=== PATIENT | male | born 1940 | race Caucasian/White ===

== ENCOUNTER 2018-08-28 14:06 | Emergency (ER) | payer MEDICARE ==
[2018-08-28 14:23] VITALS: TEMP 98.9
--- NOTE | 2018-08-28 14:55 | ED ---
General Adult HPI - General Chief complaint: Fall Stated complaint: Hip Pain-Fall Time Seen by Provider: 08/28/18 14:11 Source: patient, family, RN notes reviewed, old records reviewed Mode of arrival: wheelchair Limitations: no limitations - History of Present Illness Initial comments: 77-year-old male presents for evaluation of right hip pain and neck pain. Patient fell on Sunday which was 4 days prior to arrival. He did have some right hip pain at that time however he has been ambulatory. Pain worsened over the past 24 hours. He did not fall second time. Complaining of some low back pain, right hip pain and neck pain. There was no head injury. No loss of consciousness. Denies chest pain or abdominal pain. States he tripped over his feet. There is no preceding symptoms prior to the fall. - Related Data Home Medications Medication Instructions Recorded Confirmed Aspirin EC [Ecotrin Low Dose] 81 mg PO HS 08/28/18 08/28/18 Atenolol 100 mg PO HS 08/28/18 08/28/18 Enalapril [Vasotec] 5 mg PO DAILY 08/28/18 08/28/18 Omeprazole 20 mg PO DAILY 08/28/18 08/28/18 Silodosin [Rapaflo] 8 mg PO DAILY 08/28/18 08/28/18 Simvastatin [Zocor] 10 mg PO HS 08/28/18 08/28/18 Tamsulosin HCl [Flomax] 0.4 mg PO DAILY 08/28/18 08/28/18 Ubidecarenone [Co Q-10] 100 mg PO DAILY 08/28/18 08/28/18 Vit C/E/Zn/Coppr/Lutein/Zeaxan 1 cap PO BID 08/28/18 08/28/18 [Preservision Areds 2 Softgel] Previous Rx's Medication Instructions Recorded methylPREDNISolone Dose Pack 4 mg PO DIRECTED #21 package 08/28/18 [Medrol Dose Pack] Allergies Allergy/AdvReac Type Severity Reaction Status Date / Time No Known Allergies Allergy Verified 08/28/18 14:41 Review of Systems ROS Statement: Those systems with pertinent positive or pertinent negative responses have been documented in the HPI. ROS Other: All systems not noted in ROS Statement are negative. Past Medical History Past Medical History: Chest Pain / Angina, GERD/Reflux, Hyperlipidemia, Hypertension History of Any Multi-Drug Resistant Organisms: None Reported Past Surgical History: Coronary Bypass/CABG, Tonsillectomy Past Psychological History: No Psychological Hx Reported Smoking Status: Current every day smoker Past Alcohol Use History: Daily, Heavy Past Drug Use History: None Reported General Exam Limitations: no limitations General appearance: alert, in no apparent distress Head exam: Present: atraumatic, normocephalic Eye exam: Present: normal appearance, PERRL ENT exam: Present: normal exam Neck exam: Present: normal inspection. Absent: tenderness, meningismus Respiratory exam: Present: normal lung sounds bilaterally. Absent: respiratory distress, wheezes Cardiovascular Exam: Present: regular rate, normal rhythm GI/Abdominal exam: Present: soft. Absent: distended, tenderness Extremities exam: Present: normal inspection, full ROM (Total range of motion of both hips and both knees. Distal pulses intact), normal capillary refill. Absent: tenderness, pedal edema, joint swelling Back exam: Present: full ROM, tenderness (Tenderness over the right lumbar paraspinal muscles. No midline tenderness.) Neurological exam: Present: alert, oriented X3, CN II-XII intact. Absent: motor sensory deficit Psychiatric exam: Present: normal affect, normal mood Skin exam: Present: warm, dry, intact. Absent: cyanosis, diaphoretic Course Vital Signs 08/28/18 14:17 Temperature 98.9 F Pulse Rate 77 Respiratory 18 Rate Blood Pressure 121/64 O2 Sat by Pulse 99 Oximetry Medical Decision Making - Medical Decision Making 77-year-old male with right hip pain status post fall 4 days prior. Patient did also complain of some low back pain and neck pain. CT obtained in the emergency department of the pelvis is significant for osteoarthritis, no acute fracture dislocation. Lumbar CT shows severe degenerative changes and disc disease with stenosis. CT cervical spine stable from previous, no fracture or subluxation, there is degenerative changes. Patient is reevaluated, he is ambulatory, he will stay with his daughter for the next several days and will follow-up with primary care for reevaluation. He will receive a Medrol Dosepak and will take Tylenol at home for pain. Disposition Clinical Impression: Fall, Osteoarthritis, Degenerative disc disease Disposition: HOME SELF-CARE Condition: Good Instructions: Fall Prevention for Older Adults (ED), Osteoarthritis (ED), Degenerative Disc Disease (ED) Prescriptions: methylPREDNISolone Dose Pack [Medrol Dose Pack] 4 mg PO DIRECTED #21 package Is patient prescribed a controlled substance at d/c from ED?: No Referrals: Hossein Langston MD [Primary Care Provider] - 1-2 days Time of Disposition: 16:16
--- NOTE | 2018-08-28 15:31 | CT ---
EXAMINATION TYPE: CT cervical spine wo con DATE OF EXAM: 08/28/2018 COMPARISON: Prior CT cervical spine 04/29/2010 HISTORY: Neck pain CT DLP: 331.5 mGycm Automated exposure control for dose reduction was used. TECHNIQUE: CT scan of the cervical spine is obtained without contrast, axial images are obtained, sagittal and c oronal reformatted images are also reviewed. FINDINGS: Lung apices are unremarkable. Carotid calcifications present at the carotid bifurcations. Cervical spine is visualized in its entirety from C1 through upper thoracic levels, demonstrates sati sfactory alignment without evidence of acute fracture or dislocation. Prevertebral soft tissue appea rs within normal limits. The C1-C2 articulation is within normal limits on the coronal images. Cervi shae vertebral bodies show preserved height and alignment. There is multilevel spondylosis is noted on prior exam, loss of disc height at the intervertebral levels compatible with disc desiccation and de generative disc disease there is multilevel facet arthropathy. Uncovertebral joint hypertrophy and fa cet arthropathy contribute to cause multilevel foraminal encroachment. No significant spinal stenosis evident. Lipoma noted incidentally within the paraspinal musculature on the left shows a similar lawanda earance. IMPRESSION: There is no acute fracture or dislocation evident in the cervical spine. Degenerative disc disease, f oraminal encroachment, findings are similar to prior exam. MRI would be of increased sensitivity.
--- NOTE | 2018-08-28 15:33 | CT ---
EXAMINATION TYPE: CT pelvis wo con DATE OF EXAM: 08/28/2018 COMPARISON: None HISTORY: Low back and right hip pain CT DLP: 1653.0 mGycm Automated exposure control for dose reduction was used. Helical acquisition through the pelvis FINDINGS: Degenerative disc changes are noted the lower lumbar spine. Hypertrophic change is present at the sac roiliac joints with ankylosis present. There is a spinal curvature present. The prostate is enlarged and shows associated calcification. Arthropathy noted in the bilateral hips, there is subchondral geode formation, sclerosis, near complete loss of joint space in the right hip with hypertrophic change. Arthropathy somewhat more mild on the left subchondral cyst formation, mild marginal spurring. Probable Hutch diverticulum present on the left at the posterior aspect of the urinary bladder. Exten sive diverticular change present within the visualized sigmoid colon. No evident pelvic adenopathy. IMPRESSION: SUSPECT UNDERLYING OSTEOARTHRITIS. DEGENERATIVE DISC DISEASE AND SPINAL CURVATURE. PROSTATE IS ENLARG ED.
--- NOTE | 2018-08-28 15:46 | CT ---
EXAMINATION TYPE: CT lumbar spine wo con DATE OF EXAM: 08/28/2018 COMPARISON: None, correlation CT abdomen pelvis same date HISTORY: Low back and right hip pain CT DLP: 1128 mGycm Automated exposure control for dose reduction was used. An unenhanced CT of the lumbar spine was performed. Bone and soft tissue window settings are submitt ed as well as coronal and sagittal reconstructions. FINDINGS: Lumbar vertebral bodies show preserved height and alignment, bone mineralization. There is multilevel spondylosis. Spinal curvature is noted. There is loss of disc height at the intervertebral levels, v acuum phenomenon present at L3-4, L2-3. Hypertrophic anterior flowing osteophytes of the lower thorac ic spine could be indicative of underlying diffuse idiopathic skeletal hyperostosis. Ankylosis of the sacroiliac joints again noted. There is a hiatal hernia with fixed intrathoracic stomach. Lung bases show interstitial lung disease. Possible coronary artery calcifications noted. L1-L2: Normal disc space height. No disc herniation protrusion or central stenosis. No facet joint arthropathy. No evidence for foraminal encroachment. L2-L3: Posterior extension endplate disc complex results in mild anterior mass effect on the thecal s ac. Circumferential extension of endplate disc complex encroaches on the neural foramina. L3-L4: Posterior extension endplate disc complex results in moderate central canal stenosis. There is facet arthropathy. Circumferential extension of endplate disc complex results in bilateral foraminal encroachment. L4-L5: Posterior extension endplate disc complex causes anterior mass effect on the thecal sac, there is facet arthropathy with hypertrophy ligamentum flavum resulting in moderate central canal stenosis . Circumferential extension endplate disc complex causes bilateral foraminal encroachment. L5-S1: Small posterior disc bulge, posterior extension endplate disc complex causes minimal anterior mass effect on the thecal sac. No significant central stenosis. Lateral extension of endplate disc co mplex results in foraminal encroachment bilaterally. Facet arthropathy changes present. IMPRESSION: Degenerative disc disease, facet arthropathy, spinal stenosis as described. Scoliosis. Additional findings above.
[2018-08-28 16:20] VITALS: BP 106/53; PULSE 78; RESP 16
== END 2018-08-28 16:20 | disposition home or self-care (01) ==
LOC: EC 14:06
DX: M51.36 Other intervertebral disc degeneration, lumbar region (principal); M16.11 Unilateral primary osteoarthritis, right hip; M48.061 Spinal stenosis, lumbar region without neurogenic claudication; M47.816 Spondylosis without myelopathy or radiculopathy, lumbar region; M47.812 Spondylosis without myelopathy or radiculopathy, cervical region; E78.5 Hyperlipidemia, unspecified; I10 Essential (primary) hypertension; K21.9 Gastro-esophageal reflux disease without esophagitis; F17.200 Nicotine dependence, unspecified, uncomplicated; Z79.82 Long term (current) use of aspirin; Z79.899 Other long term (current) drug therapy; Z86.79 Personal history of other diseases of the circulatory system; W01.0XXA Fall on same level from slipping, tripping and stumbling without subsequent striking against object, initial encounter; Y92.009 Unspecified place in unspecified non-institutional (private) residence as the place of occurrence of the external cause
CPT/HCPCS: 72125; 72131; 72192; 99284

== ENCOUNTER 2019-08-28 19:23 | Inpatient (IN) | payer MEDICARE ==
[2019-08-28 19:58] LABS: Basophils % (A) 0 %; Eosinophils % (A) 0 %; HCT 37.2 % (39.0-53.0); HGB 12.4 gm/dL (13.0-17.5); Lymphocytes # (A) 0.4 k/uL (1.0-4.8); Lymphocytes % (A) 3 %; MCH 34.6 pg (25.0-35.0); MCHC 33.3 g/dL (31.0-37.0); MCV 103.8 fL (80.0-100.0); Macrocytosis Slight; Mean Platelet Volume 7.3; Monocytes # (A) 0.7 k/uL (0-1.0); Monocytes % (A) 6 %; Neutrophils # (A) 11.4 k/uL (1.3-7.7); Neutrophils % (A) 91 %; Platelet Count 212 k/uL (150-450); RBC 3.58 m/uL (4.30-5.90); RDW 12.1 % (11.5-15.5); WBC 12.6 k/uL (3.8-10.6)
[2019-08-28 20:01] LABS: Glucose,Whole Blood 143 mg/dL (75-99)
[2019-08-28 20:05] LABS: INR 0.9 (<1.2); Partial Thromboplastin Time 28.6 sec (22.0-30.0); Prothrombin Time 9.8 sec (9.0-12.0)
[2019-08-28 20:09] LABS: ALT 19 U/L (21-72); AST 76 U/L (17-59); Acetaminophen <10.0 ug/mL; African American GFR (CKD) 56 (>60 ml/min/1.73 sqM); Albumin 3.7 g/dL (3.5-5.0); Alcohol <10 mg/dL; Alkaline Phosphatase 67 U/L (38-126); Anion Gap 16 mmol/L; Blood Urea Nitrogen 32 mg/dL (9-20); Calcium 9.8 mg/dL (8.4-10.2); Carbon Dioxide 17 mmol/L (22-30); Chloride 98 mmol/L (98-107); Glucose 147 mg/dL (74-99); Potassium 4.5 mmol/L (3.5-5.1); Salicylate <1.0 mg/dL; Sodium 131 mmol/L (137-145); Total Bilirubin 0.7 mg/dL (0.2-1.3); Total Protein 6.8 g/dL (6.3-8.2)
[2019-08-28 20:20] LABS: Creatine Kinase 1339 U/L (55-170)
--- NOTE | 2019-08-28 20:22 | CT ---
EXAMINATION TYPE: CT facial bones wo con DATE OF EXAM: 08/28/2019 COMPARISON: 04/29/2010 HISTORY: PT found face down after unwitnessed fall. LT eye swollen CT DLP: 1250.2 mGycm Automated exposure control for dose reduction was used. TECHNIQUE: CT scan of the sinuses is performed without contrast, axial images are obtained, coronal r eformatted images are also reviewed. FINDINGS: The mandibular ring is intact. Temporomandibular joints appear normal. Zygomatic arches lawanda ear intact. Nasal bone appears intact. The maxilla is intact. There is fairly normal aeration of the paranasal sinuses. The orbital margins are intact. There is no evidence of blowout fracture. There is no evidence of orbital mass. Temporal bones appear intact. IMPRESSION: Negative CT scan of the facial bones. No fracture.
--- NOTE | 2019-08-28 20:26 | CT ---
EXAMINATION TYPE: CT brain cspine wo con DATE OF EXAM: 08/28/2019 COMPARISON: 08/28/[address] scan[address] 05/26/2010 CT scan of the brain. HISTORY: PT found face down after unwitnessed fall. LT eye swollen CT DLP: 1250.2 mGycm Automated exposure control for dose reduction was used. TECHNIQUE: CT scan of the head and cervical spine are performed without contrast. FINDINGS: There is cerebral cortical atrophy. There is no mass effect nor midline shift. There is n o sign of intracranial hemorrhage. The calvarium is intact. Cervical vertebra have normal alignment. There is degenerative disc space narrowing at C5-6 C6-7 and C7-T1. Posterior elements are intact. The skull base is intact. There is no evidence of a fracture. IMPRESSION: Cerebral atrophy. No acute intracranial abnormality. Mild spondylotic changes in the cervical spine. No fracture. No significant change compared to old exams.
[2019-08-28] MEDS ORDERED: SODIUM CHLORIDE 0.9% 500 ML 500 ML IV STA (20:40)
[2019-08-28] MEDS ORDERED: SODIUM CHLORIDE 0.9% 1,000 ML IV STA (20:40)
[2019-08-28 21:03] LABS: Appearance,Urine Turbid (Clear); Bacteria,Urine Rare /hpf; Bilirubin,Urine Negative (Negative); Blood,Urine Negative (Negative); Calcium Oxalate Crystals,Urine Occasional /hpf; Color,Urine Yellow; Glucose,Urine (UA) Negative (Negative); Hyaline Casts,Urine 14 /lpf (0-2); Ketones,Urine 1+ (Negative); Leukocyte Esterase,Urine Small (Negative); Mucus,Urine Rare /hpf; Nitrite,Urine Negative (Negative); PH, Urine 5.5 (5.0-8.0); Protein,Urine Trace (Negative); RBC,Urine 2 /hpf (0-5); Specific Gravity,Urine 1.018 (1.001-1.035); Squamous Epithelial Cell,Urine <1 /hpf (0-4); WBC,Urine 9 /hpf (0-5)
[2019-08-28 21:09] LABS: Amphetamine Screen,Urine Not Detected (NotDetected); Benzodiazepines Screen,Urine Detected (NotDetected); Cocaine Screen,Urine Not Detected (NotDetected); Methadone Screen, Urine Not Detected (NotDetected); Opiate Screen,Urine Not Detected (NotDetected); Phencyclidine Screen,Urine Not Detected (NotDetected); Tricyclic Antidepressant,Urine Not Detected (NotDetected); Urn Cannabinoid Scrn Not Detected (NotDetected)
[2019-08-28 21:10] LABS: Barbiturate Screen,Urine Not Detected (NotDetected); Oxycodone Screen, Urine Not Detected (NotDetected)
--- NOTE | 2019-08-28 21:10 | XR ---
EXAMINATION TYPE: XR chest 2V DATE OF EXAM: 08/28/2019 COMPARISON: 04/29/2010 HISTORY: Fall. Altered mental status. TECHNIQUE: Frontal and lateral views of the chest are obtained. FINDINGS: There is no heart failure nor confluent pneumonic infiltrate. Costophrenic angles are elaine r. There are sternal wires. There is no sign of a pneumothorax. Trachea is midline. Bony thorax appears intact. There is probably large hiatal hernia. IMPRESSION: No active cardiopulmonary disease. No change.
--- NOTE | 2019-08-28 21:14 | XR ---
EXAMINATION TYPE: XR elbow complete bilateral DATE OF EXAM: 08/28/2019 COMPARISON: NONE HISTORY: Pain TECHNIQUE: 3 views each elbow FINDINGS: I see no fracture nor dislocation. Joint spaces are fairly normal. There are no erosions. T here is no sign of elbow joint effusion. IMPRESSION: No acute bony abnormality of the left and right elbow.
--- NOTE | 2019-08-28 21:15 | XR ---
EXAMINATION TYPE: XR forearm bilateral DATE OF EXAM: 08/28/2019 COMPARISON: NONE HISTORY: Pain after falling TECHNIQUE: 2 views each forearm FINDINGS: I see no fracture nor dislocation. Radius and ulna appear intact. Wrist joint and elbow sunil nt appear intact. IMPRESSION: Negative bilateral forearm exam. No fracture seen.
--- NOTE | 2019-08-28 21:16 | XR ---
EXAMINATION TYPE: XR pelvis AP view DATE OF EXAM: 08/28/2019 COMPARISON: NONE HISTORY: Pain TECHNIQUE: Single view FINDINGS: The pelvic ring appears intact. Left hip joint and proximal femur appear intact. There is severe narrowing of right hip joint space with sclerosis and cystic changes on both sides of the hip joint. Sacroiliac joints are intact. IMPRESSION: Advanced osteoarthritis in the right hip joint. No fracture seen.
--- NOTE | 2019-08-28 21:25 | XR ---
EXAMINATION TYPE: XR knee complete bilateral DATE OF EXAM: 08/28/2019 COMPARISON: NONE HISTORY: Bilateral knee pain TECHNIQUE: 3 views each knee FINDINGS: There is no evidence of fracture nor dislocation. Joint spaces are fairly normal. There is no sign of knee joint effusion. There is atherosclerotic vascular calcification. IMPRESSION: No acute abnormality of the left and right knee.
--- NOTE | 2019-08-28 21:43 | ED ---
Fall HPI - General Chief Complaint: Fall Stated Complaint: Fall Altered Mental Status Time Seen by Provider: 08/28/19 19:30 Source: patient, EMS Mode of arrival: EMS - History of Present Illness Initial Comments: The patient is an 78-year-old male who presents to the emergency room after he was found down outside by a neighbor. He was found face down in a patch of dirt. It is unknown how long the patient had been there. Neighbor was unable to provide much history. His daughters to present to bedside. They state that they last talked to him 24 hours prior. He does have a history of significant alcohol abuse and some component of dementia. They state that episodes like this have happened previously in the past and they have concern that the patient can no longer live alone. It is unknown if the patient fell or had a syncopal episode. He does have skin tears to his bilateral upper extremities and lividity noted to his bilateral knees consistent with a prolonged downtime. The patient is denying any pain. He was placed in a c-collar by EMS. Denies any headaches or visual changes. No neck pain or stiffness. The patient does have very confused speech and is tremulous. Daughters state that he has gone through DTs before in the past required hospitalization. The patient denies any nausea or vomiting. No abdominal pain. He is currently on Bactrim for urinary tract infection. The remainder of the HPI is limited because the patient's current condition - Related Data Home Medications Medication Instructions Recorded Confirmed Aspirin EC [Ecotrin Low Dose] 81 mg PO HS 08/28/18 08/28/19 Atenolol 100 mg PO HS 08/28/18 08/28/19 Omeprazole 20 mg PO DAILY 08/28/18 08/28/19 Simvastatin [Zocor] 10 mg PO HS 08/28/18 08/28/19 Tamsulosin HCl [Flomax] 0.4 mg PO DAILY 08/28/18 08/28/19 Ubidecarenone [Co Q-10] 100 mg PO DAILY 08/28/18 08/28/19 Vit C/E/Zn/Coppr/Lutein/Zeaxan 1 cap PO BID 08/28/18 08/28/19 [Preservision Areds 2 Softgel] Enalapril [Vasotec] 5 mg PO DAILY 08/28/19 08/28/19 Ibuprofen/Diphenhydramine HCl 1 cap PO HS 08/28/19 08/28/19 [Advil Pm Liqui-Gels] Sulfamethox-Tmp 800-160Mg [Bactrim 1 tab PO BID 08/28/19 08/28/19 DS 800-160 mg] Thiamine HCl [Vitamin B-1] 100 mg PO DAILY 08/28/19 08/28/19 Allergies Allergy/AdvReac Type Severity Reaction Status Date / Time No Known Allergies Allergy Verified 08/28/19 20:23 Review of Systems ROS Statement: Those systems with pertinent positive or pertinent negative responses have been documented in the HPI. ROS Other: All systems not noted in ROS Statement are negative. Past Medical History Past Medical History: Chest Pain / Angina, GERD/Reflux, Hyperlipidemia, Hypertension History of Any Multi-Drug Resistant Organisms: None Reported Past Surgical History: Coronary Bypass/CABG, Tonsillectomy Past Psychological History: No Psychological Hx Reported Smoking Status: Current every day smoker Past Alcohol Use History: Daily, Heavy Past Drug Use History: None Reported - Past Family History Father Additional Family Medical History / Comment(s): ETOH; gastric cancer General Exam Limitations: altered mental status General appearance: alert, other (disheveled, face is covered in dirt. Patient is a+o x 1. tremulous) Head exam: Present: normocephalic, other (mild swelling, right side of face) Eye exam: Present: normal appearance, PERRL, EOMI ENT exam: Present: normal exam, mucous membranes dry Neck exam: Present: normal inspection. Absent: tenderness, meningismus Respiratory exam: Present: rales (at the bases) Cardiovascular Exam: Present: regular rate, normal rhythm GI/Abdominal exam: Present: soft. Absent: distended, tenderness Extremities exam: Present: full ROM, other (anterior b/l knee eccchymosis and swelling). Absent: tenderness Back exam: Present: normal inspection Neurological exam: Present: alert, altered Psychiatric exam: Present: agitated, anxious Skin exam: Present: pallor, other (cold. lividity bilateral knees. b/l forearm and elbow skin tears) Course Vital Signs 08/28/19 08/28/19 08/28/19 19:27 19:30 20:00 Temperature 97.4 F L Pulse Rate 87 Respiratory 18 Rate Blood Pressure 116/91 116/91 116/91 O2 Sat by Pulse 95 96 Oximetry 08/28/19 08/28/19 08/28/19 20:30 21:00 21:30 Temperature Pulse Rate 84 84 Respiratory 16 18 Rate Blood Pressure 107/68 90/72 90/72 O2 Sat by Pulse 98 Oximetry 08/28/19 08/28/19 08/28/19 22:00 22:30 23:00 Temperature Pulse Rate 84 86 86 Respiratory 16 21 20 Rate Blood Pressure 94/55 102/89 81/55 O2 Sat by Pulse 99 93 L Oximetry 08/28/19 08/29/19 08/29/19 23:30 00:00 00:30 Temperature Pulse Rate 90 87 89 Respiratory 26 H 20 14 Rate Blood Pressure 80/64 88/46 89/55 O2 Sat by Pulse 80 L Oximetry 08/29/19 08/29/19 08/29/19 01:00 01:30 01:36 Temperature Pulse Rate 87 87 Respiratory 23 20 Rate Blood Pressure 88/47 71/60 104/88 O2 Sat by Pulse 86 L 97 Oximetry 08/29/19 08/29/19 08/29/19 01:45 02:00 02:15 Temperature Pulse Rate 89 89 86 Respiratory 22 18 21 Rate Blood Pressure 104/88 90/66 89/51 O2 Sat by Pulse 87 L 100 97 Oximetry 08/29/19 08/29/19 08/29/19 02:30 02:45 03:00 Temperature Pulse Rate 86 86 85 Respiratory 22 19 22 Rate Blood Pressure 80/51 85/55 83/57 O2 Sat by Pulse 99 99 99 Oximetry 08/29/19 08/29/19 08/29/19 03:15 03:21 03:30 Temperature Pulse Rate 84 85 82 Respiratory 20 18 12 Rate Blood Pressure 92/59 104/64 88/70 O2 Sat by Pulse 98 100 99 Oximetry 08/29/19 08/29/19 08/29/19 03:45 03:52 04:00 Temperature Pulse Rate 85 86 84 Respiratory 22 18 22 Rate Blood Pressure 97/44 102/70 108/54 O2 Sat by Pulse 98 81 L Oximetry 08/29/19 08/29/19 04:15 04:30 Temperature Pulse Rate 84 86 Respiratory 22 20 Rate Blood Pressure 98/69 96/80 O2 Sat by Pulse 76 L Oximetry Medical Decision Making - Medical Decision Making Upon arrival the patient was placed into room 1. A thorough history and physical exam was performed. 2 peripheral IVs had been established. Laboratory studies were conducted. The patient was immediately sent over for CT of his brain and cervical spine. Lab studies demonstrate a white blood cell count of 12.6. Hemoglobin is 12.4. Sodium 131. Creatinine 1.3. Glucose is 147. AST 76, ALT 19. CK 1339. Troponin 0.57. Urinalysis shows 1+ ketones, small leukocyte esterase, 9 red blood cells, occasional calcium oxalate crystals, rare bacteria, 14 having casts. Salicylates, acetaminophen and alcohol is negative. I did provide the patient with a gram of Rocephin because of these UA findings. CT of the face demonstrates no acute fractures CT of the head and cervical spine demonstrates cerebral atrophy, no acute intracranial abnormality. Mild spondylitic changes of cervical spine. No fracture. No significant change. Chest x-ray demonstrates no active cardiopulmonary disease elbow x-ray demonstrates no acute bony abnormality of the left and right elbows. Forearm x- ray demonstrates no acute fractures. 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 Bilateral knee x-ray demonstrates no acute abnormalities. CT of the patient's abdomen and pelvis demonstrates some infiltrate and atelectasis at the posterior lung base. Large hiatal hernia. The patient does demonstrate signs of active DVTs. Because this is placed on CIWA protocol. Urinalysis shows benzodiazepines because of this. Patient does have labile blood pressures while within the emergency room. He was given initially 2-500 mL fluid boluses. He was then started on a 100 cc per hour. T he blood pressure cuff was moved to the leg. We did monitor his blood pressure closely and was stable. I did recommend ICU admission because of the labile blood pressures for which Dr. Alvarez did agree. I called and discuss case with Dr. Menjivar. He has recommend a second fluid bolus which was provided to the patient. I did order peripheral levo which may be given through a peripheral IV if needed a later time as I am the patient will become fluid overloaded. The patient remained in critically stable condition and was awaiting a bed in the ICU - Lab Data Result diagrams: 08/31/19 08:28 08/31/19 04:36 Lab Results 08/28/19 08/28/19 08/28/19 Range/Units 19:40 19:40 19:40 WBC 12.6 H (3.8-10.6) k/uL RBC 3.58 L (4.30-5.90) m/uL Hgb 12.4 L (13.0-17.5) gm/dL Hct 37.2 L (39.0-53.0) % MCV 103.8 H (80.0-100.0) fL MCH 34.6 (25.0-35.0) pg MCHC 33.3 (31.0-37.0) g/dL RDW 12.1 (11.5-15.5) % Plt Count 212 (150-450) k/uL Neutrophils % 91 % Lymphocytes % 3 % Monocytes % 6 % Eosinophils % 0 % Basophils % 0 % Neutrophils # 11.4 H (1.3-7.7) k/uL Lymphocytes # 0.4 L (1.0-4.8) k/uL Monocytes # 0.7 (0-1.0) k/uL Eosinophils # 0.0 (0-0.7) k/uL Basophils # 0.0 (0-0.2) k/uL Macrocytosis Slight PT 9.8 (9.0-12.0) sec INR 0.9 (<1.2) APTT 28.6 (22.0-30.0) sec Sodium 131 L (137-145) mmol/L Potassium 4.5 (3.5-5.1) mmol/L Chloride 98 (98-107) mmol/L Carbon Dioxide 17 L (22-30) mmol/L Anion Gap 16 mmol/L BUN 32 H (9-20) mg/dL Creatinine 1.36 H (0.66-1.25) mg/dL Est GFR (CKD-EPI)AfAm 56 (>60 ml/min/1.73 sqM) Est GFR (CKD-EPI)NonAf 49 (>60 ml/min/1.73 sqM) Glucose 147 H (74-99) mg/dL POC Glucose (mg/dL) (75-99) mg/dL POC Glu [employer] ID Calcium 9.8 (8.4-10.2) mg/dL Total Bilirubin 0.7 (0.2-1.3) mg/dL AST 76 H (17-59) U/L ALT 19 L (21-72) U/L Alkaline Phosphatase 67 (38-126) U/L Ammonia (<30) umol/L Creatine Kinase 1339 H* (55-170) U/L Troponin I (0.000-0.034) ng/mL Total Protein 6.8 (6.3-8.2) g/dL Albumin 3.7 (3.5-5.0) g/dL Urine Color Urine Appearance (Clear) Urine pH (5.0-8.0) Ur Specific [place] (1.001-1.035) Urine Protein (Negative) Urine Glucose (UA) (Negative) Urine Ketones (Negative) Urine Blood (Negative) Urine Nitrite (Negative) Urine Bilirubin (Negative) Urine Urobilinogen (<2.0) mg/dL Ur Leukocyte Esterase (Negative) Urine RBC (0-5) /hpf Urine WBC (0-5) /hpf Ur Squamous Epith Cells (0-4) /hpf Calcium Oxalate Crystal (None) /hpf Urine Bacteria (None) /hpf Hyaline Casts (0-2) /lpf Urine Mucus (None) /hpf Salicylates <1.0 mg/dL Urine Opiates Screen (NotDetected) Ur Oxycodone Screen (NotDetected) Urine Methadone Screen (NotDetected) Ur Propoxyphene Screen (NotDetected) Acetaminophen <10.0 ug/mL Ur Barbiturates Screen (NotDetected) U Tricyclic Antidepress (NotDetected) Ur Phencyclidine Scrn (NotDetected) Ur Amphetamines Screen (NotDetected) U Methamphetamines Scrn (NotDetected) U Benzodiazepines Scrn (NotDetected) Urine Cocaine Screen (NotDetected) U Marijuana (THC) Screen (NotDetected) Serum Alcohol <10 mg/dL 08/28/19 08/28/19 08/28/19 Range/Units 19:40 19:40 19:59 WBC (3.8-10.6) k/uL RBC (4.30-5.90) m/uL Hgb (13.0-17.5) gm/dL Hct (39.0-53.0) % MCV (80.0-100.0) fL MCH (25.0-35.0) pg MCHC (31.0-37.0) g/dL RDW (11.5-15.5) % Plt Count (150-450) k/uL Neutrophils % % Lymphocytes % % Monocytes % % Eosinophils % % Basophils % % Neutrophils # (1.3-7.7) k/uL Lymphocytes # (1.0-4.8) k/uL Monocytes # (0-1.0) k/uL Eosinophils # (0-0.7) k/uL Basophils # (0-0.2) k/uL Macrocytosis PT (9.0-12.0) sec INR (<1.2) APTT (22.0-30.0) sec Sodium (137-145) mmol/L Potassium (3.5-5.1) mmol/L Chloride (98-107) mmol/L Carbon Dioxide (22-30) mmol/L Anion Gap mmol/L BUN (9-20) mg/dL Creatinine (0.66-1.25) mg/dL Est GFR (CKD-EPI)AfAm (>60 ml/min/1.73 sqM) Est GFR (CKD-EPI)NonAf (>60 ml/min/1.73 sqM) Glucose (74-99) mg/dL POC Glucose (mg/dL) 143 H (75-99) mg/dL POC Glu [employer] Officer ID Woo, Marlyn Calcium (8.4-10.2) mg/dL Total Bilirubin (0.2-1.3) mg/dL AST (17-59) U/L ALT (21-72) U/L Alkaline Phosphatase (38-126) U/L Ammonia <9 (<30) umol/L Creatine Kinase (55-170) U/L Troponin I 0.570 H* (0.000-0.034) ng/mL Total Protein (6.3-8.2) g/dL Albumin (3.5-5.0) g/dL Urine Color Urine Appearance (Clear) Urine pH (5.0-8.0) Ur Specific [place] (1.001-1.035) Urine Protein (Negative) Urine Glucose (UA) (Negative) Urine Ketones (Negative) Urine Blood (Negative) Urine Nitrite (Negative) Urine Bilirubin (Negative) Urine Urobilinogen (<2.0) mg/dL Ur Leukocyte Esterase (Negative) Urine RBC (0-5) /hpf Urine WBC (0-5) /hpf Ur Squamous Epith Cells (0-4) /hpf Calcium Oxalate Crystal (None) /hpf Urine Bacteria (None) /hpf Hyaline Casts (0-2) /lpf Urine Mucus (None) /hpf Salicylates mg/dL Urine Opiates Screen (NotDetected) Ur Oxycodone Screen (NotDetected) Urine Methadone Screen (NotDetected) Ur Propoxyphene Screen (NotDetected) Acetaminophen ug/mL Ur Barbiturates Screen (NotDetected) U Tricyclic Antidepress (NotDetected) Ur Phencyclidine Scrn (NotDetected) Ur Amphetamines Screen (NotDetected) U Methamphetamines Scrn (NotDetected) U Benzodiazepines Scrn (NotDetected) Urine Cocaine Screen (NotDetected) U Marijuana (THC) Screen (NotDetected) Serum Alcohol mg/dL 08/28/19 Range/Units 20:39 WBC (3.8-10.6) k/uL RBC (4.30-5.90) m/uL Hgb (13.0-17.5) gm/dL Hct (39.0-53.0) % MCV (80.0-100.0) fL MCH (25.0-35.0) pg MCHC (31.0-37.0) g/dL RDW (11.5-15.5) % Plt Count (150-450) k/uL Neutrophils % % Lymphocytes % % Monocytes % % Eosinophils % % Basophils % % Neutrophils # (1.3-7.7) k/uL Lymphocytes # (1.0-4.8) k/uL Monocytes # (0-1.0) k/uL Eosinophils # (0-0.7) k/uL Basophils # (0-0.2) k/uL Macrocytosis PT (9.0-12.0) sec INR (<1.2) APTT (22.0-30.0) sec Sodium (137-145) mmol/L Potassium (3.5-5.1) mmol/L Chloride (98-107) mmol/L Carbon Dioxide (22-30) mmol/L Anion Gap mmol/L BUN (9-20) mg/dL Creatinine (0.66-1.25) mg/dL Est GFR (CKD-EPI)AfAm (>60 ml/min/1.73 sqM) Est GFR (CKD-EPI)NonAf (>60 ml/min/1.73 sqM) Glucose (74-99) mg/dL POC Glucose (mg/dL) (75-99) mg/dL POC Glu [employer] ID Calcium (8.4-10.2) mg/dL Total Bilirubin (0.2-1.3) mg/dL AST (17-59) U/L ALT (21-72) U/L Alkaline Phosphatase (38-126) U/L Ammonia (<30) umol/L Creatine Kinase (55-170) U/L Troponin I (0.000-0.034) ng/mL Total Protein (6.3-8.2) g/dL Albumin (3.5-5.0) g/dL Urine Color Yellow Urine Appearance Turbid (Clear) Urine pH 5.5 (5.0-8.0) Ur Specific [place] 1.018 (1.001-1.035) Urine Protein Trace H (Negative) Urine Glucose (UA) Negative (Negative) Urine Ketones 1+ H (Negative) Urine Blood Negative (Negative) Urine Nitrite Negative (Negative) Urine Bilirubin Negative (Negative) Urine Urobilinogen 4.0 (<2.0) mg/dL Ur Leukocyte Esterase Small H (Negative) Urine RBC 2 (0-5) /hpf Urine WBC 9 H (0-5) /hpf Ur Squamous Epith Cells <1 (0-4) /hpf Calcium Oxalate Crystal Occasional H (None) /hpf Urine Bacteria Rare H (None) /hpf Hyaline Casts 14 H (0-2) /lpf Urine Mucus Rare H (None) /hpf Salicylates mg/dL Urine Opiates Screen Not Detected (NotDetected) Ur Oxycodone Screen Not Detected (NotDetected) Urine Methadone Screen Not Detected (NotDetected) Ur Propoxyphene Screen Not Detected (NotDetected) Acetaminophen ug/mL Ur Barbiturates Screen Not Detected (NotDetected) U Tricyclic Antidepress Not Detected (NotDetected) Ur Phencyclidine Scrn Not Detected (NotDetected) Ur Amphetamines Screen Not Detected (NotDetected) U Methamphetamines Scrn Not Detected (NotDetected) U Benzodiazepines Scrn Detected H (NotDetected) Urine Cocaine Screen Not Detected (NotDetected) U Marijuana (THC) Screen Not Detected (NotDetected) Serum Alcohol mg/dL - EKG Data EKG Comments: EKG demonstrates a sinus rhythm with a first-degree AV block. Rate of 88. ID interval 262. QRS 82. QTC 479. There are no acute ST segment elevations or depressions concerning for ischemic changes Second EKG performed at 00:46 demonstrates a sinus rhythm with a ventricular rate of 88. ID interval 260. QRS 90. QTC 479. No acute ST segment elevations. There is some lateral depressions in V4 through V6. Disposition Clinical Impression: Fall, Blunt head trauma, Alcohol withdrawal, Delirium tremens, Acute encep halopathy Disposition: ADMITTED IP TO THIS HOSP Condition: Serious Is patient prescribed a controlled substance at d/c from ED?: No Decision to Admit Reason: Admit from EC Decision Date: 08/29/19 Decision Time: 02:07
[2019-08-28] MEDS: LORazepam 2 MG/ML INJ IV PRN (21:53)
[2019-08-29] MEDS ORDERED: SODIUM CHLORIDE 0.9% 1,000 ML IV STA (00:38)
[2019-08-29] MEDS ORDERED: SODIUM CHLORIDE 0.9% 500 ML 500 ML IV STA (00:38)
[2019-08-29] MEDS ORDERED: NOREPINEPHRINE 4 MG in SODIUM CHLORIDE 0.9% 250 ML IV ONE (01:27)
--- NOTE | 2019-08-29 02:31 | CT ---
EXAMINATION TYPE: CT abdomen pelvis wo con DATE OF EXAM: 08/29/2019 COMPARISON: None HISTORY: hypotension CT DLP: 934.6 mGycm Automated exposure control for dose reduction was used. TECHNIQUE: Helical acquisition of images was performed from the lung bases through the pelvis. FINDINGS: There is some atelectasis at the lung bases. There is no pleural effusion. Heart is enlarged. There i s large hiatal hernia. Liver shows no focal defect. There are multiple small gallstones. Spleen is intact. There is no evide nce of pancreatic mass. There is no adrenal mass. Kidneys show normal size and contour. There is no hydronephrosis. Ureters a re not dilated. There is no retroperitoneal adenopathy. Appendix appears normal. Bladder distends smo othly. There is prostatic calcification. There is no inguinal hernia. There is no free fluid in the p david. There are sigmoid diverticula without evidence of diverticulitis. There is no mesenteric edema. There is no ascites or free air. There is no sign of a bowel obstructio n. There is spondylotic changes throughout the lumbar spine. There is no compression fracture.. IMPRESSION: THERE IS SOME INFILTRATE AND ATELECTASIS AT THE POSTERIOR LUNG BASES. LARGE HIATAL HERNIA. NO ACUTE A BNORMALITY WITHIN THE ABDOMEN PELVIS.
[2019-08-29] MEDS ORDERED: NALOXONE 0.4 MG/ML 1 ML VIAL IV PRN ×2 (02:54→03:01)
[2019-08-29] MEDS ORDERED: SODIUM CHLORIDE 0.9% 1,000 ML IV ONE (03:02)
[2019-08-29 04:31] LABS: Glucose,Whole Blood 95 mg/dL (75-99)
[2019-08-29 05:02] LABS: Glucose,Whole Blood 93 mg/dL (75-99)
[2019-08-29] MEDS: LORazepam 2 MG/ML INJ IV PRN ×3 (05:50→18:59)
[2019-08-29] MEDS: SODIUM CHLORIDE 0.9% 1,000 ML IV SCH ×2 (07:19→08:07)
--- NOTE | 2019-08-29 08:20 | XR ---
EXAMINATION TYPE: XR chest 1V portable DATE OF EXAM: 08/29/2019 COMPARISON: 08/28/2019 HISTORY: Shortness of breath TECHNIQUE: Single frontal view of the chest is obtained. FINDINGS: Post CABG changes are seen. Cardiomediastinal silhouette is enlarged. Interstitial promine nce is chronic throughout. No focal consolidation. Very minimal left basilar atelectasis. Diffuse oss eous demineralization. IMPRESSION: Minimal left basilar atelectasis, otherwise no acute process. Stable cardiomegaly.
[2019-08-29 08:33] LABS: HCT 30.2 % (39.0-53.0); HGB 10.2 gm/dL (13.0-17.5); MCH 35.7 pg (25.0-35.0); MCHC 33.7 g/dL (31.0-37.0); MCV 106.1 fL (80.0-100.0); Macrocytosis Slight; Mean Platelet Volume 7.2; Platelet Count 202 k/uL (150-450); RBC 2.85 m/uL (4.30-5.90); RDW 12.2 % (11.5-15.5); WBC 10.6 k/uL (3.8-10.6)
[2019-08-29 08:46] LABS: Calcium 8.8 mg/dL (8.4-10.2); Potassium 4.7 mmol/L (3.5-5.1)
--- NOTE | 2019-08-29 09:53 | CONS ---
CONSULTATION PULMONARY/CRITICAL CARE CONSULTATION: DATE OF CONSULTATION: August 29, 2019 This is an 78-year-old male who presented to the emergency department via EMS on August 29. He apparently was found down at home by a neighbor. He was face down in a patch of dirt. It is not clear to how long he was down. It may have been up to 24 hours. Anyway, the patient was seen and has a history of alcohol abuse and some component of dementia. He was thought to be going through active delirium tremens when he was being evaluated in the emergency room. The patient did have some skin tears and some bruises to his extremities, suggesting that he may have fallen. The patient was placed on a C-collar by EMS. He apparently denied any headache or visual changes in the emergency department. There was no neck stiffness. He apparently did have very confusing speech and he was tremulous and was thought to be having delirium tremens. There were no other complaints including any abdominal complaints, chest pain or difficulty breathing. The patient was brought into the ICU because of potential for delirium tremens and there may have been a component of rhabdomyolysis and mental status changes. He apparently has a history of CAD, bypass grafting, hypertension, diverticular disease, and significant tobacco and alcohol abuse. Currently, he is on O2 at 2 L by nasal cannula, a saline IV at 100 mL an hour and norepinephrine at 2.5 mcg/minute. I did tell the nurse to give the patient a couple liters of fluid to see if we could not wean off the norepinephrine. HOME MEDICATIONS: His home medications apparently include low-dose aspirin, atenolol, omeprazole, Zocor, Flomax, coenzyme Q, eye vitamins, Vasotec, Advil PM, Bactrim, and thiamine. ALLERGIES: Allergies are denied. MEDICAL HISTORY: Medical history as mentioned include angina, GERD, hyperlipidemia, hypertension, CAD, bypass grafting, and diverticular disease. SURGICAL HISTORY: Previous surgical history includes bypass grafting and tonsillectomy. SOCIAL HISTORY: Social history is positive for daily alcohol and tobacco abuse. No illicit drug use. FAMILY HISTORY: Family history was apparently unremarkable according to family members at the bedside. REVIEW OF SYSTEMS: Review of systems could not be accurately obtained. The patient's mental status precluded that. PHYSICAL EXAMINATION: VITAL SIGNS: Current vital signs are reviewed. Temperature is 98.9, heart rate 78, respiratory rate 16, blood pressure 93/58, mean 69, saturations on 2 L are 98%. GENERAL: Appears in no acute distress. HEENT: Examination is grossly unremarkable. Nasal O2 noted. NECK: Supple. No neck vein distention. No adenopathy or thyromegaly. CARDIOVASCULAR: Examination reveals regular rhythm and rate. Heart rate in mid 70s. S1, S2 normal. LUNGS: Reveal a few scattered rhonchi. No wheezes or crackles. ABDOMEN: Soft. EXTREMITIES: Are intact. No cyanosis, clubbing, or edema. SKIN: Without rash. NEUROLOGIC: Examination is difficult to assess given his mental status. LAB DATA: Lab data is reviewed. White count 12.6, hemoglobin 12.4, hematocrit 37.2, platelet count 212,000. PT, INR and PTT all normal. Sodium 131, potassium 4.5, chloride 98, CO2 is 17. Anion gap is 16. BUN and creatinine were 32 and 1.36. CK was 1339. Repeat is pending. Troponin was 0.570 and 0.939. Urine had trace protein, 1+ ketones, small leukocyte esterase, 9 WBCs and rare bacteria. Drug screen was positive for benzodiazepines. Alcohol was less than 10. Tylenol less than 10 and salicylate less than 1. He had a chest x-ray which showed no active disease. I believe the rest of his x-rays including face CT, head CT, C-spine CT, elbow x-ray, forearm x-ray, pelvic x-ray and knee x-ray were all negative. Apparently his abdominal pelvic CT was also negative according to the ER physician. MEDICATIONS: Medications are reviewed. He is currently on Ativan per CIWA protocol, Narcan, saline IV and norepinephrine. ASSESSMENT: 1. History of chronic alcohol abuse, rule out alcoholic delirium tremens and alcohol withdrawal syndrome. 2. Rule out rhabdomyolysis. 3. Mental status changes, likely from history of alcohol abuse and underlying dementia. 4. Hypotension, may relate to dehydration and/or sepsis. 5. Coronary artery disease, status post bypass grafting. 6. History of hypertension. 7. Diverticular disease. 8. History of chronic alcohol and tobacco abuse. 9. Angina pectoris. 10.Gastroesophageal reflux disease. 11.History of hyperlipidemia. PLAN: The patient is relatively stable. We are going to give the patient some additional fluids to see if we cannot wean off the norepinephrine. His respiratory status seems stable. Chest x-ray was normal. We will continue to watch him closely for evidence of alcohol withdrawal syndrome and also rhabdomyolysis. Repeat CK today. Troponins were noted. Additional recommendations and suggestions from the family are forthcoming. Prognosis is guarded. MMODL / IJN: [id number] /
--- NOTE | 2019-08-29 13:44 | P.HPIM ---
History of Present Illness This is a pleasant 80 years old male with past medical history of alcohol abuse, smoking cigarettes, hyperlipidemia, hypertension, esophageal stricture, GERD. Patient cannot provide information so it was taken from the medical records and staff He was found face down in a patch of dirt. It is unknown how long the patient had been there. His daughters talked to him 24 hours prior. He does have a history of significant alcohol abuse and some component of dementia. They state that episodes like this have happened previously in the past due to concern that the patient can no longer live alone. Daughters state that he has gone through DTs before in the past required hospitalization. Blood pressure was down when he came to the emergency room and it went As low as 80/56, patient was started on levopohed, however it was stopped was taken to the ICU. His breathing at 16. He is afebrile and blood pressure currently is 8 4/64. CBC and serum electrolytes were unremarkable except for mild hyponatremia at 133 and elevated BUN at 29, creatine kinase elevated at 1009 and troponin is elevated at 0.9. Urinalysis is not suspicious of infection. Chest x-ray showed no acute process. EKG showed normal sinus rhythm at [address] of the abdomen and pelvis: No acute abnormality. Several x-ray of the knee, pelvis, bilateral forearms were negative for any fracture. CT of the head no acute events negative exam In the emergency room patient was given 1 L of normal saline was started on 75 L/h, Ativan as needed and started on ceftriaxone and the benefits. The fit was stopped, as well as the fluids. Review of Systems not applicable Past Medical History Past Medical History: Chest Pain / Angina, GERD/Reflux, Hyperlipidemia, Hypertension, Myocardial Infarction ([place]), Prostate Disorder Additional Past Medical History / Comment(s): Esophageal strictures, macular degeneration, UTI (08/19/19 Last Myocardial Infarction Date:: 1992 History of Any Multi-Drug Resistant Organisms: None Reported Past Surgical History: Coronary Bypass/CABG, Tonsillectomy Past Psychological History: Depression Smoking Status: Current every day smoker Past Alcohol Use History: Daily, Heavy Additional Past Alcohol Use History / Comment(s): 12 ounces/day Past Drug Use History: None Reported - Past Family History Father Additional Family Medical History / Comment(s): ETOH; gastric cancer Medications and Allergies Home Medications Medication Instructions Recorded Confirmed Type Aspirin EC [Ecotrin Low Dose] 81 mg PO HS 08/28/18 08/28/19 History Atenolol 100 mg PO HS 08/28/18 08/28/19 History Omeprazole 20 mg PO DAILY 08/28/18 08/28/19 History Simvastatin [Zocor] 10 mg PO HS 08/28/18 08/28/19 History Tamsulosin HCl [Flomax] 0.4 mg PO DAILY 08/28/18 08/28/19 History Ubidecarenone [Co Q-10] 100 mg PO DAILY 08/28/18 08/28/19 History Vit C/E/Zn/Coppr/Lutein/Zeaxan 1 cap PO BID 08/28/18 08/28/19 History [Preservision Areds 2 Softgel] Enalapril [Vasotec] 5 mg PO DAILY 08/28/19 08/28/19 History Ibuprofen/Diphenhydramine HCl 1 cap PO HS 08/28/19 08/28/19 History [Advil Pm Liqui-Gels] Sulfamethox-Tmp 800-160Mg [Bactrim 1 tab PO BID 08/28/19 08/28/19 History DS 800-160 mg] Thiamine HCl [Vitamin B-1] 100 mg PO DAILY 08/28/19 08/28/19 History Allergies Allergy/AdvReac Type Severity Reaction Status Date / Time No Known Allergies Allergy Verified 08/28/19 20:23 Physical Exam Vitals: Vital Signs Temp Pulse Pulse Resp BP Pulse Ox 08/29/19 09:00 82 15 91/55 95 08/29/19 08:45 77 16 94/56 95 08/29/19 08:30 80 23 102/71 94 L 08/29/19 08:15 84 19 101/72 95 08/29/19 08:04 97 08/29/19 08:00 96.7 F L 79 18 91/59 94 L 08/29/19 07:45 81 21 80/56 98 08/29/19 07:30 78 16 93/58 98 08/29/19 07:15 81 21 93/51 97 08/29/19 07:00 80 17 92/49 97 08/29/19 06:45 83 17 89/51 96 08/29/19 06:30 83 17 108/69 94 L 08/29/19 06:15 84 22 97/63 93 L 08/29/19 06:00 88 85 10 L 104/93 93 L 08/29/19 05:45 86 20 108/67 93 L 08/29/19 05:30 90 23 119/73 95 08/29/19 05:15 98.9 F 87 18 110/67 93 L 08/29/19 04:46 98.9 F 08/29/19 04:30 86 20 96/80 08/29/19 04:15 84 22 98/69 76 L 08/29/19 04:00 84 22 108/54 81 L 08/29/19 03:52 86 18 102/70 98 08/29/19 03:45 85 22 97/44 08/29/19 03:30 82 12 88/70 99 08/29/19 03:21 85 18 104/64 100 08/29/19 03:15 84 20 92/59 98 08/29/19 03:00 85 22 83/57 99 08/29/19 02:45 86 19 85/55 99 08/29/19 02:30 86 22 80/51 99 08/29/19 02:15 86 21 89/51 97 08/29/19 02:00 89 18 90/66 100 08/29/19 01:45 89 22 104/88 87 L 08/29/19 01:36 104/88 08/29/19 01:30 87 20 71/60 97 08/29/19 01:00 87 23 88/47 86 L 08/29/19 00:30 89 14 89/55 80 L 08/29/19 00:00 87 20 88/46 08/28/19 23:30 90 26 H 80/64 08/28/19 23:00 86 20 81/55 93 L 08/28/19 22:30 86 21 102/89 08/28/19 22:00 84 16 94/55 99 08/28/19 21:30 84 18 90/72 98 08/28/19 21:00 90/72 08/28/19 20:30 84 16 107/68 08/28/19 20:00 116/91 08/28/19 19:30 116/91 96 08/28/19 19:27 97.4 F L 87 18 116/91 95 Intake and Output 08/28/19 08/29/19 08/29/19 22:59 06:59 14:59 Intake Total 3257.536 2101.175 Output Total 155 135 Balance 3102.536 1966.175 Intake: IV 200 2100 Sodium Chloride 0.9% 1, 200 1100 000 ml @ 100 mls/hr IV . Q10H STA Rx#:[id number] Sodium Chloride 0.9% 1, 1000 000 ml @ 999 mls/hr IV . Q1H1M MILI Rx#:[id number] Amount of Fluid Infused ( 3000 ml) Intake, IV Titration 57.536 1.175 Amount Norepinephrine 4 mg In 57.536 1.175 Sodium Chloride 0.9% 250 ml @ 0.05 MCG/KG/MIN 14. 69 mls/hr IV .[id number] ONE Rx#:[id number] Output: Urine 155 135 Other: Voiding Method Indwelling Catheter Weight 77.111 kg 88.2 kg -GENERAL: The patient is confused and obtunded HEENT: Pupils are round and equally reacting to light. EOMI. No scleral icterus. No conjunctival pallor. Normocephalic, atraumatic. No pharyngeal erythema. No thyromegaly. CARDIOVASCULAR: S1 and S2 present. No murmurs, rubs, or gallops. PULMONARY: Chest is clear to auscultation, no wheezing or crackles. ABDOMEN: Soft, nontender, nondistended, normoactive bowel sounds. No palpable o rganomegaly. MUSCULOSKELETAL: No joint swelling or deformity. EXTREMITIES: No cyanosis, clubbing, or pedal edema. NEUROLOGICAL: Gross neurological examination did not reveal any focal deficits. SKIN: No rashes. no petechiae. Results CBC & Chem 7: 08/29/19 07:59 08/29/19 07:59 Labs: Abnormal Lab Results - Last 24 Hours (Table) 08/28/19 08/28/19 08/28/19 Range/Units 19:40 19:40 19:40 WBC 12.6 H (3.8-10.6) k/uL RBC 3.58 L (4.30-5.90) m/uL Hgb 12.4 L (13.0-17.5) gm/dL Hct 37.2 L (39.0-53.0) % MCV 103.8 H (80.0-100.0) fL MCH (25.0-35.0) pg Neutrophils # 11.4 H (1.3-7.7) k/uL Lymphocytes # 0.4 L (1.0-4.8) k/uL Sodium 131 L (137-145) mmol/L Carbon Dioxide 17 L (22-30) mmol/L BUN 32 H (9-20) mg/dL Creatinine 1.36 H (0.66-1.25) mg/dL Glucose 147 H (74-99) mg/dL POC Glucose (mg/dL) (75-99) mg/dL AST 76 H (17-59) U/L ALT 19 L (21-72) U/L Creatine Kinase 1339 H* (55-170) U/L Troponin I 0.570 H* (0.000-0.034) ng/mL Urine Protein (Negative) Urine Ketones (Negative) Ur Leukocyte Esterase (Negative) Urine WBC (0-5) /hpf Calcium Oxalate Crystal (None) /hpf Urine Bacteria (None) /hpf Hyaline Casts (0-2) /lpf Urine Mucus (None) /hpf U Benzodiazepines Scrn (NotDetected) 08/28/19 08/28/19 08/29/19 Range/Units 19:59 20:39 04:25 WBC (3.8-10.6) k/uL RBC (4.30-5.90) m/uL Hgb (13.0-17.5) gm/dL Hct (39.0-53.0) % MCV (80.0-100.0) fL MCH (25.0-35.0) pg Neutrophils # (1.3-7.7) k/uL Lymphocytes # (1.0-4.8) k/uL Sodium (137-145) mmol/L Carbon Dioxide (22-30) mmol/L BUN (9-20) mg/dL Creatinine (0.66-1.25) mg/dL Glucose (74-99) mg/dL POC Glucose (mg/dL) 143 H (75-99) mg/dL AST (17-59) U/L ALT (21-72) U/L Creatine Kinase (55-170) U/L Troponin I 0.939 H* (0.000-0.034) ng/mL Urine Protein Trace H (Negative) Urine Ketones 1+ H (Negative) Ur Leukocyte Esterase Small H (Negative) Urine WBC 9 H (0-5) /hpf Calcium Oxalate Crystal Occasional H (None) /hpf Urine Bacteria Rare H (None) /hpf Hyaline Casts 14 H (0-2) /lpf Urine Mucus Rare H (None) /hpf U Benzodiazepines Scrn Detected H (NotDetected) 08/29/19 08/29/19 08/29/19 Range/Units 07:59 07:59 07:59 WBC (3.8-10.6) k/uL RBC 2.85 L (4.30-5.90) m/uL Hgb 10.2 L (13.0-17.5) gm/dL Hct 30.2 L (39.0-53.0) % MCV 106.1 H (80.0-100.0) fL MCH 35.7 H (25.0-35.0) pg Neutrophils # (1.3-7.7) k/uL Lymphocytes # (1.0-4.8) k/uL Sodium 133 L (137-145) mmol/L Carbon Dioxide 18 L (22-30) mmol/L BUN 29 H (9-20) mg/dL Creatinine (0.66-1.25) mg/dL Glucose (74-99) mg/dL POC Glucose (mg/dL) (75-99) mg/dL AST (17-59) U/L ALT (21-72) U/L Creatine Kinase 1009 H* (55-170) U/L Troponin I 0.932 H* (0.000-0.034) ng/mL Urine Protein (Negative) Urine Ketones (Negative) Ur Leukocyte Esterase (Negative) Urine WBC (0-5) /hpf Calcium Oxalate Crystal (None) /hpf Urine Bacteria (None) /hpf Hyaline Casts (0-2) /lpf Urine Mucus (None) /hpf U Benzodiazepines Scrn (NotDetected) Thrombosis Risk Factor Assmnt - Choose All That Apply Any of the Below Risk Factors Present?: No Other Risk Factors: Yes Each Risk Factor Represents 3 Points: Age 75 years or older Other congenital or acquired thrombophilia - If yes, enter type in comment: No Thrombosis Risk Factor Assessment Total Risk Factor Score: 3 Thrombosis Risk Factor Assessment Level: Moderate Risk Assessment and Plan Assessment: Metabolic versus toxic encephalopathy. Mostly from alcohol abuse plus dementia Alcohol abuse and intoxication Elevated troponin Elevated CPK concerning for her, lysis Hypertension needed short-term levophed Nicotine dependence Hyperlipidemia Hypertension Dementia History of esophageal stricture Plan: This is a pleasant 78 years old male who presents with altered mental status and hypotension. Patient remains in the ICU with critical care team are following the case closely. Patient was on IV fluids for possible rhabdomyolysis, check And follow-up the level. Consult cardiology for elevated troponin Labs and medication were reviewed.. Continue same treatment. Continue with symptomatic treatment. Resume home medication. Monitor lytes and vitals. DVT and GI prophylaxis. Further recommendations of the clinical course of the patient DVT prophylaxis: Subcutaneous heparin GI Prophylaxis: Pepcid Prognosis is guarded
[2019-08-29] MEDS ORDERED: THIAMINE 100 MG in SODIUM CHLORIDE 0.9% 50 ML IVPB SCH (13:45)
[2019-08-29] MEDS: THIAMINE 100 MG/ML 2 ML VIAL IVP SCH (15:36)
[2019-08-29] MEDS: FAMOTIDINE 20 MG/2 ML VIAL IV SCH (21:45)
[2019-08-29] MEDS: HEPARIN SODIUM,PORCINE 5,000 UNIT/ML 1 ML VIAL SQ SCH (21:45)
[2019-08-30 05:06] LABS: Basophils # (A) 0.1 k/uL (0-0.2); Basophils % (A) 1 %; Eosinophils # (A) 0.3 k/uL (0-0.7); Eosinophils % (A) 3 %; HCT 31.7 % (39.0-53.0); HGB 10.4 gm/dL (13.0-17.5); Lymphocytes # (A) 0.7 k/uL (1.0-4.8); Lymphocytes % (A) 10 %; MCH 34.9 pg (25.0-35.0); MCHC 32.9 g/dL (31.0-37.0); MCV 106.2 fL (80.0-100.0); Macrocytosis Slight; Mean Platelet Volume 6.8; Monocytes # (A) 0.6 k/uL (0-1.0); Monocytes % (A) 8 %; Neutrophils # (A) 5.9 k/uL (1.3-7.7); Neutrophils % (A) 77 %; Platelet Count 217 k/uL (150-450); RBC 2.98 m/uL (4.30-5.90); RDW 12.1 % (11.5-15.5); WBC 7.6 k/uL (3.8-10.6)
[2019-08-30 05:13] LABS: African American GFR (CKD) >90 (>60 ml/min/1.73 sqM); Anion Gap 8 mmol/L; Blood Urea Nitrogen 19 mg/dL (9-20); Calcium 9.4 mg/dL (8.4-10.2); Carbon Dioxide 16 mmol/L (22-30); Chloride 111 mmol/L (98-107); Creatine Kinase 319 U/L (55-170); Glucose 78 mg/dL (74-99); Potassium 4.4 mmol/L (3.5-5.1); Sodium 135 mmol/L (137-145)
--- NOTE | 2019-08-30 08:00 | P.CRDCN ---
History of Present Illness Consult date: 08/30/19 Chief complaint: Change in mental status History of present illness: This is an 78-year-old gentleman who I requested to see for further cardiac evaluation of abnormal cardiac enzymes. The patient does have a past medical history significant for coronary artery disease and prior CABG, the details on that are unavailable at this point, as well as hypertension, and dyslipidemia. The patient also does have a history of alcohol abuse as well. The patient was brought to the hospital by ambulance after he was found to be on the ground around his house unresponsive. He was found to be facing down. Ambulance brought the patient to the hospital. The duration of the down time still unavailable at this point. Apparently alcohol level was found to be elevated. The patient was admitted to the intensive care unit for possible alcohol withd silva symptoms. We involved in the care of the patient because of abnormal cardiac enzymes. The troponin is a slightly elevated. The EKG showed sinus rhythm with sinus tachycardia. No indication of chest pain or chest discomfort. Beside that the CK came in to be severely elevated and the patient was diagnosed with possible rhabdomyolysis. Currently he is on IV fluid. He is not in any acute renal failure. Overall the patient is a poor historian. At this point I would consider a conservative medical approach. I'm going to add aspirin to the current medical regimen. Also I would restart the patient on a small dose of beta armando with atenolol. We will obtain an echocardiogram with Doppler. We'll continue following up with him. Past Medical History Past Medical History: Chest Pain / Angina, GERD/Reflux, Hyperlipidemia, Hypertension, Myocardial Infarction ([place]), Prostate Disorder Additional Past Medical History / Comment(s): Esophageal strictures, macular degeneration, UTI (08/19/19 Last Myocardial Infarction Date:: 1992 History of Any Multi-Drug Resistant Organisms: None Reported Past Surgical History: Coronary Bypass/CABG, Tonsillectomy Past Psychological History: Depression Smoking Status: Current every day smoker Past Alcohol Use History: Daily, Heavy Additional Past Alcohol Use History / Comment(s): 12 ounces/day Past Drug Use History: None Reported - Past Family History Father Additional Family Medical History / Comment(s): ETOH; gastric cancer Medications and Allergies Home Medications Medication Instructions Recorded Confirmed Type Aspirin EC [Ecotrin Low Dose] 81 mg PO HS 08/28/18 08/28/19 History Atenolol 100 mg PO HS 08/28/18 08/28/19 History Omeprazole 20 mg PO DAILY 08/28/18 08/28/19 History Simvastatin [Zocor] 10 mg PO HS 08/28/18 08/28/19 History Tamsulosin HCl [Flomax] 0.4 mg PO DAILY 08/28/18 08/28/19 History Ubidecarenone [Co Q-10] 100 mg PO DAILY 08/28/18 08/28/19 History Vit C/E/Zn/Coppr/Lutein/Zeaxan 1 cap PO BID 08/28/18 08/28/19 History [Preservision Areds 2 Softgel] Enalapril [Vasotec] 5 mg PO DAILY 08/28/19 08/28/19 History Ibuprofen/Diphenhydramine HCl 1 cap PO HS 08/28/19 08/28/19 History [Advil Pm Liqui-Gels] Sulfamethox-Tmp 800-160Mg [Bactrim 1 tab PO BID 08/28/19 08/28/19 History DS 800-160 mg] Thiamine HCl [Vitamin B-1] 100 mg PO DAILY 08/28/19 08/28/19 History Allergies Allergy/AdvReac Type Severity Reaction Status Date / Time No Known Allergies Allergy Verified 08/28/19 20:23 Physical Exam Vitals: Vital Signs Temp Pulse Resp BP Pulse Ox 08/30/19 07:00 75 17 126/70 94 L 08/30/19 06:00 84 15 116/64 92 L 08/30/19 05:00 80 19 127/73 71 L 08/30/19 04:00 98.2 F 85 22 112/62 92 L 08/30/19 03:01 74 17 104/65 95 08/30/19 02:00 75 15 95/58 96 08/30/19 01:00 78 9 L 116/56 92 L 08/30/19 00:00 98.1 F 85 24 107/75 92 L 08/29/19 23:00 79 19 92/49 96 08/29/19 22:00 90 28 H 105/66 91 L 08/29/19 21:00 75 16 103/58 99 08/29/19 20:00 98.1 F 78 17 90/61 95 08/29/19 19:10 93 L 08/29/19 19:00 87 17 107/77 92 L 08/29/19 18:00 78 14 108/66 98 08/29/19 17:00 76 13 103/57 98 08/29/19 16:00 98.4 F 78 18 107/88 96 08/29/19 15:00 78 14 107/70 93 L 08/29/19 14:00 79 16 109/63 92 L 08/29/19 13:00 76 16 84/64 97 08/29/19 12:30 81 11 L 110/60 95 08/29/19 12:00 98.4 F 75 15 100/64 97 08/29/19 11:30 74 15 101/62 94 L 08/29/19 11:00 81 20 91/56 95 08/29/19 10:30 74 16 92/53 94 L 08/29/19 10:00 83 16 91/55 95 08/29/19 09:45 76 16 92/52 96 08/29/19 09:30 74 15 94/52 95 08/29/19 09:15 75 16 100/66 95 08/29/19 09:00 82 15 91/55 95 08/29/19 08:45 77 16 94/56 95 08/29/19 08:30 80 23 102/71 94 L 08/29/19 08:15 84 19 101/72 95 08/29/19 08:04 97 08/29/19 08:00 96.7 F L 79 18 91/59 94 L Intake and Output 08/29/19 08/30/19 08/30/19 22:59 06:59 14:59 Intake Total 800 800 100 Output Total 650 575 50 Balance 150 225 50 Intake: IV 800 800 100 Sodium Chloride 0.9% 1, 800 800 100 000 ml @ 100 mls/hr IV . Q10H STA Rx#:[id number] Output: Urine 650 575 50 Other: Voiding Method Indwelling Catheter Indwelling Catheter Weight 89.3 kg - Constitutional General appearance: no acute distress - Respiratory Respiratory: bilateral: CTA, diminished - Cardiovascular Rhythm: regular Heart sounds: normal: S1, S2 Results 08/30/19 04:46 08/30/19 04:46 Cardiac Enzymes 08/29/19 Range/Units 07:59 Troponin I 0.932 H* (0.000-0.034) ng/mL CBC 10/11/19 10/12/19 Range/Units 07:59 04:46 WBC 10.6 7.6 (3.8-10.6) k/uL RBC 2.85 L 2.98 L (4.30-5.90) m/uL Hgb 10.2 L 10.4 L (13.0-17.5) gm/dL Hct 30.2 L 31.7 L (39.0-53.0) % Plt Count 202 217 (150-450) k/uL Comprehensive Metabolic Panel 08/29/19 08/30/19 Range/Units 07:59 04:46 Sodium 133 L 135 L (137-145) mmol/L Potassium 4.7 4.4 (3.5-5.1) mmol/L Chloride 106 111 H (98-107) mmol/L Carbon Dioxide 18 L 16 L (22-30) mmol/L BUN 29 H 19 (9-20) mg/dL Creatinine 1.25 0.87 (0.66-1.25) mg/dL Glucose 85 78 (74-99) mg/dL Calcium 8.8 9.4 (8.4-10.2) mg/dL Current Medications Generic Name Dose Route Start Last Admin Trade Name Freq PRN Reason Stop Dose Admin Aspirin 81 mg 08/30/19 09:00 Aspirin PO DAILY MILI Famotidine 20 mg 08/29/19 21:00 08/29/19 21:45 Pepcid IV 20 mg Q12HR MILI Administration Heparin Sodium (Porcine) 5,000 unit 08/29/19 21:00 08/29/19 21:45 Heparin SQ 5,000 unit Q12HR MILI Administration Lorazepam 1 mg 08/28/19 20:58 Ativan IV Q2HR PRN CIWA 8 or 9 Lorazepam 2 mg 08/28/19 21:01 08/29/19 18:59 Ativan IV 2 mg Q2HR PRN Administration CIWA 10 to 15 Naloxone HCl 0.2 mg 08/29/19 02:54 Narcan IV Q2M PRN Opioid Reversal Naloxone HCl 0.2 mg 08/29/19 03:01 Narcan IV Q2M PRN Opioid Reversal Thiamine HCl 100 mg 08/29/19 14:00 08/29/19 15:36 Vitamin B-1 IVP 100 mg Q24H MILI Administration Intake and Output 08/29/19 08/30/19 08/30/19 22:59 06:59 14:59 Intake Total 800 800 100 Output Total 650 575 50 Balance 150 225 50 Intake: IV 800 800 100 Sodium Chloride 0.9% 1, 800 800 100 000 ml @ 100 mls/hr IV . Q10H STA Rx#:[id number] Output: Urine 650 575 50 Other: Voiding Method Indwelling Catheter Indwelling Catheter Weight 89.3 kg 08/30/19 04:46 08/30/19 04:46 Assessment and Plan Assessment: Assessment #1 change in mental status #2 alcohol intoxication #3 rhabdomyolysis #4 mildly abnormal chip on the #5 multiple comorbid conditions Plan #1 the patient is on IV fluid #2 monitor the kidney function and electrolytes #3 add aspirin to the current medical regimen #4 add small dose of metoprolol #5 obtain an echocardiogram was Doppler #6 follow-up with the patient Thank you for allowing us participate in his care
[2019-08-30] MEDS: FAMOTIDINE 20 MG/2 ML VIAL IV SCH (08:58)
[2019-08-30] MEDS: HEPARIN SODIUM,PORCINE 5,000 UNIT/ML 1 ML VIAL SQ SCH ×2 (08:58→20:36)
[2019-08-30] MEDS: ATENOLOL 12.5 MG TAB PO SCH (08:58)
[2019-08-30] MEDS: ASPIRIN 81 MG PO SCH (08:58)
--- NOTE | 2019-08-30 09:51 | P.PN ---
Subjective Progress Note Date: 08/30/19 Principal diagnosis: Altered mental status secondary to alcohol abuse and underlying dementia. The patient is seen today 08/30/2019 in follow-up in the intensive care unit. He was admitted after being found down on the ground by a neighbor. Face down in a patch of dirt. Unclear as to how long he was down. Suspect approximately 18 hours per family members. He does have a history of significant alcohol abuse along with dementia. He is seen today in follow-up in the intensive care unit. He is more awake and alert. Answering questions appropriately. He is unclear as to how he was found outside. His CK levels have improved from 1339 down to 319 this morning. Troponin 0.57, 0.93, 0.57. White count 7.6. Hemoglobin 10.4. Sodium 135. Creatinine 0.87. He is currently on the CIWA protocol. He last received Ativan at 7 PM last night. Blood and urine cultures reveal no growth thus far. Objective - Vital Signs Vital signs: Vital Signs Temp 97.5 F L 08/30/19 08:00 Pulse 80 08/30/19 09:00 Resp 20 08/30/19 09:00 BP 131/91 08/30/19 09:00 Pulse Ox 93 L 08/30/19 09:00 Intake & Output 08/29/19 08/30/19 08/30/19 18:59 06:59 18:59 Intake Total 3001.175 1200 300 Output Total 785 900 175 Balance 2216.175 300 125 Weight 89.3 kg Intake: IV 3000 1200 300 Sodium Chloride 0.9% 1, 2000 1200 300 000 ml @ 100 mls/hr IV . Q10H STA Rx#:[id number] Sodium Chloride 0.9% 1, 1000 000 ml @ 999 mls/hr IV . Q1H1M MILI Rx#:[id number] Intake, IV Titration 1.175 Amount Norepinephrine 4 mg In 1.175 Sodium Chloride 0.9% 250 ml @ 0.05 MCG/KG/MIN 14. 69 mls/hr IV .[id number] ONE Rx#:[id number] Output: Urine 785 900 175 Other: Voiding Method Indwelling Catheter Indwelling Catheter Indwelling Catheter - Exam GENERAL EXAM: Alert, pleasant 78-year-old gentleman, comfortable in no apparent distress. On 2 L/m per nasal cannula HEAD: Normocephalic. EYES: Normal reaction of pupils, equal size. NOSE: Clear with pink turbinates. THROAT: No erythema or exudates. NECK: No masses, no JVD. CHEST: No chest wall deformity. LUNGS: Equal air entry with crackles in left posterior base. CVS: S1 and S2 normal with no audible murmur, regular rhythm. ABDOMEN: No hepatosplenomegaly, normal bowel sounds, no guarding or rigidity. SPINE: No scoliosis or deformity SKIN: No rashes CENTRAL NERVOUS SYSTEM: No focal deficits, tone is normal in all 4 extremities. EXTREMITIES: There is no peripheral edema. No clubbing, no cyanosis. Periph eral pulses are intact. - Labs CBC & Chem 7: 08/30/19 04:46 08/30/19 04:46 Labs: Abnormal Lab Results - Last 24 Hours (Table) 08/30/19 08/30/19 08/30/19 Range/Units 04:46 04:46 07:55 RBC 2.98 L (4.30-5.90) m/uL Hgb 10.4 L (13.0-17.5) gm/dL Hct 31.7 L (39.0-53.0) % MCV 106.2 H (80.0-100.0) fL Lymphocytes # 0.7 L (1.0-4.8) k/uL Sodium 135 L (137-145) mmol/L Chloride 111 H (98-107) mmol/L Carbon Dioxide 16 L (22-30) mmol/L Creatine Kinase 319 H (55-170) U/L Troponin I 0.576 H* (0.000-0.034) ng/mL Microbiology - Last 24 Hours (Table) 08/28/19 23:10 Blood Culture - Preliminary Blood No Growth after 24 hours 08/29/19 05:30 Urine Culture - Preliminary Urine,Catheterized Assessment and Plan Assessment: Impression: #1 History of chronic alcohol abuse, suspect alcoholic delirium and alcohol withdrawal syndrome. #2 Rhabdomyolysis secondary to being on the ground or several hours. #3 Altered mental status secondary to above. #4 Hypotension secondary to dehydration and possible sepsis. #5 Coronary artery disease, status post bypass grafting. #6 History of hypertension. #7 diverticular disease. #8 History of previous tobacco dependence. #9 Gastroesophageal reflux disease. #10 Hyperlipidemia. #11 Troponin leak. Plan: The patient was seen and evaluated by Dr. Menjivar. Chest x-ray and labs reviewed. He'll continue in the CIWA protocol. Echocardiogram and cardiology consult pending. Cultures pending. He is on heparin for DVT prophylaxis. Pepcid for GI prophylaxis. He could be transferred out of the intensive care unit today. We'll continue to follow and make further recommendations based on his clinical status. I, the cosigning physician, performed a history & physical examination of the patient. Lungs sounds with crackles in the left base. Maintaining good O2 saturations in the 90s on 2 L/m per nasal cannula. I discussed the assessment and plan of care with my nurse practitioner, Mary Lemos. I attest to the above note as dictated by her.
[2019-08-30] MEDS: LORazepam 2 MG/ML INJ IV PRN ×5 (10:01→21:51)
[2019-08-30] MEDS ORDERED: DILTIAZEM DRIP BOLUS FROM BAG 1 MG SOLN IV ONE (10:05)
[2019-08-30] MEDS: DILTIAZEM 125 MG in SODIUM CHLORIDE 0.9% 100 ML IV SCH (10:38)
--- NOTE | 2019-08-30 14:00 | ECHOF ---
Referral Reason:elevated trop MEASUREMENTS -------- HEIGHT: 185.4 cm WEIGHT: 88.9 kg BP: 126/70 RVIDd: 3.9 cm (< 3.3) IVSd: 1.2 cm (0.6 - 1.1) LVIDd: 3.9 cm (3.9 - 5.3) LVPWd: 1.3 cm (0.6 - 1.1) IVSs: 1.6 cm LVIDs: 2.9 cm LVPWs: 1.7 cm LAESV Index (A-L): 36.47 ml/m Ao Diam: 3.2 cm (2.0 - 3.7) AV Cusp: 1.9 cm (1.5 - 2.6) MV EXCURSION: 18.742 mm (> 18.000) MV EF SLOPE: 99 mm/s (70 - 150) EPSS: 0.3 cm MV E Filiberto: 1.07 m/s MV DecT: 121 ms MV A Filiberto: 0.58 m/s MV E/A Ratio: 1.85 RAP: 5.00 mmHg RVSP: 47.47 mmHg FINDINGS -------- Sinus rhythm. This was a technically difficult study with suboptimal apical views. The left ventricular size is normal. There is mild concentric left ventricular hypertrophy. Overa ll left ventricular systolic function is low-normal with, an EF between 50 - 55 %. The diastolic fi lling pattern is normal for the age of the patient 17.53. The right ventricle is moderately enlarged. LA is moderately dilated 34-39 ml/m2 RA appears enlarged. 5.0mg of Lumason was utilized for enhancement of images Interatrial and interventricular septum intact. The aortic valve is trileaflet and appears structurally normal. There is no evidence of aortic regu rgitation. There is no evidence of aortic stenosis. Mcko-ez-azljfaod mitral regurgitation is present. Urct-xs-eaukbjwg tricuspid regurgitation present. There is mild to moderate pulmonary hypertension. The right ventricular systolic pressure, as measured by Doppler, is 47.47mmHg. Trace/mild (physiologic) pulmonic regurgitation. The aortic root size is normal. IVC Not well visulized. There is no pericardial effusion. CONCLUSIONS -------- 1. Sinus rhythm. 2. This was a technically difficult study with suboptimal apical views. 3. The left ventricular size is normal. 4. There is mild concentric left ventricular hypertrophy. 5. Overall left ventricular systolic function is low-normal with, an EF between 50 - 55 %. 6. The diastolic filling pattern is normal for the age of the patient 17.53 7. The right ventricle is moderately enlarged. 8. LA is moderately dilated 34-39 ml/m2 9. RA appears enlarged. 10. 5.0mg of Lumason was utilized for enhancement of images 11. Interatrial and interventricular septum intact. 12. The aortic valve is trileaflet and appears structurally normal. 13. There is no evidence of aortic regurgitation. 14. There is no evidence of aortic stenosis. 15. Mxur-er-ptyfkhlr mitral regurgitation is present. 16. Ktrs-pi-jptiznfs tricuspid regurgitation present. 17. There is mild to moderate pulmonary hypertension. 18. The right ventricular systolic pressure, as measured by Doppler, is 47.47mmHg. 19. Trace/mild (physiologic) pulmonic regurgitation. 20. The aortic root size is normal. 21. IVC Not well visulized. 22. There is no pericardial effusion. BAG MACHINE TENDER: Analisa Kyle RDCS
[2019-08-30] MEDS: THIAMINE 100 MG/ML 2 ML VIAL IVP SCH (14:33)
--- NOTE | 2019-08-30 14:55 | P.PN ---
Subjective This is a pleasant 80 years old male with past medical history of alcohol abuse, smoking cigarettes, hyperlipidemia, hypertension, esophageal stricture, GERD. Patient cannot provide information so it was taken from the medical records and staff He was found face down in a patch of dirt. It is unknown how long the patient had been there. His daughters talked to him 24 hours prior. He does have a history of significant alcohol abuse and some component of dementia. They state that episodes like this have happened previously in the past due to concern that the patient can no longer live alone. Daughters state that he has gone through DTs before in the past required hospitalization. Blood pressure was down when he came to the emergency room and it went As low as 80/56, patient was started on levopohed, however it was stopped was taken to the ICU. His breathing at 16. He is afebrile and blood pressure currently is 84/64. CBC and serum electrolytes were unremarkable except for mild hyponatremia at 133 and elevated BUN at 29, creatine kinase elevated at 1009 and troponin is elevated at 0.9. Urinalysis is not suspicious of infection. Chest x-ray showed no acute process. EKG showed normal sinus rhythm at [address] of the abdomen and pelvis: No acute abnormality. Several x-ray of the knee, pelvis, bilateral forearms were negative for any fracture. CT of the head no acute events negative exam In the emergency room patient was given 1 L of normal saline was started on 75 L/h, Ativan as needed and started on ceftriaxone and the benefits. The fit was stopped, as well as the fluids. 08/30/2019 patient is more awake and alert today, he denies chest pain or dyspnea or coughing. No abdominal pain or vomiting. However he has visual hallucinations as he is pointing to people nobody else sees. Also his heart rate was tachycardic today and in A. fib, patient has no history of atrial fibrillation andcurrently his heart rate went up to 1.126, group sales coordinator so the patient and start him on Cardizem dripat 5 mg per hour, he got 10 mg of Cardizem bolus .his troponins are trending down, his CPKs also trending down to 319.sodium is 135.WBC is 7.6K and hemoglobin stable at 10.4.echocardiogram showing ejection f raction was 50-55% and he has mild to moderate mitral and tricuspid regurgitation with mild to moderate pulmonaryl hypertension. Patient remains on CIWA protocol, vitamins therapy Review of systems CONSTITUTIONAL: No fever, no malaise, no fatigue. HEENT: No recent visual problems or hearing problems. Denied any sore throat. CARDIOVASCULAR: No orthopnea, PND, no palpitations, no syncope. PULMONARY: No shortness of breath, no cough, no hemoptysis. GASTROINTESTINAL: No diarrhea, no nausea, no vomiting, no abdominal pain. Normoactive bowel sounds. NEUROLOGICAL: No headaches, no weakness, no numbness. HEMATOLOGICAL: Denies any bleeding or petechiae. GENITOURINARY: Denies any burning micturition, frequency, or urgency. MUSCULOSKELETAL/RHEUMATOLOGICAL: Denies any joint pain, swelling, or any muscle pain. ENDOCRINE: Denies any polyuria or polydipsia. Active Medications Generic Name Dose Route Start Last Admin Trade Name Freq PRN Reason Stop Dose Admin Aspirin 81 mg 08/30/19 09:00 08/30/19 08:58 Aspirin PO 81 mg DAILY MILI Administration Atenolol 12.5 mg 08/30/19 09:00 08/30/19 08:58 Tenormin PO 12.5 mg DAILY MILI Administration Famotidine 20 mg 08/30/19 21:00 Pepcid PO Q12HR MILI Heparin Sodium (Porcine) 5,000 unit 08/29/19 21:00 08/30/19 08:58 Heparin SQ 5,000 unit Q12HR MILI Administration Diltiazem HCl 125 mg/ Sodium 125 mls @ 0 mls/hr 08/30/19 10:15 08/30/19 10:38 Chloride IV 5 ml/hr .Q0M MILI 5 mls/hr Administration Protocol Per Protocol Lorazepam 1 mg 08/28/19 20:58 08/30/19 10:01 Ativan IV 1 mg Q2HR PRN Administration CI 8 or 9 Lorazepam 2 mg 08/28/19 21:01 08/30/19 11:19 Ativan IV 2 mg Q2HR PRN Administration CI 10 to 15 Naloxone HCl 0.2 mg 08/29/19 03:01 Narcan IV Q2M PRN Opioid Reversal Thiamine HCl 100 mg 08/29/19 14:00 08/30/19 14:33 Vitamin B-1 IVP Not Given Q24H [facility] Objective - Vital Signs Vital signs: Vital Signs Temp 97.7 F 08/30/19 12:00 Pulse 126 H 08/30/19 14:00 Resp 12 08/30/19 14:00 BP 108/90 08/30/19 14:00 Pulse Ox 96 08/30/19 14:00 Intake & Output 08/29/19 08/30/19 08/30/19 18:59 06:59 18:59 Intake Total 3001.175 1200 700 Output Total 785 900 675 Balance 2216.175 300 25 Weight 89.3 kg Intake: IV 3000 1200 700 Sodium Chloride 0.9% 1, 2000 1200 700 000 ml @ 100 mls/hr IV . Q10H STA Rx#:[id number] Sodium Chloride 0.9% 1, 1000 000 ml @ 999 mls/hr IV . Q1H1M MILI Rx#:[id number] Intake, IV Titration 1.175 Amount Norepinephrine 4 mg In 1.175 Sodium Chloride 0.9% 250 ml @ 0.05 MCG/KG/MIN 14. 69 mls/hr IV .[id number] Rx#:[id number] Output: Urine 785 900 675 Other: Voiding Method Indwelling Catheter Indwelling Catheter Indwelling Catheter - Exam GENERAL: The patient is alert and oriented x3, not in any acute distress. Well developed, well nourished. HEENT: Pupils are round and equally reacting to light. EOMI. No scleral icterus. No conjunctival pallor. Normocephalic, atraumatic. No pharyngeal erythema. No thyromegaly. CARDIOVASCULAR: S1 and S2 present. No murmurs, rubs, or gallops. PULMONARY: Chest is clear to auscultation, no wheezing or crackles. ABDOMEN: Soft, nontender, nondistended, normoactive bowel sounds. No palpable organomegaly. MUSCULOSKELETAL: No joint swelling or deformity. EXTREMITIES: No cyanosis, clubbing, or pedal edema. NEUROLOGICAL: Gross neurological examination did not reveal any focal deficits. SKIN: No rashes. no petechiae. - Labs CBC & Chem 7: 08/30/19 04:46 08/30/19 04:46 Labs: Abnormal Lab Results - Last 24 Hours (Table) 08/30/19 08/30/19 08/30/19 Range/Units 04:46 04:46 07:55 RBC 2.98 L (4.30-5.90) m/uL Hgb 10.4 L (13.0-17.5) gm/dL Hct 31.7 L (39.0-53.0) % MCV 106.2 H (80.0-100.0) fL Lymphocytes # 0.7 L (1.0-4.8) k/uL Sodium 135 L (137-145) mmol/L Chloride 111 H (98-107) mmol/L Carbon Dioxide 16 L (22-30) mmol/L Creatine Kinase 319 H (55-170) U/L Troponin I 0.576 H* (0.000-0.034) ng/mL 08/30/19 Range/Units 13:21 RBC (4.30-5.90) m/uL Hgb (13.0-17.5) gm/dL Hct (39.0-53.0) % MCV (80.0-100.0) fL Lymphocytes # (1.0-4.8) k/uL Sodium (137-145) mmol/L Chloride (98-107) mmol/L Carbon Dioxide (22-30) mmol/L Creatine Kinase (55-170) U/L Troponin I 0.472 H* (0.000-0.034) ng/mL Microbiology - Last 24 Hours (Table) 08/29/19 05:30 Urine Culture - Final Urine,Catheterized 08/28/19 23:10 Blood Culture - Preliminary Blood No Growth after 24 hours Assessment and Plan Assessment: Metabolic versus toxic encephalopathy. Mostly from alcohol abuse plus dementia. Improvement Alcohol abuse and intoxication, with delirium tremens Elevated troponin, mostly secondary to new onset atrial fibrillation Elevated CPK concerning for rhabdomyolysis, improving Nicotine dependence Hyperlipidemia Hypertension Dementia History of esophageal stricture Plan: This is a pleasant 78 years old male who presents with altered mental status and hypotension. Patient remains in the ICU with critical care team are following the case closely. Patient was on IV fluids for possible rhabdomyolysis, . Consult cardiology for elevated troponin. Continue with Cardizem drip and switched to oral medication and heart rate is more controlled.continue with CIWA protocol and thiamine Labs and medication were reviewed.. Continue same treatment. Continue with symptomatic treatment. Resume home medication. Monitor lytes and vitals. DVT and GI prophylaxis. Further recommendations of the clinical course of the patient DVT prophylaxis: Subcutaneous heparin GI Prophylaxis: Pepcid Prognosis is guarded
[2019-08-30] MEDS: FAMOTIDINE 20 MG TAB PO SCH (20:33)
--- NOTE | 2019-08-30 21:52 | XR ---
EXAMINATION TYPE: XR chest 1V portable DATE OF EXAM: 08/30/2019 COMPARISON: Chest radiograph 08/29/2019 HISTORY: Difficulty in breathing TECHNIQUE: Single frontal view of the chest is obtained. FINDINGS: Cardiac silhouette is mildly enlarged. CABG changes are present. Mild pulmonary vascular c ongestion. No focal airspace consolidation. Questionable left pleural effusion (small). No pneumothor ax. IMPRESSION: Pulmonary vascular congestion with questionable small left pleural effusion, correlate f or clinical symptoms of fluid overload.
[2019-08-30] MEDS ORDERED: FUROSEMIDE 10 MG/ML 4 ML VIAL IV STA (23:13)
[2019-08-31] MEDS: LORazepam 2 MG/ML INJ IV PRN ×5 (01:25→16:34)
[2019-08-31 05:04] LABS: Basophils # (A) 0.1 k/uL (0-0.2); Basophils % (A) 1 %; Eosinophils # (A) 0.4 k/uL (0-0.7); Eosinophils % (A) 6 %; HGB 11.4 gm/dL (13.0-17.5); Lymphocytes # (A) 0.9 k/uL (1.0-4.8); Lymphocytes % (A) 12 %; MCH 35.5 pg (25.0-35.0); MCHC 33.6 g/dL (31.0-37.0); MCV 105.7 fL (80.0-100.0); Macrocytosis Slight; Mean Platelet Volume 7.5; Monocytes # (A) 0.4 k/uL (0-1.0); Monocytes % (A) 5 %; Neutrophils # (A) 5.7 k/uL (1.3-7.7); Neutrophils % (A) 75 %; Platelet Count 248 k/uL (150-450); RBC 3.21 m/uL (4.30-5.90); RDW 12.3 % (11.5-15.5); WBC 7.6 k/uL (3.8-10.6)
[2019-08-31 05:10] LABS: African American GFR (CKD) >90 (>60 ml/min/1.73 sqM); Anion Gap 14 mmol/L; Blood Urea Nitrogen 13 mg/dL (9-20); Calcium 9.9 mg/dL (8.4-10.2); Carbon Dioxide 17 mmol/L (22-30); Chloride 107 mmol/L (98-107); Glucose 97 mg/dL (74-99); Magnesium 1.5 mg/dL (1.6-2.3); Potassium 3.9 mmol/L (3.5-5.1); Sodium 138 mmol/L (137-145)
[2019-08-31] MEDS ORDERED: Potassium Replacement Protocol 1 EACH MISC MISCELLANE PRN (05:28)
[2019-08-31] MEDS ORDERED: Magnesium Replacement Protocol 1 EACH MISC MISCELLANE PRN (05:28)
[2019-08-31] MEDS: MAGNESIUM SULFATE-D5W PMX 1 GM in DEXTROSE/WATER 1 100ML.BAG IVPB SCH ×2 (05:36→06:35)
--- NOTE | 2019-08-31 06:04 | XR ---
EXAMINATION TYPE: XR chest 1V portable DATE OF EXAM: 08/31/2019 HISTORY: SOB. REFERENCE: Previous study dated 08/30/2019. FINDINGS: There has been a midline sternotomy. The heart is enlarged. There is continuing left basilar airspace disease. There is vascular congestio n and pulmonary edema. This may have worsened slightly. I suspect small, bilateral effusions. IMPRESSION: WORSENING CHANGES OF PULMONARY EDEMA.
[2019-08-31] MEDS: DILTIAZEM 125 MG in SODIUM CHLORIDE 0.9% 100 ML IV SCH (06:30)
[2019-08-31] MEDS ORDERED: HEPARIN SODIUM,PORCINE 5,000 UNIT/ML 1 ML VIAL IV ONE (08:10)
[2019-08-31] MEDS ORDERED: HEPARIN SODIUM,PORCINE 5,000 UNIT/ML 1 ML VIAL IV PRN (08:10)
--- NOTE | 2019-08-31 08:28 | P.PN ---
Subjective Progress Note Date: 08/31/19 Principal diagnosis: Abnormal cardiac enzymes/paroxysmal atrial fibrillation This is an 78-year-old gentleman who I requested to see for further cardiac evaluation of abnormal cardiac enzymes. The patient does have a past medical history significant for coronary artery disease and prior CABG, the details on that are unavailable at this point, as well as hypertension, and dyslipidemia. The patient also does have a history of alcohol abuse as well. The patient was brought to the hospital by ambulance after he was found to be on the ground around his house unresponsive. He was found to be facing down. Ambulance brought the patient to the hospital. The duration of the down time still unavailable at this point. Apparently alcohol level was found to be elevated. The patient was admitted to the intensive care unit for possible alcohol withdrawal symptoms. We involved in the care of the patient because of abnormal cardiac enzymes. The troponin is a slightly elevated. The EKG showed sinus rhythm with sinus tachycardia. No indication of chest pain or chest discomfort. Beside that the CK came in to be severely elevated and the patient was diagnosed with possible rhabdomyolysis. Currently he is on IV fluid. He is not in any acute renal failure. Overall the patient is a poor historian. On follow-up with the patient today, 08/31/2019, the patient is very lethargic and he has some difficulty swallowing. Last night, he went into A. fib with RVR and subsequently he was started on Cardizem drip and converted to normal sinus mechanism. I am going to keep him on Cardizem drip at this point since he cannot take any medication because of difficulty swallowing and change in mental status. Beside that I am going to DC heparin subcu and start the patient on heparin IV. The echocardiogram revealed normal LV function with mild MR and mild TR. We'll consider conservative medical approach regarding the mildly abnormal cardiac enzymes. Objective - Vital Signs Vital signs: Vital Signs Temp 98.3 F 08/31/19 04:00 Pulse 73 08/31/19 07:00 Resp 19 08/31/19 07:00 BP 110/78 08/31/19 07:00 Pulse Ox 97 08/31/19 07:00 Intake & Output 08/30/19 08/31/19 08/31/19 18:59 06:59 18:59 Intake Total 1008.583 482.417 Output Total 1135 2225 Balance -126.417 -1742.583 Weight 85.5 kg Intake: IV 960 400 KVO 60 200 Magnesium Sulfate-D5w Pmx 200 1 gm In Dextrose/Water 1 100ml.bag @ 100 mls/hr IVPB Q1H MILI Rx#: [id number] Sodium Chloride 0.9% 1, 900 000 ml @ 100 mls/hr IV . Q10H STA Rx#:[id number] Intake, IV Titration 48.583 82.417 Amount Diltiazem 125 mg In 48.583 82.417 Sodium Chloride 0.9% 100 ml @ Per Protocol IV .Q0M MILI Rx#:[id number] Output: Urine 1135 2225 Other: Voiding Method Indwelling Catheter Indwelling Catheter - Constitutional General appearance: Present: no acute distress - Respiratory Respiratory: bilateral: CTA - Cardiovascular Rhythm: regular Heart sounds: normal: S1, S2 - Labs CBC & Chem 7: 08/31/19 04:36 08/31/19 04:36 Labs: Abnormal Lab Results - Last 24 Hours (Table) 08/30/19 08/30/19 08/31/19 Range/Units 07:55 13:21 04:36 RBC 3.21 L (4.30-5.90) m/uL Hgb 11.4 L (13.0-17.5) gm/dL Hct 34.0 L (39.0-53.0) % MCV 105.7 H (80.0-100.0) fL MCH 35.5 H (25.0-35.0) pg Lymphocytes # 0.9 L (1.0-4.8) k/uL Carbon Dioxide (22-30) mmol/L Magnesium (1.6-2.3) mg/dL Troponin I 0.576 H* 0.472 H* (0.000-0.034) ng/mL 08/31/19 Range/Units 04:36 RBC (4.30-5.90) m/uL Hgb (13.0-17.5) gm/dL Hct (39.0-53.0) % MCV (80.0-100.0) fL MCH (25.0-35.0) pg Lymphocytes # (1.0-4.8) k/uL Carbon Dioxide 17 L (22-30) mmol/L Magnesium 1.5 L (1.6-2.3) mg/dL Troponin I (0.000-0.034) ng/mL Microbiology - Last 24 Hours (Table) 08/28/19 23:10 Blood Culture - Preliminary Blood No Growth after 48 hours 08/29/19 05:30 Urine Culture - Final Urine,Catheterized Assessment and Plan Assessment: Assessment #1 change in mental status #2 alcohol intoxication #3 rhabdomyolysis #4 mildly abnormal cardiac enzymes #5 paroxysmal atrial fibrillation Plan #1 continue monitor the kidney function and electrolytes #2 DC heparin subcu on start the patient on heparin IV #3 continue Cardizem IV #4 the patient is in process of having swallowing evaluation #5 the echo revealed normal LV function was mild to moderate MR and TR We'll continue following up with the patient
[2019-08-31 08:42] LABS: Basophils # (A) 0.1 k/uL (0-0.2); Basophils % (A) 1 %; Eosinophils # (A) 0.3 k/uL (0-0.7); Eosinophils % (A) 5 %; HGB 10.2 gm/dL (13.0-17.5); Lymphocytes # (A) 0.9 k/uL (1.0-4.8); Lymphocytes % (A) 13 %; MCH 33.1 pg (25.0-35.0); MCHC 30.9 g/dL (31.0-37.0); Macrocytosis Moderate; Mean Platelet Volume 6.6; Monocytes # (A) 0.6 k/uL (0-1.0); Monocytes % (A) 9 %; Neutrophils # (A) 4.9 k/uL (1.3-7.7); Neutrophils % (A) 70 %; Platelet Count 253 k/uL (150-450); RBC 3.08 m/uL (4.30-5.90); RDW 12.3 % (11.5-15.5)
[2019-08-31 08:50] LABS: INR 0.9 (<1.2); Prothrombin Time 9.9 sec (9.0-12.0)
[2019-08-31] MEDS: POTASSIUM CHLORIDE 10 MEQ in WATER FOR INJECTION 1 100ML.BAG IVPB SCH ×2 (08:55→11:40)
[2019-08-31] MEDS: HEPARIN SOD,PORK IN 0.45% NACL 25,000 UNIT in 0.45% NACL 1 250ML.BAG IV SCH (08:57)
--- NOTE | 2019-08-31 09:23 | PN ---
PROGRESS NOTE DATE OF SERVICE: August 31, 2019. This is an 78-year-old male who was admitted on the for chronic alcohol abuse and altered mental status with underlying dementia. The patient was found face-down in the dirt initially. He was brought into the emergency room for mental status changes, chronic alcohol abuse and possible delirium tremens and underlying dementia. Here in the ICU, he has been doing reasonably well. Last night, he did develop some atrial fibrillation and was placed on Cardizem drip at 10 mg an hour. In addition, chest x- ray reveals some fluid overload. Yesterday, I gave him Lasix 40 mg IV push x1 and he diuresed 2 L. His chest x-ray when done last night was consistent with fluid overload. The patient is very confused. He does have chronic dementia. Yesterday, I remembered him because he used to be a member of [employer] club. Initially, I did not. He did have some mild rhabdomyolysis that never really got severe. He is currently on Ativan for the CIWA protocol. Currently, he is resting comfortably. PHYSICAL EXAMINATION: VITAL SIGNS: Current vital signs show temperature 98.3. Heart rate 73, respiratory rate 19, blood pressure 110/78, mean 88 saturations on 2 L 97%. His respiratory status has improved according to the nurse after the Lasix I gave him last night. HEENT examination is grossly unremarkable. Nasal O2 noted. NECK: Supple. Full range of motion. No adenopathy, thyromegaly or neck vein distention. CARDIOVASCULAR examination reveals a regular rhythm rate. Heart rate about 85 beats per minute. S1, S2 normal. Heart sounds are distant. No clear-cut murmur. LUNGS: Reveals some bibasilar crackles. A few scattered rhonchi noted. Breath sounds equal. No wheezes. ABDOMEN: Soft. Bowel sounds are heard. EXTREMITIES are intact. No cyanosis, clubbing, or edema. SKIN: Without rash. NEUROLOGIC: Examination is brief but relatively nonfocal. The patient is not a particularly good historian. He speaks softly. He has a hard time communicating because of his dementia. LABS: Reviewed. White count 7.6, hemoglobin 11.4, hematocrit 34, platelet count 348,000. Sodium, potassium, chloride normal. CO2 17. Anion gap 14. BUN and creatinine were 13 and 0.76. His last 2 troponins were 0.576 and 0.472. His initial troponin was 0.932. Chest x-ray shows pulmonary edema. Microbiology including urine and blood sampling is negative. MEDICATIONS: Reviewed. In addition to the Lasix that I gave him last night and his Cardizem drip at 10 mg an hour, he is on aspirin, Tenormin, famotidine, subcu heparin, Ativan, magnesium replacement, Narcan, potassium replacement, and thiamine. ASSESSMENT: 1. History of chronic alcohol abuse, with alcoholic liver disease, alcoholic delirium, and alcoholic withdrawal syndrome. 2. New onset atrial fibrillation with RVR, controlled on Cardizem. 3. Rhabdomyolysis, secondary to 18 hours on the ground. 4. Mental status changes, in part related to his underlying dementia. 5. Hypotension, resolved, likely related to dehydration. 6. Coronary artery disease, status post bypass grafting. 7. Mildly elevated troponins, rule out myocardial ischemia versus supply demand mismatch. 8. History of hypertension. 9. Diverticular disease. 10.History of previous tobacco dependence. 11.Gastroesophageal reflux disease. 12.Hyperlipidemia. PLAN: Currently, the patient's respiratory status is significantly improved. He was clearly in fluid overload. Lasix 40 IV push was very beneficial. He produced 2 L of urine. Currently he is on Cardizem at 10 mg an hour for his atrial fibrillation. His current heart rate is about 90 beats per minute. He is much better controlled. Appears to be relatively comfortable. We will continue to follow. He is receiving GI/DVT prophylaxis. Prognosis is guarded. MMODL / IJN: [id number] /
[2019-08-31] MEDS: FAMOTIDINE 20 MG TAB PO SCH ×3 (11:39→20:11)
[2019-08-31] MEDS: ATENOLOL 12.5 MG TAB PO SCH (11:40)
[2019-08-31] MEDS: ASPIRIN 81 MG PO SCH (11:40)
[2019-08-31] MEDS: THIAMINE 100 MG/ML 2 ML VIAL IVP SCH (13:39)
--- NOTE | 2019-08-31 13:49 | P.PN ---
Subjective This is a pleasant 80 years old male with past medical history of alcohol abuse, smoking cigarettes, hyperlipidemia, hypertension, esophageal stricture, GERD. Patient cannot provide information so it was taken from the medical records and staff He was found face down in a patch of dirt. It is unknown how long the patient had been there. His daughters talked to him 24 hours prior. He does have a history of significant alcohol abuse and some component of dementia. They state that episodes like this have happened previously in the past due to concern that the patient can no longer live alone. Daughters state that he has gone through DTs before in the past required hospitalization. Blood pressure was down when he came to the emergency room and it went As low as 80/56, patient was started on levopohed, however it was stopped was taken to the ICU. His breathing at 16. He is afebrile and blood pressure currently is 84/64. CBC and serum electrolytes were unremarkable except for mild hyponatremia at 133 and elevated BUN at 29, creatine kinase elevated at 1009 and troponin is elevated at 0.9. Urinalysis is not suspicious of infection. Chest x-ray showed no acute process. EKG showed normal sinus rhythm at [address] of the abdomen and pelvis: No acute abnormality. Several x-ray of the knee, pelvis, bilateral forearms were negative for any fracture. CT of the head no acute events negative exam In the emergency room patient was given 1 L of normal saline was started on 75 L/h, Ativan as needed and started on ceftriaxone and the benefits. The fit was stopped, as well as the fluids. 08/30/2019 patient is more awake and alert today, he denies chest pain or dyspnea or coughing. No abdominal pain or vomiting. However he has visual hallucinations as he is pointing to people nobody else sees. Also his heart rate was tachycardic today and in A. 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 Patient remains on CIWA protocol, vitamins therapy 08/31/2019 Patient remains in the ICU for close monitoring and therapy. He is currently on heparin drip and Cardizem drip for atrial fibrillation and we went up in his Cardizem drip from 5 to 10 mg per hour. Patient today is still confused probably from his delirium tremens however he opens eyes spontaneously and follow commands. Patient is coughing on eating suspicious for aspiration so we placed the patient nothing by mouth and ask for swelling evaluation for tomorrow. Patient is tachypneic at 23-26 Rest of Vitas looks stable. Labs are stable. Chest x-ray showed worsening changes of pulmonary edema. [facility]/critical care team are following the patient closely monitored ICU and Lasix 40 mg IV recommended by them. Review of systems CONSTITUTIONAL: No fever, no malaise, no fatigue. HEENT: No recent visual problems or hearing problems. Denied any sore throat. CARDIOVASCULAR: No orthopnea, PND, no palpitations, no syncope. PULMONARY: No shortness of breath, no cough, no hemoptysis. GASTROINTESTINAL: No diarrhea, no nausea, no vomiting, no abdominal pain. Normoactive bowel sounds. NEUROLOGICAL: No headaches, no weakness, no numbness. HEMATOLOGICAL: Denies any bleeding or petechiae. GENITOURINARY: Denies any burning micturition, frequency, or urgency. MUSCULOSKELETAL/RHEUMATOLOGICAL: Denies any joint pain, swelling, or any muscle pain. ENDOCRINE: Denies any polyuria or polydipsia. Active Medications Generic Name Dose Route Start Last Admin Trade Name Denzelq PRN Reason Stop Dose Admin Aspirin 81 mg 08/30/19 09:00 08/31/19 11:40 Aspirin PO 81 mg DAILY [facility] Administration Atenolol 12.5 mg 08/30/19 09:00 08/31/19 11:40 Tenormin PO 12.5 mg DAILY [facility] Administration Famotidine 20 mg 08/30/19 21:00 08/31/19 11:49 Pepcid PO Not Given Q12HR [facility] Heparin Sodium (Porcine) 0 unit 08/31/19 08:10 Heparin IV PER PROTOCOL PRN Low PTT Protocol Diltiazem HCl 125 mg/ Sodium 125 mls @ 0 mls/hr 08/30/19 10:15 08/31/19 06:54 Chloride IV 10 ml/hr .Q0M [facility] 10 mls/hr Titration Protocol Per Protocol Heparin Sodium/Sodium Chloride 250 mls @ 10 mls/hr 08/31/19 08:15 08/31/19 08:57 25,000 unit/ Sodium Chloride IV 11.696 units/kg/hr .Q24H [facility] 10 mls/hr Administration Protocol 11.696 UNITS/KG/HR Lorazepam 1 mg 08/28/19 20:58 08/31/19 13:39 Ativan IV 1 mg Q2HR PRN Administration CIWA 8 or 9 Lorazepam 2 mg 08/28/19 21:01 08/31/19 11:40 Ativan IV 2 mg Q2HR PRN Administration CIWA 10 to 15 Miscellaneous Information 1 each 08/31/19 05:28 Magnesium Per Protocol MISCELLANE DAILY PRN Per Protocol Protocol Miscellaneous Information 1 each 08/31/19 05:28 Potassium Per Protocol MISCELLANE DAILY PRN Per Protocol Protocol Naloxone HCl 0.2 mg 08/29/19 03:01 Narcan IV Q2M PRN Opioid Reversal Thiamine HCl 100 mg 08/29/19 14:00 08/31/19 13:39 Vitamin B-1 IVP 100 mg Q24H [facility] Administration Objective - Vital Signs Vital signs: Vital Signs Temp 97.9 F 08/31/19 12:00 Pulse 70 08/31/19 13:00 Resp 18 08/31/19 13:00 BP 133/73 08/31/19 13:00 Pulse Ox 96 08/31/19 13:00 Intake & Output 08/30/19 08/31/19 08/31/19 18:59 06:59 18:59 Intake Total 1008.583 482.417 225 Output Total 1135 2225 590 Balance -126.417 -1742.583 -365 Weight 85.5 kg Intake: IV 960 400 225 KVO 60 200 25 Magnesium Sulfate-D5w Pmx 200 1 gm In Dextrose/Water 1 100ml.bag @ 100 mls/hr IVPB Q1H [facility] Rx#: [id number] Potassium Chloride 10 meq 200 In Water For Injection 1 100ml.bag @ 100 mls/hr IVPB Q1H [facility] Rx#: [id number] Sodium Chloride 0.9% 1, 900 000 ml @ 100 mls/hr IV . Q10H [facility] Rx#:[id number] Intake, IV Titration 48.583 82.417 Amount Diltiazem 125 mg In 48.583 82.417 Sodium Chloride 0.9% 100 ml @ Per Protocol IV .Q0M [facility] Rx#:[id number] Output: Urine 1135 2225 590 Other: Voiding Method Indwelling Catheter Indwelling Catheter Indwelling Catheter - Exam GENERAL: The patient is alert and oriented x3, not in any acute distress. Well developed, well nourished. HEENT: Pupils are round and equally reacting to light. EOMI. No scleral icterus. No conjunctival pallor. Normocephalic, atraumatic. No pharyngeal erythema. No thyromegaly. CARDIOVASCULAR: S1 and S2 present. No murmurs, rubs, or gallops. PULMONARY: Chest is clear to auscultation, no wheezing or crackles. ABDOMEN: Soft, nontender, nondistended, normoactive bowel sounds. No palpable organomegaly. MUSCULOSKELETAL: No joint swelling or deformity. EXTREMITIES: No cyanosis, clubbing, or pedal edema. NEUROLOGICAL: Gross neurological examination did not reveal any focal deficits. SKIN: No rashes. no petechiae. - Labs CBC & Chem 7: 08/31/19 08:28 08/31/19 04:36 Labs: Abnormal Lab Results - Last 24 Hours (Table) 08/30/19 08/31/19 08/31/19 Range/Units 13:21 04:36 04:36 RBC 3.21 L (4.30-5.90) m/uL Hgb 11.4 L (13.0-17.5) gm/dL Hct 34.0 L (39.0-53.0) % MCV 105.7 H (80.0-100.0) fL MCH 35.5 H (25.0-35.0) pg MCHC (31.0-37.0) g/dL Lymphocytes # 0.9 L (1.0-4.8) k/uL Carbon Dioxide 17 L (22-30) mmol/L Magnesium 1.5 L (1.6-2.3) mg/dL Troponin I 0.472 H* (0.000-0.034) ng/mL 08/31/19 Range/Units 08:28 RBC 3.08 L (4.30-5.90) m/uL Hgb 10.2 L (13.0-17.5) gm/dL Hct 33.0 L (39.0-53.0) % MCV 107.0 H (80.0-100.0) fL MCH (25.0-35.0) pg MCHC 30.9 L (31.0-37.0) g/dL Lymphocytes # 0.9 L (1.0-4.8) k/uL Carbon Dioxide (22-30) mmol/L Magnesium (1.6-2.3) mg/dL Troponin I (0.000-0.034) ng/mL Microbiology - Last 24 Hours (Table) 08/28/19 23:10 Blood Culture - Preliminary Blood No Growth after 48 hours 08/29/19 05:30 Urine Culture - Final Urine,Catheterized Assessment and Plan Assessment: Metabolic versus toxic encephalopathy. Mostly from alcohol abuse plus dementia. Alcohol abuse and intoxication, with delirium tremens Elevated troponin, mostly secondary to new onset atrial fibrillation Elevated CPK concerning for rhabdomyolysis, improving Nicotine dependence Hyperlipidemia Hypertension Dementia History of esophageal stricture Plan: This is a pleasant 78 years old male who presents with altered mental status and hypotension. Patient remains in the ICU with critical care team are following the case closely. Patient was on IV fluids for possible rhabdomyolysis, . Consult cardiology for elevated troponin. Continue with Cardizem drip and switched to oral medication and heart rate is more controlled.continue with CIWA protocol and thiamine Labs and medication were reviewed.. Continue same treatment. Continue with symptomatic treatment. Resume home medication. Monitor lytes and vitals. DVT and GI prophylaxis. Further recommendations of the clinical course of the patient DVT prophylaxis: Subcutaneous heparin GI Prophylaxis: Pepcid Prognosis is guarded
[2019-09-01] MEDS: LORazepam 2 MG/ML INJ IV PRN ×2 (02:05→05:54)
[2019-09-01 05:06] LABS: Basophils # (A) 0.1 k/uL (0-0.2); Basophils % (A) 1 %; Eosinophils # (A) 0.5 k/uL (0-0.7); Eosinophils % (A) 7 %; HCT 34.5 % (39.0-53.0); HGB 11.7 gm/dL (13.0-17.5); Lymphocytes # (A) 0.9 k/uL (1.0-4.8); Lymphocytes % (A) 13 %; MCH 35.1 pg (25.0-35.0); MCHC 33.9 g/dL (31.0-37.0); MCV 103.5 fL (80.0-100.0); Macrocytosis Slight; Mean Platelet Volume 6.6; Monocytes # (A) 0.5 k/uL (0-1.0); Monocytes % (A) 7 %; Neutrophils # (A) 5.1 k/uL (1.3-7.7); Neutrophils % (A) 71 %; Platelet Count 287 k/uL (150-450); RBC 3.33 m/uL (4.30-5.90); WBC 7.2 k/uL (3.8-10.6)
[2019-09-01 05:20] LABS: African American GFR (CKD) >90 (>60 ml/min/1.73 sqM); Anion Gap 11 mmol/L; Blood Urea Nitrogen 9 mg/dL (9-20); Calcium 9.5 mg/dL (8.4-10.2); Carbon Dioxide 19 mmol/L (22-30); Chloride 105 mmol/L (98-107); Glucose 96 mg/dL (74-99); Magnesium 1.6 mg/dL (1.6-2.3); Potassium 3.7 mmol/L (3.5-5.1); Sodium 135 mmol/L (137-145)
[2019-09-01] MEDS ORDERED: Magnesium Replacement Protocol 1 EACH MISC MISCELLANE PRN (05:29)
[2019-09-01] MEDS ORDERED: Potassium Replacement Protocol 1 EACH MISC MISCELLANE PRN (05:29)
[2019-09-01] MEDS: MAGNESIUM SULFATE-D5W PMX 1 GM in DEXTROSE/WATER 1 100ML.BAG IVPB SCH ×2 (05:54→08:17)
[2019-09-01] MEDS: DILTIAZEM 125 MG in SODIUM CHLORIDE 0.9% 100 ML IV SCH (06:04)
[2019-09-01] MEDS: HEPARIN SOD,PORK IN 0.45% NACL 25,000 UNIT in 0.45% NACL 1 250ML.BAG IV SCH (06:04)
[2019-09-01] MEDS: POTASSIUM CHLORIDE 10 MEQ in WATER FOR INJECTION 1 100ML.BAG IVPB SCH ×2 (07:01→08:17)
--- NOTE | 2019-09-01 08:26 | CT ---
EXAMINATION TYPE: CT brain wo con DATE OF EXAM: 09/01/2019 COMPARISON: 09/07/2019 INDICATION: continued confusion post fall DLP: 1119.4 mGycm, Automated exposure control for dose reduction was used. CONTRAST: None CT of the brain is performed utilizing 3 mm thick sections through the posterior fossa and 3 mm thick sections through the remaining calvarium. Study is performed within 24 hours of arrival to the hosp [facility]. No abnormal hyperdensity is present to suggest an acute intracranial hemorrhage. No mass lesion is evident. No acute infarcts are evident. Some periventricular white matter hypodensity is present, likely on th e basis of chronic white matter ischemic changes. Ventricles and sulci are prominent for the patient age. Paranasal sinuses and mastoid air cells within the [id number] are clear. IMPRESSIONS: 1. Age-related atrophy with mild periventricular white matter ischemic changes.
--- NOTE | 2019-09-01 09:37 | P.PN ---
Subjective This is a pleasant 80 years old male with past medical history of alcohol abuse, smoking cigarettes, hyperlipidemia, hypertension, esophageal stricture, GERD. Patient cannot provide information so it was taken from the medical records and staff He was found face down in a patch of dirt. It is unknown how long the patient had been there. His daughters talked to him 24 hours prior. He does have a history of significant alcohol abuse and some component of dementia. They state that episodes like this have happened previously in the past due to concern that the patient can no longer live alone. Daughters state that he has gone through DTs before in the past required hospitalization. Blood pressure was down when he came to the emergency room and it went As low as 80/56, patient was started on levopohed, however it was stopped was taken to the ICU. His breathing at 16. He is afebrile and blood pressure currently is 84/64. CBC and serum electrolytes were unremarkable except for mild hyponatremia at 133 and elevated BUN at 29, creatine kinase elevated at 1009 and troponin is elevated at 0.9. Urinalysis is not suspicious of infection. Chest x-ray showed no acute process. EKG showed normal sinus rhythm at [address] of the abdomen and pelvis: No acute abnormality. Several x-ray of the knee, pelvis, bilateral forearms were negative for any fracture. CT of the head no acute events negative exam In the emergency room patient was given 1 L of normal saline was started on 75 L/h, Ativan as needed and started on ceftriaxone and the benefits. The fit was stopped, as well as the fluids. 08/30/2019 patient is more awake and alert today, he denies chest pain or dyspnea or coughing. No abdominal pain or vomiting. However he has visual hallucinations as he is pointing to people nobody else sees. Also his heart rate was tachycardic today and in A. 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 Patient remains on CIWA protocol, vitamins therapy 08/31/2019 Patient remains in the ICU for close monitoring and therapy. He is currently on heparin drip and Cardizem drip for atrial fibrillation and we went up in his Cardizem drip from 5 to 10 mg per hour. Patient today is still confused probably from his delirium tremens however he opens eyes spontaneously and follow commands. Patient is coughing on eating suspicious for aspiration so we placed the patient nothing by mouth and ask for swelling evaluation for tomorrow. Patient is tachypneic at 23-26 Rest of Vitas looks stable. Labs are stable. Chest x-ray showed worsening changes of pulmonary edema. [facility]/critical care team are following the patient closely monitored ICU and Lasix 40 mg IV recommended by them. 09/01/2019 Patient remains in the ICU in critical condition, his confused and combative at time, he received 2 mg of Ativan as part of his CIWA protocol and he became more confused and lethargic. He is also on heparin drip, repeat CAT scan of the head showed no hemorrhage in view of his anticoagulant therapy and recent history of trauma. However his CIWA score is improving as it was 10 this morning compared to 17 yesterday morning. He is on thiamine. However patient or there was concern regarding his swallowing and he is made nothing by mouth pending swallowing evaluation. Because he cannot swallow medication he kept on Cardizem drip and heparin drip for his new onset A. fib. No family at bedside this morning, however yesterday I discussed the case with the daughter at bedside and all her questions were answered to her satisfaction. Review of systems n/a today because of his confusion Active Medications Generic Name Dose Route Start Last Admin Trade Name Denzelq PRN Reason Stop Dose Admin Aspirin 81 mg 08/30/19 09:00 08/31/19 11:40 Aspirin PO 81 mg DAILY [facility]I Administration Atenolol 12.5 mg 08/30/19 09:00 08/31/19 11:40 Tenormin PO 12.5 mg DAILY [facility] Administration Famotidine 20 mg 08/30/19 21:00 08/31/19 20:11 Pepcid PO Not Given Q12HR [facility] Heparin Sodium (Porcine) 0 unit 08/31/19 08:10 08/31/19 16:46 Heparin IV 4,000 unit PER PROTOCOL PRN Administration Low PTT Protocol Diltiazem HCl 125 mg/ Sodium 125 mls @ 0 mls/hr 08/30/19 10:15 09/01/19 06:04 Chloride IV 10 ml/hr .Q0M [facility] 10 mls/hr Administration Protocol Per Protocol Heparin Sodium/Sodium Chloride 250 mls @ 10 mls/hr 08/31/19 08:15 09/01/19 06:04 25,000 unit/ Sodium Chloride IV 14.6 units/kg/hr .Q24H [facility] 12.483 mls/hr Administration Protocol 11.696 UNITS/KG/HR Lorazepam 1 mg 08/28/19 20:58 08/31/19 13:39 Ativan IV 1 mg Q2HR PRN Administration CIWA 8 or 9 Lorazepam 2 mg 08/28/19 21:01 09/01/19 05:54 Ativan IV 2 mg Q2HR PRN Administration CIWA 10 to 15 Miscellaneous Information 1 each 08/31/19 05:28 Magnesium Per Protocol MISCELLANE DAILY PRN Per Protocol Protocol Miscellaneous Information 1 each 08/31/19 05:28 Potassium Per Protocol MISCELLANE DAILY PRN Per Protocol Protocol Miscellaneous Information 1 each 09/01/19 05:29 Potassium Per Protocol MISCELLANE DAILY PRN Per Protocol Protocol Miscellaneous Information 1 each 09/01/19 05:29 Magnesium Per Protocol MISCELLANE DAILY PRN Per Protocol Protocol Naloxone HCl 0.2 mg 08/29/19 03:01 Narcan IV Q2M PRN Opioid Reversal Thiamine HCl 100 mg 08/29/19 14:00 08/31/19 13:39 Vitamin B-1 IVP 100 mg Q24H [facility] Administration Objective - Vital Signs Vital signs: Vital Signs Temp 96.7 F L 09/01/19 08:00 Pulse 86 09/01/19 08:00 Resp 16 09/01/19 08:00 BP 150/86 09/01/19 08:00 Pulse Ox 97 09/01/19 08:00 Intake & Output 08/31/19 09/01/19 09/01/19 18:59 06:59 18:59 Intake Total 447.167 276.024 305 Output Total 975 1210 350 Balance -527.833 -933.976 -45 Weight 85 kg Intake: IV 250 110 105 KVO 50 10 5 Magnesium Sulfate-D5w Pmx 100 1 gm In Dextrose/Water 1 100ml.bag @ 100 mls/hr IVPB Q1H [facility] Rx#: [id number] Potassium Chloride 10 meq 200 100 In Water For Injection 1 100ml.bag @ 100 mls/hr IVPB Q1H [facility] Rx#: [id number] Intake, IV Titration 197.167 166.024 200 Amount Diltiazem 125 mg In 119 Sodium Chloride 0.9% 100 ml @ Per Protocol IV .Q0M [facility] Rx#:[id number] Heparin Sod,Pork in 0.45% 78.167 166.024 NaCl 25,000 unit In 0.45 % NaCl 1 250ml.bag @ 11. 696 UNITS/KG/HR 10 mls/hr IV .Q24H [facility] Rx#: [id number] Magnesium Sulfate-D5w Pmx 100 1 gm In Dextrose/Water 1 100ml.bag @ 100 mls/hr IVPB Q1H [facility] Rx#: [id number] Potassium Chloride 10 meq 100 In Water For Injection 1 100ml.bag @ 100 mls/hr IVPB Q1H [facility] Rx#: [id number] Output: Urine 975 1210 350 Other: Voiding Method Indwelling Catheter Indwelling Catheter Indwelling Catheter - Exam GENERAL: The patient is alert and more confused today HEENT: Pupils are round and equally reacting to light. EOMI. No scleral icterus. No conjunctival pallor. Normocephalic, atraumatic. No pharyngeal erythema. No thyromegaly. CARDIOVASCULAR: S1 and S2 present. No murmurs, rubs, or gallops. PULMONARY: Chest is clear to auscultation, no wheezing or crackles. ABDOMEN: Soft, nontender, nondistended, normoactive bowel sounds. No palpable organomegaly. MUSCULOSKELETAL: No joint swelling or deformity. EXTREMITIES: No cyanosis, clubbing, or pedal edema. NEUROLOGICAL: Gross neurological examination did not reveal any focal deficits. SKIN: No rashes. no petechiae. - Labs CBC & Chem 7: 09/01/19 04:42 09/01/19 04:42 Labs: Abnormal Lab Results - Last 24 Hours (Table) 08/31/19 08/31/19 09/01/19 Range/Units 14:52 23:33 04:42 RBC 3.33 L (4.30-5.90) m/uL Hgb 11.7 L (13.0-17.5) gm/dL Hct 34.5 L (39.0-53.0) % MCV 103.5 H (80.0-100.0) fL MCH 35.1 H (25.0-35.0) pg Lymphocytes # 0.9 L (1.0-4.8) k/uL APTT 35.2 H 62.5 H (22.0-30.0) sec Sodium (137-145) mmol/L Carbon Dioxide (22-30) mmol/L Creatinine (0.66-1.25) mg/dL 09/01/19 09/01/19 Range/Units 04:42 04:42 RBC (4.30-5.90) m/uL Hgb (13.0-17.5) gm/dL Hct (39.0-53.0) % MCV (80.0-100.0) fL MCH (25.0-35.0) pg Lymphocytes # (1.0-4.8) k/uL APTT 67.3 H (22.0-30.0) sec Sodium 135 L (137-145) mmol/L Carbon Dioxide 19 L (22-30) mmol/L Creatinine 0.61 L (0.66-1.25) mg/dL Microbiology - Last 24 Hours (Table) 08/28/19 23:10 Blood Culture - Preliminary Blood No Growth after 72 hours Assessment and Plan Assessment: Metabolic versus toxic encephalopathy. Mostly from alcohol abuse plus dementia. Alcohol abuse and intoxication, with delirium tremens Elevated troponin, mostly secondary to new onset atrial fibrillation Elevated CPK concerning for rhabdomyolysis, improving Nicotine dependence Hyperlipidemia Hypertension Dementia History of esophageal stricture Plan: This is a pleasant 78 years old male who presents with altered mental status and hypotension. Patient remains in the ICU with critical care team are following t he case closely. Patient was on IV fluids for possible rhabdomyolysis, . Consult cardiology for elevated troponin. Continue with Cardizem drip and switched to oral medication and heart rate is more controlled.continue with CIWA protocol and thiamine Labs and medication were reviewed.. Continue same treatment. Continue with symptomatic treatment. Resume home medication. Monitor lytes and vitals. DVT and GI prophylaxis. Further recommendations of the clinical course of the patient DVT prophylaxis: Subcutaneous heparin GI Prophylaxis: Pepcid Prognosis is guarded
[2019-09-01] MEDS: FAMOTIDINE 20 MG TAB PO SCH ×2 (12:16→23:49)
[2019-09-01] MEDS: ASPIRIN 81 MG PO SCH (12:21)
[2019-09-01] MEDS: ATENOLOL 12.5 MG TAB PO SCH (12:21)
[2019-09-01] MEDS: HEPARIN SODIUM,PORCINE 5,000 UNIT/ML 1 ML VIAL SQ SCH ×3 (12:21→23:49)
--- NOTE | 2019-09-01 13:42 | P.PN ---
Subjective Patient was resting comfortably in bed. He is a very poor historian He is back to sinus rhythm Blood pressure 132/76. His mercury pulse rate in the 70s respirations 16 Breath sounds are reduced bilaterally no rhonchi no crackles Heart sounds are regular Abdomen soft Extremity is warm Impression Atrial fibrillation with RVR, paroxysmal back in sinus rhythm Patient is unable to swallow IV Cardizem to continue for blood pressure management History of alcohol abuse CV prior CABG Suggest Currently he is on IV heparin but long-term anticoagulation would be risky in this gentleman on account of fall risk I will leave that decision to the medical team If he is able to swallow than his oral medication should be begun The options other than IV Cardizem could include transdermal clonidine patch for blood pressure control as well as he is unable to swallow Check TSH Objective - Vital Signs Vital signs: Vital Signs Temp 96.7 F L 09/01/19 08:00 Pulse 77 09/01/19 12:00 Resp 16 09/01/19 12:00 BP 132/76 09/01/19 12:00 Pulse Ox 98 09/01/19 12:00 Intake & Output 08/31/19 09/01/19 09/01/19 18:59 06:59 18:59 Intake Total 447.167 276.024 305 Output Total 975 1210 750 Balance -527.833 -933.976 -445 Weight 85 kg Intake: IV 250 110 105 KVO 50 10 5 Magnesium Sulfate-D5w Pmx 100 1 gm In Dextrose/Water 1 100ml.bag @ 100 mls/hr IVPB Q1H [facility] Rx#: [id number] Potassium Chloride 10 meq 200 100 In Water For Injection 1 100ml.bag @ 100 mls/hr IVPB Q1H [facility] Rx#: [id number] Intake, IV Titration 197.167 166.024 200 Amount Diltiazem 125 mg In 119 Sodium Chloride 0.9% 100 ml @ Per Protocol IV .Q0M [facility] Rx#:[id number] Heparin Sod,Pork in 0.45% 78.167 166.024 NaCl 25,000 unit In 0.45 % NaCl 1 250ml.bag @ 11. 696 UNITS/KG/HR 10 mls/hr IV .Q24H [facility] Rx#: [id number] Magnesium Sulfate-D5w Pmx 100 1 gm In Dextrose/Water 1 100ml.bag @ 100 mls/hr IVPB Q1H [facility] Rx#: [id number] Potassium Chloride 10 meq 100 In Water For Injection 1 100ml.bag @ 100 mls/hr IVPB Q1H [facility] Rx#: [id number] Output: Urine 975 1210 750 Other: Voiding Method Indwelling Catheter Indwelling Catheter Indwelling Catheter - Labs CBC & Chem 7: 09/01/19 04:42 09/01/19 04:42 Labs: Abnormal Lab Results - Last 24 Hours (Table) 08/31/19 08/31/19 09/01/19 Range/Units 14:52 23:33 04:42 RBC 3.33 L (4.30-5.90) m/uL Hgb 11.7 L (13.0-17.5) gm/dL Hct 34.5 L (39.0-53.0) % MCV 103.5 H (80.0-100.0) fL MCH 35.1 H (25.0-35.0) pg Lymphocytes # 0.9 L (1.0-4.8) k/uL APTT 35.2 H 62.5 H (22.0-30.0) sec Sodium (137-145) mmol/L Carbon Dioxide (22-30) mmol/L Creatinine (0.66-1.25) mg/dL 09/01/19 09/01/19 Range/Units 04:42 04:42 RBC (4.30-5.90) m/uL Hgb (13.0-17.5) gm/dL Hct (39.0-53.0) % MCV (80.0-100.0) fL MCH (25.0-35.0) pg Lymphocytes # (1.0-4.8) k/uL APTT 67.3 H (22.0-30.0) sec Sodium 135 L (137-145) mmol/L Carbon Dioxide 19 L (22-30) mmol/L Creatinine 0.61 L (0.66-1.25) mg/dL Microbiology - Last 24 Hours (Table) 08/28/19 23:10 Blood Culture - Preliminary Blood No Growth after 72 hours
--- NOTE | 2019-09-01 16:10 | P.PN ---
Subjective Progress Note Date: 09/01/19 On today's evaluation of 09/01/2019, I'm seeing this patient in the follow-up in the intensive care unit. He is not agitated. However he is still confused. He cannot hold a full conversation. He can state few words. His neurologic exam remains nonfocal. Is moving all 4 extremities without any limitation. I think he is able also to swallow. No fever. No chills. Repeat CAT scan of the brain was done today that showed cerebral atrophy. No other acute abnormalities noted. The patient is currently in normal sinus rhythm. He is on a Cardizem drip at 5 mg an hour. He was seen by cardiology and he was labeled not to be a good candidate for anticoagulation for that reason I discontinued IV heparin and switch the patient to subcu heparin for DVT prophylaxis. The patient was also taken Ativan per protocol for delirium tremens prophylaxis. I discontinued this as I felt of the medication was causing some increased sedation replace it with Haldol. The patient is hemodynamically stable. The patient is receiving IV fluids. The patient has a white count of 7.2. Hemoglobin is 11.7. Electrodes are all within normal limits. Renal function is also stable. No fever. No chills. No other significant events over the past 24 hours. Objective - Vital Signs Vital signs: Vital Signs Temp 96.7 F L 09/01/19 08:00 Pulse 77 09/01/19 12:00 Resp 16 09/01/19 12:00 BP 132/76 09/01/19 12:00 Pulse Ox 98 09/01/19 12:00 Intake & Output 08/31/19 09/01/19 09/01/19 18:59 06:59 18:59 Intake Total 447.167 276.024 505 Output Total 975 1210 925 Balance -527.833 -933.976 -420 Weight 85 kg Intake: IV 250 110 105 KVO 50 10 5 Magnesium Sulfate-D5w Pmx 100 1 gm In Dextrose/Water 1 100ml.bag @ 100 mls/hr IVPB Q1H [facility] Rx#: [id number] Potassium Chloride 10 meq 200 100 In Water For Injection 1 100ml.bag @ 100 mls/hr IVPB Q1H [facility] Rx#: [id number] Intake, IV Titration 197.167 166.024 200 Amount Diltiazem 125 mg In 119 Sodium Chloride 0.9% 100 ml @ Per Protocol IV .Q0M [facility] Rx#:[id number] Heparin Sod,Pork in 0.45% 78.167 166.024 NaCl 25,000 unit In 0.45 % NaCl 1 250ml.bag @ 11. 696 UNITS/KG/HR 10 mls/hr IV .Q24H [facility] Rx#: [id number] Magnesium Sulfate-D5w Pmx 100 1 gm In Dextrose/Water 1 100ml.bag @ 100 mls/hr IVPB Q1H [facility] Rx#: [id number] Potassium Chloride 10 meq 100 In Water For Injection 1 100ml.bag @ 100 mls/hr IVPB Q1H [facility] Rx#: [id number] Oral 200 Output: Urine 975 1210 925 Other: Voiding Method Indwelling Catheter Indwelling Catheter Indwelling Catheter - Exam GENERAL EXAM: Alert, pleasant 78-year-old gentleman, comfortable in no apparent distress. On 2 L/m per nasal cannula HEAD: Normocephalic. EYES: Normal reaction of pupils, equal size. NOSE: Clear with pink turbinates. THROAT: No erythema or exudates. NECK: No masses, no JVD. CHEST: No chest wall deformity. LUNGS: Equal air entry with crackles in left posterior base. CVS: S1 and S2 normal with no audible murmur, regular rhythm. ABDOMEN: No hepatosplenomegaly, normal bowel sounds, no guarding or rigidity. SPINE: No scoliosis or deformity SKIN: No rashes CENTRAL NERVOUS SYSTEM: No focal deficits, tone is normal in all 4 extremities. The patient is following occasionally some simple questions. Nevertheless, he cannot hold a conversation yet. He smiles. He is moving all 4 extremities. He is profoundly weak. Other the effect of sedative medications such as Ativan, the patient sleeps. Upon arousal, he becomes restless. Not agitated. EXTREMITIES: There is no peripheral edema. No clubbing, no cyanosis. Peripheral pulses are intact. - Labs CBC & Chem 7: 09/01/19 04:42 09/01/19 04:42 Labs: Abnormal Lab Results - Last 24 Hours (Table) 08/31/19 08/31/19 09/01/19 Range/Units 14:52 23:33 04:42 RBC 3.33 L (4.30-5.90) m/uL Hgb 11.7 L (13.0-17.5) gm/dL Hct 34.5 L (39.0-53.0) % MCV 103.5 H (80.0-100.0) fL MCH 35.1 H (25.0-35.0) pg Lymphocytes # 0.9 L (1.0-4.8) k/uL APTT 35.2 H 62.5 H (22.0-30.0) sec Sodium (137-145) mmol/L Carbon Dioxide (22-30) mmol/L Creatinine (0.66-1.25) mg/dL 09/01/19 09/01/19 Range/Units 04:42 04:42 RBC (4.30-5.90) m/uL Hgb (13.0-17.5) gm/dL Hct (39.0-53.0) % MCV (80.0-100.0) fL MCH (25.0-35.0) pg Lymphocytes # (1.0-4.8) k/uL APTT 67.3 H (22.0-30.0) sec Sodium 135 L (137-145) mmol/L Carbon Dioxide 19 L (22-30) mmol/L Creatinine 0.61 L (0.66-1.25) mg/dL Microbiology - Last 24 Hours (Table) 08/28/19 23:10 Blood Culture - Preliminary Blood No Growth after 72 hours Assessment and Plan Plan: #1 altered mental status, improving slowly. Rule out metabolic causes for the patient's mental status change. A repeat CAT scan of the brain was done and showed diffuse atrophy without any acute abnormalities. Neurologic exam is nonfocal. There has been some progress in terms of the patient's neurologic function is over the past 24-48 hours. #2 Rhabdomyolysis secondary to being on the ground or several hours. #3 alcoholism #4 Hypotension secondary to dehydration and possible sepsis, recovered #5 Coronary artery disease, status post bypass grafting. #6 History of hypertension. #7 diverticular disease. #8 History of previous tobacco dependence. #9 Gastroesophageal reflux disease. #10 Hyperlipidemia. #11 Troponin leak. #12 atrial fibrillation current rhythm is back to sinus and the patient was receiving a combination of Cardizem drip and IV heparin. Plan Discontinue the IV heparin as the patient is not a good candidate for long-term and to coagulation. Put the patient on subcu heparin for DVT prophylaxis. Cut down the Cardizem to 5 mg an hour. Start the patient on atenolol 12.5 mg by mouth daily. We will monitor the mental status. CAT scan of the brain that was done today was noted. We will to monitor his mentation and proceed accordingly. Stop the IV Ativan. Replace with Haldol 0.5 mg every 3-4 hours on a when necessary basis should there be any significant agitation or delirium. Continue thiamine. Continue po Pepcid. We'll continue to follow.
[2019-09-01] MEDS: THIAMINE 100 MG/ML 2 ML VIAL IVP SCH (17:17)
[2019-09-02 04:51] LABS: Basophils # (A) 0.1 k/uL (0-0.2); Basophils % (A) 1 %; Eosinophils # (A) 0.4 k/uL (0-0.7); Eosinophils % (A) 6 %; HCT 36.4 % (39.0-53.0); HGB 12.1 gm/dL (13.0-17.5); Lymphocytes # (A) 1.1 k/uL (1.0-4.8); Lymphocytes % (A) 16 %; MCHC 33.2 g/dL (31.0-37.0); MCV 102.5 fL (80.0-100.0); Mean Platelet Volume 6.8; Monocytes # (A) 0.6 k/uL (0-1.0); Monocytes % (A) 9 %; Neutrophils # (A) 4.8 k/uL (1.3-7.7); Neutrophils % (A) 67 %; Platelet Count 398 k/uL (150-450); RBC 3.55 m/uL (4.30-5.90); RDW 11.8 % (11.5-15.5); WBC 7.1 k/uL (3.8-10.6)
[2019-09-02 05:02] LABS: African American GFR (CKD) >90 (>60 ml/min/1.73 sqM); Anion Gap 10 mmol/L; Blood Urea Nitrogen 11 mg/dL (9-20); Calcium 9.8 mg/dL (8.4-10.2); Carbon Dioxide 20 mmol/L (22-30); Chloride 102 mmol/L (98-107); Glucose 98 mg/dL (74-99); Magnesium 1.7 mg/dL (1.6-2.3); Sodium 132 mmol/L (137-145)
[2019-09-02] MEDS: MAGNESIUM SULFATE-D5W PMX 1 GM in DEXTROSE/WATER 1 100ML.BAG IVPB SCH ×2 (05:23→07:03)
--- NOTE | 2019-09-02 07:24 | P.PN ---
Subjective Progress Note Date: 09/02/19 On 09/02/2019, the patient is sitting up on a chair. More alert and responsive compared to yesterday. Nevertheless he remains confused. He remains weak. He is or alert and oriented 1. He is able to speak in longer sentences. He was able to swallow under close supervision. No fever. No chills. No aspiration. No signs of any respiratory distress. No focal neurological deficits. Note that the CAT scan of the brain was repeated yesterday and there was no acute abnormalities and showed cerebral atrophy. The patient is off the Cardizem drip his cardiac rhythm is sinus. He was taken off the IV heparin is on subcutaneous heparin for now. He did not receive Ativan over the past 24 hours. He did not receive Haldol. No agitation. He remains hemodynamically stable. A similar was at 12.1. Rest of the electrodes are all within normal limits. Thyroid function tests are also within normal limits. Objective - Vital Signs Vital signs: Vital Signs Temp 97.6 F 09/02/19 04:00 Pulse 79 09/02/19 07:00 Resp 15 09/02/19 07:00 BP 127/82 09/02/19 07:00 Pulse Ox 96 09/02/19 07:00 Intake & Output 09/01/19 09/02/19 09/02/19 18:59 06:59 18:59 Intake Total 505 Output Total 1285 515 20 Balance -780 -515 -20 Weight 84.4 kg Intake: IV 105 KVO 5 Potassium Chloride 10 meq 100 In Water For Injection 1 100ml.bag @ 100 mls/hr IVPB Q1H [facility] Rx#: [id number] Intake, IV Titration 200 Amount Magnesium Sulfate-D5w Pmx 100 1 gm In Dextrose/Water 1 100ml.bag @ 100 mls/hr IVPB Q1H [facility] Rx#: [id number] Potassium Chloride 10 meq 100 In Water For Injection 1 100ml.bag @ 100 mls/hr IVPB Q1H [facility] Rx#: [id number] Oral 200 Output: Urine 1285 515 20 Other: Voiding Method Indwelling Catheter Indwelling Catheter - Exam GENERAL EXAM: Alert, pleasant 78-year-old gentleman, comfortable in no apparent distress. On 2 L/m per nasal cannula HEAD: Normocephalic. EYES: Normal reaction of pupils, equal size. NOSE: Clear with pink turbinates. THROAT: No erythema or exudates. NECK: No masses, no JVD. CHEST: No chest wall deformity. LUNGS: Equal air entry with crackles in left posterior base. CVS: S1 and S2 normal with no audible murmur, regular rhythm. ABDOMEN: No hepatosplenomegaly, normal bowel sounds, no guarding or rigidity. SPINE: No scoliosis or deformity SKIN: No rashes CENTRAL NERVOUS SYSTEM: No focal deficits, tone is normal in all 4 extremities. The patient is following occasionally some simple questions. Nevertheless, he cannot hold a conversation yet. He smiles. He is moving all 4 extremities. He has motor weakness in all 4 extremities. Is able to say few sentences. He r emains confused and he is alert and oriented 1. I think however since yesterday the patient is much more awake and alert. He is following simple commands such as grabbing and reaching and squeezing with his hands, etc. Neurologic exam is nonfocal. EXTREMITIES: There is no peripheral edema. No clubbing, no cyanosis. Peripheral pulses are intact. - Labs CBC & Chem 7: 09/02/19 04:17 09/02/19 04:17 Labs: Abnormal Lab Results - Last 24 Hours (Table) 09/02/19 09/02/19 Range/Units 04:17 04:17 RBC 3.55 L (4.30-5.90) m/uL Hgb 12.1 L (13.0-17.5) gm/dL Hct 36.4 L (39.0-53.0) % MCV 102.5 H (80.0-100.0) fL Sodium 132 L (137-145) mmol/L Carbon Dioxide 20 L (22-30) mmol/L Creatinine 0.60 L (0.66-1.25) mg/dL Microbiology - Last 24 Hours (Table) 08/28/19 23:10 Blood Culture - Preliminary Blood No Growth after 96 hours Assessment and Plan Plan: #1 altered mental status, improving slowly. Rule out metabolic causes for the patient's mental status change. A repeat CAT scan of the brain was done and showed diffuse atrophy without any acute abnormalities. Neurologic exam is nonfocal. There has been some progress in terms of the patient's neurologic function is over the past 24-48 hours. The patient is gradually improving. Despite the fact that he is still confused and alert and oriented 1, we feel that the patient is much more alert compared to yesterday. His speech is improved. Is able to speak up longer sentences. Overall neurologic exam remains nonfocal. #2 Rhabdomyolysis secondary to being on the ground or several hours, recovered #3 alcoholism, chronic #4 Hypotension secondary to dehydration and possible sepsis, recovered #5 Coronary artery disease, status post bypass grafting. #6 History of hypertension. #7 diverticular disease. #8 History of previous tobacco dependence. #9 Gastroesophageal reflux disease. #10 Hyperlipidemia. #11 Troponin leak. #12 atrial fibrillation current rhythm is back to sinus and the patient was receiving a combination of Cardizem drip and IV heparin. Plan Monitor mental status. Replace magnesium. Replace electrolytes. Advance diet as tolerated and he has to be under close supervision while eating. No signs of any delirium tremens. I took the patient of the IV heparin. The patient off the Cardizem drip. His taken oral atenolol. Cardiac rhythm is sinus. We'll continue to follow.
[2019-09-02] MEDS: HEPARIN SODIUM,PORCINE 5,000 UNIT/ML 1 ML VIAL SQ SCH ×2 (08:15→17:14)
[2019-09-02] MEDS: ATENOLOL 12.5 MG TAB PO SCH (08:15)
[2019-09-02] MEDS: FAMOTIDINE 20 MG TAB PO SCH ×2 (08:15→20:01)
[2019-09-02] MEDS: ASPIRIN 81 MG PO SCH (08:15)
--- NOTE | 2019-09-02 10:11 | P.PN ---
Subjective This is Carline Forbes PA-C dictating a progress note on this patient The patient was interviewed and examined by me as well as by Dr. Harris Case discussed with Dr. Harris and he agrees with the plan of care IMPRESSION / ASSESSMENT: Rhabdomyolysis secondary to prolonged time on the ground, resolved Paroxysmal atrial fibrillation, currently in sinus rhythm CAD status post CABG Hypertension Dyslipidemia Alcohol abuse PLAN: Increase atenolol to 25 mg daily His CHADSVASC score would at least be 4 given his age, CAD, and HTN but due to his history of ETOH abuse and falls, he would also be a high bleeding risk, will make a final decision regarding anticoagulation as the patients mental status improves check a CMP and consider starting low dose pravastatin given his history of CAD HPI/interval history Patient is a 78-year-old male with a past medical history significant for CAD status post CABG, hypertension, dyslipidemia, and alcohol abuse who was found unresponsive on the ground at his house. He was admitted to the ICU for treatment of possible alcohol withdrawal as well as rhabdomyolysis. While in the ICU he went into atrial fibrillation. He was started on IV Cardizem and converted to sinus rhythm. Patient has been in sinus rhythm since. He has been off the IV Cardizem. Patient seen and examined sitting up in his chair. Bedside telemetry reveals sinus rhythm in the 90s to 100s. He gives short responses to questions and remains confused. Does follow directions. Denies any complaints of chest pain palpitations or shortness of breath. EXAMINATION Temperature 98.2F, pulse 94, respirations 11, blood pressure 133/101, oxygen saturation 99% on room air Patient seen and examined sitting up in his chair, in no acute distress Lungs clear to auscultation bilaterally Heart is tachycardic but regular, no murmurs noted No elevated JVD or lower extremity edema Abdomen soft REVIEW OF LABS, ECG WBC 7.1, hemoglobin 12.1, platelets 398, potassium 4.0, BUN 11, creatinine 0.6, magnesium 1.7 TSH within normal limits at 2.82 Echocardiogram showed EF 50-55%, mild to moderate MR, [id number] TR Objective - Vital Signs Vital signs: Vital Signs Temp 98.2 F 09/02/19 08:01 Pulse 94 09/02/19 08:01 Resp 11 L 09/02/19 08:01 BP 133/101 09/02/19 08:01 Pulse Ox 99 09/02/19 08:01 Intake & Output 09/01/19 09/02/19 09/02/19 18:59 06:59 18:59 Intake Total 505 100 Output Total 1285 515 36 Balance -780 -515 64 Weight 84.4 kg Intake: IV 105 100 KVO 5 Magnesium Sulfate-D5w Pmx 100 1 gm In Dextrose/Water 1 100ml.bag @ 100 mls/hr IVPB Q1H [facility] Rx#: [id number] Potassium Chloride 10 meq 100 In Water For Injection 1 100ml.bag @ 100 mls/hr IVPB Q1H [facility] Rx#: [id number] Intake, IV Titration 200 Amount Magnesium Sulfate-D5w Pmx 100 1 gm In Dextrose/Water 1 100ml.bag @ 100 mls/hr IVPB Q1H [facility] Rx#: [id number] Potassium Chloride 10 meq 100 In Water For Injection 1 100ml.bag @ 100 mls/hr IVPB Q1H [facility] Rx#: [id number] Oral 200 Output: Urine 1285 515 36 Other: Voiding Method Indwelling Catheter Indwelling Catheter Indwelling Catheter - Labs CBC & Chem 7: 09/02/19 04:17 09/02/19 04:17 Labs: Abnormal Lab Results - Last 24 Hours (Table) 09/02/19 09/02/19 Range/Units 04:17 04:17 RBC 3.55 L (4.30-5.90) m/uL Hgb 12.1 L (13.0-17.5) gm/dL Hct 36.4 L (39.0-53.0) % MCV 102.5 H (80.0-100.0) fL Sodium 132 L (137-145) mmol/L Carbon Dioxide 20 L (22-30) mmol/L Creatinine 0.60 L (0.66-1.25) mg/dL Microbiology - Last 24 Hours (Table) 08/28/19 23:10 Blood Culture - Preliminary Blood No Growth after 96 hours
[2019-09-02] MEDS ORDERED: SODIUM CHLORIDE 0.9% 500 ML 500 ML IV ONE (10:26)
[2019-09-02 10:47] LABS: ALT 26 U/L (21-72); AST 26 U/L (17-59); Albumin 3.1 g/dL (3.5-5.0); Alkaline Phosphatase 58 U/L (38-126); Total Bilirubin 0.7 mg/dL (0.2-1.3); Total Protein 6.3 g/dL (6.3-8.2)
[2019-09-02] MEDS: THIAMINE 100 MG/ML 2 ML VIAL IVP SCH (16:13)
--- NOTE | 2019-09-02 17:03 | P.PN ---
Subjective 80 years old male with past medical history of alcohol abuse, smoking cigarettes, hyperlipidemia, hypertension, esophageal stricture, GERD. Patient cannot provide information so it was taken from the medical records and staff He was found face down in a patch of dirt. It is unknown how long the patient had been there. His daughters talked to him 24 hours prior. He does have a history of significant alcohol abuse and some component of dementia. They state that episodes like this have happened previously in the past due to concern that the patient can no longer live alone. Daughters state that he has gone through DTs before in the past required hospitalization. Blood pressure was down when he came to the emergency room and it went As low as 80/56, patient was started on levopohed, however it was stopped was taken to the ICU. His breathing at 16. He is afebrile and blood pressure currently is 84/64. CBC and serum electrolytes were unremarkable except for mild hyponatremia at 133 and elevated BUN at 29, creatine kinase elevated at 1009 and troponin is elevated at 0.9. Urinalysis is not suspicious of infection. Chest x-ray showed no acute process. EKG showed normal sinus rhythm at [address] of the abdomen and pelvis: No acute abnormality. Several x-ray of the knee, pelvis, bilateral forearms were negative for any fracture. CT of the head no acute events negative exam In the emergency room patient was given 1 L of normal saline was started on 75 L/h, Ativan as needed and started on ceftriaxone and the benefits. The fit was stopped, as well as the fluids. 08/30/2019 patient is more awake and alert today, he denies chest pain or dyspnea or coughing. No abdominal pain or vomiting. However he has visual hallucinations as he is pointing to people nobody else sees. Also his heart rate was tachycard ic today and in A. 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 Patient remains on CIWA protocol, vitamins therapy 08/31/2019 Patient remains in the ICU for close monitoring and therapy. He is currently on heparin drip and Cardizem drip for atrial fibrillation and we went up in his Cardizem drip from 5 to 10 mg per hour. Patient today is still confused probably from his delirium tremens however he opens eyes spontaneously and follow commands. Patient is coughing on eating suspicious for aspiration so we placed the patient nothing by mouth and ask for swelling evaluation for tomorrow. Patient is tachypneic at 23-26 Rest of Vitas looks stable. Labs are stable. Chest x-ray showed worsening changes of pulmonary edema. Pulmonary/critical care team are following the patient closely monitored ICU and Lasix 40 mg IV recommended by them. 09/01/2019 Patient remains in the ICU in critical condition, his confused and combative at time, he received 2 mg of Ativan as part of his CIWA protocol and he became more confused and lethargic. He is also on heparin drip, repeat CAT scan of the head showed no hemorrhage in view of his anticoagulant therapy and recent history of trauma. However his CIWA score is improving as it was 10 this morn ing compared to 17 yesterday morning. He is on thiamine. However patient or there was concern regarding his swallowing and he is made nothing by mouth pending swallowing evaluation. Because he cannot swallow medication he kept on Cardizem drip and heparin drip for his new onset A. fib. No family at bedside this morning, however yesterday I discussed the case with the daughter at bedside and all her questions were answered to her satisfaction. 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 Patient apparently had A. fib with but only on atenolol at this time not on any anticoagulation. Will be discharged to subacute rehabilitation whenever he is ready to be discharged. Constitutional: Denied any fatigue denied any fever. Cardio vascular: denied any chest pain, palpitations Gastrointestinal denied any nausea vomiting Pulmonary: Denied any shortness of breath cough Neurologic denied any new focal deficits All inpatient medications were reviewed and appropriate changes in these medications as dictated in the interval history and assessment and plan. Objective - Vital Signs Vital signs: Vital Signs Temp 98.1 F 09/02/19 16:00 Pulse 87 09/02/19 16:00 Resp 11 L 09/02/19 16:00 BP 135/90 09/02/19 16:00 Pulse Ox 98 09/02/19 16:00 Intake & Output 09/01/19 09/02/19 09/02/19 18:59 06:59 18:59 Intake Total 505 840 Output Total 1285 515 366 Balance -780 -515 474 Weight 84.4 kg Intake: IV 105 840 KVO 5 10 Magnesium Sulfate-D5w Pmx 200 1 gm In Dextrose/Water 1 100ml.bag @ 100 mls/hr IVPB Q1H [facility] Rx#: [id number] Potassium Chloride 10 meq 100 In Water For Injection 1 100ml.bag @ 100 mls/hr IVPB Q1H [facility] Rx#: [id number] Sodium Chloride 0.9% 1, 130 000 ml @ 100 mls/hr IV . Q10H [facility] Rx#:[id number] Sodium Chloride 0.9% 500 500 ml 500 ml @ 999 mls/hr IV .Q31M [facility] Rx#:[id number] Intake, IV Titration 200 Amount Magnesium Sulfate-D5w Pmx 100 1 gm In Dextrose/Water 1 100ml.bag @ 100 mls/hr IVPB Q1H [facility] Rx#: [id number] Potassium Chloride 10 meq 100 In Water For Injection 1 100ml.bag @ 100 mls/hr IVPB Q1H [facility] Rx#: [id number] Oral 200 Output: Urine 1285 515 366 Other: Voiding Method Indwelling Catheter Indwelling Catheter Indwelling Catheter - Exam GENERAL: He is alert oriented times close to 3 HEENT: Pupils are round and equally reacting to light. EOMI. No scleral icterus. No conjunctival pallor. Normocephalic, atraumatic. No pharyngeal erythema. No thyromegaly. CARDIOVASCULAR: S1 and S2 present. No murmurs, rubs, or gallops. PULMONARY: Chest is clear to auscultation, no wheezing or crackles. ABDOMEN: Soft, nontender, nondistended, normoactive bowel sounds. No palpable organomegaly. MUSCULOSKELETAL: No joint swelling or deformity. EXTREMITIES: No cyanosis, clubbing, or pedal edema. NEUROLOGICAL: Gross neurological examination did not reveal any focal deficits. SKIN: No rashes. no petechiae. - Labs CBC & Chem 7: 09/02/19 04:17 09/02/19 04:17 Labs: Abnormal Lab Results - Last 24 Hours (Table) 09/02/19 09/02/19 Range/Units 04:17 04:17 RBC 3.55 L (4.30-5.90) m/uL Hgb 12.1 L (13.0-17.5) gm/dL Hct 36.4 L (39.0-53.0) % MCV 102.5 H (80.0-100.0) fL Sodium 132 L (137-145) mmol/L Carbon Dioxide 20 L (22-30) mmol/L Creatinine 0.60 L (0.66-1.25) mg/dL Albumin 3.1 L (3.5-5.0) g/dL Microbiology - Last 24 Hours (Table) 08/28/19 23:10 Blood Culture - Preliminary Blood No Growth after 96 hours Assessment and Plan Plan: -Hallucinations: Secondary to alcohol related psychosis and possible Wernicke's encephalopathy. Patient was diagnosed with Wernicke's in the past which are does didn't appear to have him improved with high-dose time in the past. Patient may have age related dementia as well -Alcohol abuse and intoxication with delirium tremens was treated with Ativan on as-needed basis Rhabdomyolysis: Improved now with IV fluids -Hypotension secondary to dehydration which improved next and have an coronary artery disease -Hypertension -Nicotine dependence -Gastroesophageal reflux disease -Elevated troponin without any chest pain noncardiac elevation -Atrial fibrillation proximal patient is not an anticoagulation and is on atenolol at this time which will be continued
[2019-09-02] MEDS: SODIUM CHLORIDE 0.9% 1,000 ML IV SCH (17:11)
[2019-09-03 07:48] LABS: Basophils # (A) 0.1 k/uL (0-0.2); Basophils % (A) 2 %; Eosinophils # (A) 0.3 k/uL (0-0.7); Eosinophils % (A) 4 %; HCT 36.8 % (39.0-53.0); HGB 11.9 gm/dL (13.0-17.5); Lymphocytes # (A) 1.2 k/uL (1.0-4.8); Lymphocytes % (A) 19 %; MCH 32.9 pg (25.0-35.0); MCHC 32.3 g/dL (31.0-37.0); MCV 101.9 fL (80.0-100.0); Mean Platelet Volume 8.2; Monocytes # (A) 0.6 k/uL (0-1.0); Monocytes % (A) 9 %; Neutrophils # (A) 4.3 k/uL (1.3-7.7); Neutrophils % (A) 65 %; Platelet Count 375 k/uL (150-450); RBC 3.61 m/uL (4.30-5.90); RDW 12.2 % (11.5-15.5); WBC 6.5 k/uL (3.8-10.6)
[2019-09-03 08:04] LABS: African American GFR (CKD) >90 (>60 ml/min/1.73 sqM); Anion Gap 9 mmol/L; Blood Urea Nitrogen 9 mg/dL (9-20); Calcium 9.5 mg/dL (8.4-10.2); Carbon Dioxide 22 mmol/L (22-30); Chloride 101 mmol/L (98-107); Glucose 91 mg/dL (74-99); Magnesium 1.6 mg/dL (1.6-2.3); Potassium 3.7 mmol/L (3.5-5.1); Sodium 132 mmol/L (137-145)
--- NOTE | 2019-09-03 08:08 | XR ---
EXAMINATION TYPE: XR chest 1V portable DATE OF EXAM: 09/03/2019 COMPARISON: 08/31/2019 INDICATION: ICU management TECHNIQUE: Single frontal view of the chest is obtained. FINDINGS: The heart size is normal. The pulmonary vasculature is normal. There is a left lower lobe infiltrate. This is more focal than comparison. Pulmonary vascular and dif fuse increased lung markings are improving from comparison Sternotomy wires prior surgical clips are evident within the chest. IMPRESSION: 1. Left lower lobe infiltrate. Correlate for atelectasis or pneumonia. 2. Previous findings suggestive for pulmonary edema are resolving.
--- NOTE | 2019-09-03 08:44 | P.PN ---
Subjective Progress Note Date: 09/03/19 On 09/03/2019 the patient is still somewhat confused. He is not aware of the place. He is able to speak and follow commands. His swallowing his medications fine and there is no aspiration. His swallowing his food without any major difficulties. No fever. No chills. Chest x-ray showing improvement in the previously described pulmonary edema with some ongoing left lower lobe pulmonary infiltration. Nevertheless, the patient is on room air oxygen and his pulse ox is around 92%. His cardiac rhythm is still sinus. He was on atenolol at home and the dose will be started at 100 mg by mouth daily. He is also on Vasotec at home and this will be restarted. Meanwhile, he is off the IV heparin. No further cardiac arrhythmias have been noted. His echocardiogram is within normal limits with some mild to moderate degree of pulmonary hypertension. The patient has history of alcoholism. He also had depression following the loss of his spouse. He is weak mainly in his lower extremities. He still has a Perez catheter in place. He is hemodynamically stable. Thyroid function tests are within normal limits. Objective - Vital Signs Vital signs: Vital Signs Temp 98 F 09/02/19 20:00 Pulse 85 09/02/19 22:00 Resp 18 09/02/19 22:00 BP 138/75 09/02/19 22:00 Pulse Ox 95 09/02/19 22:00 Intake & Output 09/02/19 09/03/19 09/03/19 18:59 06:59 18:59 Intake Total 1240 600 Output Total 441 925 Balance 799 -325 Weight 82.1 kg Intake: IV 1040 500 KVO 10 Magnesium Sulfate-D5w Pmx 200 1 gm In Dextrose/Water 1 100ml.bag @ 100 mls/hr IVPB Q1H [facility] Rx#: [id number] Sodium Chloride 0.9% 1, 330 500 000 ml @ 100 mls/hr IV . Q10H [facility] Rx#:[id number] Sodium Chloride 0.9% 500 500 ml 500 ml @ 999 mls/hr IV .Q31M [facility] Rx#:[id number] Oral 200 100 Output: Urine 441 925 Other: Voiding Method Indwelling Catheter Indwelling Catheter - Exam GENERAL EXAM: Alert, pleasant 78-year-old gentleman, comfortable in no apparent distress. Currently on room air oxygen HEAD: Normocephalic. EYES: Normal reaction of pupils, equal size. NOSE: Clear with pink turbinates. THROAT: No erythema or exudates. NECK: No masses, no JVD. CHEST: No chest wall deformity. LUNGS: Equal air entry with crackles in left posterior base. CVS: S1 and S2 normal with no audible murmur, regular rhythm. ABDOMEN: No hepatosplenomegaly, normal bowel sounds, no guarding or rigidity. SPINE: No scoliosis or deformity SKIN: No rashes CENTRAL NERVOUS SYSTEM: No focal deficits, tone is normal in all 4 extremities. The patient is following and assess questions is confused and he is alert and oriented 1. He is moving all 4 extremities. He has motor weakness in all 4 ex tremities. Is able to say few sentences. He remains confused and he is alert and oriented 1. I think however since yesterday the patient is much more awake and alert. He is following simple commands such as grabbing and reaching and squeezing with his hands, etc. Neurologic exam is nonfocal. EXTREMITIES: There is no peripheral edema. No clubbing, no cyanosis. Peripheral pulses are intact. - Labs CBC & Chem 7: 09/02/19 04:17 09/02/19 04:17 Labs: Abnormal Lab Results - Last 24 Hours (Table) 09/02/19 Range/Units 04:17 Sodium 132 L (137-145) mmol/L Carbon Dioxide 20 L (22-30) mmol/L Creatinine 0.60 L (0.66-1.25) mg/dL Albumin 3.1 L (3.5-5.0) g/dL Microbiology - Last 24 Hours (Table) 08/28/19 23:10 Blood Culture - Preliminary Blood No Growth after 120 hours Assessment and Plan Plan: #1 altered mental status, improving slowly. Rule out metabolic causes for the patient's mental status change. A repeat CAT scan of the brain was done and showed diffuse atrophy without any acute abnormalities. Neurologic exam is nonfocal. Patient remains confused. He is alert and oriented 1. No focal neurological deficits. CAT scan showing diffuse atrophy. We'll consult neurology. 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 #2 Rhabdomyolysis secondary to being on the ground or several hours, recovered #3 alcoholism, chronic #4 Hypotension secondary to dehydration and possible sepsis, recovered #5 Coronary artery disease, status post bypass grafting. #6 History of hypertension. #7 diverticular disease. #8 History of previous tobacco dependence. #9 Gastroesophageal reflux disease. #10 Hyperlipidemia. #11 Troponin leak. #12 atrial fibrillation current rhythm is back to sinus n. Plan Monitor mental status. Has diet. Diflucan KVO. Physical Therapy Consultation. Neurology Consultation. Restart Atenolol 100 Mg by Mouth Daily. Restart Vasotec 10 Mg by Mouth Daily. Restart Flomax and aspirin. He can be transferred to a medical floor. They DNR/DNI CODE STATUS.
[2019-09-03] MEDS: TAMSULOSIN 0.4 MG CAP.ER.24H PO SCH (08:54)
[2019-09-03] MEDS: LISINOPRIL 10 MG TAB PO SCH (08:54)
[2019-09-03] MEDS: THIAMINE 100 MG TAB PO SCH (08:54)
[2019-09-03] MEDS: HEPARIN SODIUM,PORCINE 5,000 UNIT/ML 1 ML VIAL SQ SCH ×4 (08:54→23:50)
[2019-09-03] MEDS: FAMOTIDINE 20 MG TAB PO SCH ×2 (08:54→20:45)
[2019-09-03] MEDS: PANTOPRAZOLE 40 MG TABLET PO SCH (08:57)
[2019-09-03] MEDS ORDERED: ATENOLOL 25 MG TAB PO SCH (09:00)
[2019-09-03] MEDS: HALOPERIDOL LACTATE 5 MG/ML 1 ML VIAL IVP PRN ×2 (10:48→13:59)
--- NOTE | 2019-09-03 12:14 | P.PN ---
Subjective This is Carline Forbes PA-C dictating a progress note on this patient The patient was interviewed and examined by me as well as by Dr. Harris Case discussed with Dr. Harris and he agrees with the plan of care IMPRESSION / ASSESSMENT: Rhabdomyolysis due to prolonged time on the ground, resolved paroxysmal atrial fibrillation rhythm, maintaining sinus rhythm CAD status post CABG Hypertension, blood pressure is been elevated in the 150s systolic over 90s diastolic Dyslipidemia Alcohol abuse altered mental status, possibly secondary to Wernicke's encephalopathy versus dementia PLAN: his atenolol has been increased to his home dose of 100 mg daily and his home lisinopril has been restarted. He home dose of atorvastatin 10 mg has been restarted treatment of paroxysmal atrial fibrillation with rate control, hold off on anticoagulation for now since patient is a high risk of bleeding and falls secondary to his EtOH abuse and mental status final decision regarding anticoagulation prior to discharge HPI/interval history patient is an 78-year-old male past medical history for CAD status post CABG, hypertension, dyslipidemia and alcohol abuse on who is brought in for evaluation after being found on the ground unresponsive. He was treated in t for rhabdomyolysis and alcohol withdrawal. He also developed atrial fibrillation while in the ICU. Has been in sinus rhythm. yesterday I increased his atenolol and bedside telemetry reveals sinus rhythm and his rates are still in the 90s. he should seen and examined sitting up in his chair. he has a patient sitter at the bedside. He was able to walk a little bit with therapy. He remains confused and oriented only to himself. Believes it's 1994. Believes his grandmother is here. Denies any complaints of chest pain, palpitations, dizziness lightheadedness or shortness of breath. EXAMINATION temperature 97.9F, pulse 86, respirations 14, blood pressure 148/98 , oxygen sat 99% patient seen and examined resting in his chair, in no acute distress Lungs are mildly diminished but clear to auscultation bilaterally Heart is regular, normal S1-S2, no murmurs noted no elevated JVD or lower extremity edema REVIEW OF LABS, ECG WBC 6.5, hemoglobin 11.9, platelets 375, potassium 3.7,BUN 9, creatinine 0.61, LFTs within normal limits Objective - Vital Signs Vital signs: Vital Signs Temp 97.9 F 09/03/19 08:00 Pulse 86 09/03/19 10:00 Resp 9 L 09/03/19 10:00 BP 148/98 09/03/19 10:00 Pulse Ox 99 09/03/19 09:00 Intake & Output 09/02/19 09/03/19 09/03/19 18:59 06:59 18:59 Intake Total 1240 600 130 Output Total 441 925 Balance 799 -325 130 Weight 82.1 kg Intake: IV 1040 500 130 KVO 10 Magnesium Sulfate-D5w Pmx 200 1 gm In Dextrose/Water 1 100ml.bag @ 100 mls/hr IVPB Q1H [facility] Rx#: [id number] Sodium Chloride 0.9% 1, 330 500 130 000 ml @ 10 mls/hr IV . Q24H [facility] Rx#:[id number] Sodium Chloride 0.9% 500 500 ml 500 ml @ 999 mls/hr IV .Q31M [facility] Rx#:[id number] Oral 200 100 Output: Urine 441 925 Other: Voiding Method Indwelling Catheter Indwelling Catheter Indwelling Catheter - Labs CBC & Chem 7: 09/03/19 04:20 09/03/19 04:20 Labs: Abnormal Lab Results - Last 24 Hours (Table) 09/03/19 09/03/19 Range/Units 04:20 04:20 RBC 3.61 L (4.30-5.90) m/uL Hgb 11.9 L (13.0-17.5) gm/dL Hct 36.8 L (39.0-53.0) % MCV 101.9 H (80.0-100.0) fL Sodium 132 L (137-145) mmol/L Creatinine 0.61 L (0.66-1.25) mg/dL Microbiology - Last 24 Hours (Table) 08/28/19 23:10 Blood Culture - Preliminary Blood No Growth after 120 hours
--- NOTE | 2019-09-03 14:40 | P.PN ---
Subjective 80 years old male with past medical history of alcohol abuse, smoking cigarettes, hyperlipidemia, hypertension, esophageal stricture, GERD. Patient cannot provide information so it was taken from the medical records and staff He was found face down in a patch of dirt. It is unknown how long the patient had been there. His daughters talked to him 24 hours prior. He does have a history of significant alcohol abuse and some component of dementia. They state that episodes like this have happened previously in the past due to concern that the patient can no longer live alone. Daughters state that he has gone through DTs before in the past required hospitalization. Blood pressure was down when he came to the emergency room and it went As low as 80/56, patient was started on levopohed, however it was stopped was taken to the ICU. His breathing at 16. He is afebrile and blood pressure currently is 84/64. CBC and serum electrolytes were unremarkable except for mild hyponatremia at 133 and elevated BUN at 29, creatine kinase elevated at 1009 and troponin is elevated at 0.9. Urinalysis is not suspicious of infection. Chest x-ray showed no acute process. EKG showed normal sinus rhythm at [address] of the abdomen and pelvis: No acute abnormality. Several x-ray of the knee, pelvis, bilateral forearms were negative for any fracture. CT of the head no acute events negative exam In the emergency room patient was given 1 L of normal saline was started on 75 L/h, Ativan as needed and started on ceftriaxone and the benefits. The fit was stopped, as well as the fluids. 08/30/2019 patient is more awake and alert today, he denies chest pain or dyspnea or coughing. No abdominal pain or vomiting. However he has visual hallucinations as he is pointing to people nobody else sees. Also his heart rate was tachycard ic today and in A. 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 Patient remains on CIWA protocol, vitamins therapy 08/31/2019 Patient remains in the ICU for close monitoring and therapy. He is currently on heparin drip and Cardizem drip for atrial fibrillation and we went up in his Cardizem drip from 5 to 10 mg per hour. Patient today is still confused probably from his delirium tremens however he opens eyes spontaneously and follow commands. Patient is coughing on eating suspicious for aspiration so we placed the patient nothing by mouth and ask for swelling evaluation for tomorrow. Patient is tachypneic at 23-26 Rest of Vitas looks stable. Labs are stable. Chest x-ray showed worsening changes of pulmonary edema. Pulmonary/critical care team are following the patient closely monitored ICU and Lasix 40 mg IV recommended by them. 09/01/2019 Patient remains in the ICU in critical condition, his confused and combative at time, he received 2 mg of Ativan as part of his CIWA protocol and he became more confused and lethargic. He is also on heparin drip, repeat CAT scan of the head showed no hemorrhage in view of his anticoagulant therapy and recent history of trauma. However his CIWA score is improving as it was 10 this morn ing compared to 17 yesterday morning. He is on thiamine. However patient or there was concern regarding his swallowing and he is made nothing by mouth pending swallowing evaluation. Because he cannot swallow medication he kept on Cardizem drip and heparin drip for his new onset A. fib. No family at bedside this morning, however yesterday I discussed the case with the daughter at bedside and all her questions were answered to her satisfaction. 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 Patient apparently had A. fib with but only on atenolol at this time not on any anticoagulation. Will be discharged to subacute rehabilitation whenever he is ready to be discharged. 09/03/2010 Patient is confused, patient is also having hallucinations on and off. All benzodiazepines were discontinued we're using Haldol for agitation and confusion. Constitutional: Denied any fatigue denied any fever. Cardio vascular: denied any chest pain, palpitations Gastrointestinal denied any nausea vomiting Pulmonary: Denied any shortness of breath cough Neurologic denied any new focal deficits All inpatient medications were reviewed and appropriate changes in these medications as dictated in the interval history and assessment and plan. Objective - Vital Signs Vital signs: Vital Signs Temp 97.6 F 09/03/19 12:00 Pulse 90 09/03/19 14:00 Resp 13 09/03/19 14:00 BP 134/83 09/03/19 14:00 Pulse Ox 99 09/03/19 09:00 Intake & Output 09/02/19 09/03/19 09/03/19 18:59 06:59 18:59 Intake Total 1240 600 130 Output Total 441 925 Balance 799 -325 130 Weight 82.1 kg Intake: IV 1040 500 130 KVO 10 Magnesium Sulfate-D5w Pmx 200 1 gm In Dextrose/Water 1 100ml.bag @ 100 mls/hr IVPB Q1H [facility] Rx#: [id number] Sodium Chloride 0.9% 1, 330 500 130 000 ml @ 10 mls/hr IV . Q24H [facility] Rx#:[id number] Sodium Chloride 0.9% 500 500 ml 500 ml @ 999 mls/hr IV .Q31M [facility] Rx#:[id number] Oral 200 100 Output: Urine 441 925 Other: Voiding Method Indwelling Catheter Indwelling Catheter Indwelling Catheter - Exam GENERAL: He is alert oriented times close to 2 having hallucinations bit confused HEENT: Pupils are round and equally reacting to light. EOMI. No scleral icterus. No conjunctival pallor. Normocephalic, atraumatic. No pharyngeal erythema. No thyromegaly. CARDIOVASCULAR: S1 and S2 present. No murmurs, rubs, or gallops. PULMONARY: Chest is clear to auscultation, no wheezing or crackles. ABDOMEN: Soft, nontender, nondistended, normoactive bowel sounds. No palpable organomegaly. MUSCULOSKELETAL: No joint swelling or deformity. EXTREMITIES: No cyanosis, clubbing, or pedal edema. NEUROLOGICAL: Gross neurological examination did not reveal any focal deficits. SKIN: No rashes. no petechiae. 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 Patient was diagnosed with Wernicke's in the past which are does didn't appear to have him improved with high-dose time in the past. Patient may have age related dementia as well -Alcohol abuse and intoxication with delirium tremens was treated with Ativan on as-needed basis Rhabdomyolysis: Improved now with IV fluids -Hypotension secondary to dehydration which improved next and have an coronary artery disease -Hypertension -Nicotine dependence -Gastroesophageal reflux disease -Elevated troponin without any chest pain noncardiac elevation -Atrial fibrillation proximal patient is not an anticoagulation and is on atenolol at this time which will be continued
[2019-09-03] MEDS: THIAMINE 100 MG/ML 2 ML VIAL IVP SCH (16:03)
[2019-09-03] MEDS: SODIUM CHLORIDE 0.9% 1,000 ML IV SCH ×2 (16:13→18:43)
[2019-09-03] MEDS: ATENOLOL 50 MG TAB PO SCH (20:45)
[2019-09-03] MEDS: ATORVASTATIN 10 MG TAB PO SCH (20:45)
[2019-09-03] MEDS: ASPIRIN 81 MG PO SCH (20:45)
[2019-09-04 05:10] LABS: Basophils # (A) 0.1 k/uL (0-0.2); Basophils % (A) 1 %; Eosinophils # (A) 0.3 k/uL (0-0.7); Eosinophils % (A) 6 %; HCT 35.5 % (39.0-53.0); HGB 12.2 gm/dL (13.0-17.5); Lymphocytes # (A) 1.2 k/uL (1.0-4.8); Lymphocytes % (A) 21 %; MCH 34.4 pg (25.0-35.0); MCHC 34.4 g/dL (31.0-37.0); MCV 100.2 fL (80.0-100.0); Mean Platelet Volume 5.8; Monocytes # (A) 0.5 k/uL (0-1.0); Monocytes % (A) 9 %; Neutrophils # (A) 3.6 k/uL (1.3-7.7); Neutrophils % (A) 61 %; Platelet Count 354 k/uL (150-450); RBC 3.55 m/uL (4.30-5.90); WBC 5.9 k/uL (3.8-10.6)
[2019-09-04 05:36] LABS: African American GFR (CKD) >90 (>60 ml/min/1.73 sqM); Anion Gap 6 mmol/L; Blood Urea Nitrogen 12 mg/dL (9-20); Carbon Dioxide 24 mmol/L (22-30); Chloride 101 mmol/L (98-107); Glucose 105 mg/dL (74-99); Potassium 3.8 mmol/L (3.5-5.1); Sodium 131 mmol/L (137-145)
[2019-09-04] MEDS ORDERED: Potassium Replacement Protocol 1 EACH MISC MISCELLANE PRN (05:45)
[2019-09-04] MEDS ORDERED: POTASSIUM CHLORIDE ER 20 MEQ TAB.ER PO SCH (06:00)
[2019-09-04] MEDS: PANTOPRAZOLE 40 MG TABLET PO SCH (06:13)
[2019-09-04] MEDS: LISINOPRIL 10 MG TAB PO SCH (08:23)
[2019-09-04] MEDS: HEPARIN SODIUM,PORCINE 5,000 UNIT/ML 1 ML VIAL SQ SCH ×2 (08:23→17:52)
[2019-09-04] MEDS: FAMOTIDINE 20 MG TAB PO SCH ×2 (09:00→21:02)
[2019-09-04] MEDS: TAMSULOSIN 0.4 MG CAP.ER.24H PO SCH (14:13)
[2019-09-04] MEDS: THIAMINE 100 MG TAB PO SCH (14:14)
[2019-09-04] MEDS: THIAMINE 100 MG/ML 2 ML VIAL IVP SCH (14:16)
--- NOTE | 2019-09-04 14:22 | P.PN ---
Subjective 80 years old male with past medical history of alcohol abuse, smoking cigarettes, hyperlipidemia, hypertension, esophageal stricture, GERD. Patient cannot provide information so it was taken from the medical records and staff He was found face down in a patch of dirt. It is unknown how long the patient had been there. His daughters talked to him 24 hours prior. He does have a history of significant alcohol abuse and some component of dementia. They state that episodes like this have happened previously in the past due to concern that the patient can no longer live alone. Daughters state that he has gone through DTs before in the past required hospitalization. Blood pressure was down when he came to the emergency room and it went As low as 80/56, patient was started on levopohed, however it was stopped was taken to the ICU. His breathing at 16. He is afebrile and blood pressure currently is 84/64. CBC and serum electrolytes were unremarkable except for mild hyponatremia at 133 and elevated BUN at 29, creatine kinase elevated at 1009 and troponin is elevated at 0.9. Urinalysis is not suspicious of infection. Chest x-ray showed no acute process. EKG showed normal sinus rhythm at [address] of the abdomen and pelvis: No acute abnormality. Several x-ray of the knee, pelvis, bilateral forearms were negative for any fracture. CT of the head no acute events negative exam In the emergency room patient was given 1 L of normal saline was started on 75 L/h, Ativan as needed and started on ceftriaxone and the benefits. The fit was stopped, as well as the fluids. 08/30/2019 patient is more awake and alert today, he denies chest pain or dyspnea or coughing. No abdominal pain or vomiting. However he has visual hallucinations as he is pointing to people nobody else sees. Also his heart rate was tachycard ic today and in A. 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 Patient remains on CIWA protocol, vitamins therapy 08/31/2019 Patient remains in the ICU for close monitoring and therapy. He is currently on heparin drip and Cardizem drip for atrial fibrillation and we went up in his Cardizem drip from 5 to 10 mg per hour. Patient today is still confused probably from his delirium tremens however he opens eyes spontaneously and follow commands. Patient is coughing on eating suspicious for aspiration so we placed the patient nothing by mouth and ask for swelling evaluation for tomorrow. Patient is tachypneic at 23-26 Rest of Vitas looks stable. Labs are stable. Chest x-ray showed worsening changes of pulmonary edema. Pulmonary/critical care team are following the patient closely monitored ICU and Lasix 40 mg IV recommended by them. 09/01/2019 Patient remains in the ICU in critical condition, his confused and combative at time, he received 2 mg of Ativan as part of his CIWA protocol and he became more confused and lethargic. He is also on heparin drip, repeat CAT scan of the head showed no hemorrhage in view of his anticoagulant therapy and recent history of trauma. However his CIWA score is improving as it was 10 this morn ing compared to 17 yesterday morning. He is on thiamine. However patient or there was concern regarding his swallowing and he is made nothing by mouth pending swallowing evaluation. Because he cannot swallow medication he kept on Cardizem drip and heparin drip for his new onset A. fib. No family at bedside this morning, however yesterday I discussed the case with the daughter at bedside and all her questions were answered to her satisfaction. 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 Patient apparently had A. fib with but only on atenolol at this time not on any anticoagulation. Will be discharged to subacute rehabilitation whenever he is ready to be discharged. 09/03/2010 Patient is confused, patient is also having hallucinations on and off. All benzodiazepines were discontinued we're using Haldol for agitation and confusion. 09/04/2010 Patient remains confused I believe this is chronic and secondary to alcoholism do not expect his confusion to get better. Patient is awaiting disposition to subacute rehabilitation. Patient is alert oriented 1-2 Constitutional: Denied any fatigue denied any fever. Cardio vascular: denied any chest pain, palpitations Gastrointestinal denied any nausea vomiting Pulmonary: Denied any shortness of breath cough Neurologic denied any new focal deficits All inpatient medications were reviewed and appropriate changes in these medications as dictated in the interval history and assessment and plan. Objective - Vital Signs Vital signs: Vital Signs Temp 97.8 F 09/04/19 04:00 Pulse 76 09/04/19 04:00 Resp 16 09/04/19 04:00 BP 152/100 09/04/19 04:00 Pulse Ox 96 09/04/19 04:00 Intake & Output 09/03/19 09/04/19 09/04/19 18:59 06:59 18:59 Intake Total 660 10 200 Output Total 585 600 Balance 75 -590 200 Weight 83.4 kg Intake: IV 160 10 Sodium Chloride 0.9% 1, 160 10 000 ml @ 10 mls/hr IV . Q24H [facility] Rx#:[id number] Oral 500 200 Output: Urine 585 600 Other: Voiding Method Indwelling Catheter Indwelling Catheter Indwelling Catheter - Exam GENERAL: He is alert oriented times close to 2 having hallucinations bit confused HEENT: Pupils are round and equally reacting to light. EOMI. No scleral icterus. No conjunctival pallor. Normocephalic, atraumatic. No pharyngeal erythema. No thyromegaly. CARDIOVASCULAR: S1 and S2 present. No murmurs, rubs, or gallops. PULMONARY: Chest is clear to auscultation, no wheezing or crackles. ABDOMEN: Soft, nontender, nondistended, normoactive bowel sounds. No palpable organomegaly. MUSCULOSKELETAL: No joint swelling or deformity. EXTREMITIES: No cyanosis, clubbing, or pedal edema. NEUROLOGICAL: Gross neurological examination did not reveal any focal deficits. SKIN: No rashes. no petechiae. 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 Patient was diagnosed with Wernicke's in the past which are does didn't appear to have him improved with high-dose time in the past. Patient may have age related dementia as well -Alcohol abuse and intoxication with delirium tremens was treated, patient is not on any benzodiazepines patient is on Haldol as needed for Agitation patient has confusion which is chronic Rhabdomyolysis: Improved now with IV fluids -Hypotension secondary to dehydration which improved next and have an coronary artery disease -Hypertension -Nicotine dependence -Gastroesophageal reflux disease -Elevated troponin without any chest pain noncardiac elevation -Atrial fibrillation proximal patient is not an anticoagulation and is on atenolol at this time which will be continued
--- NOTE | 2019-09-04 14:31 | P.CNNES ---
History of Present Illness Consult date: 09/04/19 Requesting physician: Ana Paula Anguiano Reason for Consult: Confusion, metabolic encephalopathy History of Present Illness: Patient is a 78-year-old male, who has history of alcoholism, was admitted to the hospital on 08/28/2019, after he was found on the floor, facedown on the dirt. It was uncertain how long he was out for. Patient thereafter admitted to the hospital went into delirium tremens. Patient does have history of drinking alcohol. He states that he drinks either 3 beers of alcohol, or 5 ounces of vodka every day. His and family has reported that he does drink alcohol fairly heavily. Patient although has improved from level of consciousness standpoint, but he is continues to be confused, which prompted this neurology consultation. Patient is quite disoriented. There is report in the electronic records that patient does have history of dementia also. Patient had a chest x- ray today, which revealed left lower lobe infiltrate. Correlate for atelectasis or pneumonia. Previous findings suggestive of pulmonary edema are resolving. CT of the head showed age-related atrophy with mild periventricular white matter ischemic changes. 2-D echo showed EF 50-55%. Mild concentric LVH. Left atrium is moderately dilated. No evidence of aortic stenosis. Patient had a carotid Doppler on 06/13/2016, which revealed no focal hemodynamic significant stenosis in either ICA with antegrade flow in both vertebral arteries. Patient denies any headache, or any focal symptoms. Review of Systems Patient denies any headaches, any problems with memory. Denies any problem with the vision, speech and language. Denies shortness of breath chest pain, or abdominal pain. Past Medical History Past Medical History: Chest Pain / Angina, GERD/Reflux, Hyperlipidemia, Hypertension Additional Past Medical History / Comment(s): Esophageal strictures, macular degeneration, UTI (08/19/19 Last Myocardial Infarction Date:: 1992 History of Any Multi-Drug Resistant Organisms: None Reported Past Surgical History: Coronary Bypass/CABG, Tonsillectomy Past Psychological History: No Psychological Hx Reported Smoking Status: Current every day smoker Past Alcohol Use History: Daily, Heavy Past Drug Use History: None Reported - Past Family History Father Additional Family Medical History / Comment(s): ETOH; gastric cancer Medications and Allergies Home Medications Medication Instructions Recorded Confirmed Type Aspirin EC [Ecotrin Low Dose] 81 mg PO HS 08/28/18 08/28/19 History Atenolol 100 mg PO HS 08/28/18 08/28/19 History Omeprazole 20 mg PO DAILY 08/28/18 08/28/19 History Simvastatin [Zocor] 10 mg PO HS 08/28/18 08/28/19 History Tamsulosin HCl [Flomax] 0.4 mg PO DAILY 08/28/18 08/28/19 History Ubidecarenone [Co Q-10] 100 mg PO DAILY 08/28/18 08/28/19 History Vit C/E/Zn/Coppr/Lutein/Zeaxan 1 cap PO BID 08/28/18 08/28/19 History [Preservision Areds 2 Softgel] Enalapril [Vasotec] 5 mg PO DAILY 08/28/19 08/28/19 History Ibuprofen/Diphenhydramine HCl 1 cap PO HS 08/28/19 08/28/19 History [Advil Pm Liqui-Gels] Sulfamethox-Tmp 800-160Mg [Bactrim 1 tab PO BID 08/28/19 08/28/19 History DS 800-160 mg] Thiamine HCl [Vitamin B-1] 100 mg PO DAILY 08/28/19 08/28/19 History Allergies Allergy/AdvReac Type Severity Reaction Status Date / Time No Known Allergies Allergy Verified 08/28/19 20:23 Physical Examination - Vital Signs Vital Signs: Vital Signs Temp Pulse Resp BP Pulse Ox 09/04/19 04:00 97.8 F 76 16 152/100 96 09/03/19 20:00 97.8 F 90 18 162/96 97 09/03/19 19:00 98 19 150/91 09/03/19 18:00 97 12 128/90 09/03/19 17:00 89 11 L 142/82 09/03/19 16:00 97.6 F 90 14 142/83 09/03/19 15:00 86 13 129/80 Intake and Output 09/03/19 09/04/19 09/04/19 22:59 06:59 14:59 Intake Total 240 200 Output Total 540 400 Balance -300 -400 200 Intake: IV 40 Sodium Chloride 0.9% 1, 40 000 ml @ 10 mls/hr IV . Q24H [facility] Rx#:[id number] Oral 200 200 Output: Urine 540 400 Other: Voiding Method Indwelling Catheter Indwelling Catheter Indwelling Catheter Weight 83.4 kg On examination patient is an elderly male, in no distress. He is alert and awake. Patient states it is 11/15/1931. He states he is 49 years old. He thinks he is in a j[facility]ism in [facility]. He could not tell the town. He knows name of the current president. Speech and language functions are normal. He has slow mentation and prolonged latency time to answer questions. Patient is positive palmomental reflex, positive visuospatial aprax ia. On cranial nerve examination pupils are round and reactive to light. Visual villarreal are full. Face is symmetric and tongue protrudes the midline. Muscle strength is normal in the arms and legs reflexes symmetric and plantars downgoing. Tone and bulk of muscles normal. No ataxia for qsiycw-cy-doal testing. No obvious bruit or murmur. Results Patient has been consistently running low sodium around 131. Also anemic. Patient's troponins are mildly elevated. Cardiology is on the case. Renal functions are normal. TSH normal. Ammonia normal. - Laboratory Findings CBC and BMP: 09/04/19 04:45 09/04/19 04:45 Abnormal Lab Findings: Abnormal Labs 08/28/19 08/28/19 08/28/19 19:40 19:40 19:40 WBC 12.6 H RBC 3.58 L Hgb 12.4 L Hct 37.2 L MCV 103.8 H MCH MCHC Neutrophils # 11.4 H Lymphocytes # 0.4 L APTT Sodium 131 L Chloride Carbon Dioxide 17 L BUN 32 H Creatinine 1.36 H Glucose 147 H POC Glucose (mg/dL) Magnesium AST 76 H ALT 19 L Creatine Kinase 1339 H* Troponin I 0.570 H* Albumin Urine Protein Urine Ketones Ur Leukocyte Esterase Urine WBC Calcium Oxalate Crystal Urine Bacteria Hyaline Casts Urine Mucus U Benzodiazepines Scrn 08/28/19 08/28/19 08/29/19 19:59 20:39 04:25 WBC RBC Hgb Hct MCV MCH MCHC Neutrophils # Lymphocytes # APTT Sodium Chloride Carbon Dioxide BUN Creatinine Glucose POC Glucose (mg/dL) 143 H Magnesium AST ALT Creatine Kinase Troponin I 0.939 H* Albumin Urine Protein Trace H Urine Ketones 1+ H Ur Leukocyte Esterase Small H Urine WBC 9 H Calcium Oxalate Crystal Occasional H Urine Bacteria Rare H Hyaline Casts 14 H Urine Mucus Rare H U Benzodiazepines Scrn Detected H 08/29/19 08/29/19 08/29/19 07:59 07:59 07:59 WBC RBC 2.85 L Hgb 10.2 L Hct 30.2 L MCV 106.1 H MCH 35.7 H MCHC Neutrophils # Lymphocytes # APTT Sodium 133 L Chloride Carbon Dioxide 18 L BUN 29 H Creatinine Glucose POC Glucose (mg/dL) Magnesium AST ALT Creatine Kinase 1009 H* Troponin I 0.932 H* Albumin Urine Protein Urine Ketones Ur Leukocyte Esterase Urine WBC Calcium Oxalate Crystal Urine Bacteria Hyaline Casts Urine Mucus U Benzodiazepines Scrn 08/30/19 08/30/19 08/30/19 04:46 04:46 07:55 WBC RBC 2.98 L Hgb 10.4 L Hct 31.7 L MCV 106.2 H MCH MCHC Neutrophils # Lymphocytes # 0.7 L APTT Sodium 135 L Chloride 111 H Carbon Dioxide 16 L BUN Creatinine Glucose POC Glucose (mg/dL) Magnesium AST ALT Creatine Kinase 319 H Troponin I 0.576 H* Albumin Urine Protein Urine Ketones Ur Leukocyte Esterase Urine WBC Calcium Oxalate Crystal Urine Bacteria Hyaline Casts Urine Mucus U Benzodiazepines Scrn 08/30/19 08/31/19 08/31/19 13:21 04:36 04:36 WBC RBC 3.21 L Hgb 11.4 L Hct 34.0 L MCV 105.7 H MCH 35.5 H MCHC Neutrophils # Lymphocytes # 0.9 L APTT Sodium Chloride Carbon Dioxide 17 L BUN Creatinine Glucose POC Glucose (mg/dL) Magnesium 1.5 L AST ALT Creatine Kinase Troponin I 0.472 H* Albumin Urine Protein Urine Ketones Ur Leukocyte Esterase Urine WBC Calcium Oxalate Crystal Urine Bacteria Hyaline Casts Urine Mucus U Benzodiazepines Scrn 08/31/19 08/31/19 08/31/19 08:28 14:52 23:33 WBC RBC 3.08 L Hgb 10.2 L Hct 33.0 L MCV 107.0 H MCH MCHC 30.9 L Neutrophils # Lymphocytes # 0.9 L APTT 35.2 H 62.5 H Sodium Chloride Carbon Dioxide BUN Creatinine Glucose POC Glucose (mg/dL) Magnesium AST ALT Creatine Kinase Troponin I Albumin Urine Protein Urine Ketones Ur Leukocyte Esterase Urine WBC Calcium Oxalate Crystal Urine Bacteria Hyaline Casts Urine Mucus U Benzodiazepines Scrn 09/01/19 09/01/19 09/01/19 04:42 04:42 04:42 WBC RBC 3.33 L Hgb 11.7 L Hct 34.5 L MCV 103.5 H MCH 35.1 H MCHC Neutrophils # Lymphocytes # 0.9 L APTT 67.3 H Sodium 135 L Chloride Carbon Dioxide 19 L BUN Creatinine 0.61 L Glucose POC Glucose (mg/dL) Magnesium AST ALT Creatine Kinase Troponin I Albumin Urine Protein Urine Ketones Ur Leukocyte Esterase Urine WBC Calcium Oxalate Crystal Urine Bacteria Hyaline Casts Urine Mucus U Benzodiazepines Scrn 09/02/19 09/02/19 09/03/19 04:17 04:17 04:20 WBC RBC 3.55 L 3.61 L Hgb 12.1 L 11.9 L Hct 36.4 L 36.8 L MCV 102.5 H 101.9 H MCH MCHC Neutrophils # Lymphocytes # APTT Sodium 132 L Chloride Carbon Dioxide 20 L BUN Creatinine 0.60 L Glucose POC Glucose (mg/dL) Magnesium AST ALT Creatine Kinase Troponin I Albumin 3.1 L Urine Protein Urine Ketones Ur Leukocyte Esterase Urine WBC Calcium Oxalate Crystal Urine Bacteria Hyaline Casts Urine Mucus U Benzodiazepines Scrn 09/03/19 09/04/19 09/04/19 04:20 04:45 04:45 WBC RBC 3.55 L Hgb 12.2 L Hct 35.5 L MCV 100.2 H MCH MCHC Neutrophils # Lymphocytes # APTT Sodium 132 L 131 L Chloride Carbon Dioxide BUN Creatinine 0.61 L 0.64 L Glucose 105 H POC Glucose (mg/dL) Magnesium AST ALT Creatine Kinase Troponin I Albumin Urine Protein Urine Ketones Ur Leukocyte Esterase Urine WBC Calcium Oxalate Crystal Urine Bacteria Hyaline Casts Urine Mucus U Benzodiazepines Scrn Assessment and Plan Assessment: * Dementia, probably alcoholic versus degenerative. * Chronic alcoholism * Probable superimposed encephalopathy due to reasons as below. * Status post delirium tremens. * Hyponatremia * CAD * Hypertension * Previous history of tobacco use. * Elevated cardiac enzymes, due to troponin leak. Plan: * Continue thiamine, folate, multivitamins. * Start Aricept 5 mg daily for 1 month, then increase dose to 10 mg daily. * We will check B12, folate. TSH is normal. * Your medical management. * We will follow.
--- NOTE | 2019-09-04 14:43 | P.PN ---
Subjective This is Carline Forbes PA-C dictating a progress note on this patient The patient was interviewed and examined by me as well as by Dr. Harris Case discussed with Dr. Harris and he agrees with the plan of care IMPRESSION / ASSESSMENT: Rhabdomyolysis due to prolonged time on the ground, resolved paroxysmal atrial fibrillation rhythm, maintaining sinus rhythm CAD status post CABG Hypertension, blood pressure control improving Dyslipidemia Alcohol abuse altered mental status, possibly secondary to Wernicke's encephalopathy versus dementia, remains confused PLAN: continue current medication regimen and continue to monitor treatment of paroxysmal atrial fibrillation with rate control, hold off on anticoagulation for now since patient is a high risk of bleeding and falls secondary to his EtOH abuse and mental status HPI/interval history patient is an 78-year-old male past medical history for CAD status post CABG, hypertension, dyslipidemia and alcohol abuse on who is brought in for evaluation after being found on the ground unresponsive. He was treated in for rhabdomyolysis and alcohol withdrawal. He developed atrial fibrillation while in the ICU. Has been in sinus rhythm. yesterday his home doses of his cardiac medications were resumed. He seems to have tolerated them well. His heart rate has improved and is now in the 80s. Blood pressure is mildly elevated in the 140s over 80s. Patient seen and examined lying comfortably in bed. Remains confused. Nursing and therapy have been walking with him. Denies any co mplaints of chest pain, palpitations, dizziness lightheadedness or shortness of breath. EXAMINATION Temperature 97.8F, pulse 76, respirations 16, blood pressure 141/88, oxygen saturation 96% on room air patient seen and examined resting in bed, appears comfortable Lungs are clear Heart is regular, normal S1-S2, no murmurs noted no elevated JVD or lower extremity edema REVIEW OF LABS, ECG WBC 5.9, hemoglobin 12.2, platelets 354, potassium 3.8, BUN 12, creatinine 0.64 Objective - Vital Signs Vital signs: Vital Signs Temp 97.8 F 09/04/19 04:00 Pulse 76 09/04/19 04:00 Resp 16 09/04/19 04:00 BP 152/100 09/04/19 04:00 Pulse Ox 96 09/04/19 04:00 Intake & Output 09/03/19 09/04/19 09/04/19 18:59 06:59 18:59 Intake Total 660 10 200 Output Total 585 600 Balance 75 -590 200 Weight 83.4 kg Intake: IV 160 10 Sodium Chloride 0.9% 1, 160 10 000 ml @ 10 mls/hr IV . Q24H [facility] Rx#:[id number] Oral 500 200 Output: Urine 585 600 Other: Voiding Method Indwelling Catheter Indwelling Catheter Indwelling Catheter - Labs CBC & Chem 7: 09/04/19 04:45 09/04/19 04:45 Labs: Abnormal Lab Results - Last 24 Hours (Table) 09/04/19 09/04/19 Range/Units 04:45 04:45 RBC 3.55 L (4.30-5.90) m/uL Hgb 12.2 L (13.0-17.5) gm/dL Hct 35.5 L (39.0-53.0) % MCV 100.2 H (80.0-100.0) fL Sodium 131 L (137-145) mmol/L Creatinine 0.64 L (0.66-1.25) mg/dL Glucose 105 H (74-99) mg/dL Microbiology - Last 24 Hours (Table) 08/28/19 23:10 Blood Culture - Final Blood No Growth after 144 hours
--- NOTE | 2019-09-04 15:17 | P.PN ---
Subjective Progress Note Date: 09/04/19 On 09/04/2019, the patient is still confused. Neurological status will be obtained. Otherwise is doing well. His hemodynamics is stable. He is in a sinus rhythm. No respiratory difficulties. His swallowing appropriately. No cough. No sputum production. No chest that has been no wheezing. No a gitation. He is pleasantly confused and is alert and oriented 1. Echo was within normal limits. There was a mild to moderate component of pulmonary hypertension. Noted the patient has history of alcoholism. Perez catheter is still in place. Outpatient medications have been ordered resume. Objective - Vital Signs Vital signs: Vital Signs Temp 97.8 F 09/04/19 04:00 Pulse 76 09/04/19 04:00 Resp 16 09/04/19 04:00 BP 152/100 09/04/19 04:00 Pulse Ox 96 09/04/19 04:00 Intake & Output 09/03/19 09/04/19 09/04/19 18:59 06:59 18:59 Intake Total 660 10 200 Output Total 585 600 Balance 75 -590 200 Weight 83.4 kg Intake: IV 160 10 Sodium Chloride 0.9% 1, 160 10 000 ml @ 10 mls/hr IV . Q24H [facility] Rx#:[id number] Oral 500 200 Output: Urine 585 600 Other: Voiding Method Indwelling Catheter Indwelling Catheter Indwelling Catheter - Exam GENERAL EXAM: Alert, pleasant 78-year-old gentleman, comfortable in no apparent distress. Currently on room air oxygen HEAD: Normocephalic. EYES: Normal reaction of pupils, equal size. NOSE: Clear with pink turbinates. THROAT: No erythema or exudates. NECK: No masses, no JVD. CHEST: No chest wall deformity. LUNGS: Equal air entry with crackles in left posterior base. CVS: S1 and S2 normal with no audible murmur, regular rhythm. ABDOMEN: No hepatosplenomegaly, normal bowel sounds, no guarding or rigidity. SPINE: No scoliosis or deformity SKIN: No rashes CENTRAL NERVOUS SYSTEM: No focal deficits, tone is normal in all 4 extremities. The patient is following and assess questions is confused and he is alert and oriented 1. He is moving all 4 extremities. He has motor weakness in all 4 extremities. Is able to say few sentences. He remains confused and he is alert and oriented 1. I think however since yesterday the patient is much more awake and alert. He is following simple commands such as grabbing and reaching and squeezing with his hands, etc. Neurologic exam is nonfocal. EXTREMITIES: There is no peripheral edema. No clubbing, no cyanosis. Peripheral pulses are intact. - Labs CBC & Chem 7: 09/04/19 04:45 09/04/19 04:45 Labs: Abnormal Lab Results - Last 24 Hours (Table) 09/04/19 09/04/19 Range/Units 04:45 04:45 RBC 3.55 L (4.30-5.90) m/uL Hgb 12.2 L (13.0-17.5) gm/dL Hct 35.5 L (39.0-53.0) % MCV 100.2 H (80.0-100.0) fL Sodium 131 L (137-145) mmol/L Creatinine 0.64 L (0.66-1.25) mg/dL Glucose 105 H (74-99) mg/dL Microbiology - Last 24 Hours (Table) 08/28/19 23:10 Blood Culture - Final Blood No Growth after 144 hours Assessment and Plan Plan: #1 altered mental status, improving slowly. An urology consultation was ivory bryant and the patient was diagnosed having dementia probably alcoholic versus degenerative. Based on his impression, history of some component of metabolic encephalopathy and delirium. #2 Rhabdomyolysis secondary to being on the ground or several hours, recovered #3 alcoholism, chronic #4 Hypotension secondary to dehydration and possible sepsis, recovered #5 Coronary artery disease, status post bypass grafting. #6 History of hypertension. #7 diverticular disease. #8 History of previous tobacco dependence. #9 Gastroesophageal reflux disease. #10 Hyperlipidemia. #11 Troponin leak. #12 atrial fibrillation current rhythm is back to sinus n. Plan Monitor mental status. Continue thiamine and folate and multivitamins. Start the patient on Aricept 5 mg by mouth daily. We'll check B12. We'll check folate. Physical therapy. Continue oral medications. Transfer this patient out of the intensive care unit to a medical surgical floor.
[2019-09-04 19:35] LABS: Folate, Serum 7.4 ng/mL
[2019-09-04] MEDS: ATENOLOL 50 MG TAB PO SCH (21:01)
[2019-09-04] MEDS: ATORVASTATIN 10 MG TAB PO SCH (21:02)
[2019-09-04] MEDS: ASPIRIN 81 MG PO SCH (21:02)
[2019-09-04] MEDS: SODIUM CHLORIDE 0.9% 1,000 ML IV SCH (21:07)
[2019-09-05] MEDS: HEPARIN SODIUM,PORCINE 5,000 UNIT/ML 1 ML VIAL SQ SCH ×2 (04:03→10:46)
[2019-09-05 06:32] VITALS: RESP 12
[2019-09-05] MEDS: PANTOPRAZOLE 40 MG TABLET PO SCH (10:46)
[2019-09-05] MEDS: TAMSULOSIN 0.4 MG CAP.ER.24H PO SCH (10:46)
[2019-09-05] MEDS: LISINOPRIL 10 MG TAB PO SCH (10:46)
[2019-09-05] MEDS: FAMOTIDINE 20 MG TAB PO SCH (10:46)
[2019-09-05] MEDS: THIAMINE 100 MG TAB PO SCH (11:00)
--- NOTE | 2019-09-05 14:32 | P.DS ---
Providers Date of admission: 08/29/19 02:54 Expected date of discharge: 09/05/19 Attending physician: Anderson Alvarez MD Consults: 08/29/19 02:54 Consult Physician Stat Consulting Provider: Patrice Menjivar Consult Reason/Comments: hypotension, DTs, fall, bht Do you want consulting provider notified?: Already Contacted 08/29/19 13:41 Consult Physician Urgent Consulting Provider: Keisha Rae Consult Reason/Comments: elevated troponin Do you want consulting provider notified?: Yes 09/04/19 10:05 Consult Physician Routine Consulting Provider: Joe Duran Consult Reason/Comments: confusion, metabolic encephalopathy Do you want consulting provider notified?: Yes Primary care physician: Stated None Hospital Course: 80 years old male with past medical history of alcohol abuse, smoking cigarettes, hyperlipidemia, hypertension, esophageal stricture, GERD. Patient cannot provide information so it was taken from the medical records and staff He was found face down in a patch of dirt. It is unknown how long the patient had been there. His daughters talked to him 24 hours prior. He does have a history of significant alcohol abuse and some component of dementia. They state that episodes like this have happened previously in the past due to concern that the patient can no longer live alone. Daughters state that he has gone through DTs before in the past required hospitalization. Blood pressure was down when he came to the emergency room and it went As low as 80/56, patient was started on levopohed, however it was stopped was taken to the ICU. His breathing at 16. He is afebrile and blood pressure currently is 84/64. CBC and serum electrolytes were unremarkable except for mild hyponatremia at 133 and elevated BUN at 29, creatine kinase elevated at 1009 and troponin is elevated at 0.9. Urinalysis is not suspicious of infection. Chest x-ray showed no acute process. EKG showed normal sinus rhythm at [address] of the abdomen and pelvis: No acute abnormality. Several x-ray of the knee, pelvis, bilateral forearms were negative for any fracture. CT of the head no acute events negative exam In the emergency room patient was given 1 L of normal saline was started on 75 L/h, Ativan as needed and started on ceftriaxone and the benefits. The fit was stopped, as well as the fluids. 08/30/2019 patient is more awake and alert today, he denies chest pain or dyspnea or coughing. No abdominal pain or vomiting. However he has visual hallucinations as he is pointing to people nobody else sees. Also his heart rate was tachycardic today and in A. fib, patient has no history of atrial fibrillation andcurrently his heart rate went up to 1.126, rehab aid so the patient and start him on Cardizem dripat 5 mg per hour, he got 10 mg of Cardizem bolus .his troponins are trending down, his CPKs also trending down to 319.sodium is 135.WBC is 7.6K and hemoglobin stable at 10.4.echocardiogram showing ejection fraction was 50-55% and he has mild to moderate mitral and tricuspid regurgitation with mild to moderate pulmonaryl hypertension. Patient remains on CIWA protocol, vitamins therapy 08/31/2019 Patient remains in the ICU for close monitoring and therapy. He is currently on heparin drip and Cardizem drip for atrial fibrillation and we went up in his Cardizem drip from 5 to 10 mg per hour. Patient today is still confused probably from his delirium tremens however he opens eyes spontaneously and follow commands. Patient is coughing on eating suspicious for aspiration so we placed the patient nothing by mouth and ask for swelling evaluation for tomorrow. Patient is tachypneic at 23-26 Rest of Vitas looks stable. Labs are stable. Chest x-ray showed worsening changes of pulmonary edema. Pulmonary/critical care team are following the patient closely monitored ICU and Lasix 40 mg IV recommended by them. 09/01/2019 Patient remains in the ICU in critical condition, his confused and combative at time, he received 2 mg of Ativan as part of his CIWA protocol and he became more confused and lethargic. He is also on heparin drip, repeat CAT scan of the head showed no hemorrhage in view of his anticoagulant therapy and recent history of trauma. However his CIWA score is improving as it was 10 this morning compared to 17 yesterday morning. He is on thiamine. However patient or there was concern regarding his swallowing and he is made nothing by mouth pending swallowing evaluation. Because he cannot swallow medication he kept on Cardizem drip and heparin drip for his new onset A. fib. No family at bedside this morning, however yesterday I discussed the case with the daughter at bedside and all her questions were answered to her satisfaction. 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 Patient apparently had A. fib with but only on atenolol at this time not on any anticoagulation. Will be discharged to subacute rehabilitation whenever he is ready to be discharged. 09/03/2010 Patient is confused, patient is also having hallucinations on and off. All benzodiazepines were discontinued we're using Haldol for agitation and confusion. 09/04/2010 Patient remains confused I believe this is chronic and secondary to alcoholism do not expect his confusion to get better. Patient is awaiting disposition to subacute rehabilitation. Patient is alert oriented 1-2 09/05/19; patient remains clinically stable and cleared for dc to SNF Patient Condition at Discharge: Serious Plan - Discharge Summary Discharge Rx Participant: Yes New Discharge Prescriptions: Continue Thiamine HCl [Vitamin B-1] 100 mg PO DAILY Sulfamethox-Tmp 800-160Mg [Bactrim DS 800-160 mg] 1 tab PO BID Ibuprofen/Diphenhydramine HCl [Advil Pm Liqui-Gels] 1 cap PO HS Enalapril [Vasotec] 5 mg PO DAILY No Action Tamsulosin HCl [Flomax] 0.4 mg PO DAILY Atenolol 100 mg PO HS Aspirin EC [Ecotrin Low Dose] 81 mg PO HS Ubidecarenone [Co Q-10] 100 mg PO DAILY Omeprazole 20 mg PO DAILY Vit C/E/Zn/Coppr/Lutein/Zeaxan [Preservision Areds 2 Softgel] 1 cap PO BID Simvastatin [Zocor] 10 mg PO HS Discharge Medication List Aspirin EC [Ecotrin Low Dose] 81 mg PO HS 08/28/18 [History] Atenolol 100 mg PO HS 08/28/18 [History] Omeprazole 20 mg PO DAILY 08/28/18 [History] Simvastatin [Zocor] 10 mg PO HS 08/28/18 [History] Tamsulosin HCl [Flomax] 0.4 mg PO DAILY 08/28/18 [History] Ubidecarenone [Co Q-10] 100 mg PO DAILY 08/28/18 [History] Vit C/E/Zn/Coppr/Lutein/Zeaxan [Preservision Areds 2 Softgel] 1 cap PO BID 08/28/18 [History] Enalapril [Vasotec] 5 mg PO DAILY 08/28/19 [History] Ibuprofen/Diphenhydramine HCl [Advil Pm Liqui-Gels] 1 cap PO HS 08/28/19 [History] Sulfamethox-Tmp 800-160Mg [Bactrim DS 800-160 mg] 1 tab PO BID 08/28/19 [History] Thiamine HCl [Vitamin B-1] 100 mg PO DAILY 08/28/19 [History] Follow up Appointment(s)/Referral(s): None,Stated [Primary Care Provider] - 1-2 days Discharge Disposition: TRANSFER TO SNF/ECF
[2019-09-05 14:36] VITALS: BMI 23.9
[2019-09-05 15:12] VITALS: BP 141/77; PULSE 67; TEMP 97.9
--- NOTE | 2019-09-05 15:56 | P.PN ---
Subjective Progress Note Date: 09/05/19 Principal diagnosis: Altered mental status secondary to alcohol abuse and underlying dementia. The patient is seen today 09/05/2019 in follow-up on the regular medical floor. He is awake and alert in no acute distress. He is maintaining good O2 saturations in the mid to upper 90s on room air. He's afebrile. Hemodynamically stable. Still confused to time and place. He is sitting up in a chair at the bedside. Blood cultures reveal no growth. Urine culture reveals no growth. Objective - Vital Signs Vital signs: Vital Signs Temp 97.9 F 09/05/19 15:11 Pulse 67 09/05/19 15:11 Resp 12 09/05/19 15:11 BP 141/77 09/05/19 15:11 Pulse Ox 96 09/05/19 15:11 Intake & Output 09/04/19 09/05/19 09/05/19 18:59 06:59 18:59 Intake Total 560 440 Output Total 380 1400 300 Balance 180 -960 -300 Weight 82.2 kg 82.2 kg Intake: IV 240 Sodium Chloride 0.9% 1, 240 000 ml @ 10 mls/hr IV . Q24H [facility] Rx#:[id number] Oral 560 200 Output: Urine 380 1400 300 Other: Voiding Method Indwelling Catheter Indwelling Catheter Indwelling Catheter - Exam GENERAL EXAM: Alert, pleasant 78-year-old gentleman, comfortable in no apparent distress. On room air. HEAD: Normocephalic. EYES: Normal reaction of pupils, equal size. NOSE: Clear with pink turbinates. THROAT: No erythema or exudates. NECK: No masses, no JVD. CHEST: No chest wall deformity. LUNGS: Equal air entry with no crackles, wheeze or dullness CVS: S1 and S2 normal with no audible murmur, regular rhythm. ABDOMEN: No hepatosplenomegaly, normal bowel sounds, no guarding or rigidity. SPINE: No scoliosis or deformity SKIN: No rashes CENTRAL NERVOUS SYSTEM: No focal deficits, tone is normal in all 4 extremities. EXTREMITIES: There is no peripheral edema. No clubbing, no cyanosis. Peripheral pulses are intact. - Labs CBC & Chem 7: 09/04/19 04:45 09/04/19 04:45 Assessment and Plan Assessment: Impression: #1 History of chronic alcohol abuse, suspect alcoholic delirium and alcohol withdrawal syndrome. #2 Rhabdomyolysis secondary to being on the ground or several hours. #3 Altered mental status secondary to above. #4 Hypotension secondary to dehydration and possible sepsis. #5 Coronary artery disease, status post bypass grafting. #6 History of hypertension. #7 diverticular disease. #8 History of previous tobacco dependence. #9 Gastroesophageal reflux disease. #10 Hyperlipidemia. #11 Troponin leak. Plan: The patient was seen and evaluated by Dr. Anguiano. He remains stable from the pulmonary and critical care standpoint. The plan is to transfer to an [facility] for further subacute rehabilitation. I, the cosigning physician, performed a history & physical examination of the patient. Lungs sounds clear. Maintaining good O2 saturations in the 90s on room air. I discussed the assessment and plan of care with my nurse practitioner, Mary Lemos. I attest to the above note as dictated by her.
== END 2019-09-05 16:15 | DRG 896 ==
LOC: EC 19:23 → 2SICU 08-29 02:54 → 4SSUR 09-05 08:11
PROVIDERS: ADMIT Internal Medicine; ATTEND Internal Medicine
DX: F10.251 Alcohol dependence with alcohol-induced psychotic disorder with hallucinations (principal); G93.41 Metabolic encephalopathy; E87.1 Hypo-osmolality and hyponatremia; J81.1 Chronic pulmonary edema; J98.11 Atelectasis; M62.82 Rhabdomyolysis; E51.2 Wernicke's encephalopathy; F10.231 Alcohol dependence with withdrawal delirium; H35.30 Unspecified macular degeneration; I08.1 Rheumatic disorders of both mitral and tricuspid valves; I10 Essential (primary) hypertension; E78.5 Hyperlipidemia, unspecified; E86.0 Dehydration; E87.70 Fluid overload, unspecified; F03.90 Unspecified dementia, unspecified severity, without behavioral disturbance, psychotic disturbance, mood disturbance, and anxiety; F17.200 Nicotine dependence, unspecified, uncomplicated; F32.9 Major depressive disorder, single episode, unspecified; Z63.4 Disappearance and death of family member; I25.2 Old myocardial infarction; I27.20 Pulmonary hypertension, unspecified; I48.0 Paroxysmal atrial fibrillation; K21.9 Gastro-esophageal reflux disease without esophagitis; K44.9 Diaphragmatic hernia without obstruction or gangrene; K57.90 Diverticulosis of intestine, part unspecified, without perforation or abscess without bleeding; K70.9 Alcoholic liver disease, unspecified; M16.11 Unilateral primary osteoarthritis, right hip; Z87.440 Personal history of urinary (tract) infections; R13.10 Dysphagia, unspecified; S09.90XA Unspecified injury of head, initial encounter; W19.XXXA Unspecified fall, initial encounter; Y92.009 Unspecified place in unspecified non-institutional (private) residence as the place of occurrence of the external cause; Z79.899 Other long term (current) drug therapy; Z80.0 Family history of malignant neoplasm of digestive organs; Z91.81 History of falling; Z95.1 Presence of aortocoronary bypass graft; I25.10 Atherosclerotic heart disease of native coronary artery without angina pectoris; Z81.1 Family history of alcohol abuse and dependence; S81.819A Laceration without foreign body, unspecified lower leg, initial encounter; S41.119A Laceration without foreign body of unspecified upper arm, initial encounter; S80.10XA Contusion of unspecified lower leg, initial encounter; S40.029A Contusion of unspecified upper arm, initial encounter; R45.1 Restlessness and agitation; Z60.2 Problems related to living alone; Z79.82 Long term (current) use of aspirin; R79.89 Other specified abnormal findings of blood chemistry; D64.9 Anemia, unspecified; N42.9 Disorder of prostate, unspecified; F10.229 Alcohol dependence with intoxication, unspecified
CPT/HCPCS: 36415; 70450; 70486; 71045; 71046; 72125; 72170; 74176; 80048; 80053; 80306; 80320; 80329; 81001; 82140; 82550; 82607; 82746; 83520; 83735; 84443; 84484; 85025; 85027; 85610; 85730; 87040; 87086; 93005; 93306; 96361; 96365; 96366; 96367; 96375; 99285

== ENCOUNTER 2019-11-09 12:43 | Observation (INO) | payer MEDICARE ==
[2019-11-09] MEDS ORDERED: SODIUM CHLORIDE 0.9% 1,000 ML IV STA (13:11)
[2019-11-09] MEDS ORDERED: FAMOTIDINE 20 MG/2 ML VIAL IV STA (13:11)
[2019-11-09] MEDS ORDERED: ONDANSETRON 4 MG/2 ML VIAL IVP STA (13:11)
[2019-11-09] MEDS ORDERED: MORPHINE SULFATE 4 MG/ML SYRINGE IV STA (13:21)
--- NOTE | 2019-11-09 13:26 | ED ---
General Adult HPI - General Chief complaint: Abdominal Pain Stated complaint: Abdominal and chest pain Time Seen by Provider: 11/09/19 13:04 Source: patient, RN notes reviewed Mode of arrival: wheelchair Limitations: no limitations - History of Present Illness Initial comments: patient is a pleasant 79-year-old male presenting to the emergency Department with complaints of abdominal discomfort. Onset of symptoms was around an hour and a half ago while eating. Patient states discomfort is mostly the mid upper abdomen however does radiate somewhat up to the chest. No history of similar symptoms previously. Patient does have some nausea. No vomiting. patient diarrhea. There is some radiation towards the back. Patient has a difficult time describing the type of discomfort. Discomfort is waxing and waning. Currently discomfort is 5/10. - Related Data Home Medications Medication Instructions Recorded Confirmed Aspirin EC [Ecotrin Low Dose] 81 mg PO HS 08/28/18 08/28/19 Atenolol 100 mg PO HS 08/28/18 08/28/19 Omeprazole 20 mg PO DAILY 08/28/18 08/28/19 Simvastatin [Zocor] 10 mg PO HS 08/28/18 08/28/19 Tamsulosin HCl [Flomax] 0.4 mg PO DAILY 08/28/18 08/28/19 Ubidecarenone [Co Q-10] 100 mg PO DAILY 08/28/18 08/28/19 Vit C/E/Zn/Coppr/Lutein/Zeaxan 1 cap PO BID 08/28/18 08/28/19 [Preservision Areds 2 Softgel] Enalapril [Vasotec] 5 mg PO DAILY 08/28/19 08/28/19 Ibuprofen/Diphenhydramine HCl 1 cap PO HS 08/28/19 08/28/19 [Advil Pm Liqui-Gels] Sulfamethox-Tmp 800-160Mg [Bactrim 1 tab PO BID 08/28/19 08/28/19 DS 800-160 mg] Thiamine HCl [Vitamin B-1] 100 mg PO DAILY 08/28/19 08/28/19 Allergies Allergy/AdvReac Type Severity Reaction Status Date / Time No Known Allergies Allergy Verified 11/09/19 12:56 Review of Systems ROS Statement: Those systems with pertinent positive or pertinent negative responses have been documented in the HPI. ROS Other: All systems not noted in ROS Statement are negative. Constitutional: Denies: fever Eyes: Denies: eye pain ENT: Denies: ear pain Respiratory: Denies: cough, dyspnea Cardiovascular: Reports: chest pain Endocrine: Denies: fatigue Gastrointestinal: Reports: abdominal pain, nausea. Denies: vomiting Genitourinary: Denies: dysuria Musculoskeletal: Reports: as per HPI Skin: Denies: rash Neurological: Denies: weakness Past Medical History Past Medical History: Chest Pain / Angina, GERD/Reflux, Hyperlipidemia, Hypertension Additional Past Medical History / Comment(s): Esophageal strictures, macular degeneration, UTI, alcoholism Last Myocardial Infarction Date:: 1992 History of Any Multi-Drug Resistant Organisms: None Reported Past Surgical History: Coronary Bypass/CABG, Tonsillectomy Past Psychological History: No Psychological Hx Reported Smoking Status: Current every day smoker Past Alcohol Use History: None Reported Past Drug Use History: None Reported - Past Family History Father Additional Family Medical History / Comment(s): ETOH; gastric cancer General Exam Limitations: no limitations General appearance: alert, in no apparent distress Head exam: Present: normocephalic Eye exam: Present: normal appearance, PERRL ENT exam: Present: normal oropharynx Neck exam: Present: normal inspection Respiratory exam: Present: normal lung sounds bilaterally Cardiovascular Exam: Present: regular rate, normal rhythm Expanded Peripheral pulses: 2+: Radial (R), Radial (L), Posterior Tibialis (R), Posterior Tibialis (L), Dorsalis Pedis (R), Dorsalis Pedis (L) GI/Abdominal exam: Present: soft, tenderness (mild left-sided tenderness). Absent: distended, guarding, rebound, rigid, pulsatile mass Extremities exam: Present: normal inspection. Absent: pedal edema, calf tenderness Back exam: Present: normal inspection. Absent: tenderness, vertebral tenderness Neurological exam: Present: alert Psychiatric exam: Present: normal affect, normal mood Skin exam: Present: normal color Course Vital Signs 11/09/19 12:53 Temperature 97.3 F L Pulse Rate 68 Respiratory 18 Rate Blood Pressure 151/82 O2 Sat by Pulse 98 Oximetry EKG Findings - EKG Comments: EKG Findings:: sinus rhythm at 67. For screening AV block with a SD of 256. QRS 90. QT 428. QTC 452. Normal axis. Septal Q waves. No acute ST change. Medical Decision Making - Medical Decision Making patient reevaluated. Patient and family updated. Case was discussed in detail with Dr. Ulloa, who will admit covering for Dr. Langston. - Lab Data Result diagrams: 11/09/19 13:21 11/09/19 13:21 Lab Results 11/09/19 11/09/19 11/09/19 Range/Units 13:21 13:21 13:21 WBC 9.3 (3.8-10.6) k/uL RBC 4.03 L (4.30-5.90) m/uL Hgb 13.2 (13.0-17.5) gm/dL Hct 39.2 (39.0-53.0) % MCV 97.1 (80.0-100.0) fL MCH 32.8 (25.0-35.0) pg MCHC 33.7 (31.0-37.0) g/dL RDW 11.7 (11.5-15.5) % Plt Count 283 (150-450) k/uL Neutrophils % 75 % Lymphocytes % 14 % Monocytes % 6 % Eosinophils % 4 % Basophils % 1 % Neutrophils # 6.9 (1.3-7.7) k/uL Lymphocytes # 1.3 (1.0-4.8) k/uL Monocytes # 0.5 (0-1.0) k/uL Eosinophils # 0.4 (0-0.7) k/uL Basophils # 0.1 (0-0.2) k/uL PT (9.0-12.0) sec INR (<1.2) APTT (22.0-30.0) sec Sodium 137 (137-145) mmol/L Potassium 4.8 (3.5-5.1) mmol/L Chloride 104 (98-107) mmol/L Carbon Dioxide 25 (22-30) mmol/L Anion Gap 8 mmol/L BUN 15 (9-20) mg/dL Creatinine 0.95 (0.66-1.25) mg/dL Est GFR (CKD-EPI)AfAm 87 (>60 ml/min/1.73 sqM) Est GFR (CKD-EPI)NonAf 75 (>60 ml/min/1.73 sqM) Glucose 114 H (74-99) mg/dL Calcium 10.4 H (8.4-10.2) mg/dL Total Bilirubin 0.8 (0.2-1.3) mg/dL AST 26 (17-59) U/L ALT 12 (4-49) U/L Alkaline Phosphatase 59 (38-126) U/L Creatine Kinase 22 L (55-170) U/L CK-MB (CK-2) 0.5 (0.0-2.4) ng/mL Troponin I <0.012 (0.000-0.034) ng/mL Total Protein 7.5 (6.3-8.2) g/dL Albumin 4.1 (3.5-5.0) g/dL Amylase 104 (30-110) U/L Lipase 524 H (23-300) U/L 11/09/19 Range/Units 13:21 WBC (3.8-10.6) k/uL RBC (4.30-5.90) m/uL Hgb (13.0-17.5) gm/dL Hct (39.0-53.0) % MCV (80.0-100.0) fL MCH (25.0-35.0) pg MCHC (31.0-37.0) g/dL RDW (11.5-15.5) % Plt Count (150-450) k/uL Neutrophils % % Lymphocytes % % Monocytes % % Eosinophils % % Basophils % % Neutrophils # (1.3-7.7) k/uL Lymphocytes # (1.0-4.8) k/uL Monocytes # (0-1.0) k/uL Eosinophils # (0-0.7) k/uL Basophils # (0-0.2) k/uL PT 10.1 (9.0-12.0) sec INR 0.9 (<1.2) APTT 26.4 (22.0-30.0) sec Sodium (137-145) mmol/L Potassium (3.5-5.1) mmol/L Chloride (98-107) mmol/L Carbon Dioxide (22-30) mmol/L Anion Gap mmol/L BUN (9-20) mg/dL Creatinine (0.66-1.25) mg/dL Est GFR (CKD-EPI)AfAm (>60 ml/min/1.73 sqM) Est GFR (CKD-EPI)NonAf (>60 ml/min/1.73 sqM) Glucose (74-99) mg/dL Calcium (8.4-10.2) mg/dL Total Bilirubin (0.2-1.3) mg/dL AST (17-59) U/L ALT (4-49) U/L Alkaline Phosphatase (38-126) U/L Creatine Kinase (55-170) U/L CK-MB (CK-2) (0.0-2.4) ng/mL Troponin I (0.000-0.034) ng/mL Total Protein (6.3-8.2) g/dL Albumin (3.5-5.0) g/dL Amylase (30-110) U/L Lipase (23-300) U/L - Radiology Data Radiology results: report reviewed (computed tomography scan of the chest and pelvis shows no acute abnormality. No aorta pathology.), image reviewed (chest and abdominal x-rays show no acute process) Disposition Clinical Impression: Abdominal pain, Chest pain, Pancreatitis Disposition: ADMITTED IP TO THIS HOSP Is patient prescribed a controlled substance at d/c from ED?: No Referrals: Hossein Langston MD [Primary Care Provider] - 1-2 days Decision Time: 15:21
[2019-11-09 13:35] LABS: Basophils # (A) 0.1 k/uL (0-0.2); Basophils % (A) 1 %; Eosinophils # (A) 0.4 k/uL (0-0.7); Eosinophils % (A) 4 %; HCT 39.2 % (39.0-53.0); HGB 13.2 gm/dL (13.0-17.5); Lymphocytes # (A) 1.3 k/uL (1.0-4.8); Lymphocytes % (A) 14 %; MCH 32.8 pg (25.0-35.0); MCHC 33.7 g/dL (31.0-37.0); MCV 97.1 fL (80.0-100.0); Mean Platelet Volume 7.3; Monocytes # (A) 0.5 k/uL (0-1.0); Monocytes % (A) 6 %; Neutrophils # (A) 6.9 k/uL (1.3-7.7); Neutrophils % (A) 75 %; Platelet Count 283 k/uL (150-450); RBC 4.03 m/uL (4.30-5.90); RDW 11.7 % (11.5-15.5); WBC 9.3 k/uL (3.8-10.6)
[2019-11-09 13:46] LABS: Albumin 4.1 g/dL (3.5-5.0); Calcium 10.4 mg/dL (8.4-10.2); Potassium 4.8 mmol/L (3.5-5.1); Total Bilirubin 0.8 mg/dL (0.2-1.3); Total Protein 7.5 g/dL (6.3-8.2)
[2019-11-09 13:52] LABS: INR 0.9 (<1.2); Partial Thromboplastin Time 26.4 sec (22.0-30.0); Prothrombin Time 10.1 sec (9.0-12.0)
[2019-11-09 13:58] LABS: Creatine Kinase MB 0.5 ng/mL (0.0-2.4); Troponin I <0.012 ng/mL (0.000-0.034)
--- NOTE | 2019-11-09 14:09 | XR ---
EXAMINATION TYPE: XR chest 2V DATE OF EXAM: 11/09/2019 COMPARISON: Chest x-ray September 03, 2019. HISTORY: Shortness of breath. TECHNIQUE: Frontal and lateral views of the chest are obtained. FINDINGS: Overlying EKG leads are redemonstrated. Overlying sternal wires and mediastinal clips again seen There is some chronic parenchymal change without suspicious new focal air space opacity, pleura l effusion, or pneumothorax seen on current study. The cardiac silhouette size remains within normal limits. Retrocardiac opacity consistent with moderate to large size hiatal hernia redemonstrated. Mu ltilevel spurring in thoracic spine again seen. IMPRESSION: Chronic changes without acute process.
--- NOTE | 2019-11-09 14:11 | XR ---
EXAMINATION TYPE: XR KUB DATE OF EXAM: 11/09/2019 1:56 PM CLINICAL HISTORY: Epigastric pain. TECHNIQUE: Two Upright KUB images of the abdomen are obtained. COMPARISON: CT abdomen and pelvis August 29, 2019. FINDINGS: Scattered gas is seen in non-distended small bowel loops. Gas and fecal material is seen in non-distended colon. Moderate to large size hiatal hernia redemonstrated. Underlying scoliotic curva ture with multilevel spurring. Advanced degenerative change right hip joint with marked joint space l oss and subchondral cystic change redemonstrated. No pneumoperitoneum or suspicious calcification. IMPRESSION: Overall nonobstructive bowel gas pattern remains present.
--- NOTE | 2019-11-09 14:44 | CT ---
EXAMINATION TYPE: CT angio thor/abd pel aorta DATE OF EXAM: 11/09/2019 COMPARISON: CT abdomen and pelvis August 29, 2019 HISTORY: Back pain rule out dissection. CT DLP: 1965.6 mGycm. Automated Exposure Control for Dose Reduction was Utilized. CONTRAST: CTA scan of the thorax, abdomen and pelvis is performed without and with IV Contrast, patient injecte d with 100 mL of Isovue 300. FINDINGS: Vascular: Bovine-type arch redemonstrated which is normal variant. No aneurysm in the aorta. Patent c entral pulmonary arteries and central branching vessels. Post-CABG changes with mediastinal clips and sternal wires. Patent celiac artery, SMA, bilateral single renal arteries and AMBER. Mild to moderate plaque in the abdominal aorta. Patent iliac branch vessels. Patent femoral vessels bilateral groin. N o significant stenosis at any level. No aneurysm. No linear hypodensity to suggest dissection. LUNGS: The lungs are grossly clear, there is no concerning parenchymal mass or nodule identified. T here is no pleural effusion or pneumothorax seen. The tracheobronchial tree is patent. MEDIASTINUM: There are no greater than 1 cm hilar or mediastinal lymph nodes. No cardiomegaly or pe ricardial effusion is seen. Asymmetric diminished size right thyroid lobe with possible underlying n odule. Correlate clinically. LIVER/GB: Liver is hypodense suggesting possible underlying fatty infiltration. Dependent small galls tones and/or gallbladder sludge redemonstrated. PANCREAS: No significant abnormality is seen. SPLEEN: Incidental anterior inferior splenule axial image 95 redemonstrated. ADRENALS: No significant abnormality is seen. KIDNEYS: Some cortical thinning both kidneys. BOWEL: Moderate to large size hiatal hernia redemonstrated. Scattered diverticula throughout the colo n. No suspicious small or large bowel dilatation. GENITAL ORGANS: Enlarged prostate gland consistent with BPH bulging and bladder base. LYMPH NODES: No greater than 1cm abdominal or pelvic lymph nodes are appreciated. OSSEOUS STRUCTURES: Multilevel spurring and scoliotic curvature of the thoracolumbar spine redemonstr ated. Facet arthropathy lower lumbar levels. Asymmetric advanced degenerative change right hip joint redemonstrated. Spurring at bilateral sacroiliac joints again seen. OTHER: No significant additional abnormality is seen. IMPRESSION: No aortic dissection. No significant new or acute findings identified.
[2019-11-09] MEDS ORDERED: ONDANSETRON 4 MG/2 ML VIAL IVP PRN (15:21)
[2019-11-09] MEDS ORDERED: NALOXONE 0.4 MG/ML 1 ML VIAL IV PRN (15:21)
[2019-11-09] MEDS ORDERED: MORPHINE SULFATE 4 MG/ML SYRINGE IV PRN (15:21)
[2019-11-09 15:32] LABS: Appearance,Urine Clear (Clear); Bilirubin,Urine Negative (Negative); Blood,Urine Negative (Negative); Color,Urine Yellow; Glucose,Urine (UA) Negative (Negative); Ketones,Urine Negative (Negative); Leukocyte Esterase,Urine Negative (Negative); Nitrite,Urine Negative (Negative); PH, Urine 6.5 (5.0-8.0); Protein,Urine Negative (Negative); Specific Gravity,Urine 1.038 (1.001-1.035)
[2019-11-09] MEDS: SODIUM CHLORIDE 0.9% 1,000 ML IV SCH (16:21)
[2019-11-09] MEDS ORDERED: IBUPROFEN 200 MG TAB PO PRN (19:01)
[2019-11-09] MEDS ORDERED: diphenhydrAMINE 25 MG CAP PO PRN (19:07)
[2019-11-09] MEDS ORDERED: ATENOLOL 50 MG TAB PO SCH (21:00)
[2019-11-09] MEDS: ATORVASTATIN 10 MG TAB PO SCH (21:45)
[2019-11-10] MEDS: SODIUM CHLORIDE 0.9% 1,000 ML IV SCH ×3 (01:44→17:17)
[2019-11-10 06:53] LABS: HCT 35.2 % (39.0-53.0); HGB 11.8 gm/dL (13.0-17.5); MCH 33.1 pg (25.0-35.0); MCHC 33.7 g/dL (31.0-37.0); MCV 98.2 fL (80.0-100.0); Mean Platelet Volume 7.5; Platelet Count 244 k/uL (150-450); RBC 3.58 m/uL (4.30-5.90); RDW 11.7 % (11.5-15.5); WBC 8.1 k/uL (3.8-10.6)
[2019-11-10 07:04] LABS: ALT 9 U/L (4-49); AST 23 U/L (17-59); African American GFR (CKD) >90 (>60 ml/min/1.73 sqM); Albumin 3.1 g/dL (3.5-5.0); Alkaline Phosphatase 48 U/L (38-126); Amylase 52 U/L (30-110); Anion Gap 5 mmol/L; Blood Urea Nitrogen 10 mg/dL (9-20); Calcium 9.6 mg/dL (8.4-10.2); Carbon Dioxide 25 mmol/L (22-30); Chloride 107 mmol/L (98-107); Glucose 81 mg/dL (74-99); LDH 323 U/L (313-618); Non-African American GFR(CKD) 83 (>60 ml/min/1.73 sqM); Sodium 137 mmol/L (137-145); Total Bilirubin 0.8 mg/dL (0.2-1.3); Total Protein 6.1 g/dL (6.3-8.2)
[2019-11-10] MEDS ORDERED: NON FORMULARY DRUG (Omeprazole [Omeprazole] 20 MG) PO SCH (09:00)
[2019-11-10] MEDS ORDERED: PANTOPRAZOLE 40 MG/10 ML VIAL IV SCH (09:00)
--- NOTE | 2019-11-10 09:19 | P.CRDCN ---
History of Present Illness Consult date: 11/10/19 Requesting physician: Hossein Langston Consult reason: chest pain Chief complaint: Abdominal pain History of present illness: This is an 79-year-old gentleman with past medical history significant for coronary artery disease with prior bypass surgery over 20 years ago, hypertension, hyperlipidemia, history of prior alcohol abuse, GERD, history of esophageal strictures, patient does smoke cigars on occasion, he denies any cigarette smoking. He presented to the hospital on this admission with symptoms of abdominal discomfort. He denies any overt discomfort in his chest, but states that point that he had an episode of sharp chest pain on the left, mostly it was his abdominal pain and pain into his lower back. He [place]. He denies having any alcohol there. His EKG on presentation here shows a normal sinus rhythm with a first-degree AV block. Chest x-ray showed chronic changes without any acute process. KUB revealed overall nonobstructive bowel gas pattern. CTA did not reveal any evidence of aortic dissection. No significant or new acute findings identified. Blood pressure 144/60 with a heart rate in the 60s, 95% on room air. White blood cell count on admission 9.3, hemoglobin 13.2, platelet count 283. This morning white blood cell count is 8.1 with hemoglobin 11.8, platelet count 244. Sodium 137, potassium 4.0, BUN 10, creatinine 0.8. Troponins are negative 3. Lipase on admission 524. Albumin 3.1, total protein 6.1. At the time of my examination this morning, patient denies any chest discomfort but does have tenderness in his abdomen in the left upper quadrant on palpation. He denies any chest discomfort and his breathing is stable. Patient does have intermittent episodes of confusion. He states that he sees a oven builder in the office but is unsure if this, his primary care doctor is Dr. Langston. Past Medical History Past Medical History: Chest Pain / Angina, GERD/Reflux, Hyperlipidemia, Hypertension Additional Past Medical History / Comment(s): Esophageal strictures, macular degeneration, UTI, alcoholism Last Myocardial Infarction Date:: 1992 History of Any Multi-Drug Resistant Organisms: None Reported Past Surgical History: Coronary Bypass/CABG, Tonsillectomy Past Psychological History: No Psychological Hx Reported Smoking Status: Current some day smoker Past Alcohol Use History: None Reported Additional Past Alcohol Use History / Comment(s): 12 ounces/day Past Drug Use History: None Reported - Past Family History Father Additional Family Medical History / Comment(s): ETOH; gastric cancer Medications and Allergies Home Medications Medication Instructions Recorded Confirmed Type Atenolol 100 mg PO HS 08/28/18 11/09/19 History Omeprazole 20 mg PO DAILY 08/28/18 11/09/19 History Simvastatin [Zocor] 10 mg PO HS 08/28/18 11/09/19 History Tamsulosin HCl [Flomax] 0.4 mg PO DAILY 08/28/18 11/09/19 History Ubidecarenone [Co Q-10] 100 mg PO DAILY 08/28/18 11/09/19 History Vit C/E/Zn/Coppr/Lutein/Zeaxan 1 cap PO BID 08/28/18 11/09/19 History [Preservision Areds 2 Softgel] Ibuprofen/Diphenhydramine HCl 1 cap PO HS PRN 08/28/19 11/09/19 History [Advil Pm Liqui-Gels] Thiamine HCl [Vitamin B-1] 100 mg PO DAILY 08/28/19 11/09/19 History Allergies Allergy/AdvReac Type Severity Reaction Status Date / Time No Known Allergies Allergy Verified 11/09/19 12:56 Physical Exam Vitals: Vital Signs Temp Pulse Pulse Resp BP BP Pulse Ox 11/10/19 03:58 60 18 144/62 95 11/09/19 23:00 98 F 64 16 122/65 96 11/09/19 20:00 97.6 F 65 18 144/72 100 11/09/19 16:57 97.5 F L 63 18 150/81 97 11/09/19 15:30 71 121/70 100 11/09/19 15:00 68 122/58 100 11/09/19 14:30 68 119/69 99 11/09/19 13:30 63 124/70 98 11/09/19 12:53 97.3 F L 68 18 151/82 98 Intake and Output 11/09/19 11/10/19 11/10/19 22:59 06:59 14:59 Output Total 200 Balance -200 Output: Urine 200 Other: Voiding Method Urinal Urinal # Voids 1 1 Weight 85.729 kg 83.8 kg PHYSICAL EXAMINATION: GENERAL: 79-year-old patient in no acute distress at the time of my examination HEENT: Head is atraumatic, normocephalic. Pupils equal, round. Sclera anicteric. Conjunctiva are clear. Mucous membranes of the mouth are moist. Neck is supple. There is no elevated jugular venous pressure. No carotid bruit is heard. HEART EXAMINATION: R S1 and S2 with systolic murmur is heard CHEST EXAMINATION: Lungs are clear to auscultation and precussion. No chest wall tenderness is noted on palpation or with deep breathing. ABDOMEN: Soft, nontender. Bowel sounds are heard. No organomegaly noted. EXTREMITIES: 2+ peripheral pulses with no evidence of peripheral edema and no calf tenderness noted. NEUROLOGIC patient is awake, alert and oriented 3, intermittently confused . . Results 11/10/19 05:50 11/10/19 05:50 Cardiac Enzymes 11/09/19 11/09/19 11/09/19 Range/Units 13:21 13:21 19:51 AST 26 (17-59) U/L Lactate Dehydrogenase (313-618) U/L CK-MB (CK-2) 0.5 (0.0-2.4) ng/mL Troponin I <0.012 <0.012 (0.000-0.034) ng/mL 11/10/19 11/10/19 Range/Units 02:03 05:50 AST 23 (17-59) U/L Lactate Dehydrogenase 323 (313-618) U/L CK-MB (CK-2) (0.0-2.4) ng/mL Troponin I <0.012 (0.000-0.034) ng/mL Coagulation 11/09/19 Range/Units 13:21 PT 10.1 (9.0-12.0) sec APTT 26.4 (22.0-30.0) sec CBC 11/09/19 11/10/19 Range/Units 13:21 05:50 WBC 9.3 8.1 (3.8-10.6) k/uL RBC 4.03 L 3.58 L (4.30-5.90) m/uL Hgb 13.2 11.8 L (13.0-17.5) gm/dL Hct 39.2 35.2 L (39.0-53.0) % Plt Count 283 244 (150-450) k/uL Comprehensive Metabolic Panel 11/09/19 11/10/19 Range/Units 13:21 05:50 Sodium 137 137 (137-145) mmol/L Potassium 4.8 4.0 (3.5-5.1) mmol/L Chloride 104 107 (98-107) mmol/L Carbon Dioxide 25 25 (22-30) mmol/L BUN 15 10 (9-20) mg/dL Creatinine 0.95 0.83 (0.66-1.25) mg/dL Glucose 114 H 81 (74-99) mg/dL Calcium 10.4 H 9.6 (8.4-10.2) mg/dL AST 26 23 (17-59) U/L ALT 12 9 (4-49) U/L Alkaline Phosphatase 59 48 (38-126) U/L Total Protein 7.5 6.1 L (6.3-8.2) g/dL Albumin 4.1 3.1 L (3.5-5.0) g/dL Current Medications Generic Name Dose Route Start Last Admin Trade Name Freq PRN Reason Stop Dose Admin Atenolol 100 mg 11/09/19 21:00 11/09/19 21:45 Tenormin PO 100 mg HS MILI Administration Atorvastatin Calcium 10 mg 11/09/19 21:00 11/09/19 21:45 Lipitor PO 10 mg HS MILI Administration Diphenhydramine HCl 25 mg 11/09/19 19:07 Benadryl PO HS PRN Insomnia Sodium Chloride 1,000 mls @ 125 mls/hr 11/09/19 15:30 11/10/19 06:30 Saline 0.9% IV 125 mls/hr .Q8H MILI Administration Ibuprofen 200 mg 11/09/19 19:01 Advil PO HS PRN Pain Morphine Sulfate 4 mg 11/09/19 15:21 Morphine Sulfate (Inj) IV Q4HR PRN Severe Pain Naloxone HCl 0.2 mg 11/09/19 15:21 Narcan IV Q2M PRN Opioid Reversal Ondansetron HCl 4 mg 11/09/19 15:21 Zofran IVP Q8HR PRN Nausea And Vomiting Pantoprazole Sodium 40 mg 11/10/19 09:00 Protonix IV DAILY MILI Tamsulosin HCl 0.4 mg 11/10/19 09:00 Flomax PO DAILY MILI Thiamine HCl 100 mg 11/10/19 09:00 Vitamin B-1 PO DAILY MILI Intake and Output 11/09/19 11/10/19 11/10/19 22:59 06:59 14:59 Output Total 200 Balance -200 Output: Urine 200 Other: Voiding Method Urinal Urinal # Voids 1 1 Weight 85.729 kg 83.8 kg 11/10/19 05:50 11/10/19 05:50 EKG Interpretations (text) EKG shows a normal sinus rhythm with a first-degree AV block Assessment and Plan Plan: Assessment and plan #1 abdominal discomfort with elevated lipase of 524 #2 an episode of atypical chest pain, troponins negative 3, EKG shows a normal sinus rhythm with a first-degree AV block #2 coronary artery disease with prior bypass surgery approximately 20 years ago per the patient #4 hypertension #5 hyperlipidemia #6 history of alcohol abuse #7 cigar smoking #8 GERD Plan Patient had an echocardiogram with Doppler study performed in August which rev ealed a normal left ventricular systolic function with evidence of mild to moderate mitral regurg, mild to moderate tricuspid regurg and mild to moderate pulmonary hypertension. We will not repeat an echo this admission. We will review the office records to see when the patient last underwent stress testing. We'll also put the patient on a baby aspirin daily. Decrease the dose of atenolol and start the patient on an BRENDAN inhibitor. Further recommendations to follow. DNP note has been reviewed, I agree with a documented findings and plan of care. Patient was seen and examined.
[2019-11-10] MEDS: THIAMINE 100 MG TAB PO SCH (09:35)
[2019-11-10] MEDS: TAMSULOSIN 0.4 MG CAP.ER.24H PO SCH (09:35)
--- NOTE | 2019-11-10 15:58 | CONS ---
CONSULTATION DATE OF DICTATION: 11/10/2019 REASON FOR CONSULTATION: Abdominal pain, chest pain and acute pancreatitis. HISTORY OF THE PRESENT ILLNESS: The patient is an 79-year-old pleasant white male with a history of coronary artery disease, status post bypass surgery, and hypertension as well as hyperlipidemia, admitted to the hospital with acute onset of severe epigastric pain as well as low sternal chest pain radiating to the lower abdomen that started yesterday morning. The pain continued to progressively get worse. He came into the emergency room and was subsequently admitted to the hospital for further evaluation. He was noted to have mild elevation of lipase consistent with acute pancreatitis. The patient has a history of moderate to heavy drinking for several years. He quit drinking about 3 months ago. He denies ever having these symptoms in the past. This morning he is feeling much better. The abdominal pain has completely resolved. The nausea and vomiting have resolved. Lipase has almost normalized. As a part of workup because of the chest pain he had CT of the chest done that showed evidence of gallstones but no evidence of biliary ductal dilation. Otherwise it was unremarkable. He was also evaluated by Cardiology for atypical chest pain. PAST MEDICAL HISTORY: Past medical history is significant for: 1. Hypertension. 2. Hyperlipidemia. 3. Coronary artery disease, status post CABG. 4. History of esophageal stricture, for which he underwent esophageal dilation by Dr. Coffey last year. 5. Macular degeneration. 6. Alcohol abuse. PAST SURGICAL HISTORY: CABG, tonsillectomy. MEDICATIONS: Medications at home include: 1. Omeprazole. 2. Atenolol. 3. Zocor. 4. Flomax. 5. Coenzyme Q10. 6. Advil. 7. Vitamin B1. ALLERGIES: NONE. SOCIAL HISTORY: Chronic smoker. Moderate to heavy drinking, which he quit 3 months ago. FAMILY HISTORY: Father had heavy alcohol abuse and gastric cancer. REVIEW OF SYSTEMS: CARDIOPULMONARY: He denies any chest pain or shortness of breath. GENITOURINARY: No dysuria or hematuria. MUSCULOSKELETAL: Unremarkable. SKIN: Unremarkable. ENDOCRINE: Unremarkable. PSYCHIATRIC: Unremarkable. NEUROLOGY: Unremarkable. ENT/VISION: Unremarkable. CONSTITUTIONAL: No recent weight loss. No fever, chills, night sweats. PHYSICAL EXAMINATION: He appears comfortable, in no apparent distress. Vital signs are stable. Blood pressure 144/62, pulse rate 60, temperature 98.3. HEENT examination unremarkable. Conjunctivae pink. Sclerae anicteric. Oral cavity no lesions. NECK: No JVD or lymph node enlargement. CHEST: Clear to auscultation. HEART: Regular rate and rhythm. ABDOMEN: Soft. It was non-tender, non-distended. Liver and spleen were not palpable. Bowel sounds are positive. EXTREMITIES: No pedal edema. SKIN: No rashes. NEUROLOGIC: Alert and oriented x3. No focal deficits. LABS: WBC 8.1, hemoglobin 11.2, platelets normal. Lipase was 524. Amylase was normal. ALT, AST, T-bilirubin and alkaline phosphatase are within normal limits. Today lipase is down to 90, amylase is 52. Alcohol level is less than 10. IMPRESSION: 1. This is a patient who presented to the hospital with acute onset of severe epigastric pain as well as lower sternal chest pain and noted to have mild elevation of lipase consistent with mild pancreatitis. His lipase has normalized today. He did have a CT of the chest done yesterday because of severe acute chest pain and was noted to have multiple gallstones but no biliary ductal dilation. Clinically no evidence of acute cholecystitis. Possibly biliary colic from gallstones. Acute pancreatitis has completely resolved. 2. History of moderate to heavy alcohol abuse; quit drinking 3 months ago. 3. History of coronary artery disease, status post coronary artery bypass grafting several years ago. RECOMMENDATIONS: 1. Start him on a clear liquid diet and advance as tolerated. 2. Consult Surgery for possible symptomatic gallstones that could have caused an episode of acute pancreatitis. 3. Repeat labs in the morning. If the patient is doing well, he can be discharged home tomorrow with outpatient followup as needed. Thank you for this consultation. MMODL / IJN: [id number] /
[2019-11-10] MEDS: PANTOPRAZOLE 40 MG TABLET PO SCH (17:08)
[2019-11-10] MEDS ORDERED: ALPRAZolam 0.25 MG TAB PO PRN (17:20)
--- NOTE | 2019-11-10 19:14 | P.HPIM ---
History of Present Illness H&P Date: 11/10/19 this is a pleasant 79-year-old gentleman patient of Dr. Langston. History of underlying hypertension, CAD with prior CABG,history of alcohol abuse, esophageal stricture, hyperlipidemia, GERD, admitted through the emergency room secondary to left lower quadrant and left mid flank abdominal pain, radiating to the suprapubic area, patient cannot provide an adequate accurate history, she mentions that there are other sick people with the same condition, however when inquired patient had abdominal pain after eating grimaldo and eggs which was prepared by the daughter, pain was not prior to the grimaldo and eggs. Patient had a CAT scan in 08/29/2019 on review of information, that showed multiple small ga llbladder stones, bladder is without any hydronephrosis, no adrenal mass, sigmoid diverticula without evidence of diverticulitis, patient was admitted with an elevated lipase consistent with pancreatitis, was seen consultation by cardiology secondary tochest pain that radiates to her chest. Patient has some nausea no vomiting no fever patient has some diarrhea. Pain currently is 0 out of 10 from initial ER pain of 5 out of 10 Laboratories in the ERshowed sinus rhythm with first-degree AV block, septal infarct,CAT scan of the thorax failed to reveal any dissection, liver shows fatty infiltration, dependent small gallstones and or sludge, moderate to large hiatal hernia,hemoglobin 11.8 wbc count 8.1lipase 524serum alcohol less than 10, normal urinalysis and normal liver function test including alkaline phosphatase troponins are 0.01 2.012 Review of Systems Constitutional: Reports as per HPI, Denies anorexia, Denies chills, Denies chronic headaches, Denies chronic pain, Denies daytime sleepiness, Denies fatigue, Denies fever, Denies lethargy, Denies malaise, Denies night sweats, Denies poor appetite, Denies sweats, Denies weakness, Denies weight gain, Denies weight loss Ears, nose, mouth and throat: Reports as per HPI, Denies ant. neck pain, Denies bleeding gums, Denies dental pain, Denies dysphagia, Denies epistaxis, Denies headache, Denies hoarseness, Denies mouth pain, Denies nasal congestion, Denies nasal discharge, Denies neck fullness/pressure, Denies neck lump, Denies nose pain, Denies odynophagia, Denies post-nasal drip, Denies sinus pain, Denies sinus pressure, Denies swelling in mouth, Denies swelling in throat, Denies sore throat, Denies vertigo, Denies voice changes Cardiovascular: Reports as per HPI, Reports chest pain Respiratory: Reports as per HPI, Denies congestion, Denies cough, Denies cough with sputum, Denies dyspnea, Denies excessive sputum, Denies hemoptysis, Denies home oxygen, Denies pain, Denies pain on inspiration, Denies pleurisy, Denies respiratory infections, Denies sleep apnea, Denies snoring, Denies wheezing Gastrointestinal: Reports as per HPI, Reports abdominal pain, Reports belching, Reports bloating, Reports nausea, Denies BRBPR, Denies change in bowel habits, Denies coffee ground emesis, Denies constipation, Denies diarrhea, Denies dyspepsia, Denies early satiety, Denies excessive gas, Denies heartburn, Denies hematemesis, Denies hematochezia, Denies indigestion, Denies jaundice, Denies lactose intolerance, Denies loss of appetite, Denies melena, Denies vomiting Genitourinary: Reports as per HPI, Denies decreased libido, Denies difficulties fathering child, Denies discharge, Denies dysuria, Denies erectile dysfunction, Denies flank pain, Denies genital pain, Denies genital sores, Denies hematuria, Denies impotence, Denies incontinence, Denies kidney stones, Denies nocturia, Denies polyuria, Denies testicular lump, Denies testicular pain, Denies urinary frequency, Denies urinary hesitancy, Denies urinary retention Musculoskeletal: Reports as per HPI, Denies arm numbness/tingling, Denies atrophy, Denies fractures, Denies frequent falls, Denies gait dysfunction, Denies hot joints, Denies leg numbness/tingling, Denies limitation of motion, Denies loss of height, Denies low back pain, Denies morning stiffness, Denies mu scle cramps, Denies muscle weakness, Denies myalgias, Denies neck pain, Denies neck stiffness, Denies prior amputations, Denies redness of joints, Denies shooting arm pain, Denies shooting leg pain Integumentary: Reports as per HPI, Denies acne, Denies boils, Denies brittle nails, Denies change in hair/nails, Denies color changes, Denies darkening of skin, Denies depigmentation, Denies dryness, Denies foot/leg ulcers, Denies growths, Denies hirsutism, Denies lesions, Denies onychomycosis, Denies pruritus, Denies rash, Denies sores, Denies striae, Denies unusual bruising, Denies wounds Neurological: Reports as per HPI, Reports memory loss, Denies aphasia, Denies ataxia, Denies balance difficulties, Denies burning pain, Denies change in menta tion, Denies change in smell/taste, Denies change in speech, Denies confusion, Denies convulsions, Denies double vision, Denies gait dysfunction, Denies head injury, Denies headaches, Denies hearing difficulties, Denies lack of coordination, Denies loss of vision, Denies migraines, Denies motor disturbance, Denies numbness, Denies paralysis, Denies paresthesias, Denies seizures, Denies sensory deficit, Denies spasticity, Denies syncope, Denies tic, Denies tingling, Denies transient paralysis, Denies tremors, Denies vertigo, Denies weakness, Denies visual changes Psychiatric: Reports as per HPI Endocrine: Reports as per HPI Hematologic/Lymphatic: Reports as per HPI Allergic/Immunologic: Reports as per HPI Past Medical History Past Medical History: Chest Pain / Angina, GERD/Reflux, Hyperlipidemia, Hypertension Additional Past Medical History / Comment(s): Esophageal strictures, macular degeneration, UTI, alcoholism Last Myocardial Infarction Date:: 1992 History of Any Multi-Drug Resistant Organisms: None Reported Past Surgical History: Coronary Bypass/CABG, Tonsillectomy Past Psychological History: No Psychological Hx Reported Smoking Status: Current some day smoker Past Alcohol Use History: None Reported Additional Past Alcohol Use History / Comment(s): 12 ounces/day Past Drug Use History: None Reported - Past Family History Father Additional Family Medical History / Comment(s): ETOH; gastric cancer Medications and Allergies Home Medications Medication Instructions Recorded Confirmed Type Atenolol 100 mg PO HS 08/28/18 11/09/19 History Omeprazole 20 mg PO DAILY 08/28/18 11/09/19 History Simvastatin [Zocor] 10 mg PO HS 08/28/18 11/09/19 History Tamsulosin HCl [Flomax] 0.4 mg PO DAILY 08/28/18 11/09/19 History Ubidecarenone [Co Q-10] 100 mg PO DAILY 08/28/18 11/09/19 History Vit C/E/Zn/Coppr/Lutein/Zeaxan 1 cap PO BID 08/28/18 11/09/19 History [Preservision Areds 2 Softgel] Ibuprofen/Diphenhydramine HCl 1 cap PO HS PRN 08/28/19 11/09/19 History [Advil Pm Liqui-Gels] Thiamine HCl [Vitamin B-1] 100 mg PO DAILY 08/28/19 11/09/19 History Allergies Allergy/AdvReac Type Severity Reaction Status Date / Time No Known Allergies Allergy Verified 11/09/19 12:56 Physical Exam Vitals: Vital Signs Temp Pulse Pulse Resp BP BP Pulse Ox 11/10/19 03:58 60 18 144/62 95 11/09/19 23:00 98 F 64 16 122/65 96 11/09/19 20:00 97.6 F 65 18 144/72 100 11/09/19 16:57 97.5 F L 63 18 150/81 97 11/09/19 15:30 71 121/70 100 11/09/19 15:00 68 122/58 100 11/09/19 14:30 68 119/69 99 11/09/19 13:30 63 124/70 98 11/09/19 12:53 97.3 F L 68 18 151/82 98 Intake and Output 11/09/19 11/10/19 11/10/19 22:59 06:59 14:59 Intake Total 0 Output Total 200 1200 Balance -200 -1200 Intake: Oral 0 Output: Urine 200 1200 Other: Voiding Method Urinal Urinal # Voids 1 1 Weight 85.729 kg 83.8 kg - Constitutional General appearance: cooperative, no acute distress - EENT Eyes: anicteric sclerae, EOMI, dentition normal, normal appearance ENT: NA/AT, normal oropharynx - Respiratory Respiratory: bilateral: CTA, negative: diminished, dullness, rales, rhonchi - Cardiovascular Rhythm: regular Heart sounds: normal: S1, S2 Abnormal Heart Sounds: no systolic murmur, no diastolic murmur, no rub, no S3 Gallop, no S4 Gallop, no click, no other - Gastrointestinal General gastrointestinal: normal bowel sounds - Integumentary Integumentary: decreased turgor, normal - Neurologic Neurologic: CNII-XII intact - Musculoskeletal Musculoskeletal: gait normal, strength equal bilaterally - Psychiatric Psychiatric: A&O x's 3, appropriate affect Results CBC & Chem 7: 11/10/19 05:50 11/10/19 05:50 Labs: Abnormal Lab Results - Last 24 Hours (Table) 11/09/19 11/09/19 11/09/19 Range/Units 13:21 13:21 15:18 RBC 4.03 L (4.30-5.90) m/uL Hgb (13.0-17.5) gm/dL Hct (39.0-53.0) % Glucose 114 H (74-99) mg/dL Calcium 10.4 H (8.4-10.2) mg/dL Creatine Kinase 22 L (55-170) U/L Total Protein (6.3-8.2) g/dL Albumin (3.5-5.0) g/dL Lipase 524 H (23-300) U/L Ur Specific [place] 1.038 H (1.001-1.035) 11/10/19 11/10/19 Range/Units 05:50 05:50 RBC 3.58 L (4.30-5.90) m/uL Hgb 11.8 L (13.0-17.5) gm/dL Hct 35.2 L (39.0-53.0) % Glucose (74-99) mg/dL Calcium (8.4-10.2) mg/dL Creatine Kinase (55-170) U/L Total Protein 6.1 L (6.3-8.2) g/dL Albumin 3.1 L (3.5-5.0) g/dL Lipase (23-300) U/L Ur Specific [place] (1.001-1.035) Laboratory Results WBC 8.1 k/uL (3.8-10.6) 11/10/19 05:50 RBC 3.58 m/uL (4.30-5.90) L 11/10/19 05:50 Hgb 11.8 gm/dL (13.0-17.5) L 11/10/19 05:50 Hct 35.2 % (39.0-53.0) L 11/10/19 05:50 MCV 98.2 fL (80.0-100.0) 11/10/19 05:50 MCH 33.1 pg (25.0-35.0) 11/10/19 05:50 MCHC 33.7 g/dL (31.0-37.0) 11/10/19 05:50 RDW 11.7 % (11.5-15.5) 11/10/19 05:50 Plt Count 244 k/uL (150-450) 11/10/19 05:50 Neutrophils % 75 % 11/09/19 13:21 Lymphocytes % 14 % 11/09/19 13:21 Monocytes % 6 % 11/09/19 13:21 Eosinophils % 4 % 11/09/19 13:21 Basophils % 1 % 11/09/19 13:21 Neutrophils # 6.9 k/uL (1.3-7.7) 11/09/19 13:21 Lymphocytes # 1.3 k/uL (1.0-4.8) 11/09/19 13:21 Monocytes # 0.5 k/uL (0-1.0) 11/09/19 13:21 Eosinophils # 0.4 k/uL (0-0.7) 11/09/19 13:21 Basophils # 0.1 k/uL (0-0.2) 11/09/19 13:21 PT 10.1 sec (9.0-12.0) 11/09/19 13:21 INR 0.9 (<1.2) 11/09/19 13:21 APTT 26.4 sec (22.0-30.0) 11/09/19 13:21 Sodium 137 mmol/L (137-145) 11/10/19 05:50 Potassium 4.0 mmol/L (3.5-5.1) 11/10/19 05:50 Chloride 107 mmol/L (98-107) 11/10/19 05:50 Carbon Dioxide 25 mmol/L (22-30) 11/10/19 05:50 Anion Gap 5 mmol/L 11/10/19 05:50 BUN 10 mg/dL (9-20) 11/10/19 05:50 Creatinine 0.83 mg/dL (0.66-1.25) 11/10/19 05:50 Est GFR (CKD-EPI)AfAm >90 (>60 ml/min/1.73 sqM) 11/10/19 05:50 Est GFR (CKD-EPI)NonAf 83 (>60 ml/min/1.73 sqM) 11/10/19 05:50 Glucose 81 mg/dL (74-99) 11/10/19 05:50 Calcium 9.6 mg/dL (8.4-10.2) 11/10/19 05:50 Total Bilirubin 0.8 mg/dL (0.2-1.3) 11/10/19 05:50 AST 23 U/L (17-59) 11/10/19 05:50 ALT 9 U/L (4-49) 11/10/19 05:50 Alkaline Phosphatase 48 U/L (38-126) 11/10/19 05:50 Lactate Dehydrogenase 323 U/L (313-618) 11/10/19 05:50 Creatine Kinase 22 U/L (55-170) L 11/09/19 13:21 CK-MB (CK-2) 0.5 ng/mL (0.0-2.4) 11/09/19 13:21 Troponin I <0.012 ng/mL (0.000-0.034) 11/10/19 02:03 Total Protein 6.1 g/dL (6.3-8.2) L 11/10/19 05:50 Albumin 3.1 g/dL (3.5-5.0) L 11/10/19 05:50 Amylase 52 U/L (30-110) 11/10/19 05:50 Lipase 90 U/L (23-300) 11/10/19 05:50 Urine Color Yellow 11/09/19 15:18 Urine Appearance Clear (Clear) 11/09/19 15:18 Urine pH 6.5 (5.0-8.0) 11/09/19 15:18 Ur Specific [place] 1.038 (1.001-1.035) H 11/09/19 15:18 Urine Protein Negative (Negative) 11/09/19 15:18 Urine Glucose (UA) Negative (Negative) 11/09/19 15:18 Urine Ketones Negative (Negative) 11/09/19 15:18 Urine Blood Negative (Negative) 11/09/19 15:18 Urine Nitrite Negative (Negative) 11/09/19 15:18 Urine Bilirubin Negative (Negative) 11/09/19 15:18 Urine Urobilinogen 2.0 mg/dL (<2.0) 11/09/19 15:18 Ur Leukocyte Esterase Negative (Negative) 11/09/19 15:18 Serum Alcohol <10 mg/dL 11/10/19 09:02 Thrombosis Risk Factor Assmnt - Choose All That Apply Any of the Below Risk Factors Present?: No Other Risk Factors: Yes Each Risk Factor Represents 3 Points: Age 75 years or older Thrombosis Risk Factor Assessment Total Risk Factor Score: 3 Thrombosis Risk Factor Assessment Level: Moderate Risk Assessment and Plan Plan: 1. 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 Multiple gallbladder stones, low-fat diet has been reinforced to the patient, liver function tests is currently normal, negative for Kim's on examination, 6.discharge planning, suspect discharge in the next 24 hours if diet is tolerated, and once cleared by cardiology
[2019-11-10] MEDS: MELATONIN 3 MG TABLET PO SCH (19:55)
[2019-11-10] MEDS: ATENOLOL 25 MG TAB PO SCH (19:56)
[2019-11-10] MEDS: ATORVASTATIN 10 MG TAB PO SCH (19:56)
[2019-11-11] MEDS: SODIUM CHLORIDE 0.9% 1,000 ML IV SCH ×2 (00:56→21:32)
[2019-11-11 07:51] LABS: Basophils % (A) 1 %; Eosinophils # (A) 0.3 k/uL (0-0.7); Eosinophils % (A) 3 %; HCT 38.3 % (39.0-53.0); HGB 12.8 gm/dL (13.0-17.5); Lymphocytes # (A) 1.2 k/uL (1.0-4.8); Lymphocytes % (A) 14 %; MCH 32.4 pg (25.0-35.0); MCHC 33.3 g/dL (31.0-37.0); MCV 97.4 fL (80.0-100.0); Mean Platelet Volume 7.5; Monocytes # (A) 0.5 k/uL (0-1.0); Monocytes % (A) 6 %; Neutrophils # (A) 6.1 k/uL (1.3-7.7); Neutrophils % (A) 74 %; Platelet Count 271 k/uL (150-450); RBC 3.94 m/uL (4.30-5.90); RDW 11.6 % (11.5-15.5); WBC 8.3 k/uL (3.8-10.6)
[2019-11-11 08:03] LABS: ALT 10 U/L (4-49); AST 25 U/L (17-59); African American GFR (CKD) >90 (>60 ml/min/1.73 sqM); Albumin 3.7 g/dL (3.5-5.0); Alkaline Phosphatase 54 U/L (38-126); Anion Gap 9 mmol/L; Blood Urea Nitrogen 10 mg/dL (9-20); Calcium 10.1 mg/dL (8.4-10.2); Carbon Dioxide 24 mmol/L (22-30); Chloride 105 mmol/L (98-107); Cholesterol 143 mg/dL (<200); Glucose 83 mg/dL (74-99); HDL Cholesterol 37 mg/dL (40-60); LDL Cholesterol,Calculated 90 mg/dL (0-99); Non-African American GFR(CKD) 85 (>60 ml/min/1.73 sqM); Potassium 4.3 mmol/L (3.5-5.1); Sodium 138 mmol/L (137-145); Total Bilirubin 1.3 mg/dL (0.2-1.3); Total Protein 6.9 g/dL (6.3-8.2); Triglycerides 82 mg/dL (<150)
[2019-11-11] MEDS: LISINOPRIL 5 MG TAB PO SCH (08:12)
[2019-11-11] MEDS: TAMSULOSIN 0.4 MG CAP.ER.24H PO SCH (08:12)
[2019-11-11] MEDS: ASPIRIN 81 MG PO SCH (08:12)
[2019-11-11] MEDS: PANTOPRAZOLE 40 MG TABLET PO SCH ×2 (08:13→17:24)
[2019-11-11] MEDS: THIAMINE 100 MG TAB PO SCH (08:13)
--- NOTE | 2019-11-11 10:46 | P.GSCN ---
History of Present Illness Consult date: 11/11/19 Reason for Consult: Pancreatitis, cholelithiasis Requesting physician: Dede Kovacs History of present illness: CHIEF COMPLAINT: Pancreatitis HISTORY OF PRESENT ILLNESS: 79-year-old male who is admitted to the hospital secondary to pancreatitis. Patient underwent computed tomography scan revealing dependent small gallstones and/or gallbladder sludge. General surgery was consulted for further evaluation. Patient examined this point the bedside with Dr. Connors. Patient denies drinking alcohol for the past 2-3 months. He reports his abdominal pain is tolerable today. His diet has been advanced to a low-fat diet this morning. He reports he tolerated breakfast without nausea or vomiting. PAST MEDICAL HISTORY: See list. PAST SURGICAL HISTORY: See list. SOCIAL HISTORY: No illicit drug use. REVIEW OF SYSTEMS: CONSTITUTIONAL: Denies fever or chills. HEENT: Denies blurred vision, vision changes, or eye pain. Denies hemoptysis CARDIOVASCULAR: Denies chest pain or pressure. RESPIRATORY: No shortness of breath. GASTROINTESTINAL: Refer to HPI for pertinent findings HEMATOLOGIC: Denies bleeding disorders. GENITOURINARY: Denies any blood in urine. SKIN: Denies pruitis. Denies rash. PHYSICAL EXAM: VITAL SIGNS: Reviewed. GENERAL: Well-developed in no acute distress. HEENT: No sclera icterus. Extraocular movements grossly intact. Moist buccal mucosa. Head is atraumatic, normocephalic. ABDOMEN: Soft. Nondistended. Nontender. . NEUROLOGIC: Alert and oriented. Cranial nerves II through XII grossly intact. ASSESSMENT: 1. Acute pancreatitis 2. Cholelithiasis PLAN: -Continue low-fat diet -If patient continues to tolerate diet today, he would be stable for discharge home tomorrow from a surgical standpoint.. Patient to follow-up with Dr. Connors outpatient. He will require outpatient laparoscopic cholecystectomy in the future. Nurse practitioner note has been reviewed by physician. Signing provider agrees with the documented findings, assessment, and plan of care. Past Medical History Past Medical History: Chest Pain / Angina, GERD/Reflux, Hyperlipidemia, Hypertension Additional Past Medical History / Comment(s): Esophageal strictures, macular d egeneration, UTI, alcoholism Last Myocardial Infarction Date:: 1992 History of Any Multi-Drug Resistant Organisms: None Reported Past Surgical History: Coronary Bypass/CABG, Tonsillectomy Past Psychological History: No Psychological Hx Reported Smoking Status: Current some day smoker Past Alcohol Use History: None Reported Additional Past Alcohol Use History / Comment(s): 12 ounces/day Past Drug Use History: None Reported - Past Family History Father Additional Family Medical History / Comment(s): ETOH; gastric cancer Medications and Allergies Home Medications Medication Instructions Recorded Confirmed Type Atenolol 100 mg PO HS 08/28/18 11/09/19 History Omeprazole 20 mg PO DAILY 08/28/18 11/09/19 History Simvastatin [Zocor] 10 mg PO HS 08/28/18 11/09/19 History Tamsulosin HCl [Flomax] 0.4 mg PO DAILY 08/28/18 11/09/19 History Ubidecarenone [Co Q-10] 100 mg PO DAILY 08/28/18 11/09/19 History Vit C/E/Zn/Coppr/Lutein/Zeaxan 1 cap PO BID 08/28/18 11/09/19 History [Preservision Areds 2 Softgel] Ibuprofen/Diphenhydramine HCl 1 cap PO HS PRN 08/28/19 11/09/19 History [Advil Pm Liqui-Gels] Thiamine HCl [Vitamin B-1] 100 mg PO DAILY 08/28/19 11/09/19 History Allergies Allergy/AdvReac Type Severity Reaction Status Date / Time No Known Allergies Allergy Verified 11/09/19 12:56 Surgical - Exam Vital Signs Temp Pulse Resp BP Pulse Ox 97.3 F L 68 18 151/82 98 11/09/19 12:53 11/09/19 12:53 11/09/19 12:53 11/09/19 12:53 11/09/19 12:53 Results - Labs 11/11/19 07:10 11/11/19 07:10 Abnormal Lab Results - Last 24 Hours (Table) 11/11/19 11/11/19 Range/Units 07:10 07:10 RBC 3.94 L (4.30-5.90) m/uL Hgb 12.8 L (13.0-17.5) gm/dL Hct 38.3 L (39.0-53.0) % HDL Cholesterol 37 L (40-60) mg/dL Diabetes panel 11/11/19 Range/Units 07:10 Sodium 138 (137-145) mmol/L Potassium 4.3 (3.5-5.1) mmol/L Chloride 105 (98-107) mmol/L Carbon Dioxide 24 (22-30) mmol/L BUN 10 (9-20) mg/dL Creatinine 0.78 (0.66-1.25) mg/dL Glucose 83 (74-99) mg/dL Calcium 10.1 (8.4-10.2) mg/dL AST 25 (17-59) U/L ALT 10 (4-49) U/L Alkaline Phosphatase 54 (38-126) U/L Total Protein 6.9 (6.3-8.2) g/dL Albumin 3.7 (3.5-5.0) g/dL Triglycerides 82 (<150) mg/dL HDL Cholesterol 37 L (40-60) mg/dL Calcium panel 11/11/19 Range/Units 07:10 Calcium 10.1 (8.4-10.2) mg/dL Albumin 3.7 (3.5-5.0) g/dL Pituitary panel 11/11/19 Range/Units 07:10 Sodium 138 (137-145) mmol/L Potassium 4.3 (3.5-5.1) mmol/L Chloride 105 (98-107) mmol/L Carbon Dioxide 24 (22-30) mmol/L BUN 10 (9-20) mg/dL Creatinine 0.78 (0.66-1.25) mg/dL Glucose 83 (74-99) mg/dL Calcium 10.1 (8.4-10.2) mg/dL Adrenal panel 11/11/19 Range/Units 07:10 Sodium 138 (137-145) mmol/L Potassium 4.3 (3.5-5.1) mmol/L Chloride 105 (98-107) mmol/L Carbon Dioxide 24 (22-30) mmol/L BUN 10 (9-20) mg/dL Creatinine 0.78 (0.66-1.25) mg/dL Glucose 83 (74-99) mg/dL Calcium 10.1 (8.4-10.2) mg/dL Total Bilirubin 1.3 (0.2-1.3) mg/dL AST 25 (17-59) U/L ALT 10 (4-49) U/L Alkaline Phosphatase 54 (38-126) U/L Total Protein 6.9 (6.3-8.2) g/dL Albumin 3.7 (3.5-5.0) g/dL
--- NOTE | 2019-11-11 11:00 | P.PN ---
Subjective Progress Note Date: 11/11/19 Principal diagnosis: pancreatitis This is an 79-year-old gentleman with past medical history significant for coronary artery disease with prior bypass surgery over 20 years ago, hypertension, hyperlipidemia, history of prior alcohol abuse, GERD, history of esophageal strictures, patient does smoke cigars on occasion, he denies any cigarette smoking. He presented to the hospital on this admission with symptoms of abdominal discomfort. He denies any overt discomfort in his chest, but states that point that he had an episode of sharp chest pain on the left, mostly it was his abdominal pain and pain into his lower back. He states [place]. He denies having any alcohol there. His EKG on presentation here shows a normal sinus rhythm with a first-degree AV block. Chest x-ray showed chronic changes without any acute process. KUB revealed overall nonobstructive bowel gas pattern. CTA did not reveal any evidence of aortic dissection. No significant or new acute findings identified. Blood pressure 144/60 with a heart rate in the 60s, 95% on room air. White blood cell count on admission 9.3, hemoglobin 13.2, platelet count 283. This morning white blood cell count is 8.1 with hemoglobin 11.8, platelet count 244. Sodium 137, potassium 4.0, BUN 10, creatinine 0.8. Troponins are negative 3. Lipase on admission 524. Albumin 3.1, total protein 6.1. 11/11/2019 The patient was seen and examined this morning. Abdominal pain has resolved. He has no complaints of chest discomfort. Lipase has normalized. He is tolerating a diet. His vital signs have been stable. He continues on aspirin 81 mg by mouth daily, atenolol 75 mg by mouth daily at bedtime, Lipitor 10 mg by mouth daily at bedtime, and lisinopril 5 mg daily. Objective - Vital Signs Vital signs: Vital Signs Temp 98.4 F 11/11/19 07:20 Pulse 68 11/11/19 07:20 Resp 18 11/11/19 07:20 BP 137/79 11/11/19 07:20 Pulse Ox 99 11/11/19 07:20 Intake & Output 11/10/19 11/11/19 11/11/19 18:59 06:59 18:59 Intake Total 240 Output Total 1200 Balance -960 Intake: Oral 240 Output: Urine 1200 Other: Voiding Method Urinal Urinal # Voids 2 1 - Exam PHYSICAL EXAMINATION: HEENT: Head is atraumatic, normocephalic. Pupils equal, round. Neck is supple. There is no elevated jugular venous pressure. No carotid bruit. HEART EXAMINATION: Heart sounds regular, S1 and S2 with a systolic murmur. CHEST EXAMINATION: Lungs are clear to auscultation. No chest wall tenderness is noted on palpation or with deep breathing. ABDOMEN: Soft, nontender. Bowel sounds are heard. No organomegaly noted. EXTREMITIES: 2+ peripheral pulses with no evidence of peripheral edema and no ca lf tenderness noted. NEUROLOGIC patient is awake, alert and oriented x3. . - Labs CBC & Chem 7: 11/11/19 07:10 11/11/19 07:10 Labs: Abnormal Lab Results - Last 24 Hours (Table) 11/11/19 11/11/19 Range/Units 07:10 07:10 RBC 3.94 L (4.30-5.90) m/uL Hgb 12.8 L (13.0-17.5) gm/dL Hct 38.3 L (39.0-53.0) % HDL Cholesterol 37 L (40-60) mg/dL Assessment and Plan Assessment: #1 acute pancreatitis with cholelithiasis #2 an episode of atypical chest pain, troponins negative 3, EKG shows a normal sinus rhythm with a first-degree AV block #2 coronary artery disease with prior bypass surgery approximately 20 years ago per the patient #4 hypertension #5 hyperlipidemia #6 history of alcohol abuse #7 cigar smoking #8 GERD Plan: From cardiology's perspective, no further inpatient work-up is needed. We will follow-up with the patient as an outpatient. At this time we will follow the patient as needed, please do not hesitate to contact us with questions. MEDICAL INSTRUMENT CABLE FABRICATOR note has been reviewed, I agree with a documented findings and plan of care. Patient was seen and examined.
--- NOTE | 2019-11-11 11:23 | PN ---
PROGRESS NOTE DATE OF SERVICE: 11/11/2019 The patient is an 79-year-old pleasant white male admitted to the hospital with acute onset of severe epigastric pain for the last 2 days duration. He was noted to have mild elevation of lipase consistent with acute pancreatitis. The CT of the thorax did show evidence of gallstones. Surgery has been consulted. Recommended outpatient gallbladder surgery. In the meantime, patient is doing much better. Abdominal pain symptoms have completely resolved on a low-fat diet, tolerating well. PHYSICAL EXAMINATION: On physical examination, appears comfortable, in no apparent distress. Vital signs are stable. Blood pressure is 137/79, pulse rate 68, temperature 98.4. HEENT examination unremarkable. Conjunctivae pink. Sclerae anicteric. Oral cavity no lesions. NECK: No JVD or lymph node enlargement. Chest was clear to auscultation. HEART: Regular rate and rhythm. ABDOMEN: Soft. Bowel sounds are positive. No organomegaly. EXTREMITIES: No pedal edema. SKIN: No rashes. NEURO: Alert and oriented x3. No focal deficits. LABS: Lipase is down to 95. Rest of the labs are within normal limits. WBC 8.3, hemoglobin 12.8. IMPRESSION: 1. Mild acute pancreatitis, resolved. 2. Symptomatic gallstones. Surgery has been consulted. RECOMMENDATIONS: 1. Advance diet as tolerated. 2. He can be discharged home today with an outpatient followup as needed. Thank you for this consultation. ALEAH / MIKE: [id number] /
--- NOTE | 2019-11-11 14:34 | P.PN ---
Subjective Progress Note Date: 11/11/19 this is a pleasant 79-year-old gentleman patient of Dr. Langston. History of underlying hypertension, CAD with prior CABG,history of alcohol abuse, esophageal stricture, hyperlipidemia, GERD, admitted through the emergency room secondary to left lower quadrant and left mid flank abdominal pain, radiating to the suprapubic area, patient cannot provide an adequate accurate history, she mentions that there are other sick people with the same condition, however when inquired patient had abdominal pain after eating grimaldo and eggs which was prepared by the daughter, pain was not prior to the grimaldo and eggs. Patient had a CAT scan in 08/29/2019 on review of information, that showed multiple small gallbladder stones, bladder is without any hydronephrosis, no adrenal mass, sigmoid diverticula without evidence of diverticulitis, patient was admitted with an elevated lipase consistent with pancreatitis, was seen consultation by cardiology secondary tochest pain that radiates to her chest. Patient has some nausea no vomiting no fever patient has some diarrhea. Pain currently is 0 out of 10 from initial ER pain of 5 out of 10 Laboratories in the ERshowed sinus rhythm with first-degree AV block, septal infarct,CAT scan of the thorax failed to reveal any dissection, liver shows fatty infiltration, dependent small gallstones and or sludge, moderate to large hiatal hernia,hemoglobin 11.8 wbc count 8.1lipase 524serum alcohol less than 10, normal urinalysis and normal liver function test including alkaline phosphatase troponins are 0.01 2.012 11/11: Patient was seen with daughter, patient is currently receiving a normal meal however doesn't look like it is on low-fat diet that was served, no a bdominal pain at this time, the nausea, we have discussed it with general surgery Dr. Connors seen by, no plans for any gallbladder intervention at this time, and is planning for outpatient cholecystectomy, patient is seen by gastroenterology, no current intervention. Lipase is now normalized, level of 95, WBC count of 8.3, hemoglobin is stable. Patient has chronic memory losses, with me the suspicion that he might have some confusion while in the hospital, melatonin has helped with sleep protestant, check for TSH and B12. Anticipate discharge in the morning, continue low-fat diet Review of Systems Constitutional: Reports as per HPI, Denies anorexia, Denies chills, Denies chronic headaches, Denies chronic pain, Denies daytime sleepiness, Denies fatigue, Denies fever, Denies lethargy, Denies malaise, Denies night sweats, Denies poor appetite, Denies sweats, Denies weakness, Denies weight gain, Denies weight loss Ears, nose, mouth and throat: Reports as per HPI, Denies ant. neck pain, Denies bleeding gums, Denies dental pain, Denies dysphagia, Denies epistaxis, Denies headache, Denies hoarseness, Denies mouth pain, Denies nasal congestion, Denies nasal discharge, Denies neck fullness/pressure, Denies neck lump, Denies nose pain, Denies odynophagia, Denies post-nasal drip, Denies sinus pain, Denies sinus pressure, Denies swelling in mouth, Denies swelling in throat, Denies sore throat, Denies vertigo, Denies voice changes Cardiovascular: Reports as per HPI, Reports chest pain Respiratory: Reports as per HPI, Denies congestion, Denies cough, Denies cough w ith sputum, Denies dyspnea, Denies excessive sputum, Denies hemoptysis, Denies home oxygen, Denies pain, Denies pain on inspiration, Denies pleurisy, Denies respiratory infections, Denies sleep apnea, Denies snoring, Denies wheezing Gastrointestinal: Reports as per HPI, Reports abdominal pain, Reports belching, Reports bloating, Reports nausea, Denies BRBPR, Denies change in bowel habits, Denies coffee ground emesis, Denies constipation, Denies diarrhea, Denies dyspepsia, Denies early satiety, Denies excessive gas, Denies heartburn, Denies hematemesis, Denies hematochezia, Denies indigestion, Denies jaundice, Denies lactose intolerance, Denies loss of appetite, Denies melena, Denies vomiting Genitourinary: Reports as per HPI, Denies decreased libido, Denies difficulties fathering child, Denies discharge, Denies dysuria, Denies erectile dysfunction, Denies flank pain, Denies genital pain, Denies genital sores, Denies hematuria, Denies impotence, Denies incontinence, Denies kidney stones, Denies nocturia, Denies polyuria, Denies testicular lump, Denies testicular pain, Denies urinary frequency, Denies urinary hesitancy, Denies urinary retention Musculoskeletal: Reports as per HPI, Denies arm numbness/tingling, Denies atrophy, Denies fractures, Denies frequent falls, Denies gait dysfunction, Denies hot joints, Denies leg numbness/tingling, Denies limitation of motion, Denies loss of height, Denies low back pain, Denies morning stiffness, Denies muscle cramps, Denies muscle weakness, Denies myalgias, Denies neck pain, Denies neck stiffness, Denies prior amputations, Denies redness of joints, Denies rigo oting arm pain, Denies shooting leg pain Integumentary: Reports as per HPI, Denies acne, Denies boils, Denies brittle nails, Denies change in hair/nails, Denies color changes, Denies darkening of skin, Denies depigmentation, Denies dryness, Denies foot/leg ulcers, Denies zana wths, Denies hirsutism, Denies lesions, Denies onychomycosis, Denies pruritus, Denies rash, Denies sores, Denies striae, Denies unusual bruising, Denies wounds Neurological: Reports as per HPI, Reports memory loss, Denies aphasia, Denies ataxia, Denies balance difficulties, Denies burning pain, Denies change in mentation, Denies change in smell/taste, Denies change in speech, Denies confusion, Denies convulsions, Denies double vision, Denies gait dysfunction, Denies head injury, Denies headaches, Denies hearing difficulties, Denies lack of coordination, Denies loss of vision, Denies migraines, Denies motor disturbance, Denies numbness, Denies paralysis, Denies paresthesias, Denies seizures, Denies sensory deficit, Denies spasticity, Denies syncope, Denies tic, Denies tingling, Denies transient paralysis, Denies tremors, Denies vertigo, Denies weakness, Denies visual changes Psychiatric: Reports as per HPI Endocrine: Reports as per HPI Hematologic/Lymphatic: Reports as per HPI Allergic/Immunologic: Reports as per HPI Objective - Vital Signs Vital signs: Vital Signs Temp 98.4 F 11/11/19 07:20 Pulse 68 11/11/19 07:20 Resp 18 11/11/19 07:20 BP 137/79 11/11/19 07:20 Pulse Ox 99 11/11/19 07:20 Intake & Output 11/10/19 11/11/19 11/11/19 18:59 06:59 18:59 Intake Total 240 Output Total 1200 Balance -960 Intake: Oral 240 Output: Urine 1200 Other: Voiding Method Urinal Urinal # Voids 2 1 - Constitutional General appearance: Present: cooperative, no acute distress - EENT Eyes: Present: anicteric sclerae, EOMI, PERRLA, dentition normal, normal appearance ENT: Present: NA/AT, normal oropharynx - Respiratory Respiratory: bilateral: CTA, negative: diminished, dullness, rales - Cardiovascular Rhythm: regular Heart sounds: normal: S1, S2 Abnormal Heart Sounds: Absent: systolic murmur, diastolic murmur, rub, S3 Gallop, S4 Gallop, click, other - Gastrointestinal General gastrointestinal: Present: normal bowel sounds, soft, tenderness ( Negative) - Integumentary Integumentary: Present: normal, normal turgor - Neurologic Neurologic: Present: CNII-XII intact - Musculoskeletal Musculoskeletal: Present: gait normal, strength equal bilaterally - Psychiatric Psychiatric: Present: A&O x's 3, appropriate affect - Labs CBC & Chem 7: 11/11/19 07:10 11/11/19 07:10 Labs: Abnormal Lab Results - Last 24 Hours (Table) 11/11/19 11/11/19 Range/Units 07:10 07:10 RBC 3.94 L (4.30-5.90) m/uL Hgb 12.8 L (13.0-17.5) gm/dL Hct 38.3 L (39.0-53.0) % HDL Cholesterol 37 L (40-60) mg/dL Assessment and Plan Plan: 1. Left upper quadrant pain, consistent with mild pancreatitis, episode of diarrhea which has resolved on admission, patient will continue on a low-fat diet today, and lipase still normal between 90 to 95 for the past 48 hours, troponins are negative, patient was seen by cardiology for the atypical chest pain, general surgery wants to keep him overnight and anticipate discharge in a.m. November 12 2 first-degree AV block, public safety officer decrease the beta blockerto Tenormin 75 mg at bedtime 3 confusional state with History of alcohol use, has quit 4 months ago, patient is on thiamine, Korsakov/ memory impairment is expected, sleep hygiene reinforced,can use Xanax for anticipatory anxiety 0.25 mg daily when necessary, melatonin 6 mg at bedtime 4 BPH without lower urinary tract symptomatology and Flomax, urinalysis negative 5. Multiple gallbladder stones, low-fat diet has been reinforced to the patient, liver function tests is currently normal, negative for Kim's on examination, 6.discharge planning, suspect discharge in the next 24 hours if diet is tolerated, monitor lipase
[2019-11-11] MEDS: ATENOLOL 25 MG TAB PO SCH (20:15)
[2019-11-11] MEDS: MELATONIN 3 MG TABLET PO SCH (20:16)
[2019-11-11] MEDS: ATORVASTATIN 10 MG TAB PO SCH (20:17)
[2019-11-12 07:19] LABS: ALT 10 U/L (4-49); AST 20 U/L (17-59); African American GFR (CKD) >90 (>60 ml/min/1.73 sqM); Albumin 3.2 g/dL (3.5-5.0); Alkaline Phosphatase 47 U/L (38-126); Anion Gap 9 mmol/L; Blood Urea Nitrogen 16 mg/dL (9-20); Calcium 9.7 mg/dL (8.4-10.2); Carbon Dioxide 22 mmol/L (22-30); Chloride 107 mmol/L (98-107); Glucose 95 mg/dL (74-99); Non-African American GFR(CKD) 82 (>60 ml/min/1.73 sqM); Potassium 3.9 mmol/L (3.5-5.1); Sodium 138 mmol/L (137-145); Total Bilirubin 0.5 mg/dL (0.2-1.3); Total Protein 6.3 g/dL (6.3-8.2)
[2019-11-12 08:35] VITALS: BP 114/64; PULSE 64; RESP 16; TEMP 97.5
[2019-11-12] MEDS: ASPIRIN 81 MG PO SCH (08:38)
[2019-11-12] MEDS: PANTOPRAZOLE 40 MG TABLET PO SCH (08:38)
[2019-11-12] MEDS: TAMSULOSIN 0.4 MG CAP.ER.24H PO SCH (08:38)
[2019-11-12] MEDS: THIAMINE 100 MG TAB PO SCH (08:38)
[2019-11-12] MEDS: LISINOPRIL 5 MG TAB PO SCH (08:38)
--- NOTE | 2019-11-12 10:07 | P.PN ---
Progress Note - Text Progress Note Date: 11/12/19 The patient feels better. He denies any abdominal pain. On exam his vital signs are stable. His evidence soft. Resolved gallstone hepatitis. Patient will follow-up in the office for outpatient cholecystectomy.
--- NOTE | 2019-11-12 13:21 | PN ---
PROGRESS NOTE DATE OF SERVICE: 11/12/2019 The patient is an 79-year-old pleasant white male admitted to the hospital with acute mild pancreatitis. He is doing much better. Abdominal pain has resolved. No further episodes of nausea, vomiting. No fever, chills, night sweats. PHYSICAL EXAMINATION: Appears comfortable no apparent distress. VITAL SIGNS: Stable. Blood pressure 114/64, pulse rate 64, temperature 97.5. HEENT examination unremarkable. Conjunctivae pink. Sclerae anicteric. Oral cavity, no lesions. NECK: No JVD or lymph node enlargement. CHEST: Clear to auscultation. HEART: Regular rate and rhythm. ABDOMEN: Soft. Bowel sounds are positive. No organomegaly. EXTREMITIES: No pedal edema. SKIN: No rashes. NEURO: He is alert and oriented x3. No focal deficits. LABS: From today, lipase is down to 176. Basic metabolic panel is within normal limits. IMPRESSION: 1. Mild acute pancreatitis, resolved. 2. Gallstones for which he was evaluated by Dr. Connors and plan is to proceed with laparoscopic cholecystectomy on outpatient basis. 3. History of alcohol abuse which he quit drinking 3 months ago. RECOMMENDATIONS: 1. Advance diet as tolerated. 2. Low-fat diet. 3. He can be discharged home today with outpatient followup as needed. Thank you for this consultation. MMLESLEYL / IJN: [id number] /
--- NOTE | 2019-11-12 15:39 | P.DS ---
Providers Date of admission: 11/09/19 15:29 Expected date of discharge: 11/12/19 Attending physician: Gregory Morrow Consults: 11/09/19 15:23 Consult Physician Urgent Consulting Provider: Ramón Samuels Consult Reason/Comments: cp Do you want consulting provider notified?: Yes Consult Physician Urgent Consulting Provider: Dimitry Goldman Consult Reason/Comments: pancreatitis Do you want consulting provider notified?: Yes 11/10/19 12:47 Consult Physician Routine Consulting Provider: Randal Connors Consult Reason/Comments: pancreatitis, cholelithiasis Do you want consulting provider notified?: Yes Primary care physician: [facility] Course: this is a pleasant 79-year-old gentleman patient of Dr. Langston. History of underlying hypertension, CAD with prior CABG,history of alcohol abuse, esophageal stricture, hyperlipidemia, GERD, admitted through the emergency room secondary to left lower quadrant and left mid flank abdominal pain, radiating to the suprapubic area, patient cannot provide an adequate accurate history, she mentions that there are other sick people with the same condition, however when inquired patient had abdominal pain after eating grimaldo and eggs which was prepared by the daughter, pain was not prior to the grimaldo and eggs. Patient had a CAT scan in 08/29/2019 on review of information, that showed multiple small gallbladder stones, bladder is without any hydronephrosis, no adrenal mass, sigmoid diverticula without evidence of diverticulitis, patient was admitted with an elevated lipase consistent with pancreatitis, was seen consultation by cardiology secondary tochest pain that radiates to her chest. Patient has some nausea no vomiting no fever patient has some diarrhea. Pain currently is 0 out of 10 from initial ER pain of 5 out of 10 Laboratories in the ERshowed sinus rhythm with first-degree AV block, septal infarct,CAT scan of the thorax failed to reveal any dissection, liver shows fatty infiltration, dependent small gallstones and or sludge, moderate to large hiatal hernia,hemoglobin 11.8 wbc count 8.1lipase 524serum alcohol less than 10, normal urinalysis and normal liver function test including alkaline phosphatase troponins are 0.01 2.012 11/11: Patient was seen with daughter, patient is currently receiving a normal meal however doesn't look like it is on low-fat diet that was served, no abdomin al pain at this time, the nausea, we have discussed it with general surgery Dr. Connors seen by, no plans for any gallbladder intervention at this time, and is planning for outpatient cholecystectomy, patient is seen by gastroenterology, no current intervention. Lipase is now normalized, level of 95, WBC count of 8.3, hemoglobin is stable. Patient has chronic memory losses, with me the suspicion that he might have some confusion while in the hospital, melatonin has helped with sleep gnosticist, check for TSH and B12. Anticipate discharge in the morning, continue low-fat diet 11/12: Patient did well with feedings, no abdominal pain, and lipase remains to be normal, patient was cleared by general surgery for discharge, with anticipation that he would need his gallbladder taken out in the future, patient will be seen by PCP for preop clearance, patient also was noted to have sundowning last night, and was reoriented again arm on a daily basis. Review of Systems Constitutional: Reports as per HPI, Denies anorexia, Denies chills, Denies chronic headaches, Denies chronic pain, Denies daytime sleepiness, Denies fatigue, Denies fever, Denies lethargy, Denies malaise, Denies night sweats, Denies poor appetite, Denies sweats, Denies weakness, Denies weight gain, Denies weight loss Ears, nose, mouth and throat: Reports as per HPI, Denies ant. neck pain, Denies bleeding gums, Denies dental pain, Denies dysphagia, Denies epistaxis, Denies headache, Denies hoarseness, Denies mouth pain, Denies nasal congestion, Denies nasal discharge, Denies neck fullness/pressure, Denies neck lump, Denies nose pain, Denies odynophagia, Denies post-nasal drip, Denies sinus pain, Denies sinus pressure, Denies swelling in mouth, Denies swelling in throat, Denies sore throat, Denies vertigo, Denies voice changes Cardiovascular: Reports as per HPI, Reports chest pain Respiratory: Reports as per HPI, Denies congestion, Denies cough, Denies cough with sputum, Denies dyspnea, Denies excessive sputum, Denies hemoptysis, Denies home oxygen, Denies pain, Denies pain on inspiration, Denies pleurisy, Denies respiratory infections, Denies sleep apnea, Denies snoring, Denies wheezing Gastrointestinal: Reports as per HPI, Reports abdominal pain, Reports belching, Reports bloating, Reports nausea, Denies BRBPR, Denies change in bowel habits, Denies coffee ground emesis, Denies constipation, Denies diarrhea, Denies dyspepsia, Denies early satiety, Denies excessive gas, Denies heartburn, Denies hematemesis, Denies hematochezia, Denies indigestion, Denies jaundice, Denies lactose intolerance, Denies loss of appetite, Denies melena, Denies vomiting Genitourinary: Reports as per HPI, Denies decreased libido, Denies difficulties fathering child, Denies discharge, Denies dysuria, Denies erectile dysfunction, Denies flank pain, Denies genital pain, Denies genital sores, Denies hematuria, Denies impotence, Denies incontinence, Denies kidney stones, Denies nocturia, Denies polyuria, Denies testicular lump, Denies testicular pain, Denies urinary frequency, Denies urinary hesitancy, Denies urinary retention Musculoskeletal: Reports as per HPI, Denies arm numbness/tingling, Denies atrophy, Denies fractures, Denies frequent falls, Denies gait dysfunction, Denies hot joints, Denies leg numbness/tingling, Denies limitation of motion, Denies loss of height, Denies low back pain, Denies morning stiffness, Denies muscle cramps, Denies muscle weakness, Denies myalgias, Denies neck pain, Denies neck stiffness, Denies prior amputations, Denies redness of joints, Denies shooting arm pain, Denies shooting leg pain Integumentary: Reports as per HPI, Denies acne, Denies boils, Denies brittle nails, Denies change in hair/nails, Denies color changes, Denies darkening of skin, Denies depigmentation, Denies dryness, Denies foot/leg ulcers, Denies growths, Denies hirsutism, Denies lesions, Denies onychomycosis, Denies pruritus, Denies rash, Denies sores, Denies striae, Denies unusual bruising, Denies wounds Neurological: Reports as per HPI, Reports memory loss, Denies aphasia, Denies ataxia, Denies balance difficulties, Denies burning pain, Denies change in mentation, Denies change in smell/taste, Denies change in speech, Denies confusion, Denies convulsions, Denies double vision, Denies gait dysfunction, Denies head injury, Denies headaches, Denies hearing difficulties, Denies lack of coordination, Denies loss of vision, Denies migraines, Denies motor disturbance, Denies numbness, Denies paralysis, Denies paresthesias, Denies seizures, Denies sensory deficit, Denies spasticity, Denies syncope, Denies tic, Denies tingling, Denies transient paralysis, Denies tremors, Denies vertigo, Denies weakness, Denies visual changes Psychiatric: Reports as per HPI Endocrine: Reports as per HPI Hematologic/Lymphatic: Reports as per HPI Allergic/Immunologic: Reports as per HPI final diagnosis 1. Left upper quadrant pain, consistent with mild pancreatitis, episode of diarrhea which has resolved on admission, patient will continue on a low-fat diet today, and lipase still normal between 90 to 95 for the past 48 hours, troponins are negative, patient was seen by cardiology for the atypical chest pain, general surgery wants to keep him overnight and stable for discharge in a.m. November 12 2 hypertension with first-degree AV block, wet primer powder blender decrease the beta blockerto Tenormin 75 mg at bedtime, lisinopril initiated by cardiology 5 mg blood pressure monitoring as an outpatient 3 confusional state with History of alcohol use, has quit 4 months ago, patient is on thiamine, Korsakov/ memory impairment is expected, sleep hygiene reinforced,can use Xanax for anticipatory anxiety 0.25 mg daily when necessary, melatonin 6 mg at bedtime 4 BPH without lower urinary tract symptomatology and Flomax, urinalysis negative 5. Multiple gallbladder stones, low-fat diet has been reinforced to the patient, liver function tests is currently normal, negative for Kim's on examination,, general surgery Dr. Connors will follow him up, there were expecting cholecystectomy to be done, aspirin needs to be held 1 week prior to surgery, 6.discharge planning home without any therapies, family members would assist wi th recovery Discharge Medication List Omeprazole 20 mg PO DAILY 08/28/18 [History] Simvastatin [Zocor] 10 mg PO HS 08/28/18 [History] Tamsulosin HCl [Flomax] 0.4 mg PO DAILY 08/28/18 [History] Ubidecarenone [Co Q-10] 100 mg PO DAILY 08/28/18 [History] Vit C/E/Zn/Coppr/Lutein/Zeaxan [Preservision Areds 2 Softgel] 1 cap PO BID 08/28/18 [History] Ibuprofen/Diphenhydramine HCl [Advil Pm Liqui-Gels] 1 cap PO HS PRN 08/28/19 [History] Thiamine HCl [Vitamin B-1] 100 mg PO DAILY 08/28/19 [History] Aspirin 81 mg PO DAILY chew 11/12/19 [Rx] Atenolol [Tenormin] 75 mg PO HS #30 tab 11/12/19 [Rx] Cyanocobalamin [Vitamin B-12] 500 mcg PO DAILY #90 tablet 11/12/19 [Rx] Lisinopril [Zestril] 5 mg PO DAILY #30 tab 11/12/19 [Rx] Melatonin 5 mg PO HS #90 tablet 11/12/19 [Rx] Plan - Discharge Summary Discharge Rx Participant: No New Discharge Prescriptions: New Aspirin 81 mg PO DAILY chew Melatonin 5 mg PO HS #90 tablet Cyanocobalamin [Vitamin B-12] 500 mcg PO DAILY #90 tablet Atenolol [Tenormin] 75 mg PO HS #30 tab Lisinopril [Zestril] 5 mg PO DAILY #30 tab Continue Tamsulosin HCl [Flomax] 0.4 mg PO DAILY Ubidecarenone [Co Q-10] 100 mg PO DAILY Omeprazole 20 mg PO DAILY Vit C/E/Zn/Coppr/Lutein/Zeaxan [Preservision Areds 2 Softgel] 1 cap PO BID Simvastatin [Zocor] 10 mg PO HS Thiamine HCl [Vitamin B-1] 100 mg PO DAILY Ibuprofen/Diphenhydramine HCl [Advil Pm Liqui-Gels] 1 cap PO HS PRN PRN Reason: Pain Discontinued Atenolol 100 mg PO HS Discharge Medication List Omeprazole 20 mg PO DAILY 08/28/18 [History] Simvastatin [Zocor] 10 mg PO HS 08/28/18 [History] Tamsulosin HCl [Flomax] 0.4 mg PO DAILY 08/28/18 [History] Ubidecarenone [Co Q-10] 100 mg PO DAILY 08/28/18 [History] Vit C/E/Zn/Coppr/Lutein/Zeaxan [Preservision Areds 2 Softgel] 1 cap PO BID 08/28/18 [History] Ibuprofen/Diphenhydramine HCl [Advil Pm Liqui-Gels] 1 cap PO HS PRN 08/28/19 [History] Thiamine HCl [Vitamin B-1] 100 mg PO DAILY 08/28/19 [History] Aspirin 81 mg PO DAILY chew 11/12/19 [Rx] Atenolol [Tenormin] 75 mg PO HS #30 tab 11/12/19 [Rx] Cyanocobalamin [Vitamin B-12] 500 mcg PO DAILY #90 tablet 11/12/19 [Rx] Lisinopril [Zestril] 5 mg PO DAILY #30 tab 11/12/19 [Rx] Melatonin 5 mg PO HS #90 tablet 11/12/19 [Rx] Follow up Appointment(s)/Referral(s): Hossein Langston MD [Primary Care Provider] - 1-2 days (office closed at time discharge. Please call to make appointment) Randal Connors MD [STAFF PHYSICIAN] - 1 Week (office closed at time of discharge. Please call to make appointment) Patient Instructions/Handouts: Pancreatitis (DC) Activity/Diet/Wound Care/Special Instructions: Low Fat Diet Discharge Disposition: HOME SELF-CARE
== END 2019-11-12 12:04 | disposition home or self-care (01) ==
LOC: EC 12:43 → 1SOBS 15:29 → 3SCARD 22:10 → 4SSUR 11-10 21:22
PROVIDERS: ADMIT Internal Medicine; ATTEND Internal Medicine
DX: R10.12 Left upper quadrant pain (principal); K80.20 Calculus of gallbladder without cholecystitis without obstruction; E78.5 Hyperlipidemia, unspecified; I10 Essential (primary) hypertension; I25.10 Atherosclerotic heart disease of native coronary artery without angina pectoris; I25.2 Old myocardial infarction; I44.0 Atrioventricular block, first degree; K21.9 Gastro-esophageal reflux disease without esophagitis; N40.0 Benign prostatic hyperplasia without lower urinary tract symptoms; Z79.82 Long term (current) use of aspirin; Z79.899 Other long term (current) drug therapy; Z80.0 Family history of malignant neoplasm of digestive organs; Z95.1 Presence of aortocoronary bypass graft; F17.290 Nicotine dependence, other tobacco product, uncomplicated
CPT/HCPCS: 96361 ×3; 93005 ×2; 96376; 96374; 96375; 99285; 36415; 80061; 80053 ×4; 82150 ×2; 82550; 82553; 83615; 83690 ×4; 84484 ×2; 85025 ×2; 85027; 85610; 85730; 81003; 71046; 74018; 71275; 74174; G0378 ×6; G0480; J2270; J2405; Q9967; 80320

== ENCOUNTER 2019-12-05 07:49 | Day surgery (SDC) | payer MEDICARE ==
[2019-12-03 13:25] VITALS: BMI 25.1
[~2019-12-05 07:49] MED LIST: DEXAMETHASONE SOD PHOSPHATE 10 MG/ML 1 ML VIAL IV ONE; HEPARIN SODIUM,PORCINE 5,000 UNIT/ML 1 ML VIAL SQ ONE; HYDROmorphone 0.5 MG/0.5 ML SYRINGE IVP PRN; LACTATED RINGERS 1,000 ML IV SCH; LIDOCAINE 1% 20 ML VIAL (10MG/ML) FOR IV START INTRADERMA PRN; ONDANSETRON 4 MG/2 ML VIAL IVP ONE; fentaNYL (PF) 50 MCG/ML 2 ML AMP IV PRN
--- NOTE | 2019-12-05 09:14 | P.GSHP ---
History of Present Illness H&P Date: 12/05/19 Chief Complaint: Cholelithiasis, right upper quadrant. This 79-year-old male who has recent hospital admission for gallstone hepatitis. Patient workup found have gallstones. Patient presents today for laparoscopic cholecystectomy Past Medical History Past Medical History: Chest Pain / Angina, GERD/Reflux, Hyperlipidemia, Hypertension Additional Past Medical History / Comment(s): Esophageal strictures, macular degeneration, UTI, ALCOHOLIS alcohol-DEMENTIA Last Myocardial Infarction Date:: 1992 History of Any Multi-Drug Resistant Organisms: None Reported Past Surgical History: Coronary Bypass/CABG, Tonsillectomy Additional Past Surgical History / Comment(s): CABG 1992, COLONOSCOPY, EGD - ESOPHAGEAL STRICTURE Past Anesthesia/Blood Transfusion Reactions: No Reported Reaction Smoking Status: Current some day smoker - Past Family History Father Family Medical History: Cancer Additional Family Medical History / Comment(s): ETOH; gastric cancer Sister(s) Family Medical History: Cancer Medications and Allergies Home Medications Medication Instructions Recorded Confirmed Type Omeprazole 20 mg PO DAILY 08/28/18 12/05/19 History Simvastatin [Zocor] 10 mg PO HS 08/28/18 12/05/19 History Tamsulosin HCl [Flomax] 0.4 mg PO DAILY 08/28/18 12/05/19 History Ubidecarenone [Co Q-10] 100 mg PO DAILY 08/28/18 12/05/19 History Vit C/E/Zn/Coppr/Lutein/Zeaxan 1 cap PO BID 08/28/18 12/05/19 History [Preservision Areds 2 Softgel] Thiamine HCl [Vitamin B-1] 100 mg PO DAILY 08/28/19 12/05/19 History Aspirin 81 mg PO DAILY chew 11/12/19 12/05/19 Rx Atenolol [Tenormin] 75 mg PO HS #30 tab 11/12/19 12/05/19 Rx Cyanocobalamin [Vitamin B-12] 500 mcg PO DAILY #90 tablet 11/12/19 12/05/19 Rx Enalapril [Vasotec] 5 mg PO DAILY 12/03/19 12/05/19 History Allergies Allergy/AdvReac Type Severity Reaction Status Date / Time No Known Allergies Allergy Verified 12/05/19 08:13 Surgical - Exam Vital Signs Temp Pulse Resp BP Pulse Ox 97.8 F 65 18 111/67 100 12/05/19 08:30 12/05/19 08:30 12/05/19 08:30 12/05/19 08:30 12/05/19 08:30 - General well developed, well nourished, no distress - Eyes PERRL - ENT normal pinna - Neck no masses - Respiratory normal expansion - Cardiovascular Rhythm: regular - Abdomen Abdomen: soft, non tender Assessment and Plan Assessment: Cholelithiasis Gallstone pancreatitis We'll perform laparoscopic cholecystectomy
[2019-12-05] MEDS ORDERED: PROPOFOL 10 MG/ML 20 ML VIAL IV ONE (09:30)
[2019-12-05] MEDS ORDERED: ROCURONIUM BROMIDE 10 MG/ML 10 ML VIAL IV ONE (09:30)
[2019-12-05] MEDS ORDERED: fentaNYL (PF) 50 MCG/ML 2 ML AMP ONE (09:30)
[2019-12-05] MEDS ORDERED: PHENYLEPHRINE-0.9% NACL SYG 1 MG/10 ML SYRINGE ONE (09:30)
[2019-12-05] MEDS ORDERED: SUCCINYLCHOLINE CHLORIDE 100 MG/5 ML SYR IV ONE (09:30)
[2019-12-05] MEDS ORDERED: MIDAZOLAM 2 MG/2 ML VIAL ONE (09:30)
[2019-12-05] MEDS ORDERED: BUPIVACAIN-EPI 0.25%-1:200,000 30 ML VIAL SQ ONE ×2 (09:46→09:51)
[2019-12-05] MEDS ORDERED: traMADol 50 MG TAB PO PRN (10:24)
[2019-12-05] MEDS ORDERED: NALOXONE 0.4 MG/ML 1 ML VIAL IV PRN (10:24)
[2019-12-05] MEDS ORDERED: HYDROmorphone 0.5 MG/0.5 ML SYRINGE IVP PRN (10:24)
[2019-12-05] MEDS ORDERED: ONDANSETRON 4 MG/2 ML VIAL IVP PRN (10:24)
--- NOTE | 2019-12-05 10:24 | P.OP ---
Date of Procedure: 12/05/19 Preoperative Diagnosis: Gallstone pancreatitis Postoperative Diagnosis: Gallstone pancreatitis Procedure(s) Performed: Laparoscopic cholecystectomy Anesthesia: ELIZABETH Surgeon: Randal Connors Estimated Blood Loss (ml): 5 Pathology: other (Gallbladder) Condition: stable Disposition: PACU Description of Procedure: The patient was placed on the operating table. The patient received a general endotracheal tube anesthesia. The patients abdomen was prepped and draped in the usual sterile fashion. Through an infraumbilical stab incision, the fascia of the anterior abdominal wall was grasped with a pair of Kochers and then the Veress needle was placed in the peritoneal cavity. Position of the Veress needle was confirmed with positive drop test. The abdomen was then insufflated. After adequate insufflation, the 10 mm trocar was placed in the peritoneal cavity. Following this the laparoscope was placed in the peritoneal cavity. The patient was placed in the head-up, right side up position and then a 5 mm trocar was placed in the right lateral and right subcostal position under direct visualization. A 8 mm trocar was placed in the epigastric position. The gallbladder was grasped in the fundus and infundibulum. Traction on the gallbladder was placed in the lateral and the cephalad positions. The triangle of Calot was visualized.. The cystic duct was bluntly dissected until the union of the cystic duct and common bile duct was seen. A critical view of safety was achieved. The cystic duct was then divided and sealed with the Harmonic scissors. A PDS Endoloop was then placed throughout the cystic duct stump. The cystic artery divided and sealed with the Harmonic scissors. The gallbladder was then removed from the liver bed using Harmonic scissors. The gallbladder was then extracted through the epigastric port site. Operative field was checked for any bleeding spots and Harmonic scissors was used to coagulate the liver bed. The abdomen was irrigated. The trocars were removed. The skin was closed using interrupted 3-0 Vicryl suture. Dermabond dressing were applied. The patient tolerated the procedure well.
[2019-12-05 10:47] VITALS: RESP 16
[2019-12-05] MEDS: LACTATED RINGERS 1,000 ML IV ONE ×2 (10:53→10:59)
[2019-12-05] MEDS: HYDROcodone/APAP 5-325MG 1 EACH TAB PO PRN ×2 (12:42→19:08)
--- NOTE | 2019-12-05 15:09 | P.CONS ---
History of Present Illness - Reason for Consult Consult date: 12/05/19 - History of Present Illness This is an 79-year-old male patient of Dr. Langston with past medical history of hypertension, hyperlipidemia, CAD with prior CABG 20 years ago, history of alcohol abuse, alcoholic Korsakoff syndrome, esophageal stricture, hyperlipidemia, GERD, benign prostatic hypertrophy, cigar smoking. Patient had a recent hospitalization November 09 through November 12 for pancreatitis, found to have gallstones and was evaluated by Dr. Connors with plan for laparoscopic cholecystectomy as an outpatient. Patient underwent laparoscopic cholecystectomy today with Dr. Connors with plan to monitor overnight due to patient's history of Korsakoff. Patient denies having any nausea vomiting. He states his abdomen is a little sore. He denies any chest pain or shortness of breath. No Perez catheter has been placed. Vital signs her been stable. Review of Systems Constitutional: Denies chills, Denies fatigue, Denies fever, Denies poor appetite, Denies weight loss Eyes: denies blurred vision, denies pain Ears, nose, mouth and throat: Denies headache, Denies nasal congestion, Denies nasal discharge, Denies sore throat, Denies vertigo Cardiovascular: Denies chest pain, Denies decreased exercise tolerance, Denies dyspnea on exertion, Denies edema, Denies leg edema, Denies lightheadedness, Denies shortness of breath, Denies syncope Respiratory: Denies cough, Denies cough with sputum, Denies dyspnea, Denies excessive sputum, Denies hemoptysis, Denies home oxygen, Denies wheezing Gastrointestinal: Denies abdominal pain, Denies diarrhea, Denies loss of appetite, Denies nausea, Denies vomiting Genitourinary: Denies dysuria, Denies urinary retention Musculoskeletal: Denies muscle weakness, Denies myalgias Integumentary: Denies pruritus, Denies rash, Denies wounds Neurological: Denies change in mentation, Denies change in speech, Denies numbness, Denies weakness Psychiatric: Denies anxiety, Denies depression Endocrine: Denies fatigue, Denies weight change Past Medical History Past Medical History: Chest Pain / Angina, GERD/Reflux, Hyperlipidemia, Hypertension Additional Past Medical History / Comment(s): Esophageal strictures, macular degeneration, UTI, ALCOHOLIS alcohol-DEMENTIA Last Myocardial Infarction Date:: 1992 History of Any Multi-Drug Resistant Organisms: None Reported Past Surgical History: Coronary Bypass/CABG, Tonsillectomy Additional Past Surgical History / Comment(s): CABG 1992, COLONOSCOPY, EGD - ESOPHAGEAL STRICTURE Past Anesthesia/Blood Transfusion Reactions: No Reported Reaction Past Psychological History: No Psychological Hx Reported Smoking Status: Current some day smoker Past Alcohol Use History: None Reported Additional Past Alcohol Use History / Comment(s): The patient was smoking a cigar a day or less and quit smoking 5 days ago. Patient has long-standing history of alcohol abuse and quit drinking in August 2019. [facility] He has a walker and cane but does not need to use. He has daughters that stop by daily. Past Drug Use History: None Reported - Past Family History Father Family Medical History: Cancer Additional Family Medical History / Comment(s): Father from alcohol-related gastric cancer. Sister(s) Family Medical History: Cancer Additional Family Medical History / Comment(s): The patient has total of 4 sisters. One from colon cancer, 1 from ovarian cancer, one has lupus, one has no major medical problems. Brother(s) Additional Family Medical History / Comment(s): Patient has one brother with history of gallbladder disease and coronary artery disease. Mother Additional Family Medical History / Comment(s): Mother of old age. Daughter(s) Additional Family Medical History / Comment(s): Patient has 3 daughters one his history of COPD secondary to smoking, 2 daughters with no major medical problems. Patient has 1 son with history of hepatitis C and HIV. Medications and Allergies Home Medications Medication Instructions Recorded Confirmed Type Omeprazole 20 mg PO DAILY 08/28/18 12/05/19 History Simvastatin [Zocor] 10 mg PO HS 08/28/18 12/05/19 History Tamsulosin HCl [Flomax] 0.4 mg PO DAILY 08/28/18 12/05/19 History Ubidecarenone [Co Q-10] 100 mg PO DAILY 08/28/18 12/05/19 History Vit C/E/Zn/Coppr/Lutein/Zeaxan 1 cap PO BID 08/28/18 12/05/19 History [Preservision Areds 2 Softgel] Thiamine HCl [Vitamin B-1] 100 mg PO DAILY 08/28/19 12/05/19 History Aspirin 81 mg PO DAILY chew 11/12/19 12/05/19 Rx Atenolol [Tenormin] 75 mg PO HS #30 tab 11/12/19 12/05/19 Rx Cyanocobalamin [Vitamin B-12] 500 mcg PO DAILY #90 tablet 11/12/19 12/05/19 Rx Enalapril [Vasotec] 5 mg PO DAILY 12/03/19 12/05/19 History Allergies Allergy/AdvReac Type Severity Reaction Status Date / Time No Known Allergies Allergy Verified 12/05/19 08:13 Physical Exam Vitals: Vital Signs Temp Pulse Resp BP BP Pulse Ox 12/05/19 11:40 63 114/67 98 12/05/19 11:20 98.0 F 63 16 109/65 98 12/05/19 11:00 59 L 16 102/59 100 12/05/19 10:46 51 L 16 112/58 100 12/05/19 10:30 53 L 13 104/55 100 12/05/19 10:14 97.0 F L 67 14 120/61 99 12/05/19 08:30 97.8 F 65 18 111/67 100 Intake and Output 12/04/19 12/05/19 12/05/19 22:59 06:59 14:59 Intake Total 995 Output Total 5 Balance 990 Intake: IV 995 Output: Estimated Blood Loss 5 Other: Weight 82.5 kg Gen: This is an 79-year-old male. Patient is resting in bed appears to be comfortable and in no acute distress. HEENT: Head is atraumatic, normocephalic. Pupils equal, round. Sclerae is anicteric. NECK: Supple. No JVD. No lymphadenopathy. No thyromegaly. LUNGS: Clear to auscultation. No wheezes or rhonchi. No intercostal retractions. HEART: Regular rate and rhythm. Systolic murmur. ABDOMEN: Soft. Bowel sounds are present. No masses. No tenderness. Laparoscopic wounds are glued. No significant drainage or bleeding. EXTREMITIES: No pedal edema. No calf tenderness. NEUROLOGICAL: Patient is awake, alert and oriented x3. Cranial nerves 2 through 12 are grossly intact. Assessment and Plan Plan: 1. Gallstone pancreatitis status post arthroscopic cholecystectomy. Patient has had no postop complications. Nexium 2. Hypertension. Continue atenolol 75 mg at bedtime, Vasotec 5 mg daily will be started tomorrow. 3. Hyperlipidemia. Continue simvastatin 10 mg at bedtime. 4. History of coronary artery disease. Continue aspirin 81 mg daily. 5. Gastroesophageal reflux disease. Continue omeprazole. 6. History of Korsakoff syndrome. Continue vitamin B1, vitamin B12. 7. Insomnia. Melatonin. 8. Benign prostatic hypertrophy. Continue Flomax 0.4 mg daily. 9. Cigar smoking. Patient quit 5 days ago. 10. History of alcohol abuse. Patient has been without alcohol for 3 months. 11. DVT prophylaxis. Early ambulation. Discharge plan: Return to [facility] on Sunday Impression and plan of care have been directed as dictated by the signing physician. Ladonna Ewing nurse practitioner acting as scribe for signing physician.
[2019-12-05] MEDS: DOCUSATE 100 MG CAP PO SCH (20:25)
[2019-12-05] MEDS: VIT A,C & E-LUTEIN-MINERALS 1 EACH TAB PO SCH (20:28)
[2019-12-05] MEDS ORDERED: MELATONIN 3 MG TABLET PO SCH (21:00)
[2019-12-05] MEDS ORDERED: ATENOLOL 25 MG TAB PO SCH (21:00)
[2019-12-05] MEDS ORDERED: ATORVASTATIN 10 MG TAB PO SCH (21:00)
[2019-12-06] MEDS ORDERED: PANTOPRAZOLE 40 MG TABLET PO SCH (07:30)
[2019-12-06 08:30] VITALS: BP 119/65; PULSE 55; TEMP 97.7
[2019-12-06] MEDS: VIT A,C & E-LUTEIN-MINERALS 1 EACH TAB PO SCH (08:48)
[2019-12-06] MEDS: DOCUSATE 100 MG CAP PO SCH (08:48)
[2019-12-06] MEDS ORDERED: THIAMINE 100 MG TAB PO SCH (09:00)
[2019-12-06] MEDS ORDERED: TAMSULOSIN 0.4 MG CAP.ER.24H PO SCH (09:00)
[2019-12-06] MEDS ORDERED: LISINOPRIL 10 MG TAB PO SCH (09:00)
[2019-12-06] MEDS ORDERED: ENOXAPARIN 40 MG/0.4 ML SYRINGE SQ SCH (09:00)
[2019-12-06] MEDS ORDERED: CYANOCOBALAMIN 500 MCG TAB PO SCH (09:00)
[2019-12-06] MEDS: HYDROcodone/APAP 5-325MG 1 EACH TAB PO PRN (11:47)
--- NOTE | 2019-12-06 11:50 | P.DS ---
Providers Date of admission: 12/05/2019 Expected date of discharge: 12/06/19 Attending physician: Randal Connors Consults: 12/05/19 10:24 Consult Physician Routine Consulting Provider: Hossein Langston Reason/Comments: Medical management Do you want consulting provider notified?: Yes Primary care physician: Hossein Langston [facility] Course: This is a 1-year-old male who underwent laparoscopic cholecystectomy. Patient did quite well. Please see hospital chart for details. Procedures: Laparoscopic cholecystectomy Patient Condition at Discharge: Good Plan - Discharge Summary Discharge Rx Participant: No New Discharge Prescriptions: New Docusate [Colace] 100 mg PO BID #20 capsule HYDROcodone/APAP 5-325MG [[place] 5-325] 1 tab PO Q6HR PRN #10 tab PRN Reason: Pain No Action Tamsulosin HCl [Flomax] 0.4 mg PO DAILY Ubidecarenone [Co Q-10] 100 mg PO DAILY Omeprazole 20 mg PO DAILY Vit C/E/Zn/Coppr/Lutein/Zeaxan [Preservision Areds 2 Softgel] 1 cap PO BID Simvastatin [Zocor] 10 mg PO HS Thiamine HCl [Vitamin B-1] 100 mg PO DAILY Aspirin 81 mg PO DAILY chew Cyanocobalamin [Vitamin B-12] 500 mcg PO DAILY #90 tablet Atenolol [Tenormin] 75 mg PO HS #30 tab Enalapril [Vasotec] 5 mg PO DAILY Discharge Medication List Omeprazole 20 mg PO DAILY 08/28/18 [History] Simvastatin [Zocor] 10 mg PO HS 08/28/18 [History] Tamsulosin HCl [Flomax] 0.4 mg PO DAILY 08/28/18 [History] Ubidecarenone [Co Q-10] 100 mg PO DAILY 08/28/18 [History] Vit C/E/Zn/Coppr/Lutein/Zeaxan [Preservision Areds 2 Softgel] 1 cap PO BID 08/28/18 [History] Thiamine HCl [Vitamin B-1] 100 mg PO DAILY 08/28/19 [History] Aspirin 81 mg PO DAILY chew 11/12/19 [Rx] Atenolol [Tenormin] 75 mg PO HS #30 tab 11/12/19 [Rx] Cyanocobalamin [Vitamin B-12] 500 mcg PO DAILY #90 tablet 11/12/19 [Rx] Enalapril [Vasotec] 5 mg PO DAILY 12/03/19 [History] Docusate [Colace] 100 mg PO BID #20 capsule 12/06/19 [Rx] HYDROcodone/APAP 5-325MG [[place] 5-325] 1 tab PO Q6HR PRN #10 tab 12/06/19 [Rx] Follow up Appointment(s)/Referral(s): Hossein Langston MD [Primary Care Provider] - 1 Week Randal Connors MD [STAFF PHYSICIAN] - 12/09/19 3:10 pm Patient Instructions/Handouts: Laparoscopic Cholecystectomy (DC) Activity/Diet/Wound Care/Special Instructions: ok to Shower. no lifting over 10 pounds until seen by
== END 2019-12-06 12:00 ==
LOC: OR 07:49 → 4SSUR 10:07 → OR 12-06 12:00
PROVIDERS: ATTEND Surgery
DX: K80.12 Calculus of gallbladder with acute and chronic cholecystitis without obstruction (principal); K85.10 Biliary acute pancreatitis without necrosis or infection; I48.91 Unspecified atrial fibrillation; I25.10 Atherosclerotic heart disease of native coronary artery without angina pectoris; I12.9 Hypertensive chronic kidney disease with stage 1 through stage 4 chronic kidney disease, or unspecified chronic kidney disease; N18.9 Chronic kidney disease, unspecified; F17.290 Nicotine dependence, other tobacco product, uncomplicated; K21.9 Gastro-esophageal reflux disease without esophagitis; I25.2 Old myocardial infarction; F10.20 Alcohol dependence, uncomplicated; E78.49 Other hyperlipidemia; F04 Amnestic disorder due to known physiological condition; G47.00 Insomnia, unspecified; N40.0 Benign prostatic hyperplasia without lower urinary tract symptoms; H35.30 Unspecified macular degeneration; E78.00 Pure hypercholesterolemia, unspecified; F03.90 Unspecified dementia, unspecified severity, without behavioral disturbance, psychotic disturbance, mood disturbance, and anxiety; Z79.82 Long term (current) use of aspirin; Z79.899 Other long term (current) drug therapy; Z87.19 Personal history of other diseases of the digestive system; Z95.1 Presence of aortocoronary bypass graft
CPT/HCPCS: 88304; 47562; J2250; J1644; J1100; J0690; J2405; J1650; J3010; J2370; J0330; J2704

== ENCOUNTER → 2020-06-01 | Outpatient (CLI) | payer MEDICARE ==
[2020-06-01 13:35] LABS: HCT 41.4 % (39.0-53.0); HGB 13.3 gm/dL (13.0-17.5); MCH 30.5 pg (25.0-35.0); MCHC 32.1 g/dL (31.0-37.0); Mean Platelet Volume 7.8; Platelet Count 272 k/uL (150-450); RBC 4.36 m/uL (4.30-5.90); RDW 12.8 % (11.5-15.5); WBC 7.4 k/uL (3.8-10.6)
[2020-06-01 13:51] LABS: Partial Thromboplastin Time 26.1 sec (22.0-30.0)
[2020-06-01 13:54] LABS: Albumin 4.1 g/dL (3.5-5.0); Calcium 10.1 mg/dL (8.4-10.2); Potassium 4.7 mmol/L (3.5-5.1); Total Bilirubin 0.7 mg/dL (0.2-1.3); Total Protein 7.1 g/dL (6.3-8.2)
[2020-06-01 13:56] LABS: Appearance,Urine Clear (Clear); Bacteria,Urine Rare /hpf; Bilirubin,Urine Negative (Negative); Blood,Urine Negative (Negative); Color,Urine Yellow; Glucose,Urine (UA) Negative (Negative); Ketones,Urine Negative (Negative); Leukocyte Esterase,Urine Trace (Negative); Mucus,Urine Occasional /hpf; Nitrite,Urine Negative (Negative); PH, Urine 6.5 (5.0-8.0); Protein,Urine Negative (Negative); RBC,Urine 2 /hpf (0-5); Specific Gravity,Urine 1.012 (1.001-1.035); Squamous Epithelial Cell,Urine <1 /hpf (0-4); Urobilinogen,Urine <2.0 mg/dL (<2.0); WBC,Urine 1 /hpf (0-5)
== END | disposition home or self-care (01) ==
LOC: LABPAT 11:46
PROVIDERS: ATTEND Orthopaedic Surgery
DX: Z01.818 Encounter for other preprocedural examination (principal); Z01.812 Encounter for preprocedural laboratory examination; Z79.01 Long term (current) use of anticoagulants
CPT/HCPCS: 36415; 80053; 81001; 85027; 85610; 85730; 87070

== ENCOUNTER 2020-06-08 05:31 | Day surgery (SDC) | payer MEDICARE ==
[2020-06-04 15:58] VITALS: BMI 27.6
[~2020-06-08 05:31] MED LIST changes: +ACETAMINOPHEN TAB 500 MG TAB PO ONE; -DEXAMETHASONE SOD PHOSPHATE 10 MG/ML 1 ML VIAL IV ONE; +GABAPENTIN 300 MG CAP PO ONE; -HEPARIN SODIUM,PORCINE 5,000 UNIT/ML 1 ML VIAL SQ ONE; -HYDROmorphone 0.5 MG/0.5 ML SYRINGE IVP PRN; -LACTATED RINGERS 1,000 ML IV SCH; -LIDOCAINE 1% 20 ML VIAL (10MG/ML) FOR IV START INTRADERMA PRN; +MELOXICAM 7.5 MG TAB PO ONE; -ONDANSETRON 4 MG/2 ML VIAL IVP ONE; +TRANEXAMIC ACID 1,000 MG in SODIUM CHLORIDE 0.9% 100 ML IVPB ONE; -fentaNYL (PF) 50 MCG/ML 2 ML AMP IV PRN
[2020-06-08] MEDS ORDERED: LIDOCAINE 1% (10MG/ML) FOR IV START INTRADERMA PRN (05:40)
[2020-06-08] MEDS ORDERED: HYDROmorphone 0.5 MG/0.5 ML SYRINGE IVP PRN ×4 (05:40→07:02)
[2020-06-08] MEDS ORDERED: ONDANSETRON 4 MG/2 ML VIAL IVP ONE (05:40)
[2020-06-08] MEDS: LACTATED RINGERS 1,000 ML IV SCH (06:22)
[2020-06-08] MEDS ORDERED: DEXAMETHASONE SOD PHOSPHATE 10 MG/ML 1 ML VIAL IV ONE (06:24)
[2020-06-08] MEDS ORDERED: SODIUM CHLORIDE 0.9% 100 ML BAG ONE (06:55)
[2020-06-08] MEDS ORDERED: ePHEDrine SULFATE/0.9% NACL/PF 50 MG/5 ML SYRINGE IV ONE (06:55)
[2020-06-08] MEDS ORDERED: HEPARIN SODIUM,PORCINE 10,000 UNIT/ML 1 ML VIAL ONE (06:55)
[2020-06-08] MEDS ORDERED: SODIUM CHLORIDE 0.9% IRRIG 1,000 ML BTL IRRIGATION ONE (06:55)
[2020-06-08] MEDS ORDERED: PROPOFOL 10 MG/ML 20 ML VIAL IV ONE (06:55)
[2020-06-08] MEDS ORDERED: fentaNYL (PF) 50 MCG/ML 2 ML AMP ONE (06:55)
[2020-06-08] MEDS ORDERED: TRANEXAMIC ACID 1,000 MG/10 ML VIAL ONE (06:55)
[2020-06-08] MEDS ORDERED: MIDAZOLAM 2 MG/2 ML VIAL ONE (06:55)
[2020-06-08] MEDS ORDERED: ceFAZolin 3,000 MG in SODIUM CHLORIDE 0.9% IRRIGATIO 3,000 ML IRRIGATION ONE (06:59)
[2020-06-08] MEDS ORDERED: MAGNESIUM HYDROXIDE 2,400 MG/10 ML CUP PO PRN (07:02)
[2020-06-08] MEDS ORDERED: ONDANSETRON 4 MG/2 ML VIAL IVP PRN (07:02)
[2020-06-08] MEDS ORDERED: NALOXONE 0.4 MG/ML 1 ML VIAL IV PRN (07:02)
[2020-06-08] MEDS ORDERED: traMADol 50 MG TAB PO PRN (07:04)
[2020-06-08] MEDS: ROPIVACAINE 246.25 MG, EPINEPHrine 0.5 MG, KETOROLAC 30 MG, cloNIDine HCL/PF 80 MCG, WA... MISCELLANE ONE ×10 (07:25→08:05)
[2020-06-08] MEDS ORDERED: LACTATED RINGERS 1,000 ML IV ONE (08:17)
--- NOTE | 2020-06-08 08:32 | P.OP ---
Date of Procedure: 06/08/20 Preoperative Diagnosis: Severe osteoarthritis right hip Postoperative Diagnosis: Severe osteoarthritis right hip Procedure(s) Performed: Right total hip arthroplasty with a direct anterior approach Implants: Espinoza and nephew Polarstem size 5 standard Espinoza [employer] Nephew R3, 3 hole acetabular shell, 58 mm Espinoza [employer] Nephew reflection 6.5 mm cancellus screw, 20 mm 2 Espinoza [employer] Nephew R3, XLPE 20 acetabular liner Espinoza [employer] Nephew Oxinium femoral head 36 m, +8 All components were press-fit. The articulation is Oxinium on polyethylene. Anesthesia: spinal Surgeon: Familia Rojas [employer] Worker #1: Kinjal Perales Estimated Blood Loss (ml): 150 Pathology: other (Femoral head) Condition: stable Disposition: PACU Indications for Procedure: After failure of conservative treatment we discussed the surgical and nonsurgical treatment options at length. Patient wishes to proceed with a total hip arthroplasty with a direct anterior approach. Complications specific to this procedure were discussed at length, including but not limited to infection, leg length discrepancy, dislocation, and nerve injury. Covid-19 was also discussed at length with the patient, and they are aware of the current policies and procedures. The patient was given the option of delaying surgery, but they elect to proceed knowing these risks. Patient is aware of all these complications and informed consent was obtained Operative Findings: The operative findings are consistent with severe osteoarthritis of the right hip Description of Procedure: Patient was seen and evaluated in the preoperative area, consent was reviewed, and the surgical site was marked with a skin marker. Patient was then brought to the operating room and given prophylactic antibiotics intravenously. 1 g of Tranexamic acid was also given. A spinal anesthetic was administered by the anesthesia department. The patient was then placed on the [place] table with the bony prominences well-padded. The hip area was then prepped and draped in usual sterile fashion. A universal timeout was then performed, which confirmed the patient's name, surgical site, ALLERGIES, and procedure being performed. Next the incision site was located at 1 cm distal and 1 cm lateral to the anterior superior iliac spine. The skin and subcutaneous tissues were sharply incised. Incision was carefully dissected down to the fascia overlying the tensor fascia ino muscle. This fascia was then incised in line with the incision. Next, using blunt finger dissection, the tensor fascia ino muscle was dissected off its investing fascia. The muscle was then carefully retracted laterally with a cobra retractor over the lateral neck of the femur. Next, the circumflex vessels were identified and cauterized using the AquaMantis device. The anterior hip capsule was then exposed. The capsule was then opened and an inverted T fashion. Cobra retractors were then placed intracapsularly. The proximal femur was then visualized. The femoral neck was then osteotomized appropriate level above the lesser trochanter. Small amount of traction was placed with the [place] table. A small wedge of bone was then removed from the remaining femoral head. Next, using a corkscrew femoral head was easily removed from the acetabulum. On gross visual inspection, the femoral head had complete loss of articular cartilage in multiple periarticular osteophytes. Attention was then turned to the acetabulum. the acetabulum was exposed and any remaining labrum was excised. Sequential reaming of the acetabulum was performed using fluoroscopic guidance. When the appropriate size was reached, a trial was then placed. The position and fit of the trial was checked with fluoroscopy. The trial was then removed. Then, using fluoroscopic guidance, the final implant was impacted at 20 of anteversion and 40 of abduction, and fully seated in the acetabulum. 2 screws were then placed in the acetabulum. Again fluoroscopy was used to check position of the screws. Next, the liner was then impacted, with a 20 elevated liner located in the anterior superior quadrant. Component locking was confirmed. Attention was then directed to the femur. With the aid of the Melbourne table, the femur was externally rotated to approximately 130, extended, and abducted under the opposite leg. A side hook was then placed under the proximal femur, and the side hook elevator was used to elevate the proximal femur. Retractors were then placed. A capsular release was performed, as well as a release of the conjoined tendon, which afforded excellent visualization of the proximal femur. Next, a box osteotome was used to lateralize the proximal femur. A hand drawer in was then used to locate the femoral canal. Sequential broaching was then performed with appropriate size which afforded excellent fixation in the proximal femur. A trial was then placed with appropriate head and neck, and the hip was gently reduced with the aid of the [place] table. Fluoroscopy was then used to check position of the components, as well as to ensure equal leg lengths. The hip was then gently dislocated and the trials were then removed. Final implants were then impacted and the hip was again reduced. Final fluoroscopic x-rays confirmed that the components were in anatomic position, as well as equal leg lengths. The hip was also taken through range of motion, and found to be stable. The hip was then copiously irrigated with antibiotic solution with pulsatile lavage. The hip was then irrigated with Irrisept solution. The soft tissues were then injected with a ropivacaine solution, which consisted of 246.25 mg of ropivacaine, 0.5 mg of epinephrine, 30 mg of Toradol, 80 g of clonidine, and 48.45 mL of sterile water, for a total of 100 mL of fluid injected. A second dose of 1 g of Tranexamic acid was also given. the fascia was then closed with 2-0 strata fix suture. The subcutaneous tissue was closed with 3-0 Vicryl. The subcuticular tissue was closed with 3-0 strata fix suture. The skin was then closed with Dermabond glue and a sterile silver dressing. The patient was then transferred to the recovery room in stable condition. The certified physical therapist assistant RIDGE Armstrong was required due to the complexity of surgery, and the need for skilled surgical rn for positioning, draping, exposure, retraction, and closure of the wound.
[2020-06-08] MEDS: SODIUM CHLORIDE 0.9% 1,000 ML IV SCH ×2 (09:12→22:47)
--- NOTE | 2020-06-08 09:29 | XR ---
EXAMINATION TYPE: XR Hip Limited RT DATE OF EXAM: 06/08/2020 Comparison: 08/28/2019 Clinical History: 79-year-old male Status post hip surgery, assess surgical alignment Findings: Image shows placement of right total hip arthroplasty. Both acetabular cup and femoral stem component s of the prosthesis are well seated without periprosthetic fracture. Alignment grossly anatomic. Scat tered soft tissue air related to recent operation. Impression: Uncomplicated postoperative appearance right total hip arthroplasty.
--- NOTE | 2020-06-08 11:34 | XR ---
EXAMINATION TYPE: XR Hip Limited RT, FL guidance operating room DATE OF EXAM: 06/08/2020 Comparison: 08/28/2019 Clinical History: 78-year-old male RIGHT HIP ARTHROPLASTY Findings: 2 images showing right total hip arthroplasty. FLUOROSCOPY Fluoroscopy time of 30 seconds was used during right hip replacement. 2 image/s document/s sloan armijo. Impression: Intraoperative fluoroscopy as above.
[2020-06-08] MEDS: TAMSULOSIN 0.4 MG CAP.ER.24H PO SCH (12:19)
[2020-06-08] MEDS: traMADol 50 MG TAB PO PRN (17:12)
[2020-06-08] MEDS: ASPIRIN 325 MG TAB PO SCH (20:05)
[2020-06-08] MEDS ORDERED: SENNOSIDES-DOCUSATE SODIUM 1 EACH TAB PO SCH (21:00)
[2020-06-08] MEDS ORDERED: ATORVASTATIN 10 MG TAB PO SCH (21:00)
[2020-06-08] MEDS ORDERED: atenoloL 25 MG TAB PO SCH (21:00)
--- NOTE | 2020-06-09 00:09 | P.CONS ---
History of Present Illness - Reason for Consult Consult date: 06/08/20 Medical Management Requesting physician: Familia Rojas - Chief Complaint Right total hip arthroplasty, CAD, CVA, mild memory loss, hypertension and - History of Present Illness 79-year-old male one of my office patient with multiple medical problem was known to have history of CAD post CA in the past, history of CVA, significant memory loss and valvular heart disease who had suffered from severe pain and worsening arthritis of the right hip for the last 3 years with failure to conservative management become much worse. Patient was seen by orthopedic and with failure to conservative management decided to go for total hip arthroplasty, testing were up-to-date with stress test echo and patient medical management. Patient ended up coming for surgery today successfully with no major complication was admitted to the floor after surgery feeling well pain is under control and patient is very stable hemodynamically. Review of Systems CONSTITUTIONAL: Well-developed no acute respiratory distress. EYES: No icterus sclerae, no conjunctivitis. EARS, NOSE, MOUTH, THROAT, and FACE: No sore throat, lymphadenopathy, carotid bruits or deformity. RESPIRATORY: No SOB cough or wheezes. CARDIOVASCULAR: Mild PND orthopnea palpitations. GASTROINTESTINAL: No Abd pain, Nausea or vomiting, no Diarrhea or constipation, No GI Bleed, no distention or masses. GENITOURINARY: Negative for Hematuria or UTI, no kidney stones. INTEGUMENT/BREAST: Right hip post surgery with no swelling induration infection or drainage. HEMATOLOGIC/LYMPHATIC: Negative for bleed or purpura. MUSCULOSKELTAL: Negative for Myalgia or arthralgia. NEURLOGICAL: Significant memory loss with mobility and slight abnormal balance. BEHAVIORAL/PSYCH: Negative. ENDOCRINE: Negative. 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, left shoulder pain Last Myocardial Infarction Date:: 1992 History of Any Multi-Drug Resistant Organisms: None Reported Past Surgical History: Cholecystectomy, Coronary Bypass/CABG, Tonsillectomy Additional Past Surgical History / Comment(s): CABG 1992, COLONOSCOPY, EGD with ballon dilation, Past Anesthesia/Blood Transfusion Reactions: No Reported Reaction Past Psychological History: No Psychological Hx Reported Smoking Status: Former smoker Past Alcohol Use History: None Reported Additional Past Alcohol Use History / Comment(s): The patient was smoking a cigar a day or less and quit smoking March 2020. Patient has long-standing history of alcohol abuse and quit drinking in August 2019. Past Drug Use History: None Reported - Past Family History Father Family Medical History: Cancer Additional Family Medical History / Comment(s): Father from alcohol-related gastric cancer. Sister(s) Family Medical History: Cancer Additional Family Medical History / Comment(s): The patient has total of 4 sisters. One from colon cancer, 1 from ovarian cancer, one has lupus, one has no major medical problems. Brother(s) Additional Family Medical History / Comment(s): Patient has one brother with history of gallbladder disease and coronary artery disease. Mother Additional Family Medical History / Comment(s): Mother of old age. Daughter(s) Additional Family Medical History / Comment(s): Patient has 3 daughters one his history of COPD secondary to smoking, 2 daughters with no major medical problems. Patient has 1 son with history of hepatitis C and HIV. Medications and Allergies Home Medications Medication Instructions Recorded Confirmed Type Omeprazole 20 mg PO DAILY 08/28/18 06/08/20 History Simvastatin [Zocor] 10 mg PO HS 08/28/18 06/08/20 History Tamsulosin HCl [Flomax] 0.4 mg PO DAILY 08/28/18 06/08/20 History Ubidecarenone [Co Q-10] 100 mg PO DAILY 08/28/18 06/08/20 History Vit C/E/Zn/Coppr/Lutein/Zeaxan 1 cap PO BID 08/28/18 06/08/20 History [Preservision Areds 2 Softgel] Thiamine HCl [Vitamin B-1] 100 mg PO DAILY 08/28/19 06/08/20 History Aspirin 81 mg PO DAILY chew 11/12/19 06/08/20 Rx Cyanocobalamin [Vitamin B-12] 500 mcg PO DAILY #90 tablet 11/12/19 06/08/20 Rx atenoloL [Tenormin] 75 mg PO HS #30 tab 11/12/19 06/08/20 Rx Enalapril [Vasotec] 5 mg PO QAM 12/03/19 06/08/20 History Allergies Allergy/AdvReac Type Severity Reaction Status Date / Time No Known Allergies Allergy Verified 06/04/20 15:35 Physical Exam Vitals: Vital Signs Temp Pulse Resp BP Pulse Ox 06/08/20 15:15 83 16 142/79 97 06/08/20 09:20 97.5 F L 62 16 105/65 94 L 06/08/20 09:00 61 18 94/50 99 06/08/20 08:45 61 18 97/52 99 06/08/20 08:33 96.8 F L 66 16 101/57 99 06/08/20 06:20 97 F L 63 16 116/67 97 Intake and Output 06/08/20 06/08/20 06/08/20 06:59 14:59 22:59 Intake Total 1051 0 Output Total 150 1250 Balance 1051 -150 -1250 Intake: IV 1051 0 Output: Urine 1250 Uretheral (Perez) 1250 Estimated Blood Loss 150 Other: # Voids 3 Weight 86 kg 86 kg General Appearance: Alert, cooperative, no distress, appears stated age. Neck HEENT: Supple, no lymphadenopathy, no thyroid enlargement, no carotid bruits. Lungs: Clear to auscultation without crackles or wheezes no rhonchi, no deformity. Chest Wall: Chest wall normal expansion with deep inspiration no tenderness and no deformity was found on exam, no costochondral pain or discomfort. Heart: Regular rate and rhythm, S1, S2 +3 positive JVD with systolic murmur. Back: Symmetric, no curvature, ROM normal, no CVA tenderness. Abdomen: Soft, non-tender, bowel sounds active all four quadrants, no masses, no organomegaly. Extremities: Incision on the right hip With no hematoma bleeding induration or drainage. Pulses: 2+ and symmetric. Skin: Skin color, texture, tugor normal, no rashes or lesions. Neurologic: Alert oriented x3 cranial nerves II through XII intact, positive generalized weakness with abnormal balance and gait. Assessment and Plan Assessment: 1 post right total hip arthroplasty: Continue postsurgical care, resume home meds, watch for any change in hemodynamic status, watch for any abnormal sign and symptoms, continue anticoagulation with GI and DVT prophylaxis. 2 CAD post CA, post CABG over 20 years ago: Has been stable doing well with current medication continue atenolol armando along with BRENDAN inhibitor and still on statin and aspirin. 3 post CVA: Not much residual at this point patient is very stable and doing well. 4 history of BPH: Patient is doing very well on tamsulosin we watch for any urinary retention no Perez catheter was kept at this point patient is having slight high residual continue to do bladder scan every shift and straight cath for residual above 250. 5 hyperlipidemia: Remain on simvastatin 10 mg a day. 6 hypertension: Remain on atenolol 75 mg daily at bedtime with enalapril 5 mg a day. 7 recurrent abdominal pain: Post laparoscopy cholecystectomy in the past has been doing well with no complication. 8 history of alcohol abuse in the past: Patient has been a clear for many month with no withdrawal symptom no sign of delirium tremor. 9 history of dementia: Most likely was Korsakoff related symptoms are much better now patient is not on any medication had slight side effect with Donepazil with diarrhea. 10 GI prophylaxis: Patient will be on aspirin her orthopedic protocol. 11 pain control: Has been doing well on tramadol was on smaller dose of Dilaudid early. CODE STATUS: Full code. Dr. Rojas thank you much for the consult. Camby any further help to please let me know.
[2020-06-09] MEDS: LACTATED RINGERS 1,000 ML IV SCH (05:38)
[2020-06-09] MEDS: TAMSULOSIN 0.4 MG CAP.ER.24H PO SCH (06:47)
[2020-06-09] MEDS: ASPIRIN 325 MG TAB PO SCH (06:47)
[2020-06-09] MEDS: traMADol 50 MG TAB PO PRN ×2 (06:48→13:13)
[2020-06-09 07:05] LABS: Glucose,Whole Blood 102 mg/dL (75-99)
[2020-06-09] MEDS ORDERED: PANTOPRAZOLE 40 MG TABLET PO SCH (07:30)
[2020-06-09 08:07] VITALS: BP 130/72; PULSE 83; RESP 18; TEMP 97.5
[2020-06-09 08:46] LABS: Basophils % (A) 0 %; Eosinophils # (A) 0.1 k/uL (0-0.7); Eosinophils % (A) 1 %; HCT 38.3 % (39.0-53.0); HGB 12.3 gm/dL (13.0-17.5); Lymphocytes # (A) 1.6 k/uL (1.0-4.8); Lymphocytes % (A) 13 %; MCHC 32.3 g/dL (31.0-37.0); MCV 96.3 fL (80.0-100.0); Mean Platelet Volume 7.7; Monocytes # (A) 0.7 k/uL (0-1.0); Monocytes % (A) 6 %; Neutrophils # (A) 9.7 k/uL (1.3-7.7); Neutrophils % (A) 79 %; Platelet Count 236 k/uL (150-450); RBC 3.97 m/uL (4.30-5.90); RDW 12.4 % (11.5-15.5); WBC 12.2 k/uL (3.8-10.6)
[2020-06-09] MEDS ORDERED: MELOXICAM 7.5 MG TAB PO SCH (09:00)
--- NOTE | 2020-06-09 09:34 | P.PN ---
Subjective Progress Note Date: 06/09/20 This is a 79-year-old male who is status post right total hip arthroplasty. This is postoperative day #1 and patient is seen and evaluated at bedside with Dr. Familia Rojas. Patient states that he is doing well and his pain is well controlled. Patient does have a history of dementia, but is able to answer questions appropriately this morning. No family present in the room. Patient denies any fever/chills, numbness, weakness, tingling, abdominal pain, shortness of breath or chest pain. Objective - Vital Signs Vital signs: Vital Signs Temp 97.5 F L 06/09/20 07:00 Pulse 83 06/09/20 07:00 Resp 18 06/09/20 07:00 BP 130/72 06/09/20 07:00 Pulse Ox 97 06/09/20 07:00 Intake & Output 06/08/20 06/09/20 06/09/20 18:59 06:59 18:59 Intake Total 0 777.5 Output Total 1400 600 Balance -1400 177.5 Weight 86 kg Intake: IV 0 Intake, IV Titration 277.5 Amount Sodium Chloride 0.9% 1, 227.5 000 ml @ 65 mls/hr IV . [id number] MILI Rx#:[id number] ceFAZolin 2 gm In Sodium 50 Chloride 0.9% 50 ml @ 100 mls/hr IVPB Q8H MILI Rx#: [id number] Oral 500 Output: Urine 1250 350 Uretheral (Perez) 1250 Post Void Residual 250 Estimated Blood Loss 150 Other: # Voids 3 5 - Exam Vital signs are stable. Patient is in no acute distress and is alert and oriented 3. Calf is soft and nontender to palpation. Dressing is clean, dry, and intact. Patient has full foot and ankle motion without pain or difficulty. Neurovascular status and circulatory status are intact. - Labs CBC & Chem 7: 06/09/20 07:37 Labs: Abnormal Lab Results - Last 24 Hours (Table) 06/09/20 06/09/20 Range/Units 06:58 07:37 WBC 12.2 H (3.8-10.6) k/uL RBC 3.97 L (4.30-5.90) m/uL Hgb 12.3 L (13.0-17.5) gm/dL Hct 38.3 L (39.0-53.0) % Neutrophils # 9.7 H (1.3-7.7) k/uL POC Glucose (mg/dL) 102 H (75-99) mg/dL Assessment and Plan (1) S/P total hip arthroplasty Current Visit: Yes Status: Acute Code(s): Z96.649 - PRESENCE OF UNSPECIFIED ARTIFICIAL HIP JOINT SNOMED Code(s): 359434189245 (2) Osteoarthritis of right hip Current Visit: Yes Status: Acute Code(s): M16.11 - UNILATERAL PRIMARY O STEOARTHRITIS, RIGHT HIP SNOMED Code(s): 178937504058460 Plan: Continue routine postop care and pain control. Continue anticoagulation with aspirin. Weightbearing as tolerated with a walker. Leave dressing in place for 10 days. Appreciate input from medicine. Anticipate discharge home with homecare tomorrow. Possible ECF placement per family request.
--- NOTE | 2020-06-09 11:15 | P.DS ---
Providers Expected date of discharge: 06/09/20 Attending physician: Familia Rojas Consults: 06/08/20 07:02 Consult Physician Routine Consulting Provider: Hossein Langston Reason/Comments: medical management Do you want consulting provider notified?: Yes Primary care physician: Hossein Langston - Discharge Diagnosis(es) (1) S/P total hip arthroplasty Current Visit: Yes Status: Acute (2) Osteoarthritis of right hip Current Visit: Yes Status: Acute Hospital Course: This is a 79-year-old male with known history of degenerative arthritis of the right hip. The patient presents for evaluation. After discussion and consideration patient elects to proceed with total hip arthroplasty. The patient is seen preoperatively by Dr. Rojas and cleared for surgery. Patient is admitted to [facility] on 06/08/2020 for total hip arthroplasty. The procedures performed without complication or sequelae. The patient is doing well postoperatively. Labs and vital signs are stable on day of discharge. On day of discharge patient's hip incision is healing well. There is minimal erythema. There is no drainage noted at this time. There is minimal soft tissue swelling to the hip and thigh. Patient has full foot and ankle motion without difficulty or pain. Neurovascular status to the right lower extremity is intact. Patient is discharged home in good condition. Please see med rec for accurate list of home medications. Plan - Discharge Summary Discharge Rx Participant: Yes New Discharge Prescriptions: New Aspirin 325 mg PO BID #60 tab Sennosides [Senokot] 2 tab PO DAILY PRN #60 tablet PRN Reason: Constipation traMADol HCl [Ultram] 1 - 2 tab PO Q6H PRN #56 tab PRN Reason: Pain No Action Tamsulosin HCl [Flomax] 0.4 mg PO DAILY Ubidecarenone [Co Q-10] 100 mg PO DAILY Omeprazole 20 mg PO DAILY Vit C/E/Zn/Coppr/Lutein/Zeaxan [Preservision Areds 2 Softgel] 1 cap PO BID Simvastatin [Zocor] 10 mg PO HS Thiamine HCl [Vitamin B-1] 100 mg PO DAILY Aspirin 81 mg PO DAILY chew Cyanocobalamin [Vitamin B-12] 500 mcg PO DAILY #90 tablet atenoloL [Tenormin] 75 mg PO HS #30 tab Enalapril [Vasotec] 5 mg PO QAM Discharge Medication List Omeprazole 20 mg PO DAILY 08/28/18 [History] Simvastatin [Zocor] 10 mg PO HS 08/28/18 [History] Tamsulosin HCl [Flomax] 0.4 mg PO DAILY 08/28/18 [History] Ubidecarenone [Co Q-10] 100 mg PO DAILY 08/28/18 [History] Vit C/E/Zn/Coppr/Lutein/Zeaxan [Preservision Areds 2 Softgel] 1 cap PO BID 08/28/18 [History] Thiamine HCl [Vitamin B-1] 100 mg PO DAILY 08/28/19 [History] Aspirin 81 mg PO DAILY chew 11/12/19 [Rx] Cyanocobalamin [Vitamin B-12] 500 mcg PO DAILY #90 tablet 11/12/19 [Rx] atenoloL [Tenormin] 75 mg PO HS #30 tab 11/12/19 [Rx] Enalapril [Vasotec] 5 mg PO QAM 12/03/19 [History] Aspirin 325 mg PO BID #60 tab 06/09/20 [Rx] Sennosides [Senokot] 2 tab PO DAILY PRN #60 tablet 06/09/20 [Rx] traMADol HCl [Ultram] 1 - 2 tab PO Q6H PRN #56 tab 06/09/20 [Rx] Follow up Appointment(s)/Referral(s): Hossein Langston MD [Primary Care Provider] - 1 Week Familia Rojas DO [Doctor of Osteopathic Medicine] - 06/23/20 9:15 am (with Kinjal) Activity/Diet/Wound Care/Special Instructions: Weightbearing as tolerated with walker. Leave dressing intact. Dressing may be removed by home care nurse or by patient in 10 days. May shower with dressing on. Recommend use of compression stockings daily until follow up to help prevent swelling and blood clots. May remove at night before sleeping. Please follow-up with [facility] in 2 weeks and call with any questions or concerns, . Discharge Disposition: HOME WITH HOME HEALTH SERVICES
--- NOTE | 2020-06-09 14:52 | P.PN ---
Subjective Progress Note Date: 06/09/20 79-year-old male one of my office patient with multiple medical problem was known to have history of CAD post GA in the past, history of CVA, significant memory loss and valvular heart disease who had suffered from severe pain and worsening arthritis of the right hip for the last 3 years with failure to c onservative management become much worse. Patient was seen by orthopedic and with failure to conservative management decided to go for total hip arthroplasty, testing were up-to-date with stress test echo and patient medical management. Patient ended up coming for surgery today successfully with no major complication was admitted to the floor after surgery feeling well pain is under control and patient is very stable hemodynamically. 06/09: Patient has a sitter at the bedside as he is impulsive. He is not really confused. He is awake and alert. He is able to answer all questions appropria tely. He has been afebrile, heart rate 71, blood pressure 121/60, pulse ox 96% on room air. Patient has been evaluated by physical therapy and was cleared for discharge to home. Family also has agreed with home discharge. Patient is cleared from medicine. No change to his home medication list. Repeat CBC reveals WBC 12.2, hemoglobin 12.3. Review of systems CONSTITUTIONAL: Well-developed no acute respiratory distress. EYES: No icterus sclerae, no conjunctivitis. EARS, NOSE, MOUTH, THROAT, and FACE: No sore throat, lymphadenopathy, carotid bruits or deformity. RESPIRATORY: No SOB cough or wheezes. CARDIOVASCULAR: Mild PND orthopnea palpitations. GASTROINTESTINAL: No Abd pain, Nausea or vomiting, no Diarrhea or constipation, No GI Bleed, no distention or masses. GENITOURINARY: Negative for Hematuria or UTI, no kidney stones. INTEGUMENT/BREAST: Right hip post surgery with no swelling induration infection or drainage. HEMATOLOGIC/LYMPHATIC: Negative for bleed or purpura. MUSCULOSKELTAL: Negative for Myalgia or arthralgia. NEURLOGICAL: Significant memory loss with mobility and slight abnormal balance. BEHAVIORAL/PSYCH: Negative. ENDOCRINE: Negative. Physical examination General Appearance: Alert, cooperative, no distress, appears stated age. Neck HEENT: Supple, no lymphadenopathy, no thyroid enlargement, no carotid bruits. Lungs: Clear to auscultation without crackles or wheezes no rhonchi, no deformity. Chest Wall: Chest wall normal expansion with deep inspiration no tenderness and no deformity was found on exam, no costochondral pain or discomfort. Heart: Regular rate and rhythm, S1, S2 +3 positive JVD with systolic murmur. Back: Symmetric, no curvature, ROM normal, no CVA tenderness. Abdomen: Soft, non-tender, bowel sounds active all four quadrants, no masses, no organomegaly. Extremities: Incision on the right hip With no hematoma bleeding induration or drainage. Pulses: 2+ and symmetric. Skin: Skin color, texture, tugor normal, no rashes or lesions. Neurologic: Alert oriented x3 cranial nerves II through XII intact, positive generalized weakness with abnormal balance and gait. Assessment and plan 1 post right total hip arthroplasty: Continue postsurgical care, resume home meds, watch for any change in hemodynamic status, watch for any abnormal sign and symptoms, continue anticoagulation with GI and DVT prophylaxis. 2 CAD post GA, post CABG over 20 years ago: Has been stable doing well with current medication continue atenolol armando along with BRENDAN inhibitor and still on statin and aspirin. 3 post CVA: Not much residual at this point patient is very stable and doing well. 4 history of BPH: Patient is doing very well on tamsulosin we watch for any urin estefany retention no Perez catheter was kept at this point patient is having slight high residual continue to do bladder scan every shift and straight cath for residual above 250. 5 hyperlipidemia: Remain on simvastatin 10 mg a day. 6 hypertension: Remain on atenolol 75 mg daily at bedtime with enalapril 5 mg a day. 7 recurrent abdominal pain: Post laparoscopy cholecystectomy in the past has been doing well with no complication. 8 history of alcohol abuse in the past: Patient has been a clear for many month with no withdrawal symptom no sign of delirium tremor. 9 history of dementia: Most likely was Korsakoff related symptoms are much better now patient is not on any medication had slight side effect with Donepazil with diarrhea. 10 GI prophylaxis: Patient will be on aspirin her orthopedic protocol. 11 pain control: Has been doing well on tramadol was on smaller dose of Dilaudid early. CODE STATUS: Full code. Dr. Rojas thank you much for the consult. Camby any further help to please let me know. Discharge plan: home with [facility] Impression and plan of care have been directed as dictated by the signing physician. Ladonna Ewing nurse practitioner acting as scribe for signing physician. Objective - Vital Signs Vital signs: Vital Signs Temp 97.7 F 06/09/20 00:40 Pulse 71 06/09/20 00:40 Resp 15 06/09/20 00:40 BP 121/68 06/09/20 00:40 Pulse Ox 96 06/09/20 00:40 Intake & Output 06/08/20 06/09/20 06/09/20 18:59 06:59 18:59 Intake Total 0 777.5 Output Total 1400 600 Balance -1400 177.5 Weight 86 kg Intake: IV 0 Intake, IV Titration 277.5 Amount Sodium Chloride 0.9% 1, 227.5 000 ml @ 65 mls/hr IV . [id number] MILI Rx#:[id number] ceFAZolin 2 gm In Sodium 50 Chloride 0.9% 50 ml @ 100 mls/hr IVPB Q8H MILI Rx#: [id number] Oral 500 Output: Urine 1250 350 Uretheral (Perez) 1250 Post Void Residual 250 Estimated Blood Loss 150 Other: # Voids 3 5 - Labs CBC & Chem 7: 06/09/20 07:37 Labs: Abnormal Lab Results - Last 24 Hours (Table) 06/09/20 Range/Units 06:58 POC Glucose (mg/dL) 102 H (75-99) mg/dL
== END 2020-06-09 13:19 | disposition home health service (06) ==
LOC: OR 05:31 → EDSTATUS 07:00 → 4SSUR 08:38 → OR 06-09 13:19
PROVIDERS: ATTEND Orthopaedic Surgery
DX: M16.0 Bilateral primary osteoarthritis of hip (principal); K57.92 Diverticulitis of intestine, part unspecified, without perforation or abscess without bleeding; K25.9 Gastric ulcer, unspecified as acute or chronic, without hemorrhage or perforation; I25.10 Atherosclerotic heart disease of native coronary artery without angina pectoris; I11.9 Hypertensive heart disease without heart failure; I69.311 Memory deficit following cerebral infarction; I48.91 Unspecified atrial fibrillation; E78.5 Hyperlipidemia, unspecified; H35.30 Unspecified macular degeneration; F03.90 Unspecified dementia, unspecified severity, without behavioral disturbance, psychotic disturbance, mood disturbance, and anxiety; I25.2 Old myocardial infarction; K21.9 Gastro-esophageal reflux disease without esophagitis; N40.0 Benign prostatic hyperplasia without lower urinary tract symptoms; F10.10 Alcohol abuse, uncomplicated; I34.1 Nonrheumatic mitral (valve) prolapse; Z87.440 Personal history of urinary (tract) infections; Z95.1 Presence of aortocoronary bypass graft; Z87.891 Personal history of nicotine dependence; Z82.49 Family history of ischemic heart disease and other diseases of the circulatory system; Z79.01 Long term (current) use of anticoagulants; Z80.0 Family history of malignant neoplasm of digestive organs; Z90.49 Acquired absence of other specified parts of digestive tract; Z90.89 Acquired absence of other organs; Z79.82 Long term (current) use of aspirin; Z79.899 Other long term (current) drug therapy
CPT/HCPCS: 27130; 97116; 97161; 97165; 86891; 86900; 86901; 85025; 86850; 88300; 73501; C1776; J0171; J1100; J0690 ×2; J2405; J1885; J2795; J0735

== ENCOUNTER → 2021-04-27 | Outpatient (CLI) | payer MEDICARE ==
--- NOTE | 2021-04-27 14:17 | XR ---
EXAMINATION TYPE: XR lumbar spine 2 or 3V DATE OF EXAM: 04/27/2021 CLINICAL HISTORY: Ankylosing spondylitis. Low back pain for 3 months. TECHNIQUE: Frontal and lateral images of the lumbar spine are obtained. COMPARISON: CT August 28, 2018 FINDINGS: There are 5 lumbar type vertebral bodies redemonstrated. Persistent dextroconvex scoliosis centered at L2-L3 level. Alignment is stable and straightened on sagittal images similar to prior. M oderate multilevel disc space narrowing with moderate multilevel anterior and lateral spurring is red emonstrated. Vertebral body heights maintained. Some bridging osteophytes redemonstrated. Relative sp aring of the L5-S1 disc space. Facet arthropathy lower lumbar levels redemonstrated. Mild to moderate calcified plaque of overlying abdominal aorta. Increased ossific fusion of visualized portion of bot h sacroiliac joints is felt present. IMPRESSION: As above.
--- NOTE | 2021-04-27 14:19 | XR ---
EXAMINATION TYPE: XR thoracic spine complete DATE OF EXAM: 04/27/2021 CLINICAL HISTORY: Ankylosing spondylitis. Increasing mid back pain. TECHNIQUE: Frontal, lateral, and swimmer's view of thoracic spine are obtained. COMPARISON: CTA aorta November 09, 2019 FINDINGS: Thoracic spine show stable and satisfactory alignment without evidence of acute fracture or dislocation. Vertebral body heights are preserved. Mild to moderate multilevel disc space narrowing with multilevel anterior and lateral spurring is redemonstrated. Visualized ribs remain intact. Ster nal wires and mediastinal clips from prior CABG procedure are redemonstrated. IMPRESSION: As above.
== END | disposition home or self-care (01) ==
LOC: RADXRMAIN 13:15
PROVIDERS: ATTEND Internal Medicine Geriatric Medicine
DX: M51.36 Other intervertebral disc degeneration, lumbar region (principal); M47.816 Spondylosis without myelopathy or radiculopathy, lumbar region; M51.34 Other intervertebral disc degeneration, thoracic region
CPT/HCPCS: 72072; 72100

== ENCOUNTER 2021-08-03 14:11 | Emergency (ER) | payer MEDICARE ==
[2021-08-03 14:29] VITALS: BP 118/73; PULSE 70; RESP 18; TEMP 97.8
--- NOTE | 2021-08-03 15:13 | ED ---
Abdominal Pain HPI - General Chief Complaint: Abdominal Pain Stated Complaint: Abd Pain Time Seen by Provider: 08/03/21 14:59 Source: patient, family, RN notes reviewed, old records reviewed Mode of arrival: ambulatory Limitations: no limitations - History of Present Illness Initial Comments: 80-year-old well-appearing white male presents to the emergency room with complaints of intermittent abdominal pain over the last 4 weeks. Family at bedside states that he seen Dr. Langston and was scheduled to have a CAT scan tomorrow however family states his pain is worse so they came to the emergency room for the CT today. Family states he has had decrease in appetite also. He also states that the pain is worse whenever he eats anything cold. Patient s tates the pain is gone at this time. He does have a history of diverticulitis, hiatal hernia, hypertension, CABG and high cholesterol. MD Complaint: abdominal pain -: week(s) (4) Location: periumbilical Radiation: none Severity scale (1-10): 5 Consistency: intermittent, now resolved Associated Symptoms: constipation, other (decreased vappetite) - Related Data Home Medications Medication Instructions Recorded Confirmed Omeprazole 20 mg PO DAILY 08/28/18 06/08/20 Simvastatin [Zocor] 10 mg PO HS 08/28/18 06/08/20 Tamsulosin HCl [Flomax] 0.4 mg PO DAILY 08/28/18 06/08/20 Ubidecarenone [Co Q-10] 100 mg PO DAILY 08/28/18 06/08/20 Vit C/E/Zn/Coppr/Lutein/Zeaxan 1 cap PO BID 08/28/18 06/08/20 [Preservision Areds 2 Softgel] Thiamine HCl [Vitamin B-1] 100 mg PO DAILY 08/28/19 06/08/20 Enalapril [Vasotec] 5 mg PO QAM 12/03/19 06/08/20 Previous Rx's Medication Instructions Recorded Aspirin 81 mg PO DAILY chew 11/12/19 Cyanocobalamin [Vitamin B-12] 500 mcg PO DAILY #90 tablet 11/12/19 atenoloL [Tenormin] 75 mg PO HS #30 tab 11/12/19 Aspirin 325 mg PO BID #60 tab 06/09/20 Sennosides [Senokot] 2 tab PO DAILY PRN #60 tablet 06/09/20 traMADol HCl [Ultram] 1 - 2 tab PO Q6H PRN #56 tab 06/09/20 Sulfamethox-Tmp 800-160Mg [Bactrim 1 tab PO Q12HR 20 Days #10 tab 08/03/21 DS 800-160 mg] Allergies Allergy/AdvReac Type Severity Reaction Status Date / Time No Known Allergies Allergy Verified 08/03/21 14:27 Review of Systems ROS Statement: Those systems with pertinent positive or pertinent negative responses have been documented in the HPI. ROS Other: All systems not noted in ROS Statement are negative. Past Medical History Past Medical History: Chest Pain / Angina, GERD/Reflux, Hyperlipidemia, Hypertension Additional Past Medical History / Comment(s): Esophageal strictures, macular degeneration, UTI, ALCOHOLIS alcohol-DEMENTIA Last Myocardial Infarction Date:: 1992 History of Any Multi-Drug Resistant Organisms: None Reported Past Surgical History: Coronary Bypass/CABG, Tonsillectomy Additional Past Surgical History / Comment(s): CABG 1992, COLONOSCOPY, EGD - ESOPHAGEAL STRICTURE Past Anesthesia/Blood Transfusion Reactions: No Reported Reaction Past Psychological History: No Psychological Hx Reported Smoking Status: Never smoker Past Alcohol Use History: None Reported Past Drug Use History: None Reported - Past Family History Father Family Medical History: Cancer Additional Family Medical History / Comment(s): Father from alcohol-related gastric cancer. Sister(s) Family Medical History: Cancer Additional Family Medical History / Comment(s): The patient has total of 4 sisters. One from colon cancer, 1 from ovarian cancer, one has lupus, one has no major medical problems. Brother(s) Additional Family Medical History / Comment(s): Patient has one brother with history of gallbladder disease and coronary artery disease. Mother Additional Family Medical History / Comment(s): Mother of old age. Daughter(s) Additional Family Medical History / Comment(s): Patient has 3 daughters one his history of COPD secondary to smoking, 2 daughters with no major medical p roblems. Patient has 1 son with history of hepatitis C and HIV. General Exam Limitations: no limitations General appearance: alert, in no apparent distress Head exam: Present: atraumatic, normocephalic, normal inspection Eye exam: Present: normal appearance, PERRL, EOMI. Absent: scleral icterus, conjunctival injection, periorbital swelling ENT exam: Present: normal exam, normal oropharynx, mucous membranes moist Neck exam: Present: normal inspection, full ROM. Absent: tenderness, meningismus, lymphadenopathy Respiratory exam: Present: normal lung sounds bilaterally. Absent: respiratory distress, wheezes, rales, rhonchi, stridor, chest wall tenderness, accessory muscle use, decreased breath sounds Cardiovascular Exam: Present: regular rate, normal rhythm, normal heart sounds. Absent: systolic murmur, diastolic murmur, rubs, gallop, clicks GI/Abdominal exam: Present: soft, normal bowel sounds. Absent: distended, tenderness, guarding, rebound, rigid Extremities exam: Present: normal inspection, full ROM, normal capillary refill. Absent: tenderness, pedal edema, joint swelling, calf tenderness Back exam: Present: normal inspection, full ROM. Absent: tenderness, CVA tenderness (R), CVA tenderness (L), muscle spasm, paraspinal tenderness, vertebral tenderness, rash noted Neurological exam: Present: alert, oriented X3, CN II-XII intact Psychiatric exam: Present: normal affect, normal mood Skin exam: Present: warm, dry, intact, normal color. Absent: rash, cyanosis, diaphoretic, erythema, petechiae, pallor, mottled Course Vital Signs 08/03/21 14:27 Temperature 97.8 F Pulse Rate 70 Respiratory 18 Rate Blood Pressure 118/73 O2 Sat by Pulse 98 Oximetry Medical Decision Making - Medical Decision Making CT of the abdomen and pelvis with contrast shows a persistent large hiatal hernia with abnormal twisting of the stomach but no significant change from 11/09/2019. There is no convincing CT evidence for acute diverticulitis. There is no evidence of leukocytosis. Hemoglobin and hematocrit are stable. Troponin is negative at 0.012, EKG shows sinus rhythm with a first-degree AV block no change from 11/09/2019. UA shows positive nitrites with moderate leukocyte esterase, occasional bacteria and 20 WBCs. Patient did tolerate 2 packages of crackers and water prior to discharge. Patient will be treated for urinary tract infection. Patient and family directed to follow up with his doctor this week and return to the emergency room with any new or worsening symptoms. Case discussed with - Lab Data Result diagrams: 08/03/21 15:16 08/03/21 15:16 Lab Results 08/03/21 08/03/21 08/03/21 Range/Units 15:16 15:16 15:16 WBC 9.8 (3.8-10.6) k/uL RBC 4.62 (4.30-5.90) m/uL Hgb 15.0 (13.0-17.5) gm/dL Hct 44.7 (39.0-53.0) % MCV 96.7 (80.0-100.0) fL MCH 32.5 (25.0-35.0) pg MCHC 33.6 (31.0-37.0) g/dL RDW 12.6 (11.5-15.5) % Plt Count 245 (150-450) k/uL MPV 8.6 Neutrophils % 75 % Lymphocytes % 16 % Monocytes % 5 % Eosinophils % 4 % Basophils % 0 % Neutrophils # 7.3 (1.3-7.7) k/uL Lymphocytes # 1.5 (1.0-4.8) k/uL Monocytes # 0.5 (0-1.0) k/uL Eosinophils # 0.3 (0-0.7) k/uL Basophils # 0.0 (0-0.2) k/uL PT 10.6 (9.0-12.0) sec INR 1.0 (<1.2) APTT 26.1 (22.0-30.0) sec Sodium 137 (137-145) mmol/L Potassium 4.3 (3.5-5.1) mmol/L Chloride 105 (98-107) mmol/L Carbon Dioxide 21 L (22-30) mmol/L Anion Gap 11 mmol/L BUN 17 (9-20) mg/dL Creatinine 1.12 (0.66-1.25) mg/dL Est GFR (CKD-EPI)AfAm 71 (>60 ml/min/1.73 sqM) Est GFR (CKD-EPI)NonAf 61 (>60 ml/min/1.73 sqM) Glucose 125 H (74-99) mg/dL Plasma Lactic Acid Issa (0.7-2.0) mmol/L Calcium 10.3 H (8.4-10.2) mg/dL Total Bilirubin 0.7 (0.2-1.3) mg/dL AST 24 (17-59) U/L ALT 11 (4-49) U/L Alkaline Phosphatase 52 (38-126) U/L Troponin I (0.000-0.034) ng/mL Total Protein 7.3 (6.3-8.2) g/dL Albumin 4.2 (3.5-5.0) g/dL Amylase 69 (30-110) U/L Lipase 115 (23-300) U/L Urine Color Urine Appearance (Clear) Urine pH (5.0-8.0) Ur Specific [place] (1.001-1.035) Urine Protein (Negative) Urine Glucose (UA) (Negative) Urine Ketones (Negative) Urine Blood (Negative) Urine Nitrite (Negative) Urine Bilirubin (Negative) Urine Urobilinogen (<2.0) mg/dL Ur Leukocyte Esterase (Negative) Urine RBC (0-5) /hpf Urine WBC (0-5) /hpf Urine Bacteria (None) /hpf Urine Mucus (None) /hpf 08/03/21 08/03/21 08/03/21 Range/Units 15:16 15:16 16:55 WBC (3.8-10.6) k/uL RBC (4.30-5.90) m/uL Hgb (13.0-17.5) gm/dL Hct (39.0-53.0) % MCV (80.0-100.0) fL MCH (25.0-35.0) pg MCHC (31.0-37.0) g/dL RDW (11.5-15.5) % Plt Count (150-450) k/uL MPV Neutrophils % % Lymphocytes % % Monocytes % % Eosinophils % % Basophils % % Neutrophils # (1.3-7.7) k/uL Lymphocytes # (1.0-4.8) k/uL Monocytes # (0-1.0) k/uL Eosinophils # (0-0.7) k/uL Basophils # (0-0.2) k/uL PT (9.0-12.0) sec INR (<1.2) APTT (22.0-30.0) sec Sodium (137-145) mmol/L Potassium (3.5-5.1) mmol/L Chloride (98-107) mmol/L Carbon Dioxide (22-30) mmol/L Anion Gap mmol/L BUN (9-20) mg/dL Creatinine (0.66-1.25) mg/dL Est GFR (CKD-EPI)AfAm (>60 ml/min/1.73 sqM) Est GFR (CKD-EPI)NonAf (>60 ml/min/1.73 sqM) Glucose (74-99) mg/dL Plasma Lactic Acid Issa 1.3 (0.7-2.0) mmol/L Calcium (8.4-10.2) mg/dL Total Bilirubin (0.2-1.3) mg/dL AST (17-59) U/L ALT (4-49) U/L Alkaline Phosphatase (38-126) U/L Troponin I <0.012 (0.000-0.034) ng/mL Total Protein (6.3-8.2) g/dL Albumin (3.5-5.0) g/dL Amylase (30-110) U/L Lipase (23-300) U/L Urine Color Yellow Urine Appearance Clear (Clear) Urine pH 5.5 (5.0-8.0) Ur Specific [place] 1.019 (1.001-1.035) Urine Protein Negative (Negative) Urine Glucose (UA) Negative (Negative) Urine Ketones Negative (Negative) Urine Blood Negative (Negative) Urine Nitrite Positive (Negative) Urine Bilirubin Negative (Negative) Urine Urobilinogen <2.0 (<2.0) mg/dL Ur Leukocyte Esterase Moderate H (Negative) Urine RBC 2 (0-5) /hpf Urine WBC 20 H (0-5) /hpf Urine Bacteria Occasional H (None) /hpf Urine Mucus Rare H (None) /hpf - EKG Data EKG shows normal: sinus rhythm (Ventricular rate 62, OK interval 0.274, QRS 0.92, QTC 0.422) Disposition Clinical Impression: Hiatal hernia, Abdominal pain, UTI (urinary tract infection) Disposition: HOME SELF-CARE Condition: Good Instructions (If sedation given, give patient instructions): Hiatal Hernia (ED), Urinary Tract Infection in Men (ED), Abdominal Pain (ED) Additional Instructions: Follow-up with the primary care doctor this week. Return to the emergency room with any new or worsening symptoms including increased pain, fevers or inability to keep food or fluid down. Prescriptions: Sulfamethox-Tmp 800-160Mg [Bactrim DS 800-160 mg] 1 tab PO Q12HR 20 Days #10 tab Is patient prescribed a controlled substance at d/c from ED?: No Referrals: Hossein Langston MD [Primary Care Provider] - 1-2 days Time of Disposition: 17:13
[2021-08-03 15:29] LABS: Basophils % (A) 0 %; Eosinophils # (A) 0.3 k/uL (0-0.7); Eosinophils % (A) 4 %; HCT 44.7 % (39.0-53.0); Lymphocytes # (A) 1.5 k/uL (1.0-4.8); Lymphocytes % (A) 16 %; MCH 32.5 pg (25.0-35.0); MCHC 33.6 g/dL (31.0-37.0); MCV 96.7 fL (80.0-100.0); Mean Platelet Volume 8.6; Monocytes # (A) 0.5 k/uL (0-1.0); Monocytes % (A) 5 %; Neutrophils # (A) 7.3 k/uL (1.3-7.7); Neutrophils % (A) 75 %; Platelet Count 245 k/uL (150-450); RBC 4.62 m/uL (4.30-5.90); RDW 12.6 % (11.5-15.5); WBC 9.8 k/uL (3.8-10.6)
[2021-08-03 15:37] LABS: Albumin 4.2 g/dL (3.5-5.0); Calcium 10.3 mg/dL (8.4-10.2); Potassium 4.3 mmol/L (3.5-5.1); Total Bilirubin 0.7 mg/dL (0.2-1.3); Total Protein 7.3 g/dL (6.3-8.2)
[2021-08-03 15:43] LABS: Partial Thromboplastin Time 26.1 sec (22.0-30.0); Prothrombin Time 10.6 sec (9.0-12.0)
--- NOTE | 2021-08-03 16:20 | CT ---
EXAMINATION TYPE: CT abdomen pelvis w con DATE OF EXAM: 08/03/2021 COMPARISON: CT November 09, 2019 HISTORY: bilateral upper quadrant pain, epigastric fullness, known hiatal hernia CT DLP: 1465.4 mGycm, Automated Exposure Control for Dose Reduction was Utilized. CONTRAST: CT scan of the abdomen and pelvis is performed without oral and with IV Contrast, patient injected wi th 100 mL of Isovue 300. FINDINGS: LUNG BASES: Coronary artery calcification and/or stents in the RCA distribution redemonstrated. Stabl e cardiomegaly. LIVER/GB: Gallbladder now not identified suspected surgically absent. PANCREAS: No significant abnormality is seen. SPLEEN: Anterior splenule redemonstrated axial image 15. ADRENALS: No significant abnormality is seen. KIDNEYS: Symmetrical cortical medullary uptake and excretion without hydronephrosis seen bilaterally. Lobulated contour to bladder with small diverticulum left posterior aspect axial image 72 redemonstr ated BOWEL: Persistent large hiatal hernia or intrathoracic stomach with abnormal twisting of stomach but no significant change from prior. No suspicious small or large bowel dilatation. Prominent diverticul osis throughout the colon including the redundant sigmoid colon. No convincing CT evidence for acute diverticulitis. PROSTATE/SEMINAL VESICLES: Mildly Enlarged prostate consistent with BPH axial image 80 redemonstrated . Scattered tiny pelvic phleboliths. LYMPH NODES: No greater than 1cm abdominal or pelvic lymph nodes are appreciated. OSSEOUS STRUCTURES: S-shaped scoliosis with multilevel spurring throughout the spine. Metallic cover from right hip arthroplasty causes streak artifact limiting evaluation of pelvic structures. Straight ening of lumbar spine on sagittal images. [id number] multilevel disc space narrowing. Multileve l vacuum disc phenomenon. Facet arthropathy lower lumbar levels. OTHER: Small to moderate-sized fat-containing inguinal hernias bilaterally are redemonstrated. Modera te calcified plaque of the infrarenal abdominal aorta extends into branch vessels IMPRESSION: No significant new or acute finding is seen to account for patient's clinical symptoms. Chronic changes as detailed above redemonstrated.
[2021-08-03 17:02] LABS: Appearance,Urine Clear (Clear); Bacteria,Urine Occasional /hpf; Bilirubin,Urine Negative (Negative); Blood,Urine Negative (Negative); Color,Urine Yellow; Glucose,Urine (UA) Negative (Negative); Ketones,Urine Negative (Negative); Leukocyte Esterase,Urine Moderate (Negative); Mucus,Urine Rare /hpf; Nitrite,Urine Positive (Negative); PH, Urine 5.5 (5.0-8.0); Protein,Urine Negative (Negative); RBC,Urine 2 /hpf (0-5); Specific Gravity,Urine 1.019 (1.001-1.035); Urobilinogen,Urine <2.0 mg/dL (<2.0); WBC,Urine 20 /hpf (0-5)
== END 2021-08-03 17:57 | disposition home or self-care (01) ==
LOC: EC 14:11
DX: K44.9 Diaphragmatic hernia without obstruction or gangrene (principal); N39.0 Urinary tract infection, site not specified; E78.5 Hyperlipidemia, unspecified; I10 Essential (primary) hypertension; I25.2 Old myocardial infarction; Z79.82 Long term (current) use of aspirin
CPT/HCPCS: 36415; 93005; 80053; 82150; 83605; 83690; 84484; 85025; 85610; 85730; 81001; 87086; 74177; 99284; Q9967

== ENCOUNTER 2021-08-06 10:12 | Observation (INO) | payer MEDICARE ==
--- NOTE | 2021-08-06 10:40 | ED ---
General Adult HPI - General Chief complaint: Chest Pain Stated complaint: chest discomfort Time Seen by Provider: 08/06/21 10:16 Source: patient, RN notes reviewed, old records reviewed Mode of arrival: ambulatory Limitations: no limitations - History of Present Illness Initial comments: This is an 80-year-old well-appearing white male patient, alert and oriented 4, presents to the emergency room with epigastric chest pain that radiates to his left neck. He denies fevers, nausea or vomiting. His last bowel movement was yesterday. He states that it is worse with deep breaths which radiates to his neck. Patient was seen in the hospital for abdominal pain on August 03 and had a CAT scan done revealing hiatal hernia no acute abnormalities. He has been taking antibiotics for urinary tract infection diagnosed at that time. -: hour(s) (3) Location: abdomen (Epigastric, left upper and left lower quadrant pain) Radiation: neck (Left neck) Consistency: intermittent Improves with: none Worsens with: other (Deep breaths) Associated Symptoms: denies other symptoms Treatments Prior to Arrival: Aspirin - Related Data Home Medications Medication Instructions Recorded Confirmed Simvastatin [Zocor] 10 mg PO HS 08/28/18 08/06/21 Tamsulosin HCl [Flomax] 0.4 mg PO DAILY 08/28/18 08/06/21 Vit C/E/Zn/Coppr/Lutein/Zeaxan 1 cap PO BID 08/28/18 08/06/21 [Preservision Areds 2 Softgel] Thiamine HCl [Vitamin B-1] 100 mg PO DAILY 08/28/19 08/06/21 Enalapril [Vasotec] 5 mg PO DAILY 12/03/19 08/06/21 Aspirin 81 mg PO HS 08/06/21 08/06/21 Ketorolac 0.5% Ophth Soln [Acular 1 drops BOTH EYES BID 08/06/21 08/06/21 0.5%] Pantoprazole Sodium 20 mg PO BID 08/06/21 08/06/21 Sennosides [Senokot] 17.2 tab PO BID 08/06/21 08/06/21 buPROPion SR [Wellbutrin SR] 150 mg PO HS 08/06/21 08/06/21 prednisoLONE ACETATE 1% OPHTH 1 drop BOTH EYES BID 08/06/21 08/06/21 [Pred Forte 1%] Previous Rx's Medication Instructions Recorded Cyanocobalamin [Vitamin B-12] 500 mcg PO DAILY #90 tablet 11/12/19 atenoloL [Tenormin] 75 mg PO HS #30 tab 11/12/19 Sulfamethox-Tmp 800-160Mg [Bactrim 1 tab PO Q12HR 20 Days #10 tab 08/03/21 DS 800-160 mg] Allergies Allergy/AdvReac Type Severity Reaction Status Date / Time No Known Allergies Allergy Verified 08/06/21 11:01 Review of Systems ROS Statement: Those systems with pertinent positive or pertinent negative responses have been documented in the HPI. ROS Other: All systems not noted in ROS Statement are negative. Past Medical History Past Medical History: Chest Pain / Angina, GERD/Reflux, Hyperlipidemia, Hypertension Additional Past Medical History / Comment(s): Esophageal strictures, macular degeneration, UTI, ALCOHOLIS alcohol-DEMENTIA Last Myocardial Infarction Date:: 1992 History of Any Multi-Drug Resistant Organisms: None Reported Past Surgical History: Coronary Bypass/CABG, Tonsillectomy Additional Past Surgical History / Comment(s): CABG 1992, COLONOSCOPY, EGD - ESOPHAGEAL STRICTURE Past Anesthesia/Blood Transfusion Reactions: No Reported Reaction Past Psychological History: No Psychological Hx Reported Smoking Status: Never smoker Past Alcohol Use History: None Reported Past Drug Use History: None Reported - Past Family History Father Family Medical History: Cancer Additional Family Medical History / Comment(s): Father from alcohol-related gastric cancer. Sister(s) Family Medical History: Cancer Additional Family Medical History / Comment(s): The patient has total of 4 sisters. One from colon cancer, 1 from ovarian cancer, one has lupus, one has no major medical problems. Brother(s) Additional Family Medical History / Comment(s): Patient has one brother with history of gallbladder disease and coronary artery disease. Mother Additional Family Medical History / Comment(s): Mother of old age. Daughter(s) Additional Family Medical History / Comment(s): Patient has 3 daughters one his history of COPD secondary to smoking, 2 daughters with no major medical problems. Patient has 1 son with history of hepatitis C and HIV. General Exam Limitations: no limitations General appearance: alert, in no apparent distress Head exam: Present: atraumatic, normocephalic, normal inspection Eye exam: Present: normal appearance, PERRL, EOMI. Absent: scleral icterus, conjunctival injection, periorbital swelling ENT exam: Present: normal exam, mucous membranes moist Neck exam: Present: normal inspection, tenderness (Pain with palpation to the levator scapulae muscle), full ROM. Absent: meningismus, lymphadenopathy, thyromegaly Respiratory exam: Present: normal lung sounds bilaterally. Absent: respiratory distress, wheezes, rales, rhonchi, stridor Cardiovascular Exam: Present: regular rate, normal rhythm, normal heart sounds. Absent: systolic murmur, diastolic murmur, rubs, gallop, clicks, JVD GI/Abdominal exam: Present: tenderness (Left upper and left lower quadrants) Extremities exam: Present: full ROM, normal capillary refill. Absent: tenderness Back exam: Present: normal inspection, full ROM. Absent: tenderness, CVA tenderness (R), CVA tenderness (L) Neurological exam: Present: alert, oriented X3, CN II-XII intact Psychiatric exam: Present: normal affect, normal mood Skin exam: Present: warm, dry, intact, normal color. Absent: rash, cyanosis, diaphoretic, petechiae, pallor Course Vital Signs 08/06/21 08/06/21 08/06/21 10:18 13:38 14:36 Temperature 97.9 F 97.8 F Pulse Rate 92 87 Pulse Rate [ 85 Right Pulse Oximetery] Respiratory 20 16 16 Rate Blood Pressure 107/63 106/63 Blood Pressure 92/60 [Right Arm] O2 Sat by Pulse 98 97 99 Oximetry EKG Findings - EKG Results: EKG: sinus rhythm (Ventricular rate 91, NM interval of 0.320, QRS of 0.90, QTC 0.553) Medical Decision Making - Medical Decision Making Troponin is negative at 0.012, EKG shows prolonged NM and QT interval, no ST elevation. His creatinine is 1.6 which is elevated from last visit. At that time he did have a CT with contrast of the chest and abdomen. Sodium is 132. Patient was given 500 mL bolus of normal saline. Case was discussed with Dr. Stuart, will admit patient for chest pain. D-dimer is elevated at 1.06 however due to his creatinine he may need a VQ scan. He is not complaining of difficulty in breathing and his vital signs are stable. Chest x-ray shows a patchy atelectasis versus early infiltrate in the periphery of the right mid lung. There is a moderate to large hiatal hernia that is chronic. I discussed this case with Dr. Langston and is agreeable to admitting patient with cardiology and nephrology on consult. - Lab Data Result diagrams: 08/06/21 11:10 08/06/21 11:10 Lab Results 08/06/21 08/06/21 08/06/21 Range/Units 11:10 11:10 11:10 WBC 12.9 H (3.8-10.6) k/uL RBC 4.01 L (4.30-5.90) m/uL Hgb 12.9 L (13.0-17.5) gm/dL Hct 38.7 L (39.0-53.0) % MCV 96.6 (80.0-100.0) fL MCH 32.1 (25.0-35.0) pg MCHC 33.3 (31.0-37.0) g/dL RDW 12.5 (11.5-15.5) % Plt Count 182 (150-450) k/uL MPV 7.8 Neutrophils % 87 % Lymphocytes % 5 % Monocytes % 6 % Eosinophils % 1 % Basophils % 0 % Neutrophils # 11.2 H (1.3-7.7) k/uL Lymphocytes # 0.7 L (1.0-4.8) k/uL Monocytes # 0.7 (0-1.0) k/uL Eosinophils # 0.2 (0-0.7) k/uL Basophils # 0.0 (0-0.2) k/uL PT 10.7 (9.0-12.0) sec INR 1.0 (<1.2) APTT 26.6 (22.0-30.0) sec D-Dimer 1.06 H (<0.60) mg/L FEU Sodium 132 L (137-145) mmol/L Potassium 4.4 (3.5-5.1) mmol/L Chloride 104 (98-107) mmol/L Carbon Dioxide 20 L (22-30) mmol/L Anion Gap 8 mmol/L BUN 20 (9-20) mg/dL Creatinine 1.60 H (0.66-1.25) mg/dL Est GFR (CKD-EPI)AfAm 46 (>60 ml/min/1.73 sqM) Est GFR (CKD-EPI)NonAf 40 (>60 ml/min/1.73 sqM) Glucose 106 H (74-99) mg/dL Calcium 9.4 (8.4-10.2) mg/dL Magnesium 1.7 (1.6-2.3) mg/dL Total Bilirubin 1.0 (0.2-1.3) mg/dL AST 33 (17-59) U/L ALT 26 (4-49) U/L Alkaline Phosphatase 76 (38-126) U/L Troponin I (0.000-0.034) ng/mL Total Protein 6.0 L (6.3-8.2) g/dL Albumin 3.1 L (3.5-5.0) g/dL Amylase 34 (30-110) U/L Lipase 29 (23-300) U/L Urine Color Urine Appearance (Clear) Urine pH (5.0-8.0) Ur Specific [place] (1.001-1.035) Urine Protein (Negative) Urine Glucose (UA) (Negative) Urine Ketones (Negative) Urine Blood (Negative) Urine Nitrite (Negative) Urine Bilirubin (Negative) Urine Urobilinogen (<2.0) mg/dL Ur Leukocyte Esterase (Negative) Urine RBC (0-5) /hpf Urine WBC (0-5) /hpf Ur Squamous Epith Cells (0-4) /hpf Uric Acid Crystals (None) /hpf Urine Mucus (None) /hpf Coronavirus (PCR) (Not Detectd) 08/06/21 08/06/21 08/06/21 Range/Units 11:10 13:00 13:00 WBC (3.8-10.6) k/uL RBC (4.30-5.90) m/uL Hgb (13.0-17.5) gm/dL Hct (39.0-53.0) % MCV (80.0-100.0) fL MCH (25.0-35.0) pg MCHC (31.0-37.0) g/dL RDW (11.5-15.5) % Plt Count (150-450) k/uL MPV Neutrophils % % Lymphocytes % % Monocytes % % Eosinophils % % Basophils % % Neutrophils # (1.3-7.7) k/uL Lymphocytes # (1.0-4.8) k/uL Monocytes # (0-1.0) k/uL Eosinophils # (0-0.7) k/uL Basophils # (0-0.2) k/uL PT (9.0-12.0) sec INR (<1.2) APTT (22.0-30.0) sec D-Dimer (<0.60) mg/L FEU Sodium (137-145) mmol/L Potassium (3.5-5.1) mmol/L Chloride (98-107) mmol/L Carbon Dioxide (22-30) mmol/L Anion Gap mmol/L BUN (9-20) mg/dL Creatinine (0.66-1.25) mg/dL Est GFR (CKD-EPI)AfAm (>60 ml/min/1.73 sqM) Est GFR (CKD-EPI)NonAf (>60 ml/min/1.73 sqM) Glucose (74-99) mg/dL Calcium (8.4-10.2) mg/dL Magnesium (1.6-2.3) mg/dL Total Bilirubin (0.2-1.3) mg/dL AST (17-59) U/L ALT (4-49) U/L Alkaline Phosphatase (38-126) U/L Troponin I <0.012 (0.000-0.034) ng/mL Total Protein (6.3-8.2) g/dL Albumin (3.5-5.0) g/dL Amylase (30-110) U/L Lipase (23-300) U/L Urine Color Yellow Urine Appearance Turbid (Clear) Urine pH 6.0 (5.0-8.0) Ur Specific [place] 1.020 (1.001-1.035) Urine Protein Negative (Negative) Urine Glucose (UA) Negative (Negative) Urine Ketones Trace H (Negative) Urine Blood Negative (Negative) Urine Nitrite Negative (Negative) Urine Bilirubin Negative (Negative) Urine Urobilinogen 4.0 (<2.0) mg/dL Ur Leukocyte Esterase Large H (Negative) Urine RBC 3 (0-5) /hpf Urine WBC 8 H (0-5) /hpf Ur Squamous Epith Cells 1 (0-4) /hpf Uric Acid Crystals Many H (None) /hpf Urine Mucus Rare H (None) /hpf Coronavirus (PCR) Not Detected (Not Detectd) Disposition Clinical Impression: Chest pain, REJI (acute kidney injury) Disposition: ADMITTED IP TO THIS HOSP Decision Date: 08/06/21 Decision Time: 13:32
[2021-08-06 11:19] LABS: Basophils % (A) 0 %; Eosinophils # (A) 0.2 k/uL (0-0.7); Eosinophils % (A) 1 %; HCT 38.7 % (39.0-53.0); HGB 12.9 gm/dL (13.0-17.5); Lymphocytes # (A) 0.7 k/uL (1.0-4.8); Lymphocytes % (A) 5 %; MCH 32.1 pg (25.0-35.0); MCHC 33.3 g/dL (31.0-37.0); MCV 96.6 fL (80.0-100.0); Mean Platelet Volume 7.8; Monocytes # (A) 0.7 k/uL (0-1.0); Monocytes % (A) 6 %; Neutrophils # (A) 11.2 k/uL (1.3-7.7); Neutrophils % (A) 87 %; Platelet Count 182 k/uL (150-450); RBC 4.01 m/uL (4.30-5.90); RDW 12.5 % (11.5-15.5); WBC 12.9 k/uL (3.8-10.6)
[2021-08-06 11:37] LABS: Albumin 3.1 g/dL (3.5-5.0); Calcium 9.4 mg/dL (8.4-10.2); Magnesium 1.7 mg/dL (1.6-2.3); Potassium 4.4 mmol/L (3.5-5.1)
[2021-08-06 11:40] LABS: Partial Thromboplastin Time 26.6 sec (22.0-30.0); Prothrombin Time 10.7 sec (9.0-12.0)
[2021-08-06] MEDS ORDERED: SODIUM CHLORIDE 0.9% 500 ML 500 ML IV ONE (12:12)
--- NOTE | 2021-08-06 13:24 | XR ---
EXAMINATION TYPE: XR chest 2V DATE OF EXAM: 08/06/2021 COMPARISON: 11/09/2019 HISTORY: 80-year-old male with pain TECHNIQUE: PA and lateral views FINDINGS: Heart upper limits of normal in size. Median sternotomy wires and post-CABG clips in the mediastinum. Mild patchy peripheral right midlung opacity. Focal retrocardiac mixed lucency and opacity compatible with active hernia. No pleural effusion. IMPRESSION: 1. Mild patchy atelectasis versus early infiltrate in the periphery of right midlung. 2. Moderate to large hiatal hernia incidentally noted.
[2021-08-06] MEDS ORDERED: NALOXONE 0.4 MG/ML 1 ML VIAL IV PRN (13:28)
[2021-08-06 13:32] LABS: Appearance,Urine Turbid (Clear); Bilirubin,Urine Negative (Negative); Blood,Urine Negative (Negative); Color,Urine Yellow; Glucose,Urine (UA) Negative (Negative); Ketones,Urine Trace (Negative); Leukocyte Esterase,Urine Large (Negative); Mucus,Urine Rare /hpf; Nitrite,Urine Negative (Negative); Protein,Urine Negative (Negative); RBC,Urine 3 /hpf (0-5); Squamous Epithelial Cell,Urine 1 /hpf (0-4); Uric Acid Crystals,Urine Many /hpf; WBC,Urine 8 /hpf (0-5)
[2021-08-06] MEDS: SODIUM CHLORIDE 0.9% 1,000 ML IV SCH (15:19)
[2021-08-06] MEDS: ACETAMINOPHEN TAB 325 MG TAB PO PRN ×2 (16:27→23:41)
[2021-08-06] MEDS: atenoloL 25 MG TAB PO SCH (22:13)
[2021-08-06] MEDS: ENOXAPARIN 80 MG/0.8 ML SYRINGE SQ SCH (22:18)
--- NOTE | 2021-08-06 23:21 | US ---
EXAMINATION TYPE: US kidneys/renal and bladder DATE OF EXAM: 08/06/2021 COMPARISON: CT 2020 CLINICAL HISTORY: REJI. UTI Exam done portable. EXAM MEASUREMENTS: Right Kidney: 11.7 x 4.7 x 5.0 cm Left Kidney: 11.6 x 4.7 x 5.8 cm Right Kidney: No hydronephrosis or masses seen Left Kidney: No hydronephrosis or masses seen Bladder: irregular posterior wall bladder diverticulum Bilateral Jets seen: right jet not seen, left jet seen . IMPRESSION: No evidence of renal stone or obstruction. No evidence of a bladder mass.
[2021-08-07] MEDS: SODIUM CHLORIDE 0.9% 1,000 ML IV SCH (03:33)
[2021-08-07] MEDS ORDERED: lisinopriL 5 MG TAB PO SCH (09:00)
[2021-08-07] MEDS: SENNOSIDES 8.6 MG TAB PO SCH ×2 (09:35→21:17)
[2021-08-07] MEDS: CYANOCOBALAMIN 500 MCG TAB PO SCH (09:35)
[2021-08-07] MEDS: ACETAMINOPHEN TAB 325 MG TAB PO PRN (09:35)
[2021-08-07] MEDS: TAMSULOSIN 0.4 MG CAP.ER.24H PO SCH (09:35)
[2021-08-07] MEDS: THIAMINE 100 MG TAB PO SCH (09:37)
[2021-08-07] MEDS: PANTOPRAZOLE 40 MG TABLET PO SCH ×2 (09:37→21:16)
[2021-08-07] MEDS: ENOXAPARIN 80 MG/0.8 ML SYRINGE SQ SCH ×2 (09:38→21:16)
[2021-08-07] MEDS: VIT A,C & E-LUTEIN-MINERALS 1 EACH TAB PO SCH (09:39)
[2021-08-07] MEDS: prednisoLONE ACETATE 1% OPHTH DROPS 5 ML BTL BOTH EYES SCH ×2 (09:40→21:17)
[2021-08-07] MEDS: KETOROLAC 0.5% OPHTH DROPS 5 ML BTL BOTH EYES SCH ×2 (09:40→21:17)
--- NOTE | 2021-08-07 11:00 | P.CRDCN ---
History of Present Illness History of present illness: HISTORY OF PRESENTING ILLNESS Patient is a pleasantly confused 80-year-old male with a history of mild dementia, hypertension, hyperlipidemia, coronary artery disease status post CABG 1992, prior LV abuse, GERD, esophageal strictures, cigar abuse who presents secondary to patient not eating, chest pain. Patient is poor historian and cannot recall why he came in. He admits to some epigastric pain however states is worse when he takes a deep breath in. Per nursing family has been concerned as he has not been eating or drinking as much recently. He was found to have acute kidney injury with creatinine up to 1.6. He is unable to describe any actual chest pain and states is more epigastric. He is not able to tell me if it is worse with any exertion or worse with eating any food. Today and overnight he states he has been doing well. He is without one-to-one sitter secondary to confusion. Blood work shows white blood cell count 12.9, hemoglobin 12.9, d-dimer 1.06, sodium 132, creatinine 1.6, troponin normal 3, albumin 3.1. Urinalysis does show large leukocyte esterases and 8 white blood cells. Coronary arteries was negative. EKG shows normal sinus rhythm, normal axis, first-degree AV block, Q waves V1 and V2, no significant ST or T-wave abnormalities. REVIEW OF SYSTEMS At the time of my exam: CONSTITUTIONAL: Denies fever or chills. CARDIOVASCULAR: Denies chest pain, shortness of breath, orthopnea, PND or palpitations. +epigastric pain RESPIRATORY: Denies cough. GASTROINTESTINAL: Denies abdominal pain, diarrhea, constipation, nausea or vomiting. MUSCULOSKELETAL: Denies myalgias. NEUROLOGIC: Denies numbness, tingling or weakness. ENDOCRINE: Denies fatigue, weight change, polydipsia or polyurina. GENITOURINARY: Denies burning, hematuria or urgency with micturation. HEMATOLOGIC: Denies history of anemia or bleeding. PHYSICAL EXAMINATION Vital signs reviewed. CONSTITUTIONAL: No apparent distress. HEENT: Head is normocephalic. Pupils are equal, round. Sclerae anicteric. Mucous membranes of the mouth are moist. No JVD. No carotid bruit. CHEST EXAMINATION: Lungs are clear to auscultation. No chest wall tenderness is noted on palpation or with deep breathing. HEART EXAMINATION: Regular rate and rhythm. S1, S2 heard. No murmurs, gallops or rub. ABDOMEN: Soft, nontender. Positive bowel sounds. EXTREMITIES: 2+ peripheral pulses, no lower extremity edema and no calf tenderness. NEUROLOGIC EXAMINATION: Patient is awake, alert but confused ASSESSMENT 1. Atypical chest pain however appears more epigastric pain, not consistent with angina, troponin is normal 3 2. Acute kidney injury 3. Decreased oral appetite 4. More epigastric pain 5. Coronary artery disease with history of CABG 6. Hypertension 7. Hyperlipidemia 8. Dementia PLAN Chest pain appears atypical. Appears more epigastric in nature and may consider GI source, gastric ulcer or other. He has had decreased oral appetite. We will check 2-D echo and continue to monitor for any chest pain. Would continue with antianginals as able and medical therapy with what appears to be fairly significant dementia. Past Medical History Past Medical History: Chest Pain / Angina, GERD/Reflux, Hyperlipidemia, Hypertension Additional Past Medical History / Comment(s): Esophageal strictures, macular degeneration, UTI, ALCOHOLIS alcohol-DEMENTIA Last Myocardial Infarction Date:: 1992 History of Any Multi-Drug Resistant Organisms: None Reported Past Surgical History: Coronary Bypass/CABG, Tonsillectomy Additional Past Surgical History / Comment(s): CABG 1992, COLONOSCOPY, EGD - ESOPHAGEAL STRICTURE Past Anesthesia/Blood Transfusion Reactions: No Reported Reaction Past Psychological History: No Psychological Hx Reported Smoking Status: Never smoker Past Alcohol Use History: None Reported Past Drug Use History: None Reported - Past Family History Father Family Medical History: Cancer Additional Family Medical History / Comment(s): Father from alcohol-related gastric cancer. Sister(s) Family Medical History: Cancer Additional Family Medical History / Comment(s): The patient has total of 4 sisters. One from colon cancer, 1 from ovarian cancer, one has lupus, one has no major medical problems. Brother(s) Additional Family Medical History / Comment(s): Patient has one brother with history of gallbladder disease and coronary artery disease. Mother Additional Family Medical History / Comment(s): Mother of old age. Daughter(s) Additional Family Medical History / Comment(s): Patient has 3 daughters one his history of COPD secondary to smoking, 2 daughters with no major medical problems. Patient has 1 son with history of hepatitis C and HIV. Medications and Allergies Home Medications Medication Instructions Recorded Confirmed Type Simvastatin [Zocor] 10 mg PO HS 08/28/18 08/06/21 History Tamsulosin HCl [Flomax] 0.4 mg PO DAILY 08/28/18 08/06/21 History Vit C/E/Zn/Coppr/Lutein/Zeaxan 1 cap PO BID 08/28/18 08/06/21 History [Preservision Areds 2 Softgel] Thiamine HCl [Vitamin B-1] 100 mg PO DAILY 08/28/19 08/06/21 History Cyanocobalamin [Vitamin B-12] 500 mcg PO DAILY #90 tablet 11/12/19 08/06/21 Rx atenoloL [Tenormin] 75 mg PO HS #30 tab 11/12/19 08/06/21 Rx Enalapril [Vasotec] 5 mg PO DAILY 12/03/19 08/06/21 History Sulfamethox-Tmp 800-160Mg [Bactrim 1 tab PO Q12HR 20 Days #10 tab 08/03/21 08/06/21 Rx DS 800-160 mg] Aspirin 81 mg PO HS 08/06/21 08/06/21 History Ketorolac 0.5% Ophth Soln [Acular 1 drops BOTH EYES BID 08/06/21 08/06/21 Hi story 0.5%] Pantoprazole Sodium 20 mg PO BID 08/06/21 08/06/21 History Sennosides [Senokot] 17.2 tab PO BID 08/06/21 08/06/21 History buPROPion SR [Wellbutrin SR] 150 mg PO HS 08/06/21 08/06/21 History prednisoLONE ACETATE 1% OPHTH 1 drop BOTH EYES BID 08/06/21 08/06/21 History [Pred Forte 1%] Allergies Allergy/AdvReac Type Severity Reaction Status Date / Time No Known Allergies Allergy Verified 08/06/21 11:01 Physical Exam Vitals: Vital Signs Temp Pulse Pulse Resp BP BP Pulse Ox 08/07/21 07:00 97.7 F 68 18 104/64 98 08/07/21 02:00 98.4 F 70 18 100/61 98 08/06/21 19:35 97.3 F L 84 18 92/60 96 08/06/21 17:23 97.8 F 85 14 97 08/06/21 14:36 87 16 106/63 99 08/06/21 13:38 97.8 F 85 16 92/60 97 Intake and Output 08/06/21 08/07/21 08/07/21 22:59 06:59 14:59 Intake Total 300 Output Total 100 Balance 300 -100 Intake: Intake, IV Titration 300 Amount Sodium Chloride 0.9% 1, 300 000 ml @ 75 mls/hr IV . [id number] [facility] Rx#:[id number] Output: Urine 100 Other: # Voids 1 # Bowel Movements 0 Results 08/06/21 11:10 08/06/21 11:10 Cardiac Enzymes 08/06/21 08/06/21 08/06/21 Range/Units 11:10 11:10 15:15 AST 33 (17-59) U/L Troponin I <0.012 <0.012 (0.000-0.034) ng/mL 08/06/21 Range/Units 20:26 AST (17-59) U/L Troponin I <0.012 (0.000-0.034) ng/mL Coagulation 08/06/21 Range/Units 11:10 PT 10.7 (9.0-12.0) sec APTT 26.6 (22.0-30.0) sec CBC 08/06/21 Range/Units 11:10 WBC 12.9 H (3.8-10.6) k/uL RBC 4.01 L (4.30-5.90) m/uL Hgb 12.9 L (13.0-17.5) gm/dL Hct 38.7 L (39.0-53.0) % Plt Count 182 (150-450) k/uL Comprehensive Metabolic Panel 08/06/21 Range/Units 11:10 Sodium 132 L (137-145) mmol/L Potassium 4.4 (3.5-5.1) mmol/L Chloride 104 (98-107) mmol/L Carbon Dioxide 20 L (22-30) mmol/L BUN 20 (9-20) mg/dL Creatinine 1.60 H (0.66-1.25) mg/dL Glucose 106 H (74-99) mg/dL Calcium 9.4 (8.4-10.2) mg/dL AST 33 (17-59) U/L ALT 26 (4-49) U/L Alkaline Phosphatase 76 (38-126) U/L Total Protein 6.0 L (6.3-8.2) g/dL Albumin 3.1 L (3.5-5.0) g/dL Current Medications Generic Name Dose Route Start Last Admin Trade Name Freq PRN Reason Stop Dose Admin Acetaminophen 650 mg 08/06/21 13:28 08/07/21 09:35 Acetaminophen Tab 325 Mg Tab PO 650 mg Q6HR PRN Administration Mild Pain or Fever > 100.5 Aspirin 81 mg 08/07/21 21:00 Aspirin 81 Mg PO HS [facility] Atenolol 75 mg 08/06/21 21:45 08/06/21 22:13 Atenolol 25 Mg Tab PO Not Given HS [facility] Atorvastatin Calcium 10 mg 08/07/21 21:00 Atorvastatin 10 Mg Tab PO HS [facility] Bupropion HCl 150 mg 08/07/21 21:00 Bupropion Sr 150 Mg Tablet.Er PO HS [facility] Cyanocobalamin 500 mcg 08/07/21 09:00 08/07/21 09:35 Cyanocobalamin 500 Mcg Tab PO 500 mcg DAILY [facility] Administration Enoxaparin Sodium 80 mg 08/06/21 21:45 08/07/21 09:38 Enoxaparin 80 Mg/0.8 Ml Syringe SQ 80 mg Q12HR [facility] Administration Sodium Chloride 1,000 mls @ 75 mls/hr 08/06/21 13:30 08/07/21 03:33 Saline 0.9% IV 75 mls/hr .[id number] [facility] Administration Ceftriaxone Sodium 1 gm/ 50 mls @ 100 mls/hr 08/07/21 22:00 Sodium Chloride IVPB Q24H [facility] Ketorolac Tromethamine 1 drops 08/07/21 09:00 08/07/21 09:40 Ketorolac 0.5% Ophth Drops 5 Ml Btl BOTH EYES 1 drops BID [facility] Administration Multivitamins/Minerals 1 each 08/07/21 09:00 08/07/21 09:39 Vit A,C & H-[id number] 1 Each Tab PO 1 each BID [facility] Administration Naloxone HCl 0.2 mg 08/06/21 13:28 Naloxone 0.4 Mg/Ml 1 Ml Vial IV Q2M PRN Opioid Reversal Pantoprazole Sodium 40 mg 08/07/21 09:00 08/07/21 09:37 Pantoprazole 40 Mg Tablet PO 40 mg BID [facility] Administration Prednisolone Acetate 1 drops 08/07/21 09:00 08/07/21 09:40 Prednisolone Acetate 1% Ophth Drops 5 Ml Btl BOTH EYES 1 drops BID [facility] Administration Senna 8.6 mg 08/07/21 09:00 08/07/21 09:35 Sennosides 8.6 Mg Tab PO 8.6 mg BID [facility] Administration Tamsulosin HCl 0.4 mg 08/07/21 09:00 08/07/21 09:35 Tamsulosin 0.4 Mg Cap.Er.24h PO 0.4 mg DAILY [facility] Administration Thiamine HCl 100 mg 08/07/21 09:00 08/07/21 09:37 Thiamine 100 Mg Tab PO 100 mg DAILY [facility] Administration Intake and Output 08/06/21 08/07/21 08/07/21 22:59 06:59 14:59 Intake Total 300 Output Total 100 Balance 300 -100 Intake: Intake, IV Titration 300 Amount Sodium Chloride 0.9% 1, 300 000 ml @ 75 mls/hr IV . [id number] [facility] Rx#:[id number] Output: Urine 100 Other: # Voids 1 # Bowel Movements 0 08/06/21 11:10 08/06/21 11:10
[2021-08-07 12:21] LABS: African American GFR (CKD) 53.8 (60.0-200.0); Albumin 3.4 g/dL (3.80-4.90); Albumin/Globulin Ratio 1.62 (1.60-3.17); Anion Gap 8.5 mmol/L (4.00-12.00); BUN/Creat Ratio 15.71 Ratio (12.00-20.00); Calcium 8.9 mg/dL (8.7-10.3); Carbon Dioxide 18.5 mmol/L (21.6-31.8); Globulin 2.1 g/dL (1.6-3.3); Non-African American GFR(CKD) 46.5 (60.0-200.0); Potassium 4.7 mmol/L (3.5-5.5); Total Bilirubin 0.7 mg/dL (0.3-1.2); Total Protein 5.5 g/dL (6.2-8.2)
[2021-08-07 12:32] LABS: HCT 36.1 % (39.6-50.0); HGB 11.8 g/dL (13.0-17.0); MCH 31.1 pg (27.0-32.0); MCHC 32.7 g/dL (32.0-37.0); Mean Platelet Volume 12.3 fL (9.5-12.2); Platelet Count 187 X 10*3/uL (140-440); RDW 13.3 % (11.5-14.5); WBC 8.14 X 10*3/uL (4.50-10.00)
--- NOTE | 2021-08-07 12:55 | P.HPIM ---
History of Present Illness H&P Date: 08/06/21 Chief Complaint: Chest pain and shortness of breath, recurrent abdominal pain, dyspnea, HISTORY OF PRESENT ILLNESS 80-year-old male one of my office patient with known for over 20 years with past medical history of CAD post CABG back in , history of hypertension, hyperlipidemia, chronic history of alcoholism the patient has quit over 3 years ago also patient has been suffering from significant memory loss. Patient was the emergency room on the with significant abdominal pain CAT scan of the abdomen and pelvis didn't show any major abnormality patient was suffering from severe constipation was prescribed MiraLAX, Senokot and lactulose and apparently symptoms has improved. Patient presented to the emergency department with his family complaining of worsening chest pain for the last 24 hours consistent with junction between his epigastric and chest wall area has been much worsening with exertion patient has been having dyspnea with minimum exertion at the time. At the time was seen his troponin was negative his d-dimer was mildly elevated the past creatinine jumped up to 1.6 from 1.0 2days ago patient could not go for CTA with was started on Lovenox 1 mg/kg twice a day till his hydration improved his kidney function to be able to go for CTA. His EKG didn't show any major abnormality patient was started on hydration will be admitted to the hospital. Also found to have significant UTI with multiple leukocyte and nitrate his urine, culture was done still pending the patient was giving 1 g of Rocephin awaiting for his final culture. REVIEW OF SYSTEMS Constitutional: No fever, no chills, no night sweats. Mild tiredness fatigue lethargy daytime sleep along with few pound weight loss in the last 3 weeks. EENT: No headache. No blurred vision or double vision, no loss of vision. No loss of Hearing, no ringing in the ears, no dizziness. No nasal drainage or congestion. No epistaxis. No sore throat. Lungs: Slight dyspnea and shortness of breath. Cardiovascular: Positive chest pain, no lower extremity edema. No palpitations. Positive paroxysmal nocturnal dyspnea. Mild orthopnea. Positive lightheadedness or dizziness. No syncopal episodes. Abdominal: Positive abdominal pain. with nausea, vomiting. No diarrhea. Positive constipation. No bloody or tarry stools.. Positive loss of appetite. Genitourinary: No dysuria, increased frequency, urgency. No urinary retention. Musculoskeletal: No myalgias. No muscle weakness, no gait dysfunction, no frequent falls. No back pain. No neck pain. Integumentary: No wounds, no lesions. No rash or pruritus. No unusual bruising. No change in hair or nails. Neurologic: No aphasia. No facial droop. Significant memory loss with abnormal balance and gait. Psychiatric: No depression. No anxiety. Positive dementia Endocrine: No abnormal blood sugars. No weight change. No excessive sweating or thirst. No cold intolerance. SOCIAL HISTORY Patient is a live with family, used to smoke 4 cigars a day for over 20 years, used to drink heavily until 3 years ago patient quit. Patient does not use any oxygen or CPAP at home FAMILY HISTORY He has 4 children with no major medical problem, sibling with history of CAD, both parents passed from atherosclerotic heart disease. PHYSICAL EXAMINATION Gen: This is elderly laying in bed mildly confused does not look in any respiratory distress. HEENT: Head is atraumatic, normocephalic. Pupils equal, round. Sclerae is anicteric. NECK: Supple. No JVD. No lymphadenopathy. No thyromegaly. CHEST: No tenderness or deformity decreased expansion with deep inspiration. LUNGS: Clear to auscultation. No wheezes or rhonchi. No intercostal retractions. HEART: Regular rate and rhythm. With slight irregularity, S1, S2, positive 2/6 systolic murmur at the apex ABDOMEN: Soft. Bowel sounds are present. No masses. No tenderness. EXTREMITIES: No pedal edema. No calf tenderness. NEUROLOGICAL: Patient is awake, alert with confusion. Cranial nerves 2 through 12 are grossly intact, positive generalized weakness.. ASSESSMENT AND PLAN 1. Atypical chest pain: With history of CAD post CABG years ago, no testing lately, patient will be hospitalized CK with troponin will be done patient also we will go for CTA as soon as his kidney function and clearance slightly but bet ter exclude the possibility of pulmonary embolism.. 2. Nonsustained A. fib: Patient is not in any anticoagulation lately continue to watch patient has not had any tachycardia remain on atenolol 75 mg daily at bedtime. 3. Acute kidney injury: Most likely the effect of the dye CAT scan done on the , continue hydration repeat CMP, ultrasound of the kidney patient to see nephrology.. 4. Recurrent abdominal pain: Consistent with severe gastritis and severe constipation with mild diverticuli, CT of the abdomen didn't show any major abnormality patient had respond quite bed to PPI pantoprazole and had bowel movement almost daily since his last emergency room visit.. 5. 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 6. UTI with sepsis: UA was very positive, culture will be done patient still on Rocephin 1 g a day till his discharge which was switched to Ceftin or smaller dose of Cipro.. 7. Hyperlipidemia: Remain on Zocor 10 mg a day.. 8. Hypertension: Continue Vasotec 5 mg a day and atenolol 75 mg daily. 9. Severe GERD: Remain on pantoprazole 40 mg a day. 10. DVT prophylaxis: Patient remain on Lovenox 1 mg/kg twice a day till his CTAs done which will be prophylaxis and therapeutic for PE. 11. COVID-19 testing, was negative. Patient will be admitted to the hospital for a minimum of 2 night stay. Past Medical History Past Medical History: Chest Pain / Angina, GERD/Reflux, Hyperlipidemia, Hypertension Additional Past Medical History / Comment(s): Esophageal strictures, macular deg eneration, UTI, ALCOHOLIS alcohol-DEMENTIA Last Myocardial Infarction Date:: 1992 History of Any Multi-Drug Resistant Organisms: None Reported Past Surgical History: Coronary Bypass/CABG, Tonsillectomy Additional Past Surgical History / Comment(s): CABG 1992, COLONOSCOPY, EGD - ESOPHAGEAL STRICTURE Past Anesthesia/Blood Transfusion Reactions: No Reported Reaction Past Psychological History: No Psychological Hx Reported Smoking Status: Never smoker Past Alcohol Use History: None Reported Past Drug Use History: None Reported - Past Family History Father Family Medical History: Cancer Additional Family Medical History / Comment(s): Father from alcohol-related gastric cancer. Sister(s) Family Medical History: Cancer Additional Family Medical History / Comment(s): The patient has total of 4 sisters. One from colon cancer, 1 from ovarian cancer, one has lupus, one has no major medical problems. Brother(s) Additional Family Medical History / Comment(s): Patient has one brother with history of gallbladder disease and coronary artery disease. Mother Additional Family Medical History / Comment(s): Mother of old age. Daughter(s) Additional Family Medical History / Comment(s): Patient has 3 daughters one his history of COPD secondary to smoking, 2 daughters with no major medical problems. Patient has 1 son with history of hepatitis C and HIV. Medications and Allergies Home Medications Medication Instructions Recorded Confirmed Type Simvastatin [Zocor] 10 mg PO HS 08/28/18 08/06/21 History Tamsulosin HCl [Flomax] 0.4 mg PO DAILY 08/28/18 08/06/21 History Vit C/E/Zn/Coppr/Lutein/Zeaxan 1 cap PO BID 08/28/18 08/06/21 History [Preservision Areds 2 Softgel] Thiamine HCl [Vitamin B-1] 100 mg PO DAILY 08/28/19 08/06/21 History Cyanocobalamin [Vitamin B-12] 500 mcg PO DAILY #90 tablet 11/12/19 08/06/21 Rx atenoloL [Tenormin] 75 mg PO HS #30 tab 11/12/19 08/06/21 Rx Enalapril [Vasotec] 5 mg PO DAILY 12/03/19 08/06/21 History Sulfamethox-Tmp 800-160Mg [Bactrim 1 tab PO Q12HR 20 Days #10 tab 08/03/21 08/06/21 Rx DS 800-160 mg] Aspirin 81 mg PO HS 08/06/21 08/06/21 History Ketorolac 0.5% Ophth Soln [Acular 1 drops BOTH EYES BID 08/06/21 08/06/21 History 0.5%] Pantoprazole Sodium 20 mg PO BID 08/06/21 08/06/21 History Sennosides [Senokot] 17.2 tab PO BID 08/06/21 08/06/21 History buPROPion SR [Wellbutrin SR] 150 mg PO HS 08/06/21 08/06/21 History prednisoLONE ACETATE 1% OPHTH 1 drop BOTH EYES BID 08/06/21 08/06/21 History [Pred Forte 1%] Allergies Allergy/AdvReac Type Severity Reaction Status Date / Time No Known Allergies Allergy Verified 08/06/21 11:01 Physical Exam Vitals: Vital Signs Temp Pulse Pulse Resp BP BP Pulse Ox 08/06/21 19:35 97.3 F L 84 18 92/60 96 08/06/21 17:23 97.8 F 85 14 97 08/06/21 14:36 87 16 106/63 99 08/06/21 13:38 97.8 F 85 16 92/60 97 08/06/21 10:18 97.9 F 92 20 107/63 98 Intake and Output 08/06/21 08/06/21 08/06/21 06:59 14:59 22:59 Intake Total 600 Balance 600 Intake: Oral 600 Other: Weight 86.183 kg Results CBC & Chem 7: 08/07/21 06:49 08/07/21 06:49 Labs: Abnormal Lab Results - Last 24 Hours (Table) 08/06/21 08/06/21 08/06/21 Range/Units 11:10 11:10 11:10 WBC 12.9 H (3.8-10.6) k/uL RBC 4.01 L (4.30-5.90) m/uL Hgb 12.9 L (13.0-17.5) gm/dL Hct 38.7 L (39.0-53.0) % Neutrophils # 11.2 H (1.3-7.7) k/uL Lymphocytes # 0.7 L (1.0-4.8) k/uL D-Dimer 1.06 H (<0.60) mg/L FEU Sodium 132 L (137-145) mmol/L Carbon Dioxide 20 L (22-30) mmol/L Creatinine 1.60 H (0.66-1.25) mg/dL Glucose 106 H (74-99) mg/dL Total Protein 6.0 L (6.3-8.2) g/dL Albumin 3.1 L (3.5-5.0) g/dL Urine Ketones (Negative) Ur Leukocyte Esterase (Negative) Urine WBC (0-5) /hpf Uric Acid Crystals (None) /hpf Urine Mucus (None) /hpf 08/06/21 Range/Units 13:00 WBC (3.8-10.6) k/uL RBC (4.30-5.90) m/uL Hgb (13.0-17.5) gm/dL Hct (39.0-53.0) % Neutrophils # (1.3-7.7) k/uL Lymphocytes # (1.0-4.8) k/uL D-Dimer (<0.60) mg/L FEU Sodium (137-145) mmol/L Carbon Dioxide (22-30) mmol/L Creatinine (0.66-1.25) mg/dL Glucose (74-99) mg/dL Total Protein (6.3-8.2) g/dL Albumin (3.5-5.0) g/dL Urine Ketones Trace H (Negative) Ur Leukocyte Esterase Large H (Negative) Urine WBC 8 H (0-5) /hpf Uric Acid Crystals Many H (None) /hpf Urine Mucus Rare H (None) /hpf Thrombosis Risk Factor Assmnt - Choose All That Apply Any of the Below Risk Factors Present?: No
--- NOTE | 2021-08-07 12:59 | P.PN ---
Subjective Progress Note Date: 08/07/21 Principal diagnosis: Chest pain and dyspnea, abdominal pain, atrophy fibrillation, elevated d-dimer, acute kidney injury and UTI. HISTORY OF PRESENT ILLNESS 80-year-old male one of my office patient with known for over 20 years with past medical history of CAD post CABG back in , history of hypertension, hyperlipidemia, chronic history of alcoholism the patient has quit over 3 years ago also patient has been suffering from significant memory loss. Patient was the emergency room on the with significant abdominal pain CAT scan of the abdomen and pelvis didn't show any major abnormality patient was suffering from severe constipation was prescribed MiraLAX, Senokot and lactulose and apparently symptoms has improved. Patient presented to the emergency department with his family complaining of worsening chest pain for the last 24 hours consistent with junction between his epigastric and chest wall area has been much worsening with exertion patient has been having dyspnea with minimum exertion at the time. At the time was seen his troponin was negative his d-dimer was mildly elevated the past creatinine jumped up to 1.6 from 1.0 2days ago patient could not go for CTA with was started on Lovenox 1 mg/kg twice a day till his hydration improved his kidney function to be able to go for CTA. His EKG didn't show any major abnormality patient was started on hydration will be admitted to the hospital. Also found to have significant UTI with multiple leukocyte and nitrate his urine, culture was done still pending the patient was giving 1 g of Rocephin awaiting for his final culture. 08/07: His creatinine is down to 1.3, patient remain on Lovenox 80 mg twice a day till we do CTA in the next 24 hours. Patient was seeing cardiology today no intervention is expected at this point. He was converted from sinus rhythm to A. 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 REVIEW OF SYSTEMS Constitutional: No fever, no chills, no night sweats. Mild tiredness fatigue lethargy daytime sleep along with few pound weight loss in the last 3 weeks. EENT: No headache. No blurred vision or double vision, no loss of vision. No loss of Hearing, no ringing in the ears, no dizziness. No nasal drainage or congestion. No epistaxis. No sore throat. Lungs: Slight dyspnea and shortness of breath. Cardiovascular: Positive chest pain, no lower extremity edema. No palpitations. Positive paroxysmal nocturnal dyspnea. Mild orthopnea. Positive lighthea dedness or dizziness. No syncopal episodes. Abdominal: Positive abdominal pain. with nausea, vomiting. No diarrhea. Positive constipation. No bloody or tarry stools.. Positive loss of appetite. Genitourinary: No dysuria, increased frequency, urgency. No urinary retention. Musculoskeletal: No myalgias. No muscle weakness, no gait dysfunction, no frequent falls. No back pain. No neck pain. Integumentary: No wounds, no lesions. No rash or pruritus. No unusual bruising. No change in hair or nails. Neurologic: No aphasia. No facial droop. Significant memory loss with abnormal balance and gait. Psychiatric: No depression. No anxiety. Positive dementia Endocrine: No abnormal blood sugars. No weight change. No excessive sweating or thirst. No cold intolerance. PHYSICAL EXAMINATION Gen: This is elderly laying in bed mildly confused does not look in any respiratory distress. HEENT: Head is atraumatic, normocephalic. Pupils equal, round. Sclerae is anicteric. NECK: Supple. No JVD. No lymphadenopathy. No thyromegaly. CHEST: No tenderness or deformity decreased expansion with deep inspiration. LUNGS: Clear to auscultation. No wheezes or rhonchi. No intercostal retractions. HEART: Regular rate and rhythm. With slight irregularity, S1, S2, positive 2/6 systolic murmur at the apex ABDOMEN: Soft. Bowel sounds are present. No masses. No tenderness. EXTREMITIES: No pedal edema. No calf tenderness. NEUROLOGICAL: Patient is awake, alert with confusion. Cranial nerves 2 through 12 are grossly intact, positive generalized weakness.. ASSESSMENT AND PLAN 1. Atypical chest pain: With history of CAD post CABG years ago, still trying to exclude the possibility of pulmonary embolism otherwise his troponin was negative patient seen cardiology no intervention will be done at this time. 2. Nonsustained A. fib: Patient is not in any anticoagulation lately continue to watch patient has not had any tachycardia remain on atenolol 75 mg daily at bedtime. They should've anticoagulation is to be decided by tomorrow. 3. Acute kidney injury: Has improved history and stage III chronic kidney disease repeat CMP tomorrow again 4. Recurrent abdominal pain: Consistent with severe gastritis and severe constipation with mild diverticuli, CT of the abdomen didn't show any major abnormality patient had respond quite bed to PPI pantoprazole and had bowel movement almost daily since his last emergency room visit.. 5. Worsening memory loss: Apparently patient had seen neurology and idea off memory medication is not on the table currently. 6. UTI with sepsis: UA was very positive, culture will be done patient still on Rocephin 1 g a day till his discharge which was switched to Ceftin or smaller dose of Cipro.. 7. Hyperlipidemia: Remain on Zocor 10 mg a day.. 8. Hypertension: Continue Vasotec 5 mg a day and atenolol 75 mg daily. 9. Severe GERD: Remain on pantoprazole 40 mg a day. 10. DVT prophylaxis: Patient remain on Lovenox 1 mg/kg twice a day till his CTAs done which will be prophylaxis and therapeutic for PE. Discharge planning: Is on the finding by tomorrow patient is more stable might be able to be discharged.. Objective - Vital Signs Vital signs: Vital Signs Temp 97.7 F 08/07/21 07:00 Pulse 68 08/07/21 07:00 Resp 18 08/07/21 07:00 BP 104/64 08/07/21 07:00 Pulse Ox 98 08/07/21 07:00 Intake & Output 08/06/21 08/07/21 08/07/21 18:59 06:59 18:59 Intake Total 600 300 Output Total 100 Balance 600 200 Weight 86.183 kg Intake: Intake, IV Titration 300 Amount Sodium Chloride 0.9% 1, 300 000 ml @ 75 mls/hr IV . [id number] [facility] Rx#:[id number] Oral 600 Output: Urine 100 Other: # Voids 1 # Bowel Movements 0 - Labs CBC & Chem 7: 08/07/21 06:49 08/07/21 06:49 Labs: Abnormal Lab Results - Last 24 Hours (Table) 08/06/21 08/06/21 08/06/21 Range/Units 11:10 11:10 11:10 WBC 12.9 H (3.8-10.6) k/uL RBC 4.01 L (4.30-5.90) m/uL Hgb 12.9 L (13.0-17.5) gm/dL Hct 38.7 L (39.0-53.0) % Neutrophils # 11.2 H (1.3-7.7) k/uL Lymphocytes # 0.7 L (1.0-4.8) k/uL D-Dimer 1.06 H (<0.60) mg/L FEU Sodium 132 L (137-145) mmol/L Carbon Dioxide 20 L (22-30) mmol/L Creatinine 1.60 H (0.66-1.25) mg/dL Glucose 106 H (74-99) mg/dL Total Protein 6.0 L (6.3-8.2) g/dL Albumin 3.1 L (3.5-5.0) g/dL Urine Ketones (Negative) Ur Leukocyte Esterase (Negative) Urine WBC (0-5) /hpf Uric Acid Crystals (None) /hpf Urine Mucus (None) /hpf 08/06/21 Range/Units 13:00 WBC (3.8-10.6) k/uL RBC (4.30-5.90) m/uL Hgb (13.0-17.5) gm/dL Hct (39.0-53.0) % Neutrophils # (1.3-7.7) k/uL Lymphocytes # (1.0-4.8) k/uL D-Dimer (<0.60) mg/L FEU Sodium (137-145) mmol/L Carbon Dioxide (22-30) mmol/L Creatinine (0.66-1.25) mg/dL Glucose (74-99) mg/dL Total Protein (6.3-8.2) g/dL Albumin (3.5-5.0) g/dL Urine Ketones Trace H (Negative) Ur Leukocyte Esterase Large H (Negative) Urine WBC 8 H (0-5) /hpf Uric Acid Crystals Many H (None) /hpf Urine Mucus Rare H (None) /hpf
[2021-08-07] MEDS: LACTATED RINGERS 1,000 ML IV SCH (14:27)
--- NOTE | 2021-08-07 18:41 | CONS ---
CONSULTATION REASON FOR CONSULT: Renal failure. HISTORY OF PRESENT ILLNESS: The patient is an 80-year-old male who was admitted to the hospital with complaints of chest pain, shortness of breath and abdominal pain. Patient has a history of coronary artery disease, hypertension, hyperlipidemia and his serum creatinine was noted to be 1.6 mg/dL on admission. Patient had CT of the abdomen with IV contrast on August 03, 2021 when he had presented to the hospital with abdominal pain as well at that time. His blood pressure has been low with systolic blood pressure in the 90s. Currently patient is maintained on IV fluids at 75 mL an hour and serum creatinine has improved with creatinine down to 1.32 today. The patient is currently voiding. He has had good urine output. PAST MEDICAL HISTORY: Significant for coronary artery disease status post coronary artery bypass surgery, anemia of chronic disease, hypertension, hyperlipidemia, esophageal strictures, macular degeneration, dementia. PAST SURGICAL HISTORY: Coronary artery bypass surgery, tonsillectomy, colonoscopy, esophageal stricture and dilatation. SOCIAL HISTORY: Negative for smoking, drug abuse or alcohol abuse. MEDICATIONS: Medications prior to admission included Zocor, Flomax, vitamin B, Vasotec, Tenormin, Bactrim, aspirin, sodium, pantoprazole, Senokot, BuSpar. ALLERGIES: None. REVIEW OF SYSTEMS: As per HPI. Other systems negative. EXAMINATION: Patient is comfortable, awake, alert, oriented x3, not in any acute distress. Blood pressure is 104/64, heart rate 68 per minute, he is afebrile. Examination of the heart S1, S2. Examination of the lungs, bilateral breath sounds are heard. Decreased breath sounds at the bases. Abdomen is soft, nontender. Examination of lower extremities shows no evidence of edema. 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 LAB: Show sodium 134, potassium 4.7, chloride 107, CO2 is 18.5, BUN 21, creatinine 1.32, hemoglobin 11.8 g/dL. UA shows trace ketones, leukocyte esterase large, WBCs 8. Coronavirus PCR not detected. Chest x-ray from this admission shows moderate to large hiatal hernia, mild patchy atelectasis versus early infiltrate right lung. ASSESSMENT: 1. Acute kidney injury associated with hypotension, hypoperfusion and hypovolemia, currently improved with IV fluids. Hold off on the BRENDAN inhibitors as blood pressure remains low and encourage increased oral intake. 2. Mild metabolic acidosis associated with renal failure and IV fluids. Add sodium bicarb if acidosis not improved by tomorrow. 3. Atypical chest pain with previous history of coronary artery disease status post coronary artery bypass surgery. Okay to proceed for CTA if still indicated. 4. Atrial fibrillation, heart rate controlled. 5. Abdominal pain with previous history of gastritis and constipation with unremarkable CAT scan. 6. History of esophageal strictures. PLAN: Continue IV fluids. Hold off on BRENDAN inhibitors. Repeat labs in a.m. Add oral sodium bicarb if acidosis not improved by tomorrow. Change IV fluids to Ringer lactate. Thank you for this consultation. Will continue to follow the patient with you during his hospitalization. MMODL / IJN: [id number] /
[2021-08-07] MEDS ORDERED: ASPIRIN 81 MG PO SCH (21:00)
[2021-08-07] MEDS ORDERED: ATORVASTATIN 10 MG TAB PO SCH (21:00)
[2021-08-07] MEDS ORDERED: buPROPion SR 150 MG TABLET.ER PO SCH (21:00)
[2021-08-07] MEDS: atenoloL 25 MG TAB PO SCH (21:16)
[2021-08-08] MEDS: VIT A,C & E-LUTEIN-MINERALS 1 EACH TAB PO SCH ×2 (01:01→09:23)
[2021-08-08 02:35] VITALS: RESP 18
[2021-08-08] MEDS: LACTATED RINGERS 1,000 ML IV SCH (03:12)
[2021-08-08 07:44] VITALS: BP 119/69; PULSE 110; TEMP 97.2
[2021-08-08 09:17] LABS: HCT 39.3 % (39.6-50.0); HGB 12.8 g/dL (13.0-17.0); MCH 30.8 pg (27.0-32.0); MCHC 32.6 g/dL (32.0-37.0); MCV 94.7 fL (80.0-97.0); Mean Platelet Volume 11.9 fL (9.5-12.2); Platelet Count 232 X 10*3/uL (140-440); RBC 4.15 X 10*6/uL (4.40-5.60); RDW 13.4 % (11.5-14.5); WBC 7.97 X 10*3/uL (4.50-10.00)
[2021-08-08] MEDS: SENNOSIDES 8.6 MG TAB PO SCH (09:22)
[2021-08-08] MEDS: TAMSULOSIN 0.4 MG CAP.ER.24H PO SCH (09:22)
[2021-08-08] MEDS: CYANOCOBALAMIN 500 MCG TAB PO SCH (09:22)
[2021-08-08] MEDS: PANTOPRAZOLE 40 MG TABLET PO SCH (09:22)
[2021-08-08] MEDS: ENOXAPARIN 80 MG/0.8 ML SYRINGE SQ SCH (09:22)
[2021-08-08] MEDS: THIAMINE 100 MG TAB PO SCH (09:22)
[2021-08-08] MEDS: prednisoLONE ACETATE 1% OPHTH DROPS 5 ML BTL BOTH EYES SCH (09:23)
[2021-08-08] MEDS: KETOROLAC 0.5% OPHTH DROPS 5 ML BTL BOTH EYES SCH (09:23)
[2021-08-08 09:56] LABS: African American GFR (CKD) 64.9 (60.0-200.0); Albumin 3.7 g/dL (3.80-4.90); Albumin/Globulin Ratio 1.54 (1.60-3.17); Anion Gap 6.7 mmol/L (4.00-12.00); BUN/Creat Ratio 14.17 Ratio (12.00-20.00); Calcium 9.5 mg/dL (8.7-10.3); Carbon Dioxide 21.3 mmol/L (21.6-31.8); Globulin 2.4 g/dL (1.6-3.3); Potassium 4.6 mmol/L (3.5-5.5); Total Bilirubin 0.6 mg/dL (0.3-1.2); Total Protein 6.1 g/dL (6.2-8.2)
--- NOTE | 2021-08-08 11:48 | ECHOF ---
Referral Reason: MEASUREMENTS -------- HEIGHT: 180.3 cm WEIGHT: 86.2 kg BP: 119/75 RVIDd: 3.0 cm (< 3.3) IVSd: 1.2 cm (0.6 - 1.1) LVIDd: 3.4 cm (3.9 - 5.3) LVPWd: 1.3 cm (0.6 - 1.1) IVSs: 1.5 cm LVIDs: 3.2 cm LVPWs: 1.6 cm LA Diam: 4.3 cm (2.7 - 3.8) LAESV Index (A-L): 37.12 ml/m Ao Diam: 3.1 cm (2.0 - 3.7) AV Cusp: 2.0 cm (1.5 - 2.6) MV EXCURSION: 19.848 mm (> 18.000) MV EF SLOPE: 69 mm/s (70 - 150) EPSS: 0.7 cm RAP: 5.00 mmHg RVSP: 37.78 mmHg FINDINGS -------- Atrial fibrillation. This was a technically adequate study. The left ventricular size is normal. There is mild concentric left ventricular hypertrophy. Overa ll left ventricular systolic function is low-normal with, an EF between 50 - 55 %. The right ventricle is normal in size. LA is moderately dilated 34-39 ml/m2 The right atrial size is normal. Interatrial and interventricular septum intact. There is mild aortic valve sclerosis. Moderate mitral annular calcification present. Mild mitral regurgitation is present. The tricuspid valve appears structurally normal. [id number] tricuspid regurgitation present. There is mild pulmonary hypertension. The right ventricular systolic pressure, as measured by Dop pler, is 37.78mmHg. Trace/mild (physiologic) pulmonic regurgitation. The aortic root size is normal. IVC Not well visulized. There is no pericardial effusion. CONCLUSIONS -------- 1. There is mild concentric left ventricular hypertrophy. 2. Overall left ventricular systolic function is low-normal with, an EF between 50 - 55 %. 3. LA is moderately dilated 34-39 ml/m2 4. There is mild aortic valve sclerosis. 5. Moderate mitral annular calcification present. 6. Mild mitral regurgitation is present. 7. [id number] tricuspid regurgitation present. 8. There is mild pulmonary hypertension. 9. Trace/mild (physiologic) pulmonic regurgitation. 10. There is no pericardial effusion. WEARING APPAREL PRESSER: Ruthann Archer RDCS
--- NOTE | 2021-08-08 11:49 | P.PN ---
Subjective Patient is a pleasantly confused 80-year-old male with a history of mild dementia, hypertension, hyperlipidemia, coronary artery disease status post CABG 1992, prior LV abuse, GERD, esophageal strictures, cigar abuse, ETOH abuse, pancreatitis. Patient presents to the emergency department secondary to patient not eating, chest pain. He follows in the office with Dr. Rae. Patient is poor historian and cannot recall why he came in. Per nursing family has been concerned as he has not been eating or drinking as much recently. He was found to have acute kidney injury with creatinine up to 1.6. On admission he was unable to describe any actual chest pain and states is more epigastric. EKG shows normal sinus rhythm, normal axis, first-degree AV block, Q waves V1 and V2, no significant ST or T-wave abnormalities. Patient seen at bedside, no acute distress. Denies any chest pain, shortness of breath, lightheadedness, dizziness, palpitations. Telemetry reviewed patient appears to be in atrial fibrillation with controlled ventricular rates. Blood pressure 119/69, heart rate 70, afebrile, maintaining oxygen saturations on room air. He's currently maintained on aspirin 81 mg daily, atenolol 75 mg nightly, atorvastatin 10 mg nightly, subcu lovenox. Later data review WBC 7.9, hemoglobin 12.8, platelets 232, sodium 135, potassium 4.6, BUN 17, serum creatinine 1.2, troponin negative 3. PHYSICAL EXAMINATION Vital signs reviewed. CONSTITUTIONAL: No apparent distress. HEENT: Neck Supple. No JVD. CHEST EXAMINATION: Lungs are clear to auscultation. No chest wall tenderness is noted on palpation or with deep breathing. HEART EXAMINATION: Irregular rate and rhythm. S1, S2 heard. No murmurs, gallops or rub. ABDOMEN: Soft, nontender. Positive bowel sounds. EXTREMITIES: 2+ peripheral pulses, no lower extremity edema and no calf tenderness. NEUROLOGIC EXAMINATION: Patient is awake, alert but confused ASSESSMENT Atypical chest pain however appears more epigastric pain, not consistent with angina, troponin is normal 3 New onset paroxsmal atrial fibrillation -[id number] score 4 Acute kidney injury- improving Decreased oral appetite More epigastric pain Coronary artery disease with history of CABG Hypertension Hyperlipidemia Dementia History of Etoh abuse PLAN Check 2-D echo We will continue medical therapy Continue atenolol 75 mg nightly, atorvastatin 10 mg nightly Stop aspirin Start Eliquis 5mg BID, consult case management for coverage Continue cardiac telemetry Further recommendations based on clinical course Objective - Vital Signs Vital signs: Vital Signs Temp 97.2 F L 08/08/21 07:00 Pulse 110 H 08/08/21 07:00 Resp 18 08/08/21 07:00 BP 119/69 08/08/21 07:00 Pulse Ox 98 08/08/21 07:00 Intake & Output 08/07/21 08/08/21 08/08/21 18:59 06:59 18:59 Intake Total 180 900 118 Balance 180 900 118 Intake: Intake, IV Titration 900 Amount Sodium Chloride 0.9% 1, 900 000 ml @ 75 mls/hr IV . [id number] [facility] Rx#:[id number] Oral 180 118 Other: Voiding Method Toilet # Voids 3 3 # Bowel Movements 0 - Labs CBC & Chem 7: 08/08/21 05:52 08/08/21 05:52 Labs: Abnormal Lab Results - Last 24 Hours (Table) 08/07/21 08/07/21 08/08/21 Range/Units 06:49 06:49 05:52 RBC 3.80 L 4.15 L (4.40-5.60) X 10*6/uL Hgb 11.8 L 12.8 L (13.0-17.0) g/dL Hct 36.1 L 39.3 L (39.6-50.0) % MPV 12.3 H (9.5-12.2) fL Sodium 134 L (135-145) mmol/L Carbon Dioxide 18.5 L (21.6-31.8) mmol/L Est GFR (CKD-EPI)AfAm 53.8 L (60.0-200.0) Est GFR (CKD-EPI)NonAf 46.5 L (60.0-200.0) Total Protein 5.5 L (6.2-8.2) g/dL Albumin 3.40 L (3.80-4.90) g/dL Albumin/Globulin Ratio (1.60-3.17) g/dL 08/08/21 Range/Units 05:52 RBC (4.40-5.60) X 10*6/uL Hgb (13.0-17.0) g/dL Hct (39.6-50.0) % MPV (9.5-12.2) fL Sodium (135-145) mmol/L Carbon Dioxide 21.3 L (21.6-31.8) mmol/L Est GFR (CKD-EPI)AfAm (60.0-200.0) Est GFR (CKD-EPI)NonAf 56.0 L (60.0-200.0) Total Protein 6.1 L (6.2-8.2) g/dL Albumin 3.70 L (3.80-4.90) g/dL Albumin/Globulin Ratio 1.54 L (1.60-3.17) g/dL
--- NOTE | 2021-08-08 14:22 | P.DS ---
Providers Date of admission: 08/06/21 13:28 Attending physician: Hossein Langston Consults: 08/06/21 13:28 Consult Physician Urgent Consulting Provider: Renetta Murguia Consult Reason/Comments: anahi Do you want consulting provider notified?: Yes 08/06/21 13:29 Consult Physician Urgent Consulting Provider: Sly Bee Consult Reason/Comments: chest pain Do you want consulting provider notified?: Yes Primary care physician: [facility] Hospital Course: HISTORY OF PRESENT ILLNESS 80-year-old male one of my office patient with known for over 20 years with past medical history of CAD post CABG back in , history of hypertension, hyperlipidemia, chronic history of alcoholism the patient has quit over 3 years ago also patient has been suffering from significant memory loss. Patient was the emergency room on the with significant abdominal pain CAT scan of the abdomen and pelvis didn't show any major abnormality patient was suffering from severe constipation was prescribed MiraLAX, Senokot and lactulose and apparently symptoms has improved. Patient presented to the emergency department with his family complaining of worsening chest pain for the last 24 hours consistent with junction between his epigastric and chest wall area has been much worsening with exertion patient has been having dyspnea with minimum exertion at the time. At the time was seen his troponin was negative his d-dimer was mildly elevated the past creatinine jumped up to 1.6 from 1.0 2days ago patient could not go for CTA with was started on Lovenox 1 mg/kg twice a day till his hydration improved his kidney function to be able to go for CTA. His EKG didn't show any major abnormality patient was started on hydration will be admitted to the hospital. Also found to have significant UTI with multiple leukocyte and nitrate his urine, culture was done still pending the patient was giving 1 g of Rocephin awaiting for his final culture. 08/07: His creatinine is down to 1.3, patient remain on Lovenox 80 mg twice a day till we do CTA in the next 24 hours. Patient was seeing cardiology today no intervention is expected at this point. He was converted from sinus rhythm to A. fib this morning patient is not a candidate for anticoagulation on [employer] will continue current management for now with atenolol and Lovenox make a decision to convert Lovenox to Eliquis by tomorrow. REVIEW OF SYSTEMS Constitutional: No fever, no chills, no night sweats. Mild tiredness fatigue lethargy daytime sleep along with few pound weight loss in the last 3 weeks. EENT: No headache. No blurred vision or double vision, no loss of vision. No loss of Hearing, no ringing in the ears, no dizziness. No nasal drainage or congestion. No epistaxis. No sore throat. Lungs: Slight dyspnea and shortness of breath. Cardiovascular: Positive chest pain, no lower extremity edema. No palpitations. Positive paroxysmal nocturnal dyspnea. Mild orthopnea. Positive lightheadedne ss or dizziness. No syncopal episodes. Abdominal: Positive abdominal pain. with nausea, vomiting. No diarrhea. Positive constipation. No bloody or tarry stools.. Positive loss of appetite. Genitourinary: No dysuria, increased frequency, urgency. No urinary retention. Musculoskeletal: No myalgias. No muscle weakness, no gait dysfunction, no frequent falls. No back pain. No neck pain. Integumentary: No wounds, no lesions. No rash or pruritus. No unusual bruising. No change in hair or nails. Neurologic: No aphasia. No facial droop. Significant memory loss with abnormal balance and gait. Psychiatric: No depression. No anxiety. Positive dementia Endocrine: No abnormal blood sugars. No weight change. No excessive sweating or thirst. No cold intolerance. PHYSICAL EXAMINATION Gen: This is elderly laying in bed mildly confused does not look in any respiratory distress. HEENT: Head is atraumatic, normocephalic. Pupils equal, round. Sclerae is anic teric. NECK: Supple. No JVD. No lymphadenopathy. No thyromegaly. CHEST: No tenderness or deformity decreased expansion with deep inspiration. LUNGS: Clear to auscultation. No wheezes or rhonchi. No intercostal retractions. HEART: Regular rate and rhythm. With slight irregularity, S1, S2, positive 2/6 systolic murmur at the apex ABDOMEN: Soft. Bowel sounds are present. No masses. No tenderness. EXTREMITIES: No pedal edema. No calf tenderness. NEUROLOGICAL: Patient is awake, alert with confusion. Cranial nerves 2 through 12 are grossly intact, positive generalized weakness.. ASSESSMENT AND PLAN 1. Atypical chest pain: With history of CAD post CABG years ago, still trying to exclude the possibility of pulmonary embolism otherwise his troponin was negative patient seen cardiology no intervention will be done at this time. 2. Nonsustained A. fib: Patient is not in any anticoagulation lately continue to watch patient has not had any tachycardia remain on atenolol 75 mg daily at bedtime. They should've anticoagulation is to be decided by tomorrow. 3. Acute kidney injury: Has improved history and stage III chronic kidney disease repeat CMP tomorrow again 4. Recurrent abdominal pain: Consistent with severe gastritis and severe constipation with mild diverticuli, CT of the abdomen didn't show any major abnormality patient had respond quite bed to PPI pantoprazole and had bowel movement almost daily since his last emergency room visit.. 5. Worsening memory loss: Apparently patient had seen neurology and idea off memory medication is not on the table currently. 6. UTI with sepsis: UA was very positive, culture will be done patient still on Rocephin 1 g a day till his discharge which was switched to Ceftin or smaller dose of Cipro.. 7. Hyperlipidemia: Remain on Zocor 10 mg a day.. 8. Hypertension: Continue Vasotec 5 mg a day and atenolol 75 mg daily. 9. Severe GERD: Remain on pantoprazole 40 mg a day. Hospital course: His kidney function improved significantly and today was finally back to its baseline and normal. Family supported by one of the daughter who is nurse refuse to have him go for CTA today, d-dimer was repeated today and was very low to supported is no reason to believe he had pulmonary embolism. Also had long discussion with the daughter about anticoagulation and apparently she spoken with Dr. boyle on early and does not want him to be on any anticoagulation going home just aspirin so Eliquis will be stopped at this point the family will discuss with Dr. Rae in the office the need for any anticoagulation as an outpatient. She understands the risk involved with him being off anticoagulation and understand the pros and cons With both. Patient will be sent home without anticoagulation. Plan - Discharge Summary Discharge Rx Participant: No New Discharge Prescriptions: Continue Tamsulosin HCl [Flomax] 0.4 mg PO DAILY Vit C/E/Zn/Coppr/Lutein/Zeaxan [Preservision Areds 2 Softgel] 1 cap PO BID Simvastatin [Zocor] 10 mg PO HS Thiamine HCl [Vitamin B-1] 100 mg PO DAILY Cyanocobalamin [Vitamin B-12] 500 mcg PO DAILY #90 tablet atenoloL [Tenormin] 75 mg PO HS #30 tab Enalapril [Vasotec] 5 mg PO DAILY Pantoprazole Sodium 20 mg PO BID Sennosides [Senokot] 17.2 tab PO BID Sulfamethox-Tmp 800-160Mg [Bactrim DS 800-160 mg] 1 tab PO Q12HR 20 Days #10 tab prednisoLONE ACETATE 1% OPHTH [Pred Forte 1%] 1 drop BOTH EYES BID Ketorolac 0.5% Ophth Soln [Acular 0.5%] 1 drops BOTH EYES BID buPROPion SR [Wellbutrin SR] 150 mg PO HS Aspirin 81 mg PO HS Discharge Medication List Simvastatin [Zocor] 10 mg PO HS 08/28/18 [History] Tamsulosin HCl [Flomax] 0.4 mg PO DAILY 08/28/18 [History] Vit C/E/Zn/Coppr/Lutein/Zeaxan [Preservision Areds 2 Softgel] 1 cap PO BID 08/28/18 [History] Thiamine HCl [Vitamin B-1] 100 mg PO DAILY 08/28/19 [History] Cyanocobalamin [Vitamin B-12] 500 mcg PO DAILY #90 tablet 11/12/19 [Rx] atenoloL [Tenormin] 75 mg PO HS #30 tab 11/12/19 [Rx] Enalapril [Vasotec] 5 mg PO DAILY 12/03/19 [History] Sulfamethox-Tmp 800-160Mg [Bactrim DS 800-160 mg] 1 tab PO Q12HR 20 Days #10 tab 08/03/21 [Rx] Aspirin 81 mg PO HS 08/06/21 [History] Ketorolac 0.5% Ophth Soln [Acular 0.5%] 1 drops BOTH EYES BID 08/06/21 [History] Pantoprazole Sodium 20 mg PO BID 08/06/21 [History] Sennosides [Senokot] 17.2 tab PO BID 08/06/21 [History] buPROPion SR [Wellbutrin SR] 150 mg PO HS 08/06/21 [History] prednisoLONE ACETATE 1% OPHTH [Pred Forte 1%] 1 drop BOTH EYES BID 08/06/21 [History] Follow up Appointment(s)/Referral(s): Keisha Rae MD [STAFF PHYSICIAN] - 2 Weeks Hossein Langston MD [Primary Care Provider] - 1-2 days Discharge Disposition: HOME SELF-CARE
--- NOTE | 2021-08-08 17:49 | PN ---
PROGRESS NOTE Patient is seen for followup for acute kidney injury. His renal function has improved. Patient is confused this morning. He is sitting up in a bedside chair. He is comfortable. PHYSICAL EXAMINATION: Blood pressure was 119/69, heart rate 110 per minute, he is afebrile. Examination of the heart S1, S2. Examination of the lungs, bilateral breath sounds are heard. Abdomen is soft, nontender. Examination of lower extremities shows no significant edema. WILDLIFE ECOLOGY PROFESSOR exam shows patient moving all four extremities. He is at times confused. LABS: Currently show sodium 135, potassium 4.6, CO2 21.3, BUN 17, creatinine 1.2, hemoglobin 12.8 g/dL. ASSESSMENT: 1. Acute kidney injury, prerenal, currently improved. 2. Constipation, now improved. 3. History of esophageal strictures. 4. Mild metabolic acidosis associated with renal failure and IV fluids, currently improved. PLAN: Continue to encourage increased oral intake. Avoid nephrotoxic agents. Repeat labs in about one week's time post discharge. MMODL / IJN: [id number] /
[2021-08-08] MEDS ORDERED: APIXABAN 5 MG TAB PO SCH (21:00)
== END 2021-08-08 15:26 | disposition home or self-care (01) ==
LOC: EC 10:12 → 6NMEDSUR 13:28
PROVIDERS: ADMIT Internal Medicine Geriatric Medicine; ATTEND Internal Medicine Geriatric Medicine
DX: R07.89 Other chest pain (principal); I48.91 Unspecified atrial fibrillation; I12.9 Hypertensive chronic kidney disease with stage 1 through stage 4 chronic kidney disease, or unspecified chronic kidney disease; N18.30 Chronic kidney disease, stage 3 unspecified; N17.9 Acute kidney failure, unspecified; K29.70 Gastritis, unspecified, without bleeding; K59.00 Constipation, unspecified; N39.0 Urinary tract infection, site not specified; A41.9 Sepsis, unspecified organism; G30.9 Alzheimer's disease, unspecified; F02.80 Dementia in other diseases classified elsewhere, unspecified severity, without behavioral disturbance, psychotic disturbance, mood disturbance, and anxiety; K21.9 Gastro-esophageal reflux disease without esophagitis; E78.5 Hyperlipidemia, unspecified; K22.2 Esophageal obstruction; H35.30 Unspecified macular degeneration; R79.89 Other specified abnormal findings of blood chemistry; K44.9 Diaphragmatic hernia without obstruction or gangrene; K57.90 Diverticulosis of intestine, part unspecified, without perforation or abscess without bleeding; I25.10 Atherosclerotic heart disease of native coronary artery without angina pectoris; F10.21 Alcohol dependence, in remission; I73.9 Peripheral vascular disease, unspecified; I44.0 Atrioventricular block, first degree; D63.8 Anemia in other chronic diseases classified elsewhere; E87.2 Acidosis; E86.1 Hypovolemia; I95.9 Hypotension, unspecified; I25.2 Old myocardial infarction; Z20.822 Contact with and (suspected) exposure to COVID-19; Z79.899 Other long term (current) drug therapy; Z79.82 Long term (current) use of aspirin; Z87.440 Personal history of urinary (tract) infections; Z95.1 Presence of aortocoronary bypass graft; Z87.891 Personal history of nicotine dependence; Z87.19 Personal history of other diseases of the digestive system; Z80.0 Family history of malignant neoplasm of digestive organs; Z80.41 Family history of malignant neoplasm of ovary; Z83.2 Family history of diseases of the blood and blood-forming organs and certain disorders involving the immune mechanism; Z82.49 Family history of ischemic heart disease and other diseases of the circulatory system; Z83.79 Family history of other diseases of the digestive system; Z83.0 Family history of human immunodeficiency virus [HIV] disease; Z82.5 Family history of asthma and other chronic lower respiratory diseases; Z83.1 Family history of other infectious and parasitic diseases
CPT/HCPCS: 96361 ×3; 96365; 96366; 96372 ×3; 99285; 36415; 93005; 93306; 97162; 85379 ×2; 80053 ×3; 82150; 82565; 83690; 83735; 84520; 84484; 85025; 85027 ×2; 85610; 85730; 81001; 87635; 71046; 76770; G0378 ×3; S0106; J0696 ×2; J1650 ×3

== ENCOUNTER 2021-08-22 12:31 | Day surgery (SDC) | payer MEDICARE ==
[2021-08-19 08:53] VITALS: BMI 27.3
[~2021-08-22 12:31] MED LIST changes: -ACETAMINOPHEN TAB 500 MG TAB PO ONE; -GABAPENTIN 300 MG CAP PO ONE; +LACTATED RINGERS 1,000 ML IV SCH; +LIDOCAINE 1% (10MG/ML) FOR IV START INTRADERMA PRN; -MELOXICAM 7.5 MG TAB PO ONE; -TRANEXAMIC ACID 1,000 MG in SODIUM CHLORIDE 0.9% 100 ML IVPB ONE
[2021-08-22] MEDS ORDERED: LACTATED RINGERS 1,000 ML IV ONE (13:09)
[2021-08-22 13:16] VITALS: RESP 18; TEMP 97.8
[2021-08-22] MEDS ORDERED: PROPOFOL 10 MG/ML 20 ML VIAL IV ONE (15:25)
--- NOTE | 2021-08-22 15:31 | P.GSHP ---
History of Present Illness H&P Date: 08/22/21 Chief Complaint: GERD, epigastric pain This is an 6-year-old male presents today for EGD. He's had issues with GERD and epigastric pain. Past Medical History Past Medical History: Atrial Fibrillation, Cancer, Chest Pain / Angina, Eye Disorder, GERD/Reflux, Hyperlipidemia, Hypertension, Myocardial Infarction (SD), Prostate Disorder, Skin Disorder Additional Past Medical History / Comment(s): hx Esophageal strictures, macular degeneration, recent UTI, ALCOHOL encephalopathy/ DEMENTIA, current potline monitor for epidode of A-Fib, "he can not eat or drink-he gets abdominal pain and constipation", hiatal hernia, diverticulosis/diverticulitis hx pancreatitis, psoriasis, BPH, recent "stage 3 kidney assault"-now cleared per daughter, skin cancer Last Myocardial Infarction Date:: 1992 History of Any Multi-Drug Resistant Organisms: None Reported Past Surgical History: Cholecystectomy, Coronary Bypass/CABG, Joint Replacement, Tonsillectomy Additional Past Surgical History / Comment(s): CABG 1992, COLONOSCOPY, EGD - ESOPHAGEAL STRICTURE , rt hip replacement, rt cataract, Past Anesthesia/Blood Transfusion Reactions: No Reported Reaction Smoking Status: Former smoker - Past Family History Father Family Medical History: Cancer Additional Family Medical History / Comment(s): . Sister(s) Family Medical History: Cancer Additional Family Medical History / Comment(s): . Brother(s) Additional Family Medical History / Comment(s): Patient has one brother with history of gallbladder disease and coronary artery disease. Mother Additional Family Medical History / Comment(s): Mother of old age. Daughter(s) Additional Family Medical History / Comment(s): Patient has 3 daughters one his history of COPD secondary to smoking, 2 daughters with no major medical problems. Patient has 1 son with history of hepatitis C and HIV. Medications and Allergies Home Medications Medication Instructions Recorded Confirmed Type Simvastatin [Zocor] 10 mg PO HS 08/28/18 08/19/21 History Tamsulosin HCl [Flomax] 0.4 mg PO DAILY 08/28/18 08/19/21 History Vit C/E/Zn/Coppr/Lutein/Zeaxan 1 cap PO BID 08/28/18 08/19/21 History [Preservision Areds 2 Softgel] Thiamine HCl [Vitamin B-1] 100 mg PO DAILY 08/28/19 08/19/21 History Cyanocobalamin [Vitamin B-12] 500 mcg PO DAILY #90 tablet 11/12/19 08/19/21 Rx atenoloL [Tenormin] 75 mg PO HS #30 tab 11/12/19 08/19/21 Rx Enalapril [Vasotec] 5 mg PO DAILY 12/03/19 08/19/21 History Aspirin 81 mg PO HS 08/06/21 08/19/21 History Ketorolac 0.5% Ophth Soln [Acular 1 drops RIGHT EYE DAILY 08/06/21 08/19/21 History 0.5%] buPROPion SR [Wellbutrin SR] 150 mg PO HS 08/06/21 08/19/21 History prednisoLONE ACETATE 1% OPHTH 1 drop RIGHT EYE DAILY 08/06/21 08/19/21 History [Pred Forte 1%] Isaflush 2 cap PO QAM 08/19/21 08/19/21 History Isosorbid(Dose Unknown) 0.5 mg PO BID 08/19/21 08/19/21 History Pantoprazole [Protonix] 40 mg PO BID 08/19/21 08/19/21 History Allergies Allergy/AdvReac Type Severity Reaction Status Date / Time No Known Allergies Allergy Verified 08/19/21 08:35 Surgical - Exam Vital Signs Temp Pulse Resp BP Pulse Ox 97.8 F 62 18 115/62 98 08/22/21 13:15 08/22/21 13:15 08/22/21 13:15 08/22/21 13:15 08/22/21 13:15 - General well developed, well nourished, no distress - Eyes PERRL - ENT normal pinna - Neck no masses - Respiratory normal expansion - Cardiovascular Rhythm: regular - Abdomen Abdomen: soft, non tender Assessment and Plan Assessment: GERD. We'll perform EGD.
--- NOTE | 2021-08-22 15:40 | P.OP ---
Date of Procedure: 08/22/21 Preoperative Diagnosis: GERD Postoperative Diagnosis: Antral gastritis Large hiatal hernia Minimal esophagitis Procedure(s) Performed: EGD Anesthesia: MAC Surgeon: Randal Connors Pathology: other (Antrum, esophagus) Condition: stable Disposition: PACU Description of Procedure: The patient's placed on the endoscopy table in the lateral position. He received IV sedation. The gastroscope placed oropharynx past esophagus and into the stomach. Scope was placed through the pylorus. The first and second portion of the duodenum appeared normal. Scope was then brought back the antrum and this appeared mildly inflamed. Scope was retroflexed patient had a large hiatal hernia. The proximal third of the stomach appeared to be the chest. The GE junction was at 37 cm. The distal esophagus. Inflamed a biopsies performed. The proximal esophagusAppeared Normal. Scope withdrawn for patient.
[2021-08-22 16:19] VITALS: BP 128/75; PULSE 57
== END 2021-08-22 16:35 | disposition home or self-care (01) ==
LOC: ORWHC2ENDO 12:31
PROVIDERS: ATTEND Surgery
DX: K21.00 Gastro-esophageal reflux disease with esophagitis, without bleeding (principal); K44.9 Diaphragmatic hernia without obstruction or gangrene; I48.91 Unspecified atrial fibrillation; I25.2 Old myocardial infarction; E78.5 Hyperlipidemia, unspecified; F03.90 Unspecified dementia, unspecified severity, without behavioral disturbance, psychotic disturbance, mood disturbance, and anxiety; I10 Essential (primary) hypertension; Z79.1 Long term (current) use of non-steroidal anti-inflammatories (NSAID); Z79.82 Long term (current) use of aspirin; Z82.49 Family history of ischemic heart disease and other diseases of the circulatory system; Z87.891 Personal history of nicotine dependence; Z90.49 Acquired absence of other specified parts of digestive tract; Z95.1 Presence of aortocoronary bypass graft; Z96.641 Presence of right artificial hip joint
CPT/HCPCS: 43239; J2704; 88305

== ENCOUNTER → 2021-08-25 | Outpatient (CLI) | payer MEDICARE ==
--- NOTE | 2021-08-25 14:55 | FL ---
EXAMINATION TYPE: FL UGI air w esophagus DATE OF EXAM: 08/25/2021 CLINICAL INDICATION: 80-year-old male R13.10, dysphagia COMPARISON: Correlation CT 08/03/2021 Total Fluoroscopy Time: 3 minutes 20 seconds 91 images obtained. FINDINGS: Review of the swallowing images shows possible trace aspiration. Hypopharyngeal anatomy is preserved. There is normal course and caliber of the thoracic esophagus. However, there are prominent tertiary p eristaltic contractions of the distal segment of the esophagus. No evidence of fixed narrowing. There is a very large hiatal hernia involving the entire stomach in the lower chest. No evident organ oaxial or mesoaxial positioning. Mild diffuse gastric fold thickening may be present and can be seen with chronic gastritis. There is delayed passage of contrast below the diaphragm. There appears to be a relative narrowing at the gastroduodenal junction at the level of the diaphragmatic hiatus. At the same level, there is do wnward herniation of a portion of the greater curvature of the stomach as it progressively distends w ith ingested oral contrast. Mass effect from this downward herniation of portion may be exacerbating potential narrowing at the gastroduodenal junction. Imaging 30 minutes later shows some progression of contrast into small bowel loops but most of the co ntrast still located within the stomach. IMPRESSION: 1. Review of the swallowing images shows possible trace silent aspiration. Consider speech pathology evaluation. 2. There may be some component of spasm or prominent tertiary contractions in the distal esophagus. N o evident stricture. 3. Very large hiatal hernia involving the entire stomach within the lower chest. No aldair organoaxial or mesoaxial positioning to clearly indicate gastric volvulus. 4. Suspect partial obstruction at the gastroduodenal junction as it crosses the diaphragm probably ex acerbated by adjacent downward herniation of a portion of the greater curvature of the stomach (which progressively distends as it fills with ingested contrast). 5. After 30 minutes, contrast has passed into the small bowel but most of the contrast remains in the stomach.
== END | disposition home or self-care (01) ==
LOC: RADUSWWP 09:56
PROVIDERS: ATTEND Surgery
DX: K44.9 Diaphragmatic hernia without obstruction or gangrene (principal); R68.89 Other general symptoms and signs
CPT/HCPCS: 74246

== ENCOUNTER 2021-08-29 11:08 | Inpatient (IN) | payer MEDICARE ==
[~2021-08-29 11:08] MED LIST changes: +ACETAMINOPHEN TAB 500 MG TAB PO PRN; +HEPARIN SODIUM,PORCINE/PF 5,000 UNIT/0.5 ML SYRINGE SQ PRN; -LACTATED RINGERS 1,000 ML IV SCH; -LIDOCAINE 1% (10MG/ML) FOR IV START INTRADERMA PRN
[2021-08-29] MEDS ORDERED: LACTATED RINGERS 1,000 ML IV ONE ×2 (13:17→16:20)
[2021-08-29] MEDS ORDERED: ONDANSETRON 4 MG/2 ML VIAL ONE (13:35)
[2021-08-29] MEDS ORDERED: ONDANSETRON 4 MG/2 ML VIAL IVP ONE (13:45)
[2021-08-29] MEDS ORDERED: DEXAMETHASONE SOD PHOSPHATE 4 MG/ML 1 ML VIAL IV ONE (13:45)
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
[2021-08-29] MEDS ORDERED: GLYCOPYRROLATE 0.2 MG/ML 2 ML VIAL ONE (14:59)
[2021-08-29] MEDS ORDERED: fentaNYL (PF) 50 MCG/ML 2 ML AMP ONE (14:59)
[2021-08-29] MEDS ORDERED: ETOMIDATE 2 MG/ML 10 ML VIAL ONE (14:59)
[2021-08-29] MEDS ORDERED: PHENYLEPHRINE-0.9% NACL SYG 1,000 MCG/10 ML SYRINGE ONE (14:59)
[2021-08-29] MEDS ORDERED: SUCCINYLCHOLINE CHLORIDE 100 MG/5 ML SYR IV ONE (14:59)
[2021-08-29] MEDS ORDERED: NEOSTIGMINE 1 MG/ML 10 ML VIAL ONE (14:59)
[2021-08-29] MEDS ORDERED: ROCURONIUM 10 MG/ML (5 ML VIAL) IV ONE (14:59)
[2021-08-29] MEDS ORDERED: LIDOCAINE 1% INJ 10MG/ML (20 ML MDV) ONE (14:59)
[2021-08-29] MEDS ORDERED: BUPIVACAINE (PF) 0.25% 30 ML VIAL SQ ONE ×2 (15:29→15:33)
[2021-08-29] MEDS ORDERED: ONDANSETRON 4 MG/2 ML VIAL IVP PRN (16:45)
--- NOTE | 2021-08-29 16:45 | P.OP ---
Date of Procedure: 08/29/21 Preoperative Diagnosis: Dysphagia Abdominal pain Postoperative Diagnosis: Dysphagia Abdominal pain Paraesophageal hernia Anesthesia: ELIZABETH Surgeon: Randal Connors Pathology: none sent Condition: stable Disposition: PACU Description of Procedure: The patient was placed on the operating table in the supine position. The pa alan received general anesthesia. And was placed in dorsal lithotomy position. The patient was prepped and draped in the usual sterile fashion. The skin incision sites were anesthetized with 1% local Xylocaine. The skin was incised in the left periumbilical area and then using a blade less 5 mm trocar under direct visualization panel cavity was entered. After adequate insufflation the laparoscope was then placed into the peritoneal cavity. Next a 5 mm trochars placed in the right epigastric position. Another 5 millimeter trocar the right lateral position. Another 5 millimeter trocar in the left lateral position a 5 mm trocar is placed in the left epigastric position. And then the initial 5 mm trocar was exchanged for a 10 mm trocar. The left lateral lobe liver was retracted. The hernia was seen. Patient had a large hiatal hernia. Approximately three quarters of the stomach was in the chest. The stomach was reduced. The hernia sac was then incised using Harmonic scissors at the edge of the crural defect. Stomach was completely reduced into the perineal cavity. The crural defect was then closed using 2-0 Ethibond suture. A piece of [place] bio a mesh was placed over top of the repair and secured with 2-0 Ethibond suture. At this point the 56-Welsh bougie dilator was placed into the esophagus and stomach. There is no obstruction seen. At this point the abdomen was insufflated the trochars withdrawn. Skin was closed interrupted 3-0 Monocryl suture. Dermabond was applied. Patient top she will was sent to recovery in stable condition.
[2021-08-29] MEDS ORDERED: HYDROmorphone 0.5 MG/0.5 ML SYRINGE IVP ONE ×4 (17:08→17:26)
[2021-08-29] MEDS: D5-0.45% NACL WITH KCL 20MEQ/L 1,000 ML IV SCH (21:31)
[2021-08-29] MEDS: HYDROmorphone 1 MG/ML 1 ML SYRINGE IVP PRN (21:36)
[2021-08-30] MEDS: D5-0.45% NACL WITH KCL 20MEQ/L 1,000 ML IV SCH ×4 (04:32→23:59)
[2021-08-30] MEDS ORDERED: LACTULOSE 20 GM/30 ML CUP PO PRN (05:26)
--- NOTE | 2021-08-30 08:33 | FL ---
EXAMINATION TYPE: FL esophagus cervic/pharynx DATE OF EXAM: 08/30/2021 LIMITED UGI-ESOPHAGRAM: CLINICAL HISTORY: Paraesophageal hernia repair surgery yesterday. TECHNIQUE: Limited esophagram is performed utilizing 50 oz of Isovue-370. A total of 8 seconds of fl uoroscopic time was utilized during procedure and 23 images obtained. Comparison: CT abdomen and pelvis August 03, 2021. Fluoroscopic upper GI August 25, 2021 FINDINGS: The patient swallowed contrast without difficulty or delay. Esophageal peristalsis and mo tility are within normal limits. There is good flow of contrast along the diaphragmatic hiatus into t he stomach, there is no evidence of contrast extravasation to suggest leak. No persistent large hiata l hernia is seen. Patient remains asymptomatic. Overlying sternal wires are redemonstrated. Retained contrast from upper GI study fills colonic diverticula in the transverse colon and portion of the red undant sigmoid colon. Free air is present slightly more than usual below both diaphragms. IMPRESSION: No evidence of leak or significant obstruction status large hernia repair surgery yesterd ay.
[2021-08-30] MEDS ORDERED: SENNOSIDES 8.6 MG TAB PO PRN (09:00)
[2021-08-30] MEDS ORDERED: [UNRECOGNIZED DRUG - OTHER] PO SCH (09:00)
[2021-08-30] MEDS: prednisoLONE ACETATE 1% OPHTH DROPS 5 ML BTL RIGHT EYE SCH ×4 (10:00→23:04)
[2021-08-30] MEDS: HYDROmorphone 1 MG/ML 1 ML SYRINGE IVP PRN ×2 (11:20→17:54)
--- NOTE | 2021-08-30 13:14 | P.PN ---
Subjective Progress Note Date: 08/30/21 CHIEF COMPLAINT: Dysphagia HISTORY OF PRESENT ILLNESS: Patient is status post laparoscopic repair of para esophageal hernia. Postop day #1. Upper GI shows no evidence of leak or obstruction. Patient started on Carisa clear liquid diet. Patient is post confused. Patient does complain of a little abdominal pain. Denies any nausea or vomiting. Afebrile. Patient seen and examined with Dr. goyal PHYSICAL EXAM: VITAL SIGNS: Reviewed. GENERAL: Well-developed in no acute distress. HEENT: No sclera icterus. Extraocular movements grossly intact. Moist buccal mucosa. Head is atraumatic, normocephalic. ABDOMEN: Soft. Nondistended. NEUROLOGIC: Alert and oriented. Cranial nerves II through XII grossly intact. ASSESSMENT: 1. Paraesophageal hernia with dysphagia and abdominal pain status post laparoscopic repair of paraesophageal hernia PLAN: -Start Carisa clear liquid diet -Continue pain medication as needed -Medicine service on consult for medical management -Encouraged patient to use incentive spirometer -Encouraged patient to increase activity level -Consult PT OT -GI prophylaxis Protonix and DVT prophylaxis Lovenox Physician Sex Crimes Detective note has been reviewed by physician. Signing provider agrees with the documented findings, assessment, and plan of care. Objective - Vital Signs Vital signs: Vital Signs Temp 97.7 F 08/30/21 08:00 Pulse 64 08/30/21 08:00 Resp 18 08/30/21 08:00 BP 127/68 08/30/21 08:00 Pulse Ox 96 08/30/21 08:00 Intake & Output 08/29/21 08/30/21 08/30/21 18:59 06:59 18:59 Intake Total 1300 Output Total 25 1050 1000 Balance 1275 -1050 -1000 Weight 82.5 kg 81.5 kg Intake: IV 1300 Output: Urine 1050 1000 Straight 1000 Uretheral (Perez) 1050 Estimated Blood Loss 25 Other: # Voids 0
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
[2021-08-30] MEDS: ENOXAPARIN 40 MG/0.4 ML SYRINGE SQ SCH (13:24)
[2021-08-30] MEDS: KETOROLAC 0.5% OPHTH DROPS 5 ML BTL RIGHT EYE SCH ×5 (17:21→23:09)
[2021-08-30] MEDS: THIAMINE 100 MG TAB PO SCH (17:22)
[2021-08-30] MEDS: TAMSULOSIN 0.4 MG CAP.ER.24H PO SCH (17:22)
[2021-08-30] MEDS: CYANOCOBALAMIN 500 MCG TAB PO SCH (17:23)
[2021-08-30] MEDS: PANTOPRAZOLE 40 MG TABLET PO SCH ×2 (17:23→23:04)
[2021-08-30] MEDS: lisinopriL 5 MG TAB PO SCH (17:23)
[2021-08-30] MEDS: ASPIRIN 81 MG PO SCH (23:03)
[2021-08-30] MEDS: atenoloL 25 MG TAB PO SCH (23:03)
[2021-08-30] MEDS: buPROPion SR 150 MG TABLET.ER PO SCH (23:03)
[2021-08-30] MEDS: ATORVASTATIN 10 MG TAB PO SCH (23:03)
[2021-08-31 07:34] LABS: Basophils % (A) 0 %; Eosinophils # (A) 0.2 k/uL (0-0.7); Eosinophils % (A) 2 %; HCT 43.3 % (39.0-53.0); HGB 13.8 gm/dL (13.0-17.5); Lymphocytes # (A) 1.2 k/uL (1.0-4.8); Lymphocytes % (A) 13 %; MCH 30.9 pg (25.0-35.0); MCHC 31.8 g/dL (31.0-37.0); MCV 97.1 fL (80.0-100.0); Mean Platelet Volume 7.5; Monocytes # (A) 0.6 k/uL (0-1.0); Monocytes % (A) 7 %; Neutrophils # (A) 6.8 k/uL (1.3-7.7); Neutrophils % (A) 77 %; Platelet Count 223 k/uL (150-450); RBC 4.46 m/uL (4.30-5.90); RDW 12.4 % (11.5-15.5); WBC 8.9 k/uL (3.8-10.6)
[2021-08-31 07:49] LABS: African American GFR (CKD) >90 (>60 ml/min/1.73 sqM); Anion Gap 7 mmol/L; Blood Urea Nitrogen 7 mg/dL (9-20); Calcium 9.8 mg/dL (8.4-10.2); Carbon Dioxide 25 mmol/L (22-30); Chloride 97 mmol/L (98-107); Glucose 114 mg/dL (74-99); Non-African American GFR(CKD) 80 (>60 ml/min/1.73 sqM); Potassium 4.5 mmol/L (3.5-5.1); Sodium 129 mmol/L (137-145)
[2021-08-31] MEDS: PANTOPRAZOLE 40 MG TABLET PO SCH ×2 (09:24→21:26)
[2021-08-31] MEDS: LACTULOSE 20 GM/30 ML CUP PO SCH (09:25)
[2021-08-31] MEDS: CYANOCOBALAMIN 500 MCG TAB PO SCH (09:25)
[2021-08-31] MEDS: TAMSULOSIN 0.4 MG CAP.ER.24H PO SCH ×2 (09:25→21:26)
[2021-08-31] MEDS: lisinopriL 5 MG TAB PO SCH (09:25)
[2021-08-31] MEDS: ENOXAPARIN 40 MG/0.4 ML SYRINGE SQ SCH (09:25)
[2021-08-31] MEDS: THIAMINE 100 MG TAB PO SCH (09:25)
[2021-08-31] MEDS: KETOROLAC 0.5% OPHTH DROPS 5 ML BTL RIGHT EYE SCH ×5 (09:26→21:28)
[2021-08-31] MEDS: prednisoLONE ACETATE 1% OPHTH DROPS 5 ML BTL RIGHT EYE SCH ×4 (09:26→21:26)
[2021-08-31] MEDS: D5-0.45% NACL WITH KCL 20MEQ/L 1,000 ML IV SCH (09:26)
[2021-08-31 11:55] VITALS: BMI 27.5
--- NOTE | 2021-08-31 13:26 | P.PN ---
Subjective Progress Note Date: 08/31/21 CHIEF COMPLAINT: Dysphagia HISTORY OF PRESENT ILLNESS: Patient is status post laparoscopic repair of para esophageal hernia. Postop day #2. Upper GI shows no evidence of leak or obstruction. Patient is tolerating Carisa clear liquid diet. Patient is confused. He has history of dementia. Patient does complain of a little abdominal pain. Denies any nausea or vomiting. Per nursing staff has had min imal oral intake. Patient having issues with urinary retention and required to have straight catheterization. Medicine has consult urology. Afebrile. WBC 8.9 sodium 129 PHYSICAL EXAM: VITAL SIGNS: Reviewed. GENERAL: Well-developed in no acute distress. HEENT: No sclera icterus. Extraocular movements grossly intact. Moist buccal mucosa. Head is atraumatic, normocephalic. ABDOMEN: Soft. Nondistended. NEUROLOGIC: Patient is confused ASSESSMENT: 1. Paraesophageal hernia with dysphagia and abdominal pain status post laparoscopic repair of paraesophageal hernia PLAN: -continue Carisa clear liquid diet -Encouraged patient to increase oral intake -Medicine service to manage hyponatremia -Urology consult for urinary retention -Continue pain medication as needed -Encouraged patient to use incentive spirometer -Encouraged patient to increase activity level -Consult PT OT -GI prophylaxis Protonix and DVT prophylaxis Lovenox Physician Mica Machine Operator note has been reviewed by physician. Signing provider agrees with the documented findings, assessment, and plan of care. Objective - Vital Signs Vital signs: Vital Signs Temp 99.0 F 08/31/21 08:30 Pulse 77 08/31/21 08:30 Resp 18 08/31/21 08:30 BP 155/75 08/31/21 08:30 Pulse Ox 97 08/31/21 08:30 Intake & Output 08/30/21 08/31/21 08/31/21 18:59 06:59 18:59 Intake Total 600 1520 200 Output Total 1000 1075 Balance -400 445 200 Weight 81.5 kg 87 kg 87 kg Intake: Intake, IV Titration 1400 Amount D5-0.45% NaCl with KCl 1400 20Meq/l 1,000 ml @ 125 mls/hr IV .Q8H MILI Rx#: [id number] Oral 600 120 200 Output: Urine 1000 950 Straight 1000 Post Void Residual 125 Stool 0 Other: # Voids 0 1 2 # Bowel Movements 0 0 - Labs CBC & Chem 7: 08/31/21 07:03 08/31/21 07:03 Labs: Abnormal Lab Results - Last 24 Hours (Table) 08/31/21 Range/Units 07:03 Sodium 129 L (137-145) mmol/L Chloride 97 L (98-107) mmol/L BUN 7 L (9-20) mg/dL Glucose 114 H (74-99) mg/dL
[2021-08-31] MEDS: PHENAZOPYRIDINE 100 MG TAB PO SCH ×3 (13:41→21:26)
[2021-08-31] MEDS ORDERED: HYDROmorphone 0.5 MG/0.5 ML SYRINGE IVP PRN (14:38)
[2021-08-31] MEDS: HYDROmorphone 1 MG/ML 1 ML SYRINGE IVP PRN ×2 (14:55→21:27)
--- NOTE | 2021-08-31 15:20 | P.PN ---
Subjective Progress Note Date: 08/31/21 HISTORY OF PRESENT ILLNESS 80-year-old male one of my office patient with known for over 20 years with past medical history of CAD post CABG back in , history of hypertension, hy perlipidemia, chronic history of alcoholism the patient has quit over 3 years ago also patient has been suffering from significant memory loss. Patient was admitted to the hospital and July for abdominal pain and a CAT scan did not show any major abnormality. He subsequently underwent EGD on 08/22/2021 which found antral gastritis and large hiatal hernia, minimal esophagitis. Patient had ongoing problems with dysphagia and epigastric pain. Esophagram revealed intrathoracic stomach and intermittent gastric volvulus. Patient was brought in on 08/29 under the care of Dr. Connors status post laparoscopic repair. Last evening, patient required straight cath 2 4000 mL each. We'll plan to continue to monitor and straight cath and if continues to have problems then tomorrow a Perez catheter will be placed. Patient has been ambulatory after surgery. He underwent an esophagram which revealed no evidence of leak or significant obstruction status large hernia repair surgery and patient is to start Carisa clear liquid diet. Vital signs are stable and patient will be transferred to [facility] floor today. 08/31: Patient had urinary retention during the night and required straight cath 1 and 400 ML's. Patient is continuing to urinate frequently every 5-15 minutes and complains of spasms, urology consult was added and Pyridium was added. In the afternoon, patient was having some trouble swallowing was seen by speech therapy. He was also complaining of nausea and abdominal pain and belching. He has not had a bowel movement. Patient is afebrile, heart rate 77, blood press ure 155/75, pulse ox 97% on room air. CBC is unremarkable. Sodium 129, creatinine 0.88. Blood sugar 114. Hospital bed will be ordered for home. REVIEW OF SYSTEMS Constitutional: No fever, no chills, no night sweats. Mild tiredness no fatigue no lethargy no daytime sleepiness, noted few pound weight loss in the last 3 weeks. EENT: No headache. No blurred vision or double vision, no loss of vision. No loss of Hearing, no ringing in the ears, no dizziness. No nasal drainage or congestion. No epistaxis. No sore throat. Lungs: Slight dyspnea and shortness of breath. Cardiovascular: Positive chest pain, no lower extremity edema. No palpitations. Positive paroxysmal nocturnal dyspnea. Mild orthopnea. Positive lightheadedness or dizziness. No syncopal episodes. Abdominal: Positive abdominal discomfort with nausea, vomiting. No diarrhea. Positive constipation. No bloody or tarry stools.. Positive loss of appetite. Genitourinary: No dysuria, increased frequency, urgency. No urinary retention. Musculoskeletal: No myalgias. No muscle weakness, no gait dysfunction, no frequent falls. No back pain. No neck pain. Integumentary: No wounds, no lesions. No rash or pruritus. No unusual bruising. No change in hair or nails. Neurologic: No aphasia. No facial droop. Significant memory loss with abnormal balance and gait. Psychiatric: No depression. No anxiety. Positive dementia Endocrine: No abnormal blood sugars. No weight change. No excessive sweating or thirst. No cold intolerance. PHYSICAL EXAMINATION Gen: This is elderly laying in bed mildly confused does not look in any respiratory distress. HEENT: Head is atraumatic, normocephalic. Pupils equal, round. Sclerae is anicteric. NECK: Supple. No JVD. No lymphadenopathy. No thyromegaly. CHEST: No tenderness or deformity decreased expansion with deep inspiration. LUNGS: Clear to auscultation. No wheezes or rhonchi. No intercostal retractions. HEART: Regular rate and rhythm. With slight irregularity, S1, S2, positive 2/6 systolic murmur at the apex ABDOMEN: Soft. Bowel sounds are present. No masses. Mild generalized tenderness. EXTREMITIES: No pedal edema. No calf tenderness. NEUROLOGICAL: Patient is awake, alert with confusion oriented to person. Cranial nerves 2 through 12 are grossly intact, positive generalized weakness.. ASSESSMENT AND PLAN 1. Large hiatal hernia status post repair. Clear liquid diet, continue current pain management, increase activity, incentive spirometry during reduce incidence of atelectasis and hospital-acquired pneumonia. 2. Paroxysmal atrial fibrillation. Continue atenolol 75 mg at bedtime, patient is not on anticoagulation. 3. Vascular dementia and possible Alzheimer's disease. 4. Hyperlipidemia. Continue Lipitor 10 mg at bedtime. 5. Hypertension. Continue lisinopril 5 mg daily. 6. Recurrent depression. Continue Wellbutrin 150 mg at bedtime5. 7. Benign prostatic hypertrophy. Continue Flomax or 0.4 mg daily. 8. Chronic constipation. Patient usually has a bowel movement every 5 days. Lactulose will be changed to scheduled daily. 9. DVT prophylaxis. Lovenox 40 mg subcu daily. 10. COVID-19 testing, was negative. DISCHARGE PLAN Home Impression and plan of care have been directed as dictated by the signing physician. Ladonna Ewing nurse practitioner acting as scribe for signing physician. Objective - Vital Signs Vital signs: Vital Signs Temp 99.0 F 08/31/21 08:30 Pulse 77 08/31/21 08:30 Resp 18 08/31/21 08:30 BP 155/75 08/31/21 08:30 Pulse Ox 97 08/31/21 08:30 Intake & Output 08/30/21 08/31/21 08/31/21 18:59 06:59 18:59 Intake Total 600 1520 200 Output Total 1000 1075 Balance -400 445 200 Weight 81.5 kg 87 kg Intake: Intake, IV Titration 1400 Amount D5-0.45% NaCl with KCl 1400 20Meq/l 1,000 ml @ 125 mls/hr IV .Q8H [facility] Rx#: [id number] Oral 600 120 200 Output: Urine 1000 950 Straight 1000 Post Void Residual 125 Stool 0 Other: # Voids 0 1 2 # Bowel Movements 0 0 - Labs CBC & Chem 7: 08/31/21 07:03 08/31/21 07:03 Labs: Abnormal Lab Results - Last 24 Hours (Table) 08/31/21 Range/Units 07:03 Sodium 129 L (137-145) mmol/L Chloride 97 L (98-107) mmol/L BUN 7 L (9-20) mg/dL Glucose 114 H (74-99) mg/dL
[2021-08-31] MEDS ORDERED: PHENAZOPYRIDINE 100 MG TAB PO SCH (16:00)
[2021-08-31] MEDS: KETOROLAC 15 MG/ML 1 ML VIAL IVP SCH ×2 (18:06→23:49)
[2021-08-31] MEDS: SIMETHICONE 40 MG/0.6 ML DROPS 2,000 MG/30 ML BOTTLE PO SCH ×2 (18:07→21:26)
[2021-08-31] MEDS: METOCLOPRAMIDE 5 MG/ML 2 ML VIAL IVP SCH ×2 (18:07→23:48)
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
[2021-08-31] MEDS ORDERED: DEXTROSE 5%-0.45% NACL 1,000 ML IV SCH (20:45)
[2021-08-31] MEDS: buPROPion SR 150 MG TABLET.ER PO SCH (21:26)
[2021-08-31] MEDS: ASPIRIN 81 MG PO SCH (21:26)
[2021-08-31] MEDS: atenoloL 25 MG TAB PO SCH (21:26)
[2021-08-31] MEDS: ATORVASTATIN 10 MG TAB PO SCH (21:26)
[2021-09-01] MEDS: HYDROmorphone 1 MG/ML 1 ML SYRINGE IVP PRN (03:40)
[2021-09-01] MEDS: METOCLOPRAMIDE 5 MG/ML 2 ML VIAL IVP SCH ×2 (06:04→12:07)
[2021-09-01] MEDS: KETOROLAC 15 MG/ML 1 ML VIAL IVP SCH ×2 (06:04→12:06)
[2021-09-01 07:03] LABS: Calcium 9.8 mg/dL (8.4-10.2); Potassium 4.9 mmol/L (3.5-5.1)
[2021-09-01] MEDS ORDERED: HYDROcodone/APAP 5-325MG 1 EACH TAB PO PRN (08:26)
[2021-09-01] MEDS: lisinopriL 5 MG TAB PO SCH (10:04)
[2021-09-01] MEDS: PANTOPRAZOLE 40 MG TABLET PO SCH (10:04)
[2021-09-01] MEDS: THIAMINE 100 MG TAB PO SCH (10:04)
[2021-09-01] MEDS: CYANOCOBALAMIN 500 MCG TAB PO SCH (10:04)
[2021-09-01] MEDS: TAMSULOSIN 0.4 MG CAP.ER.24H PO SCH (10:04)
[2021-09-01] MEDS: ENOXAPARIN 40 MG/0.4 ML SYRINGE SQ SCH (10:05)
[2021-09-01] MEDS: SIMETHICONE 40 MG/0.6 ML DROPS 2,000 MG/30 ML BOTTLE PO SCH ×2 (10:05→12:08)
[2021-09-01] MEDS: KETOROLAC 0.5% OPHTH DROPS 5 ML BTL RIGHT EYE SCH ×2 (10:06→12:07)
[2021-09-01] MEDS: prednisoLONE ACETATE 1% OPHTH DROPS 5 ML BTL RIGHT EYE SCH ×2 (10:06→12:07)
[2021-09-01] MEDS: PHENAZOPYRIDINE 100 MG TAB PO SCH (10:07)
--- NOTE | 2021-09-01 10:54 | P.PN ---
Subjective Progress Note Date: 09/01/21 required CIC overnight for PVR of 450 mL, denies any abdominal pain or any voiding issues Objective - Vital Signs Vital signs: Vital Signs Temp 98.0 F 09/01/21 07:05 Pulse 89 09/01/21 07:05 Resp 18 09/01/21 07:05 BP 134/81 09/01/21 07:05 Pulse Ox 96 09/01/21 07:05 Intake & Output 08/31/21 09/01/21 09/01/21 18:59 06:59 18:59 Intake Total 670 1230 Output Total 675 Balance 670 555 Weight 87 kg 85.5 kg Intake: IV 10 Invasive Line 1 10 Intake, IV Titration 750 Amount Dextrose 5%-0.45% NaCl 1, 750 000 ml @ 75 mls/hr IV . [id number] [facility] Rx#:[id number] Oral 660 480 Output: Urine 675 Other: # Voids 3 # Bowel Movements 0 - Constitutional General appearance: Present: no acute distress - Gastrointestinal General gastrointestinal: Present: soft. Absent: distended - Psychiatric Psychiatric: Present: A&O x's 3 - Labs CBC & Chem 7: 08/31/21 07:03 09/01/21 05:42 Labs: Abnormal Lab Results - Last 24 Hours (Table) 09/01/21 Range/Units 05:42 Sodium 128 L (137-145) mmol/L Chloride 97 L (98-107) mmol/L Glucose 118 H (74-99) mg/dL Assessment and Plan Assessment: 80 yo male S/P Hiatal hernia repair on 08/29/21, developed retention postoperatively. This required CIC 2, he required an additional CIC overnight, PVR 450 mL overnight. -Continue flomax 0.4 mg BID -If continues to have elevated PVR, recommend placing a gama catheter for 1 weeks, can f/u as an outpatient for TOV
[2021-09-01] MEDS ORDERED: SODIUM CHLORIDE 0.9% 1,000 ML IV SCH ×2 (12:00→12:30)
[2021-09-01] MEDS: LACTULOSE 20 GM/30 ML CUP PO SCH (12:25)
[2021-09-01] MEDS ORDERED: ACETAMINOPHEN TAB 325 MG TAB PO PRN (13:24)
--- NOTE | 2021-09-01 14:32 | P.DS ---
Providers Date of admission: 08/31/21 08:33 Expected date of discharge: 09/01/21 Attending physician: Randal Connors Consults: 08/29/21 16:45 Consult Physician Routine Consulting Provider: Hossein Langston Consult Reason/Comments: Medical management Do you want consulting provider notified?: Yes 08/31/21 09:59 Consult Physician Routine Consulting Provider: Caleb Hua Consult Reason/Comments: urinary retention Do you want consulting provider notified?: Yes Primary care physician: Hossein Langston Hospital Course: Discharge diagnosis 1. Paraesophageal hernia with dysphagia and abdominal pain status post laparoscopic repair of paraesophageal hernia Hospital course This is a 80-year-old male with complaints of dysphagia and epigastric pain. Patient is status post laparoscopic repair of paraesophageal hernia. He had an upper GI completed showing no evidence of leak or obstruction. Patient is tolerating liquids. He is up and ambulating. His pain is controlled. Afeb rile. Per Dr. Connors patient is stable for discharge. Please refer to chart for any further details. Physician Japanese Interpreter note has been reviewed by physician. Signing provider agrees with the documented findings, assessment, and plan of care. Patient Condition at Discharge: Stable Plan - Discharge Summary Discharge Rx Participant: No New Discharge Prescriptions: New Acetaminophen Tab [Tylenol Tab] 650 mg PO Q4H PRN #30 tablet PRN Reason: Pain Simethicone 40 mg/0.6 ml Drops [Mylicon Drops] 40 mg PO QID ml Continue Tamsulosin HCl [Flomax] 0.4 mg PO QAM Vit C/E/Zn/Coppr/Lutein/Zeaxan [Preservision Areds 2 Softgel] 1 cap PO BID Simvastatin [Zocor] 10 mg PO HS Thiamine HCl [Vitamin B-1] 100 mg PO DAILY Cyanocobalamin [Vitamin B-12] 500 mcg PO DAILY #90 tablet atenoloL [Tenormin] 75 mg PO HS #30 tab Enalapril [Vasotec] 5 mg PO QAM Pantoprazole [Protonix] 40 mg PO BID Isaflush 2 cap PO QAM Ketorolac Tromethamine [Acular 0.5%] 1 drop RIGHT EYE QID Lactulose 10 gm PO ONCE PRN PRN Reason: Constipation Sennosides [Senna] 8.6 mg PO DAILY PRN PRN Reason: Constipation prednisoLONE ACETATE 1% OPHTH [Pred Forte 1%] 1 drop RIGHT EYE QID Ketorolac 0.5% Ophth Soln [Acular 0.5%] 1 drops RIGHT EYE DAILY buPROPion SR [Wellbutrin SR] 150 mg PO HS Aspirin 81 mg PO HS traMADol HCL/ACETAMINOPHEN [Ultracet 37.5-325] 1 - 2 tab PO DIRECTED PRN PRN Reason: Pain Discharge Medication List Simvastatin [Zocor] 10 mg PO HS 08/28/18 [History] Tamsulosin HCl [Flomax] 0.4 mg PO QAM 08/28/18 [History] Vit C/E/Zn/Coppr/Lutein/Zeaxan [Preservision Areds 2 Softgel] 1 cap PO BID 08/28/18 [History] Thiamine HCl [Vitamin B-1] 100 mg PO DAILY 08/28/19 [History] Cyanocobalamin [Vitamin B-12] 500 mcg PO DAILY #90 tablet 11/12/19 [Rx] atenoloL [Tenormin] 75 mg PO HS #30 tab 11/12/19 [Rx] Enalapril [Vasotec] 5 mg PO QAM 12/03/19 [History] Aspirin 81 mg PO HS 08/06/21 [History] Ketorolac 0.5% Ophth Soln [Acular 0.5%] 1 drops RIGHT EYE DAILY 08/06/21 [History] buPROPion SR [Wellbutrin SR] 150 mg PO HS 08/06/21 [History] prednisoLONE ACETATE 1% OPHTH [Pred Forte 1%] 1 drop RIGHT EYE QID 08/06/21 [History] Isaflush 2 cap PO QAM 08/19/21 [History] Pantoprazole [Protonix] 40 mg PO BID 08/19/21 [History] Ketorolac Tromethamine [Acular 0.5%] 1 drop RIGHT EYE QID 08/26/21 [History] Lactulose 10 gm PO ONCE PRN 08/26/21 [History] Sennosides [Senna] 8.6 mg PO DAILY PRN 08/26/21 [History] traMADol HCL/ACETAMINOPHEN [Ultracet 37.5-325] 1 - 2 tab PO DIRECTED PRN 08/26/21 [History] Acetaminophen Tab [Tylenol Tab] 650 mg PO Q4H PRN #30 tablet 09/01/21 [Rx] Simethicone 40 mg/0.6 ml Drops [Mylicon Drops] 40 mg PO QID ml 09/01/21 [Rx] Follow up Appointment(s)/Referral(s): Venita Bain,Home Care [NON-STAFF] - Marcelino Dixon MD [STAFF PHYSICIAN] - 4 Weeks Randal Connors MD [STAFF PHYSICIAN] - 1 Week Activity/Diet/Wound Care/Special Instructions: No driving while taking [place] No lifting over 10 pounds You may shower. No soaking or tub baths for 2 weeks Very light activity until you are reevaluated at your follow up appointment with your surgeon Continue a full liquid diet until seen by surgeon Discharge Disposition: HOME SELF-CARE
[2021-09-01 16:16] VITALS: BP 129/78; PULSE 80; RESP 17; TEMP 97.7
[2021-09-01] MEDS ORDERED: LACTULOSE 20 GM/30 ML CUP PO SCH (21:00)
--- NOTE | 2021-09-02 15:48 | P.PN ---
Subjective Progress Note Date: 09/01/21 HISTORY OF PRESENT ILLNESS 80-year-old male one of my office patient with known for over 20 years with past medical history of CAD post CABG back in , history of hypertension, hy perlipidemia, chronic history of alcoholism the patient has quit over 3 years ago also patient has been suffering from significant memory loss. Patient was admitted to the hospital and July for abdominal pain and a CAT scan did not show any major abnormality. He subsequently underwent EGD on 08/22/2021 which found antral gastritis and large hiatal hernia, minimal esophagitis. Patient had ongoing problems with dysphagia and epigastric pain. Esophagram revealed intrathoracic stomach and intermittent gastric volvulus. Patient was brought in on 08/29 under the care of Dr. Connors status post laparoscopic repair. Last evening, patient required straight cath 2 4000 mL each. We'll plan to continue to monitor and straight cath and if continues to have problems then tomorrow a Perez catheter will be placed. Patient has been ambulatory after surgery. He underwent an esophagram which revealed no evidence of leak or significant obstruction status large hernia repair surgery and patient is to start Carisa clear liquid diet. Vital signs are stable and patient will be transferred to [facility] floor today. 08/31: Patient had urinary retention during the night and required straight cath 1 and 400 ML's. Patient is continuing to urinate frequently every 5-15 minutes and complains of spasms, urology consult was added and Pyridium was added. In the afternoon, patient was having some trouble swallowing was seen by speech therapy. He was also complaining of nausea and abdominal pain and belching. He has not had a bowel movement. Patient is afebrile, heart rate 77, blood press ure 155/75, pulse ox 97% on room air. CBC is unremarkable. Sodium 129, creatinine 0.88. Blood sugar 114. Hospital bed will be ordered for home. 09/01: Patient has been seen by urology and recommended Perez cath if he continues to have voiding difficulties. Patient continues to have no bowel mov ement and complaining of feeling things are stuck in his esophagus, lack of appetite. Patient was seen by speech therapy and swallow was determined to be in normal function. Lactulose was increased to twice daily. Patient is afebrile, heart rate 89, blood pressure 134/81, pulse ox 96% on room air. Repeat blood work reveals sodium 128, chloride 97, creatinine 1.04. Perez catheter was placed prior to discharge. Discharge plan is home with homecare. REVIEW OF SYSTEMS Constitutional: No fever, no chills, no night sweats. Mild tiredness no fatigue no lethargy no daytime sleepiness, noted few pound weight loss in the last 3 weeks. EENT: No headache. No blurred vision or double vision, no loss of vision. No loss of Hearing, no ringing in the ears, no dizziness. No nasal drainage or congestion. No epistaxis. No sore throat. Complains of difficulty swallowing Lungs: Slight dyspnea and shortness of breath. Cardiovascular: Positive chest pain, no lower extremity edema. No palpitations. Positive paroxysmal nocturnal dyspnea. Mild orthopnea. Positive li ghtheadedness or dizziness. No syncopal episodes. Abdominal: Positive abdominal discomfort with nausea, vomiting. No diarrhea. Positive constipation. No bloody or tarry stools.. Positive loss of appetite. Genitourinary: No dysuria, increased frequency, urgency. Noted urinary retention with voiding difficulties, frequent small amounts. Musculoskeletal: No myalgias. No muscle weakness, no gait dysfunction, no frequent falls. No back pain. No neck pain. Integumentary: No wounds, no lesions. No rash or pruritus. No unusual bruising. No change in hair or nails. Neurologic: No aphasia. No facial droop. Significant memory loss with abnormal balance and gait. Psychiatric: No depression. No anxiety. Positive dementia Endocrine: No abnormal blood sugars. No weight change. No excessive sweating or thirst. No cold intolerance. PHYSICAL EXAMINATION Gen: This is elderly laying in bed mildly confused does not look in any respiratory distress. HEENT: Head is atraumatic, normocephalic. Pupils equal, round. Sclerae is anicteric. NECK: Supple. No JVD. No lymphadenopathy. No thyromegaly. CHEST: No tenderness or deformity decreased expansion with deep inspiration. LUNGS: Clear to auscultation. No wheezes or rhonchi. No intercostal retractions. HEART: Regular rate and rhythm. With slight irregularity, S1, S2, positive 2/6 systolic murmur at the apex ABDOMEN: Soft. Bowel sounds are present. No masses. Mild generalized tenderness. EXTREMITIES: No pedal edema. No calf tenderness. NEUROLOGICAL: Patient is awake, alert with confusion oriented to person. Cranial nerves 2 through 12 are grossly intact, positive generalized weakness.. ASSESSMENT AND PLAN 1. Large hiatal hernia status post repair. Continue Clear liquid diet, continue current pain management, increase activity, incentive spirometry during reduce incidence of atelectasis and hospital-acquired pneumonia. 2. Paroxysmal atrial fibrillation. Continue atenolol 75 mg at bedtime, patient is not on anticoagulation. 3. Vascular dementia and possible Alzheimer's disease. 4. Hyperlipidemia. Continue Lipitor 10 mg at bedtime. 5. Hypertension. Continue lisinopril 5 mg daily. 6. Recurrent depression. Continue Wellbutrin 150 mg at bedtime5. 7. Benign prostatic hypertrophy. Continue Flomax or 0.4 mg daily. 8. Chronic constipation. Patient usually has a bowel movement every 5 days. Lactulose will be changed to scheduled daily. 9. Urinary retention requireing straight cath and Perez catheter. 11. DVT prophylaxis. Lovenox 40 mg subcu daily. 10. COVID-19 testing, was negative. DISCHARGE PLAN Home Impression and plan of care have been directed as dictated by the signing physician. Ladonna Ewing nurse practitioner acting as scribe for signing physician. Objective - Vital Signs Vital signs: Vital Signs Temp 98.0 F 09/01/21 07:05 Pulse 89 09/01/21 07:05 Resp 18 09/01/21 07:05 BP 134/81 09/01/21 07:05 Pulse Ox 96 09/01/21 07:05 Intake & Output 08/31/21 09/01/21 09/01/21 18:59 06:59 18:59 Intake Total 670 1230 Output Total 675 Balance 670 555 Weight 87 kg 85.5 kg Intake: IV 10 Invasive Line 1 10 Intake, IV Titration 750 Amount Dextrose 5%-0.45% NaCl 1, 750 000 ml @ 75 mls/hr IV . [id number] MILI Rx#:[id number] Oral 660 480 Output: Urine 675 Other: # Voids 3 # Bowel Movements 0 - Labs CBC & Chem 7: 08/31/21 07:03 09/01/21 05:42 Labs: Abnormal Lab Results - Last 24 Hours (Table) 09/01/21 Range/Units 05:42 Sodium 128 L (137-145) mmol/L Chloride 97 L (98-107) mmol/L Glucose 118 H (74-99) mg/dL
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
== END 2021-09-01 17:21 | disposition home health service (06) | DRG 982 ==
LOC: OR 11:08 → 3SCARD 19:47 → OR 08-30 14:49 → OBSVTOIN 08-31 08:33
PROVIDERS: ADMIT Surgery; ATTEND Surgery
PROC: 0BUT4JZ Supplement Diaphragm with Synthetic Substitute, Percutaneous Endoscopic Approach (ICD-10-PCS; principal; 2021-08-29 13:55)
DX: N40.1 Benign prostatic hyperplasia with lower urinary tract symptoms (principal); F33.9 Major depressive disorder, recurrent, unspecified; F01.50 Vascular dementia, unspecified severity, without behavioral disturbance, psychotic disturbance, mood disturbance, and anxiety; G30.9 Alzheimer's disease, unspecified; F02.80 Dementia in other diseases classified elsewhere, unspecified severity, without behavioral disturbance, psychotic disturbance, mood disturbance, and anxiety; I48.0 Paroxysmal atrial fibrillation; F10.21 Alcohol dependence, in remission; H35.3220 Exudative age-related macular degeneration, left eye, stage unspecified; Z20.822 Contact with and (suspected) exposure to COVID-19; K44.9 Diaphragmatic hernia without obstruction or gangrene; R33.8 Other retention of urine; K29.70 Gastritis, unspecified, without bleeding; K31.89 Other diseases of stomach and duodenum; R13.10 Dysphagia, unspecified; E78.5 Hyperlipidemia, unspecified; K21.9 Gastro-esophageal reflux disease without esophagitis; K59.09 Other constipation; I10 Essential (primary) hypertension; I25.10 Atherosclerotic heart disease of native coronary artery without angina pectoris; H35.3110 Nonexudative age-related macular degeneration, right eye, stage unspecified; L40.9 Psoriasis, unspecified; I25.2 Old myocardial infarction; Z79.82 Long term (current) use of aspirin; Z79.899 Other long term (current) drug therapy; Z87.440 Personal history of urinary (tract) infections; Z90.49 Acquired absence of other specified parts of digestive tract; Z87.19 Personal history of other diseases of the digestive system; Z87.891 Personal history of nicotine dependence; Z95.1 Presence of aortocoronary bypass graft; Z90.89 Acquired absence of other organs; Z96.641 Presence of right artificial hip joint; Z98.41 Cataract extraction status, right eye; Z98.890 Other specified postprocedural states; Z82.49 Family history of ischemic heart disease and other diseases of the circulatory system; Z82.5 Family history of asthma and other chronic lower respiratory diseases; Z83.1 Family history of other infectious and parasitic diseases; Z83.79 Family history of other diseases of the digestive system; Z81.2 Family history of tobacco abuse and dependence; Z80.9 Family history of malignant neoplasm, unspecified
CPT/HCPCS: 74210; 80048; 85025; 87635

== ENCOUNTER 2021-09-01 23:21 | Inpatient (IN) | payer MEDICARE ==
[2021-09-02] MEDS ORDERED: SODIUM CHLORIDE 0.9% 500 ML 500 ML IV STA (00:27)
--- NOTE | 2021-09-02 01:26 | XR ---
EXAMINATION TYPE: XR chest 1V portable DATE OF EXAM: 09/02/2021 COMPARISON: 08/06/2021 HISTORY: Chest pain TECHNIQUE: Single view FINDINGS: There is large hiatal hernia. There is no heart failure nor confluent pneumonic infiltrate. There is slight blunting of the left costophrenic angle. There are sternal wires. IMPRESSION: There is some new pleural reaction and atelectasis left lung base compared to old exam. N o heart failure seen.
[2021-09-02 01:45] LABS: Basophils % (A) 0 %; Eosinophils # (A) 0.5 k/uL (0-0.7); Eosinophils % (A) 5 %; HCT 40.1 % (39.0-53.0); HGB 13.5 gm/dL (13.0-17.5); Lymphocytes # (A) 1.4 k/uL (1.0-4.8); Lymphocytes % (A) 15 %; MCH 32.2 pg (25.0-35.0); MCHC 33.6 g/dL (31.0-37.0); MCV 95.8 fL (80.0-100.0); Mean Platelet Volume 9.5; Monocytes # (A) 0.8 k/uL (0-1.0); Monocytes % (A) 9 %; Neutrophils # (A) 6.4 k/uL (1.3-7.7); Neutrophils % (A) 69 %; Platelet Count 200 k/uL (150-450); RBC 4.18 m/uL (4.30-5.90); RDW 12.4 % (11.5-15.5); WBC 9.3 k/uL (3.8-10.6)
[2021-09-02] MEDS: LORazepam 1 MG TAB PO STA ×2 (01:46→02:11)
[2021-09-02] MEDS ORDERED: LORazepam 2 MG/ML INJ IV STA ×2 (01:52→21:27)
[2021-09-02 01:59] LABS: INR 0.9 (<1.2); Partial Thromboplastin Time 27.1 sec (22.0-30.0)
[2021-09-02 02:07] LABS: Albumin 3.6 g/dL (3.5-5.0); Magnesium 1.6 mg/dL (1.6-2.3); Potassium 4.7 mmol/L (3.5-5.1); Total Bilirubin 1.2 mg/dL (0.2-1.3); Total Protein 6.6 g/dL (6.3-8.2)
[2021-09-02] MEDS ORDERED: IPRATROPIUM-ALBUTEROL 3 ML NEB INHALATION STA (02:20)
[2021-09-02] MEDS ORDERED: AZITHROMYCIN 500 MG in SODIUM CHLORIDE 0.9% 250 ML IVPB STA (03:18)
[2021-09-02] MEDS ORDERED: PIPERACILLIN-TAZOBACTAM 3.375 GM in SODIUM CHLORIDE 0.9% 100 ML IVPB ONE (03:30)
[2021-09-02] MEDS ORDERED: PNEUMONIA PROTOCOL UTILIZED 1 EACH MISC PO PRN (03:59)
[2021-09-02] MEDS: SODIUM CHLORIDE 0.9% 1,000 ML IV SCH ×2 (04:05→16:10)
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
[2021-09-02] MEDS: PIPERACILLIN-TAZOBACTAM 3.375 GM in SODIUM CHLORIDE 0.9% 100 ML IVPB SCH (13:10)
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
[2021-09-03] MEDS ORDERED: SENNOSIDES 8.6 MG TAB PO PRN (01:20)
[2021-09-03] MEDS ORDERED: ACETAMINOPHEN TAB 325 MG TAB PO PRN (01:20)
[2021-09-03] MEDS ORDERED: LACTULOSE 20 GM/30 ML CUP PO PRN (01:20)
[2021-09-03] MEDS: SODIUM CHLORIDE 0.9% 1,000 ML IV SCH ×2 (01:47→12:41)
[2021-09-03] MEDS: PIPERACILLIN-TAZOBACTAM 3.375 GM in SODIUM CHLORIDE 0.9% 100 ML IVPB SCH ×3 (01:47→21:00)
[2021-09-03] MEDS: ASPIRIN 81 MG PO SCH ×2 (02:00→20:58)
[2021-09-03] MEDS: atenoloL 25 MG TAB PO SCH ×2 (02:00→20:58)
[2021-09-03 09:37] LABS: African American GFR (CKD) 88.5 (60.0-200.0); Albumin 3.9 g/dL (3.8-4.9); Albumin/Globulin Ratio 1.42 (1.60-3.17); Anion Gap 14.5 mmol/L (4.00-12.00); BUN/Creat Ratio 8.5 Ratio (12.00-20.00); Blood Urea Nitrogen 7.9 mg/dL (9.0-27.0); Carbon Dioxide 19.4 mmol/L (21.6-31.8); Globulin 2.7 g/dL (1.6-3.3); Non-African American GFR(CKD) 76.4 (60.0-200.0); Potassium 4.2 mmol/L (3.5-5.5); Total Bilirubin 0.9 mg/dL (0.30-1.20); Total Protein 6.6 g/dL (6.2-8.2)
[2021-09-03] MEDS: KETOROLAC 0.5% OPHTH DROPS 5 ML BTL RIGHT EYE SCH ×4 (09:52→21:34)
[2021-09-03] MEDS: prednisoLONE ACETATE 1% OPHTH DROPS 5 ML BTL RIGHT EYE SCH ×4 (09:52→21:34)
[2021-09-03] MEDS: VIT A,C & E-LUTEIN-MINERALS 1 EACH TAB PO SCH ×2 (09:53→21:35)
[2021-09-03] MEDS: lisinopriL 5 MG TAB PO SCH (09:53)
[2021-09-03] MEDS: TAMSULOSIN 0.4 MG CAP.ER.24H PO SCH (09:53)
[2021-09-03] MEDS: ENOXAPARIN 40 MG/0.4 ML SYRINGE SQ SCH (09:54)
[2021-09-03] MEDS: SIMETHICONE 40 MG/0.6 ML DROPS 2,000 MG/30 ML BOTTLE PO SCH ×4 (09:54→21:35)
[2021-09-03] MEDS: PANTOPRAZOLE 40 MG TABLET PO SCH ×2 (09:54→20:58)
[2021-09-03 12:14] VITALS: BMI 25.1
[2021-09-03] MEDS: AZITHROMYCIN 500 MG in SODIUM CHLORIDE 0.9% 250 ML IVPB SCH (12:26)
[2021-09-03 14:18] LABS: Glucose,Whole Blood 136 mg/dL (75-99)
[2021-09-03] MEDS ORDERED: SODIUM CHLORIDE 0.9% 1,000 ML IV ONE (14:29)
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
[2021-09-03 15:37] LABS: Basophils % (A) 0 %; Eosinophils # (A) 0.4 k/uL (0-0.7); Eosinophils % (A) 3 %; HCT 41.6 % (39.0-53.0); HGB 13.1 gm/dL (13.0-17.5); Lymphocytes % (A) 9 %; MCH 31.2 pg (25.0-35.0); MCHC 31.6 g/dL (31.0-37.0); MCV 98.9 fL (80.0-100.0); Mean Platelet Volume 7.8; Monocytes # (A) 0.7 k/uL (0-1.0); Monocytes % (A) 6 %; Neutrophils # (A) 9.1 k/uL (1.3-7.7); Neutrophils % (A) 80 %; Platelet Count 214 k/uL (150-450); RDW 12.5 % (11.5-15.5); WBC 11.4 k/uL (3.8-10.6)
[2021-09-03 15:51] LABS: ALT 61 U/L (4-49); AST 48 U/L (17-59); African American GFR (CKD) >90 (>60 ml/min/1.73 sqM); Albumin 3.3 g/dL (3.5-5.0); Albumin/Globulin Ratio 1.2; Alkaline Phosphatase 59 U/L (38-126); Anion Gap 10 mmol/L; Blood Urea Nitrogen 9 mg/dL (9-20); Calcium 9.2 mg/dL (8.4-10.2); Carbon Dioxide 21 mmol/L (22-30); Chloride 102 mmol/L (98-107); Globulin 2.8 g/dL; Glucose 117 mg/dL (74-99); Magnesium 1.6 mg/dL (1.6-2.3); Non-African American GFR(CKD) 82 (>60 ml/min/1.73 sqM); Sodium 133 mmol/L (137-145); Total Bilirubin 1.1 mg/dL (0.2-1.3); Total Protein 6.1 g/dL (6.3-8.2)
--- NOTE | 2021-09-03 17:25 | P.PN ---
Subjective Progress Note Date: 09/03/21 HISTORY OF PRESENT ILLNESS 80-year-old male one of my office patient with multiple medical problem known to have history of CAD post CABG in , history of hypertension, hyperlipidemia, history of chronic alcoholism he quit a few years ago but developed to have Wernicke encephalopathy with significant memory loss. Also patient had over a year ago history of stroke has affected his memory the time. Patient was hospitalized twice last few weeks 1 for worsening abdominal pain and worsening shortness of breath was diagnosed with abdominal angina at the time with possible ischemic bowel, found to have A. fib with RVR family were against having him on anticoagulation at the time. Also continue to have significant constipation with no bowel movement for several days was started on lactulose along with MiraLAX and natural stool softener which help some. Patient was not office recently for follow-up continue to complain of mild dysphagia and odynophagia ended up having an EGD result came back with very large intrathoracic stomach and intermittent gastric volvulus large hernia. Patient was hospitalized [address] Connors had laparoscopy large hiatal hernia repair. His done well the first day continue to complain of mild difficulty of swallowing at the time. Had esophagram repeated twice and late yesterday ended up going home his sodium at the time was still slightly bit lower on 127. Patient was not able to eat and drink much. Family ended up bringing him back to the hospital because developed to have much worsening dyspnea and worsening shortness of breath with mild cough and continued to have difficulty of swallowing not been able to eat or drink ended up coming to demurs department. His white blood cell were not high his sodium was down 124 patient found to have slight infiltrate in the left lower lobe. Patient was started on IV antibiotics and admitted to the hospital with above problem. 09/03 patient's older confused today, wanting to get out of bed, however prior to this information, patient has fallen down or lower down to the floor, last night. Patient has multiple trials for insertion of Perez catheter, and most likely has occult isn't voiding, Dr. Hua is consulted, for bedside cystoscopy, to eliminate the clots. He does have urinary retention, with distended bladder this time, patient doesn't have any fever no chills, no lightheadedness, has scrapes in the bilateral knee, no signs of infection in the skin incision is healed in the hiatal hernia and laparoscopic scar REVIEW OF SYSTEMS Constitutional: No fever, no chills, no night sweats. Mild tiredness no fatigue no lethargy no daytime sleepiness, noted few pound weight loss in the last 3 weeks. EENT: No headache. No blurred vision or double vision, no loss of vision. No loss of Hearing, no ringing in the ears, no dizziness. No nasal drainage or congestion. No epistaxis. No sore throat. Lungs: Slight dyspnea and shortness of breath with mild cough and wheezes with hypoxia. Cardiovascular: Positive chest pain, no lower extremity edema. No palpitations. Positive paroxysmal nocturnal dyspnea. Mild orthopnea. Positive lightheadedness or dizziness. No syncopal episodes. Abdominal: Positive abdominal discomfort with nausea, vomiting. No diarrhea. Positive constipation. No bloody or tarry stools.. Positive loss of appetite. Genitourinary: No dysuria, increased frequency, urgency. No urinary retention. Musculoskeletal: No myalgias. No muscle weakness, no gait dysfunction, no frequent falls. No back pain. No neck pain. Integumentary: No wounds, no lesions. No rash or pruritus. No unusual bruising. No change in hair or nails. Neurologic: No aphasia. No facial droop. Significant memory loss with abnormal balance and gait. Psychiatric: No depression. No anxiety. Positive dementia Endocrine: No abnormal blood sugars. No weight change. No excessive sweating or thirst. No cold intolerance. Objective - Vital Signs Vital signs: Vital Signs Temp 97.5 F L 09/03/21 08:00 Pulse 84 09/03/21 08:00 Resp 15 09/03/21 08:00 BP 164/84 09/03/21 08:00 Pulse Ox 95 09/03/21 08:00 Intake & Output 09/02/21 09/03/21 09/03/21 18:59 06:59 18:59 Output Total 2450 2120 450 Balance -2449 -2119 -450 Weight 81.647 kg 81.647 kg Output: Urine 2450 0 450 Uretheral (Perez) 450 Other: # Bowel Movements 0 - Constitutional General appearance: Present: cooperative, disheveled - EENT Eyes: Present: EOMI, PERRLA ENT: Present: NA/AT, normal oropharynx - Respiratory Respiratory: bilateral: CTA, negative: diminished, dullness, rales, rhonchi - Cardiovascular Rhythm: regular Heart sounds: normal: S1, S2 Abnormal Heart Sounds: Absent: systolic murmur, diastolic murmur, rub, S3 Gallop, S4 Gallop, click, other - Gastrointestinal General gastrointestinal: Present: distended, normal bowel sounds, soft - Integumentary Integumentary: Present: decreased turgor, normal - Neurologic Neurologic: Present: CNII-XII intact - Psychiatric Psychiatric: Present: A&O x's 3 - Labs CBC & Chem 7: 09/03/21 15:12 09/03/21 15:12 Labs: Abnormal Lab Results - Last 24 Hours (Table) 09/03/21 Range/Units 05:42 Sodium 134 L (135-145) mmol/L Carbon Dioxide 19.4 L (21.6-31.8) mmol/L Anion Gap 14.50 H (4.00-12.00) mmol/L BUN 7.9 L (9.0-27.0) mg/dL BUN/Creatinine Ratio 8.50 L (12.00-20.00) Ratio AST 58 H (14-35) U/L ALT 83 H (10-49) U/L Albumin/Globulin Ratio 1.42 L (1.60-3.17) g/dL Assessment and Plan Plan: 1 worsening dyspnea and shortness of breath: Combination of left lower lobe pneumonia which most likely aspiration at this point specially with patient's current history, patient was started on Zosyn along with azithromycin was start him on smaller dose of steroid as well this point. 2. Large hiatal hernia status post repair. Patient continued to have slight dysphagia and odynophagia, not clear whether he is safe eating and swallowing are not address with the family the extent of and the need for possible PEG tube at this point. 3 severe hyponatremia: Most likely SIADH from his current pneumonia we'll continue gentle hydration repeat CMP next 24 hours. 4. Paroxysmal atrial fibrillation. Continue atenolol 75 mg at bedtime, patient is not on anticoagulation. 5. Vascular dementia and possible Alzheimer's disease, patient can benefit from Donepazil. 6. Hyperlipidemia. Continue Lipitor 10 mg at bedtime. 7. Hypertension. Continue lisinopril 5 mg daily. 8. Worsening abdominal pain: With ischemic bowel and abdominal angina, patient was supposed to stay on isosorbide mononitrate trial before his hiatal hernia repair family apparently to come off medication. 9. Urinary retention Perez catheter will be placed by urology, was started on Flomax 0.4 mg daily. 10. Recurrent depression. Continue Wellbutrin 150 mg at bedtime5. 11. Chronic constipation. Patient usually has a bowel movement every 5 days. Lactulose along with MiraLAX and Dulcolax to be continue. 12. Advance atherosclerotic heart disease: Has been on medical management patient still seen cardiology regularly. 13. DVT prophylaxis. Lovenox 40 mg subcu daily. 14. GI prophylaxis: Continue patient on Protonix 40 mg twice a day 10. COVID-19 testing, was negative. CODE STATUS: Was still full code, had long discussion with the family expressed to them my concern that patient will need to probably PEG tube to keep him alive and avoid having aspiration pneumonia and salt the problem with his dysphagia and odynophagia this point, they're against it at this point we'll talk to each other discuss idea of palliative care and furthermore hospice again family are going to make a decision whether we can finalize a plan on Sunday.
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
--- NOTE | 2021-09-03 17:41 | P.PCN ---
Date of Procedure: 09/03/21 Preoperative Diagnosis: gross hematuria, urinary retention Postoperative Diagnosis: Same Procedure(s) Performed: Catheter placement over a wire, bladder irrigation Anesthesia: none Surgeon: Marcelino Dixon Estimated Blood Loss (ml): 50 Pathology: none sent Condition: stable Disposition: floor Indications for Procedure: 80-year-old male with traumatically removed his Perez catheter Description of Procedure: Penis was prepped in sterile fashion, initially attempted to place a 16-[place] coud, but resistance was met at the prostate. At this time a sensor wire was advanced through the meatus, and into the bladder. A 16-[place] silicone catheter was passed over the wire and into the bladder, return of light red urine. The catheter was irrigated without difficulty no clots were obtained. The balloon was inflated to 10 mL. Patient tolerated the procedure well
[2021-09-03] MEDS: ATORVASTATIN 10 MG TAB PO SCH (20:58)
[2021-09-03] MEDS: buPROPion SR 150 MG TABLET.ER PO SCH (20:58)
[2021-09-03] MEDS: SODIUM BICARBONATE TAB 650 MG TAB PO SCH ×2 (21:01→21:35)
[2021-09-03] MEDS: LORazepam 2 MG/ML INJ IV PRN (21:06)
[2021-09-04] MEDS: SODIUM CHLORIDE 0.9% 1,000 ML IV SCH ×2 (04:02→16:05)
[2021-09-04] MEDS: PIPERACILLIN-TAZOBACTAM 3.375 GM in SODIUM CHLORIDE 0.9% 100 ML IVPB SCH ×5 (04:06→21:16)
[2021-09-04] MEDS: AZITHROMYCIN 500 MG in SODIUM CHLORIDE 0.9% 250 ML IVPB SCH (07:55)
[2021-09-04] MEDS: TAMSULOSIN 0.4 MG CAP.ER.24H PO SCH (07:55)
[2021-09-04] MEDS: SIMETHICONE 40 MG/0.6 ML DROPS 2,000 MG/30 ML BOTTLE PO SCH ×4 (07:56→21:24)
[2021-09-04] MEDS: PANTOPRAZOLE 40 MG TABLET PO SCH ×2 (07:56→21:19)
[2021-09-04] MEDS: VIT A,C & E-LUTEIN-MINERALS 1 EACH TAB PO SCH ×2 (07:56→21:19)
[2021-09-04] MEDS: SODIUM BICARBONATE TAB 650 MG TAB PO SCH ×4 (07:56→21:19)
[2021-09-04] MEDS: prednisoLONE ACETATE 1% OPHTH DROPS 5 ML BTL RIGHT EYE SCH ×4 (07:56→21:23)
[2021-09-04] MEDS: KETOROLAC 0.5% OPHTH DROPS 5 ML BTL RIGHT EYE SCH ×4 (07:56→21:23)
[2021-09-04] MEDS: lisinopriL 5 MG TAB PO SCH (07:56)
[2021-09-04] MEDS: ENOXAPARIN 40 MG/0.4 ML SYRINGE SQ SCH (08:05)
--- NOTE | 2021-09-04 10:19 | P.PN ---
Subjective Progress Note Date: 09/04/21 CHIEF COMPLAINT: Elevated liver enzymes HISTORY OF PRESENT ILLNESS: The patient is a 80-year-old male status post paraesophageal hiatal hernia repair 08/29/2021. Patient readmitted due to elevated liver enzymes including questionable pneumonia. Yesterday, he had an A- team event with new hematuria. Urology placed gama with bladder irrigation. Per discussion with nurse, "he is doing great." He is resting comfortably. ROS: No nausea or vomiting. No fevers or chills. No new cardiac event overnight. New hematuria addressed. PHYSICAL EXAM: VITAL SIGNS: Reviewed CONSTITUTIONAL: Well developed and in no acute distress. EYES: Conjuctivae without sclera icterus. Extraocular movements grossly intact. HEAD, EARS, NOSE, THROAT: Moist buccal mucosa. Head is atraumatic, normocephalic. Hears conversational speech. No nasal drainage. NECK: No gross thyroidomegaly. No jugular venous distention. RESPIRATORY: Non-labored respirations and equal bilateral excursions. CARDIOVASCULAR: Palpable 2+ radial pulses. ABDOMEN: No peritonitis. : Gama present with hematuria MUSCULOSKELETAL: No gross deformity of the lower extremities noted. No clubbing. No cyanosis. SKIN: Good skin turgor. Well perfused. NEUROLOGIC: CNo focal or lateralizing signs. CLINICAL LABS: Reviewed. White blood cell count normal at 9.3 now 11.4 and elevated. Hgb stable 13.5 to 13.1. LFTs trending down and almost normalized. Sodium low 124 elevated over 134. ASSESSMENT: 1. Transaminitis expected postsurgical finding following paraesophageal hiatal hernia repair 2. Gastroesophageal reflux disease 3. Hyponatremia 4. Hematuria 5. Hypotensive event PLAN: 1. LFTs are normalizing. No new surgical intervention needed. 2. Carisa liquid diet. Objective - Vital Signs Vital signs: Vital Signs Temp 97.4 F L 09/04/21 08:00 Pulse 63 09/04/21 08:00 Resp 16 09/04/21 08:00 BP 125/83 09/04/21 08:00 Pulse Ox 94 L 09/04/21 08:00 Intake & Output 09/03/21 09/04/21 09/04/21 18:59 06:59 18:59 Output Total 450 400 Balance -450 -400 Weight 81.647 kg Output: Urine 450 400 Uretheral (Gama) 450 Other: Voiding Method Indwelling Catheter Indwelling Catheter - Labs CBC & Chem 7: 09/03/21 15:12 09/03/21 15:12 Labs: Abnormal Lab Results - Last 24 Hours (Table) 09/03/21 09/03/21 09/03/21 Range/Units 14:16 15:12 15:12 WBC 11.4 H (3.8-10.6) k/uL RBC 4.20 L (4.30-5.90) m/uL Neutrophils # 9.1 H (1.3-7.7) k/uL Sodium 133 L (137-145) mmol/L Carbon Dioxide 21 L (22-30) mmol/L Glucose 117 H (74-99) mg/dL POC Glucose (mg/dL) 136 H (75-99) mg/dL ALT 61 H (4-49) U/L Total Protein 6.1 L (6.3-8.2) g/dL Albumin 3.3 L (3.5-5.0) g/dL Assessment and Plan (1) Paraesophageal hernia Current Visit: Yes Status: Acute Code(s): K44.9 - DIAPHRAGMATIC HERNIA WITHOUT OBSTRUCTION OR GANGRENE SNOMED Code(s): 4407731 (2) History of repair of hiatal hernia Current Visit: Yes Status: Acute Code(s): Z98.890 - OTHER SPECIFIED POSTPROCEDURAL STATES; Z87.19 - PERSONAL HISTORY OF OTHER DISEASES OF THE DIGESTIVE SYSTEM SNOMED Code(s): 81984265040864 (3) Transaminitis Current Visit: Yes Status: Acute Code(s): R74.01 - ELEVATION OF LEVELS OF LIVER TRANSAMINASE LEVELS SNOMED Code(s): 298761111 (4) Hyponatremia Current Visit: No Status: Acute Code(s): E87.1 - HYPO-OSMOLALITY AND HYPONATREMIA SNOMED Code(s): 51032759
--- NOTE | 2021-09-04 11:17 | P.PN ---
Subjective Progress Note Date: 09/04/21 No acute overnight events, minimal urethral bleeding. Urine is mainly clear with some old blood clots Objective - Vital Signs Vital signs: Vital Signs Temp 97.4 F L 09/04/21 08:00 Pulse 63 09/04/21 08:00 Resp 16 09/04/21 08:00 BP 125/83 09/04/21 08:00 Pulse Ox 94 L 09/04/21 08:00 Intake & Output 09/03/21 09/04/21 09/04/21 18:59 06:59 18:59 Output Total 450 400 Balance -450 -400 Weight 81.647 kg Output: Urine 450 400 Uretheral (Perez) 450 Other: Voiding Method Indwelling Catheter Indwelling Catheter - Constitutional General appearance: Present: no acute distress - Gastrointestinal General gastrointestinal: Present: soft. Absent: distended - Labs CBC & Chem 7: 09/03/21 15:12 09/03/21 15:12 Labs: Abnormal Lab Results - Last 24 Hours (Table) 09/03/21 09/03/21 09/03/21 Range/Units 14:16 15:12 15:12 WBC 11.4 H (3.8-10.6) k/uL RBC 4.20 L (4.30-5.90) m/uL Neutrophils # 9.1 H (1.3-7.7) k/uL Sodium 133 L (137-145) mmol/L Carbon Dioxide 21 L (22-30) mmol/L Glucose 117 H (74-99) mg/dL POC Glucose (mg/dL) 136 H (75-99) mg/dL ALT 61 H (4-49) U/L Total Protein 6.1 L (6.3-8.2) g/dL Albumin 3.3 L (3.5-5.0) g/dL Assessment and Plan Assessment: 80-year-old male with postoperative urinary retention, was discharged home with a Perez catheter, presented back to the hospital with shortness of breath. He traumatically removed his Perez catheter. -Keep Perez catheter for 1 week -Can resume eliqus when urine is clear -Continue antibiotics for a minimum of 3 days given the multiple attempts of Perez catheter placement
--- NOTE | 2021-09-04 13:09 | P.PN ---
Subjective Progress Note Date: 09/04/21 HISTORY OF PRESENT ILLNESS 80-year-old male one of my office patient with multiple medical problem known to have history of CAD post CABG in , history of hypertension, hyperlipidemia, history of chronic alcoholism he quit a few years ago but developed to have Wernicke encephalopathy with significant memory loss. Also patient had over a year ago history of stroke has affected his memory the time. Patient was hospitalized twice last few weeks 1 for worsening abdominal pain and worsening shortness of breath was diagnosed with abdominal angina at the time with possible ischemic bowel, found to have A. fib with RVR family were against having him on anticoagulation at the time. Also continue to have significant constipation with no bowel movement for several days was started on lactulose along with MiraLAX and natural stool softener which help some. Patient was not office recently for follow-up continue to complain of mild dysphagia and odynophagia ended up having an EGD result came back with very large intrathoracic stomach and intermittent gastric volvulus large hernia. Patient was hospitalized [address] Connors had laparoscopy large hiatal hernia repair. His done well the first day continue to complain of mild difficulty of swallowing at the time. Had esophagram repeated twice and late yesterday ended up going home his sodium at the time was still slightly bit lower on 127. Patient was not able to eat and drink much. Family ended up bringing him back to the hospital because developed to have much worsening dyspnea and worsening shortness of breath with mild cough and continued to have difficulty of swallowing not been able to eat or drink ended up coming to demurs department. His white blood cell were not high his sodium was down 124 patient found to have slight infiltrate in the left lower lobe. Patient was started on IV antibiotics and admitted to the hospital with above problem. 09/03 patient's older confused today, wanting to get out of bed, however prior to this information, patient has fallen down or lower down to the floor, last night. Patient has multiple trials for insertion of Perez catheter, and most likely has occult isn't voiding, Dr. Hua is consulted, for bedside cystoscopy, to eliminate the clots. He does have urinary retention, with distended bladder this time, patient doesn't have any fever no chills, no lightheadedness, has scrapes in the bilateral knee, no signs of infection in the skin incision is healed in the hiatal hernia and laparoscopic scar 17: Patient is calmer today, more coherent, discussed with daughter, regarding the coughing episodes whenever she eats, we'll going to get a modified barium swallow eval, and consult with speech. Patient has no Perez catheter, draining old blood," is has been held for a long time, secondary to falls, and no plans of 3 in severity to think this medication. IV fluids running at 100 mL an hour, discussed with the daughter, no PEG feedings are desired at this time, CODE STATUS is DO NOT RESUSCITATE at the third to be in place for at least 7 days, he'll September 10, patient is on Zosyn. We will discontinue Zithromax at this time REVIEW OF SYSTEMS Constitutional: No fever, no chills, no night sweats. Mild tiredness no fatigue no lethargy no daytime sleepiness, noted few pound weight loss in the last 3 weeks. EENT: No headache. No blurred vision or double vision, no loss of vision. No loss of Hearing, no ringing in the ears, no dizziness. No nasal drainage or congestion. No epistaxis. No sore throat. Lungs: Slight dyspnea and shortness of breath with mild cough and wheezes with hypoxia. Cardiovascular: Positive chest pain, no lower extremity edema. No palpitations. Positive paroxysmal nocturnal dyspnea. Mild orthopnea. Positive lightheadedness or dizziness. No syncopal episodes. Abdominal: Positive abdominal discomfort with nausea, vomiting. No diarrhea. Positive constipation. No bloody or tarry stools.. Positive loss of appetite. Genitourinary: No dysuria, increased frequency, urgency. No urinary retention. Musculoskeletal: No myalgias. No muscle weakness, no gait dysfunction, no frequent falls. No back pain. No neck pain. Integumentary: No wounds, no lesions. No rash or pruritus. No unusual bruising. No change in hair or nails. Neurologic: No aphasia. No facial droop. Significant memory loss with abnormal balance and gait. Psychiatric: No depression. No anxiety. Positive dementia Endocrine: No abnormal blood sugars. No weight change. No excessive sweating o r thirst. No cold intolerance. Objective - Vital Signs Vital signs: Vital Signs Temp 97.4 F L 09/04/21 08:00 Pulse 63 09/04/21 08:00 Resp 16 09/04/21 08:00 BP 125/83 09/04/21 08:00 Pulse Ox 94 L 09/04/21 08:00 Intake & Output 09/03/21 09/04/21 09/04/21 18:59 06:59 18:59 Output Total 450 400 Balance -450 -400 Weight 81.647 kg Output: Urine 450 400 Uretheral (Perez) 450 Other: Voiding Method Indwelling Catheter Indwelling Catheter - Constitutional General appearance: Present: average body habitus, cooperative - Respiratory Respiratory: bilateral: CTA, negative: diminished, dullness, rales - Cardiovascular Abnormal Heart Sounds: Absent: systolic murmur, diastolic murmur, rub, S3 Gallop, S4 Gallop, click, other - Gastrointestinal General gastrointestinal: Present: normal bowel sounds, soft - Integumentary Integumentary: Present: decreased turgor, normal - Neurologic Neurologic: Present: CNII-XII intact - Musculoskeletal Musculoskeletal: Present: generalized weakness - Psychiatric Psychiatric: Present: A&O x's 3 - Labs CBC & Chem 7: 09/03/21 15:12 09/03/21 15:12 Labs: Abnormal Lab Results - Last 24 Hours (Table) 09/03/21 09/03/21 09/03/21 Range/Units 14:16 15:12 15:12 WBC 11.4 H (3.8-10.6) k/uL RBC 4.20 L (4.30-5.90) m/uL Neutrophils # 9.1 H (1.3-7.7) k/uL Sodium 133 L (137-145) mmol/L Carbon Dioxide 21 L (22-30) mmol/L Glucose 117 H (74-99) mg/dL POC Glucose (mg/dL) 136 H (75-99) mg/dL ALT 61 H (4-49) U/L Total Protein 6.1 L (6.3-8.2) g/dL Albumin 3.3 L (3.5-5.0) g/dL Assessment and Plan Plan: 1 worsening dyspnea and shortness of breath: Combination of left lower lobe pneumonia which most likely aspiration at this point specially with patient's current history, patient was started on Zosyn along with azithromycin was start him on smaller dose of steroid as well this point. 2. Large hiatal hernia status post repair. Patient continued to have slight dysphagia and odynophagia, not clear whether he is safe eating and swallowing are not address with the family the extent of and the need for possible PEG tube at this point. 3 severe hyponatremia: Most likely SIADH from his current pneumonia we'll continue gentle hydration repeat CMP next 24 hours. 4. Paroxysmal atrial fibrillation. Continue atenolol 75 mg at bedtime, patient is not on anticoagulation. Recommendation for Jonathon, to be decided by urology, however based on this, he is not quite safe to go back secondary to falls, risks is higher than drug benefit. We will not restart 5. Vascular dementia and possible Alzheimer's disease, patient can benefit from Donepazil. On 08/24. Hyperlipidemia. Continue Lipitor 10 mg at bedtime. 7. Hypertension. Continue lisinopril 5 mg daily. 8. Worsening abdominal pain: With ischemic bowel and abdominal angina, patient was supposed to stay on isosorbide mononitrate trial before his hiatal hernia re pair family apparently to come off medication. 9. Urinary retention Perez catheter will be placed by urology, was started on Flomax 0.4 mg daily. 10. Recurrent depression. Continue Wellbutrin 150 mg at bedtime5. 11. Chronic constipation. Patient usually has a bowel movement every 5 days. Lactulose along with MiraLAX and Dulcolax to be continue. 12. Advance atherosclerotic heart disease: Has been on medical management patient still seen cardiology regularly. 13. DVT prophylaxis. Lovenox 40 mg subcu daily. 14. GI prophylaxis: Continue patient on Protonix 40 mg twice a day 10. COVID-19 testing, was negative. CODE STATUS: DO NOT RESUSCITATE, had long discussion with the family expressed to them my concern that patient will need to probably PEG tube to keep him alive and avoid having aspiration pneumonia and salt the problem with his dysphagia and odynophagia this point, they're against it at this point we'll talk to each other discuss idea of palliative care and furthermore hospice again family are going to make a decision whether we can finalize a plan on Sunday.
[2021-09-04] MEDS: ASPIRIN 81 MG PO SCH (21:19)
[2021-09-04] MEDS: ATORVASTATIN 10 MG TAB PO SCH (21:19)
[2021-09-04] MEDS: atenoloL 25 MG TAB PO SCH (21:19)
[2021-09-04] MEDS: buPROPion SR 150 MG TABLET.ER PO SCH (21:19)
[2021-09-04] MEDS: DONEPEZIL 5 MG TAB PO SCH (21:41)
[2021-09-05] MEDS: SODIUM CHLORIDE 0.9% 1,000 ML IV SCH ×3 (00:34→14:24)
[2021-09-05] MEDS: LORazepam 2 MG/ML INJ IV PRN ×2 (02:17→23:02)
[2021-09-05] MEDS: PIPERACILLIN-TAZOBACTAM 3.375 GM in SODIUM CHLORIDE 0.9% 100 ML IVPB SCH ×3 (03:49→21:01)
[2021-09-05] MEDS: lisinopriL 5 MG TAB PO SCH (07:28)
[2021-09-05] MEDS: ENOXAPARIN 40 MG/0.4 ML SYRINGE SQ SCH (07:28)
[2021-09-05] MEDS: prednisoLONE ACETATE 1% OPHTH DROPS 5 ML BTL RIGHT EYE SCH ×4 (07:29→21:02)
[2021-09-05] MEDS: TAMSULOSIN 0.4 MG CAP.ER.24H PO SCH (07:29)
[2021-09-05] MEDS: SODIUM BICARBONATE TAB 650 MG TAB PO SCH ×4 (07:29→21:01)
[2021-09-05] MEDS: PANTOPRAZOLE 40 MG TABLET PO SCH ×2 (07:29→21:00)
[2021-09-05] MEDS: VIT A,C & E-LUTEIN-MINERALS 1 EACH TAB PO SCH ×2 (07:29→22:47)
[2021-09-05] MEDS: KETOROLAC 0.5% OPHTH DROPS 5 ML BTL RIGHT EYE SCH ×4 (07:30→21:02)
[2021-09-05] MEDS: SIMETHICONE 40 MG/0.6 ML DROPS 2,000 MG/30 ML BOTTLE PO SCH ×4 (07:31→21:02)
--- NOTE | 2021-09-05 14:29 | P.PN ---
Subjective Progress Note Date: 09/05/21 CHIEF COMPLAINT: Cough questionable pneumonia HISTORY OF PRESENT ILLNESS: The patient is a 80-year-old male status post paraesophageal hiatal hernia repair 08/29/2021. Patient readmitted due to elevated liver enzymes including questionable pneumonia. Patient followed by urology regarding hematuria. Patient reports that his pain is controlled. Denies any nausea or vomiting. He's having smear-like bowel movements. He is scheduled for an MBS study today. He is lying in bed comfortably. The family is. Decision regarding palliative or hospice care. Afebrile. No new labs for today. LFTs are normalizing. PHYSICAL EXAM: VITAL SIGNS: Reviewed. GENERAL: Well-developed in no acute distress. HEENT: No sclera icterus. Extraocular movements grossly intact. Moist buccal mucosa. Head is atraumatic, normocephalic. ABDOMEN: Soft. Nondistended. Nontender. Incision site is clean dry and intact NEUROLOGIC: Alert and oriented. Cranial nerves II through XII grossly intact. ASSESSMENT: 1. Transaminitis expected postsurgical finding following paraesophageal hiatal hernia repair. LFTs are normalizing. 2. Gastroesophageal reflux disease 3. Hyponatremia 4. Hematuria PLAN: -Follow up on modified barium swallow study -Continue full liquid diet -Continue supportive care Physician Pie Crust [employer]er note has been reviewed by physician. Signing provider agrees with the documented findings, assessment, and plan of care. Objective - Vital Signs Vital signs: Vital Signs Temp 98.6 F 09/05/21 07:54 Pulse 74 09/05/21 07:54 Resp 17 09/05/21 07:54 BP 176/78 09/05/21 07:54 Pulse Ox 96 09/05/21 07:54 Intake & Output 09/04/21 09/05/21 09/05/21 18:59 06:59 18:59 Output Total 325 Balance -325 Output: Urine 325 Other: Voiding Method Indwelling Catheter Indwelling Catheter - Labs CBC & Chem 7: 09/03/21 15:12 09/03/21 15:12 Labs: Microbiology - Last 24 Hours (Table) 09/04/21 06:59 Blood Culture - Preliminary Blood No Growth after 24 hours 09/04/21 07:05 Blood Culture - Preliminary Blood No Growth after 24 hours
--- NOTE | 2021-09-05 15:19 | P.PN ---
Subjective Progress Note Date: 09/05/21 HISTORY OF PRESENT ILLNESS 80-year-old male one of my office patient with multiple medical problem known to have history of CAD post CABG in , history of hypertension, hyperlipidemia, history of chronic alcoholism he quit a few years ago but developed to have Wernicke encephalopathy with significant memory loss. Also patient had over a year ago history of stroke has affected his memory the time. Patient was hospitalized twice last few weeks 1 for worsening abdominal pain and worsening shortness of breath was diagnosed with abdominal angina at the time with possible ischemic bowel, found to have A. fib with RVR family were against having him on anticoagulation at the time. Also continue to have significant constipation with no bowel movement for several days was started on lactulose along with MiraLAX and natural stool softener which help some. Patient was not office recently for follow-up continue to complain of mild dysphagia and odynophagia ended up having an EGD result came back with very large intrathoracic stomach and intermittent gastric volvulus large hernia. Patient was hospitalized [address] Connors had laparoscopy large hiatal hernia repair. His done well the first day continue to complain of mild difficulty of swallowing at the time. Had esophagram repeated twice and late yesterday ended up going home his sodium at the time was still slightly bit lower on 127. Patient was not able to eat and drink much. Family ended up bringing him back to the hospital because developed to have much worsening dyspnea and worsening shortness of breath with mild cough and continued to have difficulty of swallowing not been able to eat or drink ended up coming to demurs department. His white blood cell were not high his sodium was down 124 patient found to have slight infiltrate in the left lower lobe. Patient was started on IV antibiotics and admitted to the hospital with above problem. 09/03 patient's older confused today, wanting to get out of bed, however prior to this information, patient has fallen down or lower down to the floor, last night. Patient has multiple trials for insertion of Perez catheter, and most likely has occult isn't voiding, Dr. Hua is consulted, for bedside cystoscopy, to eliminate the clots. He does have urinary retention, with distended bladder this time, patient doesn't have any fever no chills, no lightheadedness, has scrapes in the bilateral knee, no signs of infection in the skin incision is healed in the hiatal hernia and laparoscopic scar 09/04: Patient is calmer today, more coherent, discussed with daughter, regarding the coughing episodes whenever she eats, we'll going to get a modified barium swallow eval, and consult with speech. Patient has indwelling Perez catheter, draining old blood," is has been held for a long time, secondary to falls, and no plans of 3 in severity to think this medication. IV fluids running at 100 mL an hour, discussed with the daughter, no PEG feedings are desired at this time, CODE STATUS is DO NOT RESUSCITATE at the third to be in place for at least 7 days, he'll September 10, patient is on Zosyn. We will discontinue Zithromax at this time 09/05: Patient is scheduled for modified barium swallow today with speech therapy. General surgery has provided full liquid diet. Patient continues to have hematuria. Patient has been seen by urology with plan to continue Perez for 1 week and antibiotics for 3 days. Patient started on antibiotics for aspiration pneumonia. Urology has advised retention zooming eliquis when urine is clear Patient is afebrile, heart rate 74, blood pressure 176/70, pulse ox 96% on room air. Repeat lab work ordered for tomorrow. PT and OT therapies added. REVIEW OF SYSTEMS Constitutional: No fever, no chills, no night sweats. Mild tiredness no fatigue no lethargy no daytime sleepiness, noted few pound weight loss in the last 3 weeks. EENT: No headache. No blurred vision or double vision, no loss of vision. No loss of Hearing, no ringing in the ears, no dizziness. No nasal drainage or congestion. No epistaxis. No sore throat. Lungs: Slight dyspnea and shortness of breath with mild cough and wheezes with hypoxia. Cardiovascular: Positive chest pain, no lower extremity edema. No palpitations. Positive paroxysmal nocturnal dyspnea. Mild orthopnea. Positive lig htheadedness or dizziness. No syncopal episodes. Abdominal: Positive abdominal discomfort with nausea, vomiting. No diarrhea. Positive constipation. No bloody or tarry stools.. Positive loss of appetite. Genitourinary: No dysuria, increased frequency, urgency. No urinary retention. Musculoskeletal: No myalgias. Generalized muscle weakness, no gait dysfunction, no frequent falls. No back pain. No neck pain. Integumentary: No wounds, no lesions. No rash or pruritus. No unusual bruisin g. No change in hair or nails. Neurologic: No aphasia. No facial droop. Significant memory loss with abnormal balance and gait. Psychiatric: No depression. No anxiety. Positive dementia Endocrine: No abnormal blood sugars. No weight change. No excessive sweating or thirst. No cold intolerance. PHYSICAL EXAMINATION Gen: This is elderly 80-year-old laying in bed mildly confused does not look in any respiratory distress. HEENT: Head is atraumatic, normocephalic. Pupils equal, round. Sclerae is anicteric. NECK: Supple. No JVD. No lymphadenopathy. No thyromegaly. CHEST: Decreased breath somewhat acute bronchitis has crackles in the left base positive mild expiratory wheezes. LUNGS: Clear to auscultation. No wheezes or rhonchi. No intercostal retractions. HEART: Regular rate and rhythm. With slight irregularity, S1, S2, positive 2/6 systolic murmur at the apex ABDOMEN: Soft. Bowel sounds are present. No masses. No tenderness. Perez catheter with dark brown urine. EXTREMITIES: No pedal edema. No calf tenderness. NEUROLOGICAL: Patient is awake, alert with confusion oriented to person.positive generalized weakness.. ASSESSMENT AND PLAN 1. Dyspnea secondary to left lower lobe, aspiration pneumonia. Continue Zosyn. 5 barium swallow scheduled for today. Patient is on a full liquid diet. 2. Large hiatal hernia status post repair. Patient continued to have slight dysphagia and odynophagia, not clear whether he is safe eating and swallowing are not address with the family the extent of and the need for possible PEG tube at this point. 3. severe hyponatremia: Most likely SIADH from his current pneumonia we'll continue gentle hydration repeat CMP next 24 hours. 4. Paroxysmal atrial fibrillation. Continue atenolol 75 mg at bedtime, patient is not on anticoagulation. 5. Vascular dementia and possible Alzheimer's disease, patient can benefit from Donepazil. 6. Hyperlipidemia. Continue Lipitor 10 mg at bedtime. 7. Hypertension. Continue lisinopril 5 mg daily. 8. Worsening abdominal pain: With ischemic bowel and abdominal angina, patient was supposed to stay on isosorbide mononitrate trial before his hiatal hernia repair family apparently to come off medication. 9. Urinary retention: After he is having hernia surgery was not able to void patient had a Perez catheter was started on Flomax 0.4 mg daily. 10. Recurrent depression. Continue Wellbutrin 150 mg at bedtime5. 11. Chronic constipation. Patient usually has a bowel movement every 5 days. Lactulose along with MiraLAX and Dulcolax to be continue. 12. Advance atherosclerotic heart disease: Has been on medical management patient still seen cardiology regularly. 13. DVT prophylaxis. Lovenox 40 mg subcu daily. 14. GI prophylaxis: Continue patient on Protonix 40 mg twice a day 15. Hematuria secondary to traumatic self removal of Perez catheter. Continue Perez catheter and Flomax. 16. COVID-19 testing, was negative. DISCHARGE PLAN Home Impression and plan of care have been directed as dictated by the signing physician. Ladonna Ewing nurse practitioner acting as scribe for signing physician. Objective - Vital Signs Vital signs: Vital Signs Temp 98.6 F 09/05/21 07:54 Pulse 74 09/05/21 07:54 Resp 17 09/05/21 07:54 BP 176/78 09/05/21 07:54 Pulse Ox 96 09/05/21 07:54 Intake & Output 09/04/21 09/05/21 09/05/21 18:59 06:59 18:59 Output Total 325 Balance -325 Output: Urine 325 Other: Voiding Method Indwelling Catheter Indwelling Catheter - Labs CBC & Chem 7: 09/03/21 15:12 09/03/21 15:12 Labs: Microbiology - Last 24 Hours (Table) 09/04/21 06:59 Blood Culture - Preliminary Blood No Growth after 24 hours 09/04/21 07:05 Blood Culture - Preliminary Blood No Growth after 24 hours
--- NOTE | 2021-09-05 15:33 | FL ---
EXAMINATION TYPE: FL barium swallow w video DATE OF EXAM: 09/05/2021 MODIFIED SWALLOW / DEGLUTITION STUDY CLINICAL HISTORY: Dysphagia. TECHNIQUE: Deglutition study is performed utilizing thin liquid barium, barium thick pudding, and ba rium coated cracker. Total fluoroscopy time 3 minutes 20 seconds. COMPARISON: 08/30/2021 FINDINGS: The oral and pharyngeal phases show satisfactory initiation and propagation with all modali ties tested. Normal mastication is seen with solid modalities tested. There is no evidence of penet ration or aspiration with any modality tested. There was contrast extending from the gastroesophageal junction to the upper thoracic esophagus after a few swallows of thin barium at the beginning of the examination. Eventually, the barium did pass to the stomach and the examination was continued. Osteophytosis of the lower cervical spine is incidentally noted with compression upon the posterior e sophagus. IMPRESSION: Normal deglutition study. Please refer to speech therapist notes for further details if necessary. Of note, there was delayed transit of contrast through the gastroesophageal junction with barium colu mn extending to the upper thoracic level of the esophagus.
[2021-09-05] MEDS: buPROPion SR 150 MG TABLET.ER PO SCH (21:00)
[2021-09-05] MEDS: ASPIRIN 81 MG PO SCH (21:00)
[2021-09-05] MEDS: atenoloL 25 MG TAB PO SCH (21:00)
[2021-09-05] MEDS: DONEPEZIL 5 MG TAB PO SCH (21:01)
[2021-09-05] MEDS: ATORVASTATIN 10 MG TAB PO SCH (21:01)
[2021-09-06] MEDS: SODIUM CHLORIDE 0.9% 1,000 ML IV SCH ×2 (00:04→09:10)
[2021-09-06] MEDS: PIPERACILLIN-TAZOBACTAM 3.375 GM in SODIUM CHLORIDE 0.9% 100 ML IVPB SCH ×2 (04:00→11:34)
[2021-09-06 07:17] VITALS: BP 160/74; PULSE 71; RESP 17; TEMP 98.4
[2021-09-06] MEDS: KETOROLAC 0.5% OPHTH DROPS 5 ML BTL RIGHT EYE SCH ×3 (09:58→17:36)
[2021-09-06] MEDS: prednisoLONE ACETATE 1% OPHTH DROPS 5 ML BTL RIGHT EYE SCH ×3 (09:59→17:35)
[2021-09-06] MEDS: SIMETHICONE 40 MG/0.6 ML DROPS 2,000 MG/30 ML BOTTLE PO SCH ×3 (10:00→17:36)
[2021-09-06] MEDS: TAMSULOSIN 0.4 MG CAP.ER.24H PO SCH (10:02)
[2021-09-06] MEDS: lisinopriL 5 MG TAB PO SCH (10:03)
[2021-09-06] MEDS: PANTOPRAZOLE 40 MG TABLET PO SCH (10:03)
[2021-09-06] MEDS: SODIUM BICARBONATE TAB 650 MG TAB PO SCH ×3 (10:03→17:32)
[2021-09-06] MEDS: VIT A,C & E-LUTEIN-MINERALS 1 EACH TAB PO SCH (10:05)
[2021-09-06] MEDS: ENOXAPARIN 40 MG/0.4 ML SYRINGE SQ SCH (10:07)
--- NOTE | 2021-09-06 10:41 | P.DS ---
Providers Date of admission: 09/02/21 03:59 Expected date of discharge: 09/06/21 Attending physician: Hossein Langston Consults: 09/02/21 12:08 Consult Physician Routine Consulting Provider: Randal Connors Consult Reason/Comments: POST OP Do you want consulting provider notified?: Yes 09/03/21 14:27 Consult Physician Urgent Consulting Provider: Marcelino Dixon Consult Reason/Comments: hematuria, clots Do you want consulting provider notified?: Yes Primary care physician: Hossein Langston [facility] Course: HISTORY OF PRESENT ILLNESS 80-year-old male one of my office patient with multiple medical problem known to have history of CAD post CABG in , history of hypertension, hyperlipidemia, history of chronic alcoholism he quit a few years ago but developed to have Wernicke encephalopathy with significant memory loss. Also patient had over a year ago history of stroke has affected his memory the time. Patient was hospitalized twice last few weeks 1 for worsening abdominal pain and worsening shortness of breath was diagnosed with abdominal angina at the time with possible ischemic bowel, found to have A. fib with RVR family were against having him on anticoagulation at the time. Also continue to have significant constipation with no bowel movement for several days was started on lactulose along with MiraLAX and natural stool softener which help some. Patient was not office recently for follow-up continue to complain of mild dysphagia and odynophagia ended up having an EGD result came back with very large intrathoracic stomach and intermittent gastric volvulus large hernia. Patient was hospitalized [address] Connors had laparoscopy large hiatal hernia repair. His done well the first day continue to complain of mild diffic ulty of swallowing at the time. Had esophagram repeated twice and late yesterday ended up going home his sodium at the time was still slightly bit lower on 127. Patient was not able to eat and drink much. Family ended up bringing him back to the hospital because developed to have much worsening dyspnea and worsening shortness of breath with mild cough and continued to have difficulty of swallowing not been able to eat or drink ended up coming to demurs department. His white blood cell were not high his sodium was down 124 patient found to have slight infiltrate in the left lower lobe. Patient was started on IV antibiotics and admitted to the hospital with above problem. 09/03 patient's older confused today, wanting to get out of bed, however prior to this information, patient has fallen down or lower down to the floor, last night. Patient has multiple trials for insertion of Perez catheter, and most likely has occult isn't voiding, Dr. uHa is consulted, for bedside cystoscopy, to eliminate the clots. He does have urinary retention, with distended bladder this time, patient doesn't have any fever no chills, no lightheadedness, has scrapes in the bilateral knee, no signs of infection in the skin incision is healed in the hiatal hernia and laparoscopic scar 09/04: Patient is calmer today, more coherent, discussed with daughter, regarding the coughing episodes whenever she eats, we'll going to get a modified barium swallow eval, and consult with speech. Patient has indwelling Perez catheter, draining old blood," is has been held for a long time, secondary to falls, and no plans of 3 in severity to think this medication. IV fluids running at 100 mL an hour, discussed with the daughter, no PEG feedings are desired at this time, CODE STATUS is DO NOT RESUSCITATE at the third to be in place for at least 7 days, he'll September 10, patient is on Zosyn. We will discontinue Zithromax at this time 09/05: Patient is scheduled for modified barium swallow today with speech therapy. General surgery has provided full liquid diet. Patient continues to have hematuria. Patient has been seen by urology with plan to continue Perez for 1 week and antibiotics for 3 days. Patient started on antibiotics for aspiration pneumonia. Urology has advised retention zooming eliquis when urine is clear Patient is afebrile, heart rate 74, blood pressure 176/70, pulse ox 96% on room air. Repeat lab work ordered for tomorrow. PT and OT therapies added. 09/06: Patient underwent modified barium swallow yesterday which revealed no aspiration with swallowing but food stops at the GE junction. Speech is recommended a recheck in a couple weeks after swelling is improved. For now, patient is to eat only small meals with supervision. Patient has been afebrile, heart rate 71, pulse ox 97% on room air, blood pressure 160/74. Repeat blood work reveals WBC 7.6, hemoglobin 10.7. Family have decided against subacute rehab for which social work was making arrangements. Plan is to return home with family and palliative care. Patient will be discharged today in stable condition. ASSESSMENT AND PLAN 1. Dyspnea secondary to left lower lobe, aspiration pneumonia. 2. Large hiatal hernia status post repair. 3. Severe hyponatremia: Most likely SIADH from his current pneumonia. 4. Paroxysmal atrial fibrillation. 5. Vascular dementia and possible Alzheimer's disease,. 6. Hyperlipidemia. 7. Hypertension. 8. Urinary retention 9. Recurrent depression. 10. Chronic constipation. 11. Advanced atherosclerotic heart disease. 12. Hematuria secondary to traumatic self removal of Perez catheter. 13. COVID-19 testing, was negative. DISCHARGE PLAN Home with palliative care Impression and plan of care have been directed as dictated by the signing physician. Ladonna Ewing nurse practitioner acting as scribe for signing physician. Patient Condition at Discharge: Good Plan - Discharge Summary Discharge Rx Participant: No New Discharge Prescriptions: New Amoxicillin/Potassium Clav [Augmentin 875-125 Tablet] 1 tab PO BID 6 Days #12 tab Sodium Bicarbonate Tab 650 mg PO TID #21 tab Albuterol Nebulized [Ventolin Nebulized] 2.5 mg INHALATION Q8H 10 Days #90 ml Donepezil [Aricept] 5 mg PO HS #30 tab Continue Tamsulosin HCl [Flomax] 0.4 mg PO DAILY Vit C/E/Zn/Coppr/Lutein/Zeaxan [Preservision Areds 2 Softgel] 1 cap PO BID Simvastatin [Zocor] 10 mg PO HS Thiamine HCl [Vitamin B-1] 100 mg PO DAILY Cyanocobalamin [Vitamin B-12] 500 mcg PO DAILY #90 tablet atenoloL [Tenormin] 75 mg PO HS #30 tab Enalapril [Vasotec] 5 mg PO DAILY Pantoprazole [Protonix] 40 mg PO BID Isaflush 2 cap PO DAILY Lactulose 10 gm PO BID PRN PRN Reason: Constipation Sennosides [Senna] 8.6 mg PO DAILY PRN PRN Reason: Constipation Acetaminophen Tab [Tylenol] 650 mg PO Q4H PRN #30 tablet PRN Reason: Pain prednisoLONE ACETATE 1% OPHTH [Pred Forte 1%] 1 drop RIGHT EYE QID Ketorolac 0.5% Ophth Soln [Acular 0.5%] 1 drop RIGHT EYE QID buPROPion SR [Wellbutrin SR] 150 mg PO HS Aspirin 81 mg PO HS Simethicone 40 mg/0.6 ml Drops [Mylicon Drops] 40 mg PO QID ml Discharge Medication List Simvastatin [Zocor] 10 mg PO HS 08/28/18 [History] Tamsulosin HCl [Flomax] 0.4 mg PO DAILY 08/28/18 [History] Vit C/E/Zn/Coppr/Lutein/Zeaxan [Preservision Areds 2 Softgel] 1 cap PO BID 08/28/18 [History] Thiamine HCl [Vitamin B-1] 100 mg PO DAILY 08/28/19 [History] Cyanocobalamin [Vitamin B-12] 500 mcg PO DAILY #90 tablet 11/12/19 [Rx] atenoloL [Tenormin] 75 mg PO HS #30 tab 11/12/19 [Rx] Enalapril [Vasotec] 5 mg PO DAILY 12/03/19 [History] Aspirin 81 mg PO HS 08/06/21 [History] Ketorolac 0.5% Ophth Soln [Acular 0.5%] 1 drop RIGHT EYE QID 08/06/21 [History] buPROPion SR [Wellbutrin SR] 150 mg PO HS 08/06/21 [History] prednisoLONE ACETATE 1% OPHTH [Pred Forte 1%] 1 drop RIGHT EYE QID 08/06/21 [History] Isaflush 2 cap PO DAILY 08/19/21 [History] Pantoprazole [Protonix] 40 mg PO BID 08/19/21 [History] Lactulose 10 gm PO BID PRN 08/26/21 [History] Sennosides [Senna] 8.6 mg PO DAILY PRN 08/26/21 [History] Acetaminophen Tab [Tylenol] 650 mg PO Q4H PRN #30 tablet 09/01/21 [Rx] Simethicone 40 mg/0.6 ml Drops [Mylicon Drops] 40 mg PO QID ml 09/01/21 [Rx] Albuterol Nebulized [Ventolin Nebulized] 2.5 mg INHALATION Q8H 10 Days #90 ml 09/06/21 [Rx] Amoxicillin/Potassium Clav [Augmentin 875-125 Tablet] 1 tab PO BID 6 Days #12 tab 09/06/21 [Rx] Donepezil [Aricept] 5 mg PO HS #30 tab 09/06/21 [Rx] Sodium Bicarbonate Tab 650 mg PO TID #21 tab 09/06/21 [Rx] Follow up Appointment(s)/Referral(s): Hossein Langston MD [Primary Care Provider] - 1 Week [facility], [NON-STAFF] - Care,[facility] [NON-STAFF] - Caleb Hua MD [STAFF PHYSICIAN] - 1 Week Randal Connors MD [STAFF PHYSICIAN] - 1 Week Activity/Diet/Wound Care/Special Instructions: Call [facility] to arrange ambulance transport home at discharge - [phone]. Supervised feedings, soft diet. Discharge Disposition: HOME WITH HOME HEALTH SERVICES
--- NOTE | 2021-09-06 11:14 | P.PN ---
Subjective Progress Note Date: 09/06/21 CHIEF COMPLAINT: Cough questionable pneumonia HISTORY OF PRESENT ILLNESS: The patient is a 80-year-old male status post paraesophageal hiatal hernia repair 08/29/2021. Patient readmitted due to elevated liver enzymes including questionable pneumonia. Patient followed by urology regarding hematuria. He denies any abdominal pain. Denies any nausea or vomiting. He is lying in bed comfortably. Patient had modified barium swallow completed did show normal deglutition study. There was delayed transit of contrast through the gastroesophageal junction with barium, extending to the upper thoracic level of the esophagus. Patient is tolerating full liquid diet with assistance. Afebrile. No new labs for today. LFTs are normalizing. PHYSICAL EXAM: VITAL SIGNS: Reviewed. GENERAL: Well-developed in no acute distress. HEENT: No sclera icterus. Extraocular movements grossly intact. Moist buccal mucosa. Head is atraumatic, normocephalic. ABDOMEN: Soft. Nondistended. Nontender. Incision site is clean dry and intact NEUROLOGIC: Alert and oriented. Cranial nerves II through XII grossly intact. ASSESSMENT: 1. Transaminitis expected postsurgical finding following paraesophageal hiatal hernia repair. LFTs are normalizing. 2. Gastroesophageal reflux disease 3. Hyponatremia 4. Hematuria followed by urology PLAN: -Continue full liquid diet -Continue supportive care -Patient can be discharged from surgical standpoint Physician [employer] note has been reviewed by physician. Signing provider agrees with the documented findings, assessment, and plan of care. Objective - Vital Signs Vital signs: Vital Signs Temp 98.4 F 09/06/21 07:15 Pulse 71 09/06/21 07:15 Resp 17 09/06/21 07:15 BP 160/74 09/06/21 07:15 Pulse Ox 95 09/06/21 09:15 Intake & Output 09/05/21 09/06/21 09/06/21 18:59 06:59 18:59 Intake Total 100 Output Total 450 950 Balance -450 -850 Weight 81.647 kg Intake: Oral 100 Output: Urine 450 950 Uretheral (Perez) 950 Other: Voiding Method Indwelling Catheter - Labs CBC & Chem 7: 09/03/21 15:12 09/03/21 15:12 Labs: Microbiology - Last 24 Hours (Table) 09/04/21 06:59 Blood Culture - Preliminary Blood No Growth after 48 hours 09/04/21 07:05 Blood Culture - Preliminary Blood No Growth after 48 hours
[2021-09-06 11:22] LABS: HCT 33.7 % (39.6-50.0); HGB 10.7 g/dL (13.0-17.0); MCH 30.3 pg (27.0-32.0); MCHC 31.8 g/dL (32.0-37.0); MCV 95.5 fL (80.0-97.0); Mean Platelet Volume 11.3 fL (9.5-12.2); Platelet Count 232 X 10*3/uL (140-440); RBC 3.53 X 10*6/uL (4.40-5.60); RDW 13.1 % (11.5-14.5); WBC 7.66 X 10*3/uL (4.50-10.00)
[2021-09-06 12:16] LABS: Albumin 3.2 g/dL (3.8-4.9); Albumin/Globulin Ratio 1.37 (1.60-3.17); Anion Gap 10.7 mmol/L (4.00-12.00); BUN/Creat Ratio 7.25 Ratio (12.00-20.00); Blood Urea Nitrogen 6.2 mg/dL (9.0-27.0); Calcium 9.1 mg/dL (8.7-10.3); Carbon Dioxide 21.7 mmol/L (21.6-31.8); Globulin 2.3 g/dL (1.6-3.3); Non-African American GFR(CKD) 81.1 (60.0-200.0); Potassium 3.8 mmol/L (3.5-5.5); Total Bilirubin 0.6 mg/dL (0.30-1.20); Total Protein 5.6 g/dL (6.2-8.2)
--- NOTE | 2021-09-07 19:57 | P.PN ---
Subjective Progress Note Date: 09/06/21 No acute overnight events, no urethral bleeding. Urine is blood tinged, no clots appreciated Objective - Vital Signs Vital signs: Vital Signs Temp 98.4 F 09/06/21 07:15 Pulse 71 09/06/21 12:54 Resp 17 09/06/21 12:54 BP 160/74 09/06/21 07:15 Pulse Ox 95 09/06/21 09:15 - Constitutional General appearance: Present: no acute distress - Gastrointestinal General gastrointestinal: Present: soft. Absent: distended - Genitourinary Genitourinary Comment(s): gama in place blood tinged urine - Labs CBC & Chem 7: 09/06/21 05:26 09/06/21 05:26 Labs: Microbiology - Last 24 Hours (Table) 09/04/21 06:59 Blood Culture - Preliminary Blood No Growth after 72 hours 09/04/21 07:05 Blood Culture - Preliminary Blood No Growth after 72 hours Assessment and Plan Assessment: 80-year-old male with postoperative urinary retention, was discharged home with a Gama catheter, presented back to the hospital with shortness of breath. He traumatically removed his Gama catheter 09/03. -Keep Gama catheter for 1 week -ok to resume eliqus -ok for discharge from urology standpoint
== END 2021-09-06 20:00 | disposition home health service (06) | DRG 178 ==
LOC: EC 23:21 → 4SSUR 09-02 03:59
PROVIDERS: ADMIT Internal Medicine Geriatric Medicine; ATTEND Internal Medicine Geriatric Medicine
PROC: 0T9B70Z Drainage of Bladder with Drainage Device, Via Natural or Artificial Opening (ICD-10-PCS; principal; 2021-09-03)
DX: J69.0 Pneumonitis due to inhalation of food and vomit (principal); F33.9 Major depressive disorder, recurrent, unspecified; E22.2 Syndrome of inappropriate secretion of antidiuretic hormone; I48.0 Paroxysmal atrial fibrillation; K21.9 Gastro-esophageal reflux disease without esophagitis; K44.9 Diaphragmatic hernia without obstruction or gangrene; K59.09 Other constipation; Z20.822 Contact with and (suspected) exposure to COVID-19; R31.0 Gross hematuria; R33.8 Other retention of urine; Z96.641 Presence of right artificial hip joint; Z66 Do not resuscitate; Z51.5 Encounter for palliative care; I95.9 Hypotension, unspecified; R74.01 Elevation of levels of liver transaminase levels; R74.8 Abnormal levels of other serum enzymes; I10 Essential (primary) hypertension; F01.50 Vascular dementia, unspecified severity, without behavioral disturbance, psychotic disturbance, mood disturbance, and anxiety; E78.5 Hyperlipidemia, unspecified; I25.10 Atherosclerotic heart disease of native coronary artery without angina pectoris; I25.2 Old myocardial infarction; Z79.82 Long term (current) use of aspirin; Z79.899 Other long term (current) drug therapy; Z82.49 Family history of ischemic heart disease and other diseases of the circulatory system; Z82.5 Family history of asthma and other chronic lower respiratory diseases; Z86.73 Personal history of transient ischemic attack (TIA), and cerebral infarction without residual deficits; Z87.891 Personal history of nicotine dependence; Z95.1 Presence of aortocoronary bypass graft; N42.9 Disorder of prostate, unspecified
CPT/HCPCS: 36415; 71045; 74230; 80053; 83605; 83735; 83880; 84484; 85025; 85027; 85610; 85730; 87040; 87635; 93005; 94640; 94760; 96361; 96374; 96375; 99285

== ENCOUNTER → 2021-09-16 | Outpatient (CLI) | payer MEDICARE ==
[2021-09-16 23:28] LABS: Basophils # (A) 0.05 X 10*3/uL (0.00-0.10); Basophils % (A) 0.7 %; Eosinophils # (A) 0.36 X 10*3/uL (0.04-0.35); Eosinophils % (A) 4.9 %; HCT 37.8 % (39.6-50.0); Lymphocytes # (A) 1.79 X 10*3/uL (0.90-5.00); Lymphocytes % (A) 24.4 %; MCHC 31.7 g/dL (32.0-37.0); MCV 97.7 fL (80.0-97.0); Monocytes # (A) 0.71 X 10*3/uL (0.20-1.00); Monocytes % (A) 9.7 %; Neutrophils # (A) 4.39 X 10*3/uL (1.80-7.70); Neutrophils % (A) 59.9 %; Platelet Count 374 X 10*3/uL (140-440); RBC 3.87 X 10*6/uL (4.40-5.60); RDW 13.3 % (11.5-14.5); WBC 7.33 X 10*3/uL (4.50-10.00)
[2021-09-17 04:31] LABS: African American GFR (CKD) 72.1 (60.0-200.0); Albumin 3.9 g/dL (3.8-4.9); Albumin/Globulin Ratio 1.39 (1.60-3.17); Anion Gap 15.3 mmol/L (4.00-12.00); BUN/Creat Ratio 11.36 Ratio (12.00-20.00); Blood Urea Nitrogen 12.5 mg/dL (9.0-27.0); Calcium 10.2 mg/dL (8.7-10.3); Carbon Dioxide 15.7 mmol/L (21.6-31.8); Globulin 2.8 g/dL (1.6-3.3); Non-African American GFR(CKD) 62.2 (60.0-200.0); Potassium 5.9 mmol/L (3.5-5.5); Total Bilirubin 0.5 mg/dL (0.30-1.20); Total Protein 6.7 g/dL (6.2-8.2)
== END | disposition home or self-care (01) ==
LOC: LABWHC1 15:26
PROVIDERS: ATTEND Registered Nurse
DX: N18.9 Chronic kidney disease, unspecified (principal); R35.0 Frequency of micturition; Z79.899 Other long term (current) drug therapy
CPT/HCPCS: 36415; 80053; 85025

== ENCOUNTER → 2021-09-20 | Outpatient (CLI) | payer MEDICARE | END | disposition home or self-care (01) | LOC: LABWHC1 12:08 | PROVIDERS: ATTEND Registered Nurse | DX: E87.5 Hyperkalemia (principal); N18.9 Chronic kidney disease, unspecified; R35.0 Frequency of micturition; Z79.899 Other long term (current) drug therapy | CPT/HCPCS: 36415; 84132; 87086 ==

== ENCOUNTER 2022-03-09 19:01 | Emergency (ER) | payer MEDICARE ==
[2022-03-09 20:29] VITALS: TEMP 97.5
[2022-03-09 21:17] LABS: HCT 42.8 % (39.0-53.0); HGB 14.5 gm/dL (13.0-17.5); MCH 31.8 pg (25.0-35.0); MCV 93.6 fL (80.0-100.0); Mean Platelet Volume 7.9; Platelet Count 238 k/uL (150-450); RBC 4.57 m/uL (4.30-5.90); RDW 14.4 % (11.5-15.5); WBC 15.3 k/uL (3.8-10.6)
[2022-03-09 21:33] LABS: Appearance,Urine Cloudy (Clear); Bacteria,Urine Many /hpf; Bilirubin,Urine Negative (Negative); Blood,Urine Small (Negative); Color,Urine Yellow; Glucose,Urine (UA) Negative (Negative); Ketones,Urine Negative (Negative); Leukocyte Esterase,Urine Large (Negative); Mucus,Urine Rare /hpf; Nitrite,Urine Negative (Negative); PH, Urine 5.5 (5.0-8.0); Protein,Urine Trace (Negative); RBC,Urine 7 /hpf (0-5); Specific Gravity,Urine 1.016 (1.001-1.035); Squamous Epithelial Cell,Urine <1 /hpf (0-4); Urobilinogen,Urine <2.0 mg/dL (<2.0); WBC,Urine >182 /hpf (0-5)
[2022-03-09 21:45] LABS: Albumin 4.1 g/dL (3.5-5.0); Calcium 9.9 mg/dL (8.4-10.2); Potassium 4.5 mmol/L (3.5-5.1); Total Bilirubin 0.9 mg/dL (0.2-1.3); Total Protein 7.6 g/dL (6.3-8.2)
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
--- NOTE | 2022-03-09 22:52 | XR ---
EXAMINATION TYPE: XR chest 2V DATE OF EXAM: 03/09/2022 COMPARISON: 09/02/2021 HISTORY: Cough TECHNIQUE: FINDINGS: Heart is normal. Lungs are clear of infiltrate. No heart failure. There are sternal wires. Costophrenic angles are clear. The bony thorax is intact. IMPRESSION: No active cardiopulmonary disease. There is reduction of the hiatal hernia compared to old exam.
[2022-03-09] MEDS ORDERED: LEVOFLOXACIN 750 MG TAB PO STA ×2 (23:32→23:51)
[2022-03-10 00:01] VITALS: BP 105/58; PULSE 91; RESP 16
[2022-03-10] MEDS ORDERED: ACETAMINOPHEN TAB 500 MG TAB PO STA ×2 (00:01→00:09)
== END 2022-03-10 00:10 | disposition home or self-care (01) ==
LOC: EC 19:01
DX: N39.0 Urinary tract infection, site not specified (principal); I12.9 Hypertensive chronic kidney disease with stage 1 through stage 4 chronic kidney disease, or unspecified chronic kidney disease; N18.30 Chronic kidney disease, stage 3 unspecified; I48.91 Unspecified atrial fibrillation; K21.9 Gastro-esophageal reflux disease without esophagitis; E78.5 Hyperlipidemia, unspecified; I25.2 Old myocardial infarction; F32.A Depression, unspecified; Z79.82 Long term (current) use of aspirin; Z87.440 Personal history of urinary (tract) infections; Z85.828 Personal history of other malignant neoplasm of skin; Z90.49 Acquired absence of other specified parts of digestive tract; Z95.1 Presence of aortocoronary bypass graft; Z96.641 Presence of right artificial hip joint; Z87.891 Personal history of nicotine dependence
CPT/HCPCS: 36415; 71046; 80053; 81001; 85027; 87040; 87086; 93005; 99284

== ENCOUNTER 2022-07-26 16:50 | Emergency (ER) | payer MEDICARE ==
[2022-07-26 17:07] VITALS: TEMP 98.8
[2022-07-26] MEDS ORDERED: MORPHINE SULFATE 2 MG/ML SYRINGE IVP STA (18:58)
[2022-07-26] MEDS ORDERED: LIDOCAINE 5% PATCH TOPICAL STA (19:01)
--- NOTE | 2022-07-26 19:37 | XR ---
EXAM: XR Right Ribs, 2 Views CLINICAL HISTORY: ITS. REASON XR Reason: fall TECHNIQUE: Frontal and oblique views of the right ribs. COMPARISON: No relevant prior studies available. FINDINGS: Lungs: Right basilar atelectasis. Pleural space: Unremarkable. No pneumothorax. Bones/joints: Moderately displaced lateral right 10th rib fracture. Sternal wires. Spinal and right shoulder degeneration Other: CABG IMPRESSION: Right 10th rib fracture. No pneumothorax.
--- NOTE | 2022-07-26 19:38 | XR ---
EXAM: XR Right Hip With Pelvis When Performed, 2 or 3 Views CLINICAL HISTORY: ITS. REASON XR Reason: pain, fall TECHNIQUE: Two or three views of the right hip with pelvis when performed. COMPARISON: No relevant prior studies available. FINDINGS: Bones/joints: Bipolar right hip prosthesis. No acute fracture. No dislocation. Soft tissues: Unremarkable. IMPRESSION: No fracture or dislocation
[2022-07-26 20:12] LABS: Albumin 3.8 g/dL (3.5-5.0); Calcium 9.6 mg/dL (8.4-10.2); Magnesium 1.9 mg/dL (1.6-2.3); Total Bilirubin 0.8 mg/dL (0.2-1.3); Total Protein 6.7 g/dL (6.3-8.2)
[2022-07-26 20:16] LABS: Potassium 4.9 mmol/L (3.5-5.1)
--- NOTE | 2022-07-26 20:32 | XR ---
EXAM: XR Right Wrist Complete, 3 or More Views CLINICAL HISTORY: ITS.REASON XR Reason: fall TECHNIQUE: Frontal, lateral and oblique views of the right wrist. COMPARISON: No relevant prior studies available. FINDINGS: Bones/joints: No acute fracture or malalignment. Positive ulnar variance. Chondrocalcinosis of the triangular fibrocartilage complex. Soft tissues: No significant abnormality. No radiopaque foreign body. IMPRESSION: No acute fracture or malalignment.
--- NOTE | 2022-07-26 20:32 | CT ---
EXAM: CT Head Without Intravenous Contrast CLINICAL HISTORY: ITS.REASON CT Reason: pain TECHNIQUE: Axial computed tomography images of the head/brain without intravenous contrast. CTDI is 58.07 mGy and DLP is 1394.9 mGy-cm. This CT exam was performed using one or more of the following dose reduction techniques: automated exposure control, adjustment of the mA and/or kV according to patient size, and/or use of iterative reconstruction technique. COMPARISON: No relevant prior studies available. FINDINGS: Brain: No acute intracranial hemorrhage, large hypodensity, or significant mass effect. Nonspecific areas of hypoattenuation in the periventricular white matter likely represent the sequela of chronic small vessel ischemic disease. Ventricles: Ventricular and sulcal prominence commensurate with the patient's age. Bones/joints: No acute abnormality. Soft tissues: Small circumscribed fat-containing mass in the posterior left neck is compatible with a low-grade lipomatous lesion. Sinuses: No significant abnormality. Mastoid air cells: No significant abnormality. IMPRESSION: No acute intracranial hemorrhage or calvarial fracture. EXAM: CT Cervical Spine Without Intravenous Contrast CLINICAL HISTORY: ITS.REASON CT Reason: pain TECHNIQUE: Axial computed tomography images of the cervical spine without intravenous contrast. CTDI is 58.07 mGy and DLP is 1394.9 mGy-cm. This CT exam was performed using one or more of the following dose reduction techniques: automated exposure control, adjustment of the mA and/or kV according to patient size, and/or use of iterative reconstruction technique. COMPARISON: No relevant prior studies available. FINDINGS: Vertebrae: No acute fracture or malalignment. Straightening of the normal cervical lordosis. Discs/spinal canal/neural foramina: Disc height loss, osteophytes, uncovertebral spurs, and facet arthropathy. Multilevel foraminal narrowing. No significant osseous spinal stenosis. Mild widening of the anterior C4-C5 intervertebral disc space. Soft tissues: No significant abnormality. Vasculature: Vascular calcifications. IMPRESSION: No acute fracture or malalignment.
[2022-07-26 21:35] LABS: Basophils % (A) 0 %; Eosinophils # (A) 0.2 k/uL (0-0.7); Eosinophils % (A) 2 %; HCT 41.1 % (39.0-53.0); HGB 13.5 gm/dL (13.0-17.5); Lymphocytes # (A) 1.1 k/uL (1.0-4.8); Lymphocytes % (A) 10 %; MCHC 32.8 g/dL (31.0-37.0); MCV 94.4 fL (80.0-100.0); Mean Platelet Volume 7.1; Monocytes # (A) 0.6 k/uL (0-1.0); Monocytes % (A) 5 %; Neutrophils # (A) 9.5 k/uL (1.3-7.7); Neutrophils % (A) 83 %; Platelet Count 247 k/uL (150-450); RBC 4.35 m/uL (4.30-5.90); RDW 12.5 % (11.5-15.5); WBC 11.5 k/uL (3.8-10.6)
[2022-07-26 21:37] LABS: Appearance,Urine Cloudy (Clear); Bacteria,Urine Occasional /hpf; Bilirubin,Urine Negative (Negative); Blood,Urine Small (Negative); Color,Urine Yellow; Glucose,Urine (UA) Negative (Negative); Ketones,Urine Negative (Negative); Leukocyte Esterase,Urine Large (Negative); Mucus,Urine Rare /hpf; Nitrite,Urine Positive (Negative); Protein,Urine Trace (Negative); RBC,Urine 2 /hpf (0-5); Specific Gravity,Urine 1.014 (1.001-1.035); Squamous Epithelial Cell,Urine <1 /hpf (0-4); Urobilinogen,Urine <2.0 mg/dL (<2.0); WBC,Urine 132 /hpf (0-5)
[2022-07-26] MEDS ORDERED: ACET/COD 300 MG/30 MG STARTER PACK 6 TAB BTL PO STA (21:52)
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
[2022-07-26] MEDS ORDERED: cefTRIAXone IN SWFI 1,000 MG/10 ML SYRINGE IVP STA (21:53)
[2022-07-26 22:25] VITALS: BP 132/73; PULSE 65; RESP 16
== END 2022-07-26 22:40 | disposition home or self-care (01) ==
LOC: EC 16:50
DX: S22.31XA Fracture of one rib, right side, initial encounter for closed fracture (principal); N39.0 Urinary tract infection, site not specified; M25.551 Pain in right hip; E78.5 Hyperlipidemia, unspecified; I10 Essential (primary) hypertension; Z82.49 Family history of ischemic heart disease and other diseases of the circulatory system; K21.9 Gastro-esophageal reflux disease without esophagitis; Z79.83 Long term (current) use of bisphosphonates; Z87.891 Personal history of nicotine dependence; W19.XXXA Unspecified fall, initial encounter
CPT/HCPCS: 36415; 93005; 80053; 83735; 84484; 85025; 81001; 87086; 73502; 71100; 73110; 72125; 70450; 99284; 96374; J0696; J2270

== ENCOUNTER → 2024-03-24 | Outpatient (CLI) | payer MEDICARE ==
--- NOTE | 2024-03-24 17:50 | MR ---
EXAMINATION TYPE: MR brain wo/w con DATE OF EXAM: 03/24/2024 COMPARISON: CT 07/26/2022 HISTORY: 83-year-old male F03.90 UNSP DEMENTIA, UNSP SEVERITY, WITHOUT BEH/P, Dementia. TECHNIQUE: Multiplanar, multisequence images of the brain and brainstem were acquired before and aft er administration of 8.5 mL IV Gadavist. Diffusion weighted imaging is performed. FINDINGS: No evidence for acute infarction, hemorrhage, mass, mass effect, midline shift, herniation, effacemen t of basal cisterns, or extra-axial fluid collection. There is mild to moderate generalized supratentorial volume loss. Mild ventriculomegaly probably seco ndary ex vacuo enlargement. Ashkan's ratio calculated at 0.36. Major intracranial flow voids are intact. T2/FLAIR weighted sequences show mild scattered bright signal foci within the periventricular, subcor tical, deep white matter regions of both cerebral hemispheres. Midline structures demonstrate normal morphology. The craniocervical junction is normal. Post contrast images demonstrate no evidence of pathologic enhancement. Dural venous sinuses are pat ent. Scleral banding right globe. Mild mucosal thickening ethmoid air cells. Small amount of fluid within the right mastoid air cells. IMPRESSION: 1. Moderate generalized atrophy. Mild hydrocephalus likely due to ex vacuo enlargement. Correlate to exclude a component of NPH. 2. No acute intracranial abnormality or enhancing intracranial lesions. 3. Mild burden of chronic small vessel ischemic disease. 4. Small amount of fluid in the right mastoid air cells. Correlate for any mastoid pain to exclude ma stoiditis.
== END | disposition home or self-care (01) ==
LOC: RADMRIMAIN 11:19
PROVIDERS: ATTEND Internal Medicine Geriatric Medicine
DX: F03.90 Unspecified dementia, unspecified severity, without behavioral disturbance, psychotic disturbance, mood disturbance, and anxiety (principal); G91.9 Hydrocephalus, unspecified; G31.9 Degenerative disease of nervous system, unspecified; I67.82 Cerebral ischemia
CPT/HCPCS: 70553; A9585

== ENCOUNTER 2024-08-19 17:22 | Inpatient (IN) | payer MEDICARE ==
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
[2024-08-19 18:51] LABS: Appearance,Urine Cloudy (Clear); Bacteria,Urine Moderate /hpf; Bilirubin,Urine Negative (Negative); Blood,Urine Small (Negative); Color,Urine Yellow; Glucose,Urine (UA) Negative (Negative); Ketones,Urine Negative (Negative); Leukocyte Esterase,Urine Large (Negative); Mucus,Urine Few /hpf; Nitrite,Urine Negative (Negative); Protein,Urine Trace (Negative); RBC,Urine 1 /hpf (0-5); Specific Gravity,Urine 1.015 (1.001-1.035); Squamous Epithelial Cell,Urine 1 /hpf (0-4); Urobilinogen,Urine <2.0 mg/dL (<2.0); WBC,Urine 58 /hpf (0-5)
[2024-08-19 19:43] LABS: Basophils % (A) 0 %; Eosinophils # (A) 0.2 k/uL (0-0.7); Eosinophils % (A) 1 %; HCT 49.4 % (39.0-53.0); Lymphocytes # (A) 0.6 k/uL (1.0-4.8); Lymphocytes % (A) 3 %; MCH 31.7 pg (25.0-35.0); MCHC 32.4 g/dL (31.0-37.0); MCV 97.9 fL (80.0-100.0); Mean Platelet Volume 7.8; Monocytes # (A) 0.8 k/uL (0-1.0); Monocytes % (A) 4 %; Neutrophils # (A) 20.4 k/uL (1.3-7.7); Neutrophils % (A) 92 %; Platelet Count 277 k/uL (150-450); RBC 5.04 m/uL (4.30-5.90); RDW 12.3 % (11.5-15.5); WBC 22.1 k/uL (3.8-10.6)
[2024-08-19 19:56] LABS: ALT 35 U/L (4-49); AST 63 U/L (17-59); African American GFR (CKD) 54 (>60 ml/min/1.73 sqM); Albumin 4.6 g/dL (3.5-5.0); Alkaline Phosphatase 65 U/L (38-126); Anion Gap 11 mmol/L; Blood Urea Nitrogen 23 mg/dL (9-20); Calcium 11.1 mg/dL (8.4-10.2); Carbon Dioxide 23 mmol/L (22-30); Chloride 100 mmol/L (98-107); Glucose 116 mg/dL (74-99); Non-African American GFR(CKD) 46 (>60 ml/min/1.73 sqM); Potassium 4.7 mmol/L (3.5-5.1); Sodium 134 mmol/L (137-145); Total Bilirubin 1.3 mg/dL (0.2-1.3); Total Protein 7.9 g/dL (6.3-8.2)
[2024-08-19] MEDS: SODIUM CHLORIDE 0.9% 1,000 ML IV STA (20:40)
[2024-08-19] MEDS ORDERED: LEVOFLOXACIN 500MG-D5W PMX 500 MG in DEXTROSE/WATER 1 100ML.BAG IVPB SCH (21:00)
[2024-08-19] MEDS ORDERED: ACETAMINOPHEN TAB 325 MG TAB PO PRN (21:29)
[2024-08-19] MEDS ORDERED: IBUPROFEN 400 MG TAB PO PRN (21:29)
[2024-08-19] MEDS ORDERED: NALOXONE 0.4 MG/ML 1 ML VIAL IV PRN (21:29)
[2024-08-19] MEDS: SODIUM CHLORIDE 0.9% 1,000 ML IV SCH (21:43)
[2024-08-19] MEDS: LEVOFLOXACIN 500MG-D5W PMX 500 MG in DEXTROSE/WATER 1 100ML.BAG IVPB STA (21:46)
[2024-08-20 06:04] LABS: Basophils % (A) 0 %; Eosinophils # (A) 0.1 k/uL (0-0.7); Eosinophils % (A) 0 %; HCT 46.7 % (39.0-53.0); Lymphocytes # (A) 1.1 k/uL (1.0-4.8); Lymphocytes % (A) 5 %; MCH 31.7 pg (25.0-35.0); MCHC 32.1 g/dL (31.0-37.0); MCV 98.9 fL (80.0-100.0); Mean Platelet Volume 8.4; Monocytes % (A) 4 %; Neutrophils # (A) 20.5 k/uL (1.3-7.7); Neutrophils % (A) 90 %; Platelet Count 243 k/uL (150-450); RBC 4.72 m/uL (4.30-5.90); RDW 12.3 % (11.5-15.5); WBC 22.8 k/uL (3.8-10.6)
[2024-08-20] MEDS: THIAMINE 100 MG TAB PO SCH (08:20)
[2024-08-20] MEDS: LOSARTAN 25 MG TAB PO SCH (08:20)
[2024-08-20] MEDS: ENOXAPARIN 40 MG/0.4 ML SYRINGE SQ SCH (08:20)
[2024-08-20] MEDS: TAMSULOSIN 0.4 MG CAP.ER.24H PO SCH (08:20)
[2024-08-20] MEDS: PANTOPRAZOLE 40 MG TABLET PO SCH (08:20)
--- NOTE | 2024-08-20 08:31 | XR ---
EXAMINATION TYPE: XR chest 2V DATE OF EXAM: 08/20/2024 COMPARISON: 03/09/2022 HISTORY: Shortness of breath TECHNIQUE: Frontal and lateral views of the chest are obtained. FINDINGS: Scattered senescent parenchymal changes noted. No evidence for infiltrate. No evidence for atelectasis. Heart size is stable. Mediastinal structures are stable and grossly unremarkable. No evidence for hilar prominence. Degenerative changes dorsal spine. IMPRESSION: 1. No evidence for acute pulmonary disease. [facility], , 08/20/2024 8:29 AM
[2024-08-20 10:07] LABS: Potassium 4.6 mmol/L (3.5-5.1)
[2024-08-20 10:08] LABS: ALT 34 U/L (4-49); AST 38 U/L (17-59); African American GFR (CKD) 69 (>60 ml/min/1.73 sqM); Albumin 3.2 g/dL (3.5-5.0); Albumin/Globulin Ratio 1.2; Alkaline Phosphatase 45 U/L (38-126); Anion Gap 6 mmol/L; Blood Urea Nitrogen 21 mg/dL (9-20); Calcium 9.9 mg/dL (8.4-10.2); Carbon Dioxide 25 mmol/L (22-30); Chloride 103 mmol/L (98-107); Globulin 2.7 g/dL; Glucose 132 mg/dL (74-99); Non-African American GFR(CKD) 60 (>60 ml/min/1.73 sqM); Sodium 134 mmol/L (137-145); Total Bilirubin 1.1 mg/dL (0.2-1.3); Total Protein 5.9 g/dL (6.3-8.2)
[2024-08-20] MEDS: CEFEPIME 2 GM in SODIUM CHLORIDE 0.9% 100 ML IVPB SCH (11:07)
[2024-08-20] MEDS: ASPIRIN 81 MG PO SCH (20:05)
[2024-08-20] MEDS: atenoloL 25 MG TAB PO SCH (20:06)
[2024-08-20] MEDS: DOCUSATE 100 MG CAP PO PRN (20:59)
[2024-08-20] MEDS: VIT A,C & E-LUTEIN-MINERALS 1 EACH TAB PO SCH (20:59)
[2024-08-20] MEDS ORDERED: buPROPion SR 150 MG TABLET.ER PO SCH (21:00)
[2024-08-20] MEDS ORDERED: atenoloL 50 MG TAB PO SCH (21:00)
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
--- NOTE | 2024-08-21 08:19 | US ---
EXAMINATION TYPE: US kidneys/renal and bladder DATE OF EXAM: 08/21/2024 COMPARISON: US CLINICAL INDICATION: Male, 83 years old with history of uti and bacteremia; UTI TECHNIQUE: Grayscale and color Doppler imaging of the bilateral kidneys and urinary bladder: EXAM MEASUREMENTS: Right Kidney: 12.5 x 5.4 x 6.2 cm Left Kidney: 12.0 x 5.9 x 5.6 cm Right Kidney: No evidence of hydro Left Kidney: No evidence of hydro Bladder: Multiple bladder diverticula Bilateral Jets seen: Only left jet visualized There is no evidence for hydronephrosis at this point in time. No nephrolithiasis is seen. No stefany s are identified. The urinary bladder is anechoic. IMPRESSION: Urinary bladder diverticula. [facility], , 08/21/2024 8:17 AM
[2024-08-21 08:23] LABS: HCT 42.5 % (39.6-50.0); HGB 13.9 g/dL (13.0-17.0); MCH 31.4 pg (27.0-32.0); MCHC 32.7 g/dL (32.0-37.0); MCV 95.9 FL (80.0-97.0); NRBC Per 100 WBC 0 X 10*3/uL (0.00-0.01); Platelet Count 214 X 10*3/uL (140-440); RBC 4.43 X 10*6/uL (4.40-5.60); RDW 12.8 % (11.5-14.5); WBC 9.32 X 10*3/uL (4.50-10.00)
[2024-08-21 08:39] LABS: ALT 27 U/L (10-49); AST 27 U/L (14-35); Albumin 3.5 g/dL (3.8-4.9); Albumin/Globulin Ratio 1.46 Ratio (1.60-3.17); Alkaline Phosphatase 53 U/L (41-126); BUN/Creat Ratio 12.36 Ratio (12.00-20.00); Blood Urea Nitrogen 13.6 mg/dL (9.0-27.0); Calcium 9.9 mg/dL (8.7-10.3); Carbon Dioxide 23.8 mmol/L (21.6-31.8); Chloride 106 mmol/L (96-109); Globulin 2.4 g/dL (1.6-3.3); Glucose 94 mg/dL (70-110); Potassium 4.7 mmol/L (3.5-5.5); Sodium 137 mmol/L (135-145); Total Bilirubin 0.4 mg/dL (0.3-1.2); Total Protein 5.9 g/dL (6.2-8.2)
[2024-08-21] MEDS: polyethylene glycoL 3350 17 GM POWD.PACK PO SCH (10:15)
[2024-08-21] MEDS: FINASTERIDE 5 MG TAB PO SCH (10:15)
--- NOTE | 2024-08-21 14:49 | P.PN ---
Subjective Progress Note Date: 08/21/24 Principal diagnosis: Reason for follow-up is leukocytosis and UTI Patient is a 83-year-old male with a past medical history significant for hypertension hyperlipidemia SD prostate disorder atrial fibrillation patient has been brought into the hospital by the daughter concerning for rigors confusion and increasing urinary frequency, patient did have a positive UA conc erning for urinary tract infection. On today's evaluation that is 08/21/2024, Patient is afebrile patient is currently on room air patient seems slightly more awake and alert today denies having any shortness of breath, the patient denies any chest pain or cough, the patient denies any nausea vomiting did not have any abdominal pain and no diarrhea. Patient white normalized to 9.32, creatinine is 1.1 cultures are currently pending Objective - Vital Signs Vital signs: Vital Signs Temp 97.3 F L 08/21/24 12:03 Pulse 56 L 08/21/24 12:03 Resp 16 08/21/24 12:03 BP 151/71 08/21/24 12:03 Pulse Ox 99 08/21/24 12:03 FiO2 Intake & Output 08/20/24 08/21/24 08/21/24 18:59 06:59 18:59 Intake Total 2100 625 Balance 2100 625 Intake: Intake, IV Titration 625 Amount Cefepime 2 gm In Sodium 100 Chloride 0.9% 100 ml @ 25 mls/hr IVPB Q12HR [facility] Rx #:[id number] Sodium Chloride 0.9% 1, 525 000 ml @ 75 mls/hr IV . [id number] [facility] Rx#:[id number] Oral 2100 Other: Voiding Method Toilet Toilet Diaper Diaper # Voids 3 3 # Bowel Movements 2 1 - Exam GENERAL DESCRIPTION: An elderly male lying in bed in no distress RESPIRATORY SYSTEM: Unlabored breathing , decreased breath sounds at bases HEART: S1 S2 regular rate and rhythm , ABDOMEN: Soft , no tenderness EXTREMITIES: No edema feet - Labs CBC & Chem 7: 08/21/24 06:17 08/21/24 06:17 Labs: Abnormal Lab Results - Last 24 Hours (Table) 08/21/24 Range/Units 06:17 Total Protein 5.9 L (6.2-8.2) g/dL Albumin 3.5 L (3.8-4.9) g/dL Albumin/Globulin Ratio 1.46 L (1.60-3.17) Ratio Microbiology - Last 24 Hours (Table) 08/19/24 18:34 Urine Culture - Final Urine,Voided 08/19/24 21:27 Blood Culture - Preliminary Blood Assessment and Plan (1) UTI (urinary tract infection) Current Visit: Yes Status: Acute Code(s): N39.0 - URINARY TRACT INFECTION, SITE NOT SPECIFIED SNOMED Code(s): 51140396 (2) Leukocytosis Current Visit: Yes Status: Acute Code(s): D72.829 - ELEVATED WHITE BLOOD CELL COUNT, UNSPECIFIED SNOMED Code(s): 369720295 Plan: 1patient presented hospital with weakness confusion mental status changes urinary frequency significantly positive UA with elevated white count concerning for symptomatic urinary tract infection likely from enteric gram-negative pathogen with a slight worsening of the white count on Rocephin concern for possible drug-resistant pathogen with a last urine culture positive for Enterobacter 2patient did have improvement of his white count, stone of the kidney bladder area showed some bladder diverticula but no hydronephrosis 3- we will continue cefepime 2 g every 12 hours while waiting for the culture to finalize Dictation was produced using [employer] dictation software. please excuse any grammatical, word or spelling errors. Time with Patient: Less than 30
--- NOTE | 2024-08-22 07:08 | P.PN ---
Subjective Progress Note Date: 08/21/24 HISTORY OF PRESENT ILLNESS: 83-year-old with active medical history of CVA, CAD post CABG 93, hypertension, hyperlipidemia, chronic history of alcoholism with chronic Warnicke ence phalopathy and mild memory loss related to it who has been living with family member care for 11/06 has been doing well also known to have history of A-fib with RVR, BPH, recurrent UTI, significant change in bowel habit lately, hiatal hernia on proton pump inhibitor and other. Patient has been seen neurology for memory loss lately also has been having slight bit of problem with polyuria and very large bowel movement lately with severe constipation medication were adjusted in the office last 2 weeks with lactulose on board along with MiraLAX to help him bring to the bathroom on time. Apparently he developed on August 19, 2024 to have significant fever chills and rigor with mild confusion and altered mental status family thought he might be having an infection or sepsis at certain type was concerned about him and that bring him to the emergency department where was seen and evaluated a decline physically and clinically found to have possibility of infection most likely urinary tract infection Urine was not collected at the time his respiratory culture was negative he was in acute kidney injury with creatinine 1.38 white blood cell was 22,000 his lactic acid was 2.1 with calcium at 11.1. Attempt to collect UA apparently was not successful he is require to do a urine culture as well blood culture was done. Patient was initiated on Rocephin 1 g daily hydration and active sepsis protocol was initiated with some IV hydration initially was over 130 cc an hour and then dropped down to 75 cc an hour repeat lactic acid 2 hours later came down to 1.5 patient still mildly symptomatic. Will be admitted to the hospital will see infectious disease waiting for final culture. Final chest x-ray will order chest x-ray and probably flat abdominal x-ray still even if have to do straight cath to collect urine sample and prepare for better management. 08/21/2024: Microbiology still pending patient had urinary tract infection with sepsis, has been seen infectious disease, antibiotics remain Rocephin with targeted treatment for Enterobacter from his previous culture. Ultrasound of the urinary tract showed bladder diverticuli with no hydronephrosis, antibiotic was switched to cefepime 2 g every 12 hours while waiting for final culture. Addressed with the clinical social worker and family whether patient is going need to go to subacute rehab or placement, family are offering help / which has worked quite well at this point. Also patient continued to have combination of diarrhea and constipation he had large episode of bowel movement yesterday family are concerned about his constipation become a problem at this point he is to remain on MiraLAX along with Senokot on more regular basis try to help him out. REVIEW OF SYSTEMS: CONSTITUTIONAL: Elderly mildly confused no acute respiratory distress. EYES: No icterus sclerae, no conjunctivitis. EARS, NOSE, MOUTH, THROAT, and FACE: No sore throat, lymphadenopathy, carotid bruits or deformity. RESPIRATORY: Mild shortness of breath no cough. CARDIOVASCULAR: Positive PND orthopnea palpitation. GASTROINTESTINAL: Distended abdomen with no masses slight discomfort in the epigastric area. GENITOURINARY: Mild incontinence with smelly urine. INTEGUMENT/BREAST: Negative for any muscular injury with mild osteoarthritis.. HEMATOLOGIC/LYMPHATIC: Negative for bleed or purpura. MUSCULOSKELTAL: Negative for Myalgia or arthralgia. NEURLOGICAL: Mild confusion no syncope or blurred vision. BEHAVIORAL/PSYCH: Negative. ENDOCRINE: Negative. PHYSICAL EXAMINATION: General Appearance: Alert, mildly confused in no acute respiratory distress. Neck HEENT: Supple, no lymphadenopathy, no thyroid enlargement, no carotid bruits. Lungs: Decreased breath sound bilaterally with fine rhonchi no crackles or wheezes. Chest Wall: Decreased expansion with deep inspiration no tenderness and no deformity was found on exam, no costochondral pain or discomfort. Heart: Regular rate and rhythm, S1, S2 positive S3 positive systolic murmur. Back: Symmetric, no curvature, ROM normal, no CVA tenderness. Abdomen: Soft mildly distended slight discomfort in lower abdominal region area no rebound or rigidity. Extremities: Extremities normal, atraumatic, no cyanosis or edema. Pulses: 2+ and symmetric. Skin: Skin color, texture, tugor normal, no rashes or lesions. Neurologic: Alert slightly confused, cranial nerves II through XII intact, no motor deficit, no abnormal balance or gait. ASSESSMENT AND PLAN _Sepsis with UTI: Urine culture still pending infectious disease try to continue treatment to cover Enterobacter which what he had last time we did an infection, there is no sign of kidney stone or foreign body. Patient antibiotic was switched to cefepime for better coverage. _Acute kidney injury with severe dehydration: Much better kidney function with hydration with GFR up to 66 today. Continue hydration continue oral intake as well. _Severe altered mental status: With mild confusion and Warnicke encephalopathy but this is little bit off his baseline at this point most likely secondary to infection will treat underlying disease and continue to watch his mentation. _Mild dyspnea try to exclude the possibility of aspiration, chest x-ray will be done patient has known to have large hiatal hernia will continue patient on proton pump inhibitor and continue inhaler if needed. _Atherosclerotic heart disease: Post CABG, still seeing cardiology regularly no chest pain or angina no recurrent episode of any heart disease lately. _History of A-fib with RVR in the past patient cannot stay on any anticoagulation because of multiple fall and injury his pulse rate remained well-controlled remain on atenolol 50 mg a day. _Severe BPH without obstruction remain on Flomax 0.4 mg a day will resume medication. _Large hiatal hernia: Patient will continue proton pump inhibitor with pantoprazole 40 mg a day. _Warnicke encephalopathy with slight memory loss, patient has been seen neurology, he did not stay on any memory medication at this point trial with Aricept and rivastigmine was done did not make any different family end up taking him off. Fortunately family are managing him really well at home well taking care of her at this point with or without medication. _Hyperlipidemia: Was supposed to remain on rosuvastatin resume medication. _Hypertension: Was on atenolol 50 mg a day and should be on smaller dose of ARB with losartan 25 mg daily. _Chronic constipation: Will continue MiraLAX along with lactulose and continue to watch for any worsening symptoms. _Chronic depression: Has been on Wellbutrin SR 150 mg daily continue medication. Discussion: Ultrasound of the kidney was done, continue hydration with significant improvement of kidney function at this point. He is still slightly confused which is close to his baseline, family are planning to take him home when he is stable hopefully over the next 24 hours continue working hard on better management for constipation. Objective - Vital Signs Vital signs: Vital Signs Temp 97.6 F 08/21/24 01:31 Pulse 59 L 08/21/24 01:31 Resp 16 08/21/24 01:31 BP 159/75 08/21/24 01:31 Pulse Ox 96 08/21/24 01:31 FiO2 Intake & Output 1008/20/24 08/21/24 06:59 18:59 06:59 Intake Total 890 2100 Balance 890 2100 Weight 88.451 kg Intake: Intake, IV Titration 300 Amount Sodium Chloride 0.9% 1, 300 000 ml @ 75 mls/hr IV . [id number] [facility] Rx#:[id number] Oral 590 2100 Other: Voiding Method Toilet Diaper # Voids 1 3 # Bowel Movements 2 - Labs CBC & Chem 7: 08/21/24 06:17 08/21/24 06:17 Labs: Abnormal Lab Results - Last 24 Hours (Table) 08/20/24 08/20/24 Range/Units 05:00 09:33 WBC 22.8 H (3.8-10.6) k/uL Neutrophils # 20.5 H (1.3-7.7) k/uL Sodium 134 L (137-145) mmol/L BUN 21 H (9-20) mg/dL Glucose 132 H (74-99) mg/dL Total Protein 5.9 L (6.3-8.2) g/dL Albumin 3.2 L (3.5-5.0) g/dL Microbiology - Last 24 Hours (Table) 08/19/24 21:27 Blood Culture - Preliminary Blood
[2024-08-22 13:19] VITALS: BP 147/73; PULSE 63; RESP 18; TEMP 97.7
--- NOTE | 2024-08-22 13:51 | P.DS ---
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 Patient has been seen neurology for memory loss lately also has been having slight bit of problem with polyuria and very large bowel movement lately with severe constipation medication were adjusted in the office last 2 weeks with lactulose on board along with MiraLAX to help him bring to the bathroom on time. Apparently he developed on August 19, 2024 to have significant fever chills and rigor with mild confusion and altered mental status family thought he might be having an infection or sepsis at certain type was concerned about him and that bring him to the emergency department where was seen and evaluated a decline physically and clinically found to have possibility of infection most likely urinary tract infection Urine was not collected at the time his respiratory culture was negative he was in acute kidney injury with creatinine 1.38 white blood cell was 22,000 his lactic acid was 2.1 with calcium at 11.1. Attempt to collect UA apparently was not successful he is require to do a urine culture as well blood culture was done. Patient was initiated on Rocephin 1 g daily hydration and active sepsis protocol was initiated with some IV hydration initially was over 130 cc an hour and then dropped down to 75 cc an hour repeat lactic acid 2 hours later came down to 1.5 patient still mildly symptomatic. Will be admitted to the hospital will see infectious disease waiting for final culture. Final chest x-ray will order chest x-ray and probably flat abdominal x-ray still even if have to do straight cath to collect urine sample and prepare for better management. 08/21/2024: Microbiology still pending patient had urinary tract infection with sepsis, has been seen infectious disease, antibiotics remain Rocephin with targeted treatment for Enterobacter from his previous culture. Ultrasound of the urinary tract showed bladder diverticuli with no hydronephrosis, antibiotic was switched to cefepime 2 g every 12 hours while waiting for final culture. Addressed with the child protective services social worker and family whether patient is going need to go to subacute rehab or placement, family are offering help 11/06 which has worked quite well at this point. Also patient continued to have combination of diarrhea and constipation he had large episode of bowel movement yesterday family are concerned about his constipation become a problem at this point he is to remain on MiraLAX along with Senokot on more regular basis try to help him out. 08/22/2024: Patient is doing much better from previous infection he usually have Enterobacter susceptible to all sort of antibiotics including cefuroxime and ciprofloxacin. The patient is doing very well hemodynamically stable he is not hypotensive not having any fever or chills blood culture remain negative. Agree with infectious disease the patient will be stable to be discharged home on oral antibiotics the choice was to do cefuroxime as an outpatient. Also patient had large bowel movement today his constipation has been a lot bet ter controlled having to be on MiraLAX along with Dulcolax or Senokot on more regular basis. REVIEW OF SYSTEMS: CONSTITUTIONAL: Elderly mildly confused no acute respiratory distress. EYES: No icterus sclerae, no conjunctivitis. EARS, NOSE, MOUTH, THROAT, and FACE: No sore throat, lymphadenopathy, carotid bruits or deformity. RESPIRATORY: Mild shortness of breath no cough. CARDIOVASCULAR: Positive PND orthopnea palpitation. GASTROINTESTINAL: Distended abdomen with no masses slight discomfort in the epigastric area. GENITOURINARY: Mild incontinence with smelly urine. INTEGUMENT/BREAST: Negative for any muscular injury with mild osteoarthritis.. HEMATOLOGIC/LYMPHATIC: Negative for bleed or purpura. MUSCULOSKELTAL: Negative for Myalgia or arthralgia. NEURLOGICAL: Mild confusion no syncope or blurred vision. BEHAVIORAL/PSYCH: Negative. ENDOCRINE: Negative. PHYSICAL EXAMINATION: General Appearance: Alert, mildly confused in no acute respiratory distress. Neck HEENT: Supple, no lymphadenopathy, no thyroid enlargement, no carotid bruits. Lungs: Decreased breath sound bilaterally with fine rhonchi no crackles or wheezes. Chest Wall: Decreased expansion with deep inspiration no tenderness and no deformity was found on exam, no costochondral pain or discomfort. Heart: Regular rate and rhythm, S1, S2 positive S3 positive systolic murmur. Back: Symmetric, no curvature, ROM normal, no CVA tenderness. Abdomen: Soft mildly distended slight discomfort in lower abdominal region area no rebound or rigidity. Extremities: Extremities normal, atraumatic, no cyanosis or edema. Pulses: 2+ and symmetric. Skin: Skin color, texture, tugor normal, no rashes or lesions. Neurologic: Alert slightly confused, cranial nerves II through XII intact, no motor deficit, no abnormal balance or gait. ASSESSMENT AND PLAN _Sepsis with UTI: Urine culture still pending infectious disease try to continue treatment to cover Enterobacter which what he had last time we did an infection, there is no sign of kidney stone or foreign body. Patient antibiotic was switched to cefepime for better coverage. _Acute kidney injury with severe dehydration: Much better kidney function with hydration with GFR up to 66 today. Continue hydration continue oral intake as well. _Severe altered mental status: With mild confusion and Warnicke encephalopathy but this is little bit off his baseline at this point most likely secondary to infection will treat underlying disease and continue to watch his mentation. _Mild dyspnea try to exclude the possibility of aspiration, chest x-ray will be done patient has known to have large hiatal hernia will continue patient on proton pump inhibitor and continue inhaler if needed. _Atherosclerotic heart disease: Post CABG, still seeing cardiology regularly no chest pain or angina no recurrent episode of any heart disease lately. _History of A-fib with RVR in the past patient cannot stay on any anticoagulation because of multiple fall and injury his pulse rate remained well-controlled remain on atenolol 50 mg a day. _Severe BPH without obstruction remain on Flomax 0.4 mg a day will resume medication. _Large hiatal hernia: Patient will continue proton pump inhibitor with pantoprazole 40 mg a day. _Warnicke encephalopathy with slight memory loss, patient has been seen neurology, he did not stay on any memory medication at this point trial with Aricept and rivastigmine was done did not make any different family end up taking him off. Fortunately family are managing him really well at home well taking care of her at this point with or without medication. _Hyperlipidemia: Was supposed to remain on rosuvastatin resume medication. _Hypertension: Was on atenolol 50 mg a day and should be on smaller dose of ARB with losartan 25 mg daily. _Chronic constipation: Will continue MiraLAX along with lactulose and continue to watch for any worsening symptoms. _Chronic depression: Has been on Wellbutrin SR 150 mg daily continue medication. Discussion: His constipation has improved, remain on IV antibiotic till today switch patient to cefuroxime orally patient be discharged home with family. Hospital course: Patient brought to the emergency department on 08/19/2024 with worsening condition including fever chills worsening confusion and altered mental status the patient also has been having slight lower abdominal pain and discomfort was seen and evaluated the emergency department and his urine was very positive his white blood cell count was 22,000 lactic acid was 2.1 with calcium level 11.1 kidney function is on the dehydration side. Patient was started on 130 cc of IV fluid 0.9 normal saline his lactic acid dropped down within 2 hours and become more stable. Patient was started on Rocephin initially and switched later on to cefepime, no other infection was found chest x-ray and abdominal x-ray came back to be flat negative. Ultrasound of the kidney eventually was done showed no hydronephrosis but his urinary tract including the bladder shows diverticuli mostly. Dealing with patient previous history of infection mostly showed Ent erobacter infectious disease had focus of treatment mostly to treat Enterobacter based on previous infection till the culture is back. Blood culture was done and final result came back to be negative. Urine culture was positive for with looks like iron but mostly done after infection was started treatment. Patient has done very well continue to be quite constipated with the use of MiraLAX along with lactulose and Senokot had bowel movement second day and the day before last in the hospital successfully with no problem and family were instructed to keep him on stool softener like senna S along with MiraLAX on more regular basis not to have any worsening constipation. Patient is able to ambulate without help, able to eat and drink is not confused anymore mental status is back to its baseline and he will be stable to be discharged home today. Infectious disease finalize his IV antibiotics today and switch him to oral cefuroxime which patient will be going home on for the next 5 days. Time spent on patient discharge was over 35 minutes. Patient Condition at Discharge: Stable Plan - Discharge Summary Discharge Rx Participant: No New Discharge Prescriptions: New cefUROXime axetiL [Ceftin] 500 mg PO BID 5 Days #10 tab Aspirin 81 mg PO HS tab Docusate [Colace] 100 mg PO DAILY PRN cap PRN Reason: Constipation polyethylene glycoL 3350 [Miralax] 17 gm PO DAILY packet Losartan [Cozaar] 25 mg PO DAILY #30 tab Pantoprazole [Protonix] 40 mg PO AC-BRKFST #30 tab Acetaminophen Tab [Tylenol] 650 mg PO Q6HR PRN tab PRN Reason: Mild Pain Or Fever > 100.5 Continue Tamsulosin HCl [Flomax] 0.4 mg PO BID atenoloL [Tenormin] 75 mg PO HS Finasteride [Proscar] 5 mg PO DAILY Discharge Medication List Tamsulosin HCl [Flomax] 0.4 mg PO BID 08/28/18 [History] atenoloL [Tenormin] 75 mg PO HS 03/09/22 [History] Finasteride [Proscar] 5 mg PO DAILY 08/20/24 [History] Acetaminophen Tab [Tylenol] 650 mg PO Q6HR PRN tab 08/22/24 [Rx] Aspirin 81 mg PO HS tab 08/22/24 [Rx] Docusate [Colace] 100 mg PO DAILY PRN cap 08/22/24 [Rx] Losartan [Cozaar] 25 mg PO DAILY #30 tab 08/22/24 [Rx] Pantoprazole [Protonix] 40 mg PO AC-BRKFST #30 tab 08/22/24 [Rx] cefUROXime axetiL [Ceftin] 500 mg PO BID 5 Days #10 tab 08/22/24 [Rx] polyethylene glycoL 3350 [Miralax] 17 gm PO DAILY packet 08/22/24 [Rx] Follow up Appointment(s)/Referral(s): Hossein Langston MD [Primary Care Provider] - 1 Week Discharge Disposition: HOME SELF-CARE
--- NOTE | 2024-08-22 15:00 | P.PN ---
Subjective Progress Note Date: 08/22/24 Principal diagnosis: Reason for follow-up is leukocytosis and UTI Patient is a 83-year-old male with a past medical history significant for hypertension hyperlipidemia NM prostate disorder atrial fibrillation patient has been brought into the hospital by the daughter concerning for rigors confusion and increasing urinary frequency, patient did have a positive UA conc erning for urinary tract infection. On today's evaluation that is 08/22/2024, patient has been afebrile, patient is breathing comfortably and is currently on room air, patient denies having any significant cough no chest pain, patient denies nausea vomiting or diarrhea and no abdominal pain, mention feeling better. Patient white count normalized to 9.32 as of yesterday blood and urine culture has been negative Objective - Vital Signs Vital signs: Vital Signs Temp 98.2 F 08/22/24 08:00 Pulse 58 L 08/22/24 08:00 Resp 16 08/22/24 08:00 BP 131/73 08/22/24 08:00 Pulse Ox 95 08/22/24 08:00 FiO2 Intake & Output 08/21/24 08/22/24 08/22/24 18:59 06:59 18:59 Intake Total 1000 Balance 1000 Intake: Intake, IV Titration 1000 Amount Cefepime 2 gm In Sodium 100 Chloride 0.9% 100 ml @ 25 mls/hr IVPB Q12HR [facility] Rx #:[id number] Sodium Chloride 0.9% 1, 900 000 ml @ 75 mls/hr IV . [id number] [facility] Rx#:[id number] Other: Voiding Method Toilet Toilet Toilet Diaper Diaper Diaper # Voids 3 # Bowel Movements 1 - Exam GENERAL DESCRIPTION: An elderly male lying in bed in no distress RESPIRATORY SYSTEM: Unlabored breathing , decreased breath sounds at bases HEART: S1 S2 regular rate and rhythm , ABDOMEN: Soft , no tenderness EXTREMITIES: No edema feet - Labs CBC & Chem 7: 08/21/24 06:17 08/21/24 06:17 Labs: Microbiology - Last 24 Hours (Table) 08/19/24 21:27 Blood Culture - Preliminary Blood 08/19/24 18:34 Urine Culture - Final Urine,Voided Assessment and Plan (1) UTI (urinary tract infection) Current Visit: Yes Status: Acute Code(s): N39.0 - URINARY TRACT INFECTION, SITE NOT SPECIFIED SNOMED Code(s): 05188158 (2) Leukocytosis Current Visit: Yes Status: Acute Code(s): D72.829 - ELEVATED WHITE BLOOD CELL COUNT, UNSPECIFIED SNOMED Code(s): 505312633 Plan: 1patient presented hospital with weakness confusion mental status changes urinary frequency significantly positive UA with elevated white count concerning for symptomatic urinary tract infection likely from enteric gram-negative pathogen with a slight worsening of the white count on Rocephin concern for possible drug-resistant pathogen with a last urine culture positive for Enterobacter 2patient did have improvement of his white count, ultrasound of the kidney bladder area showed some bladder diverticula but no hydronephrosis 3-patient did have clinical improvement with the culture negative for any resistant pathogen we will suggest a 7-day course of oral Ceftin on discharge prescription has been sent to the pharmacy Dictation was produced using [employer] dictation software. please excuse any grammatical, word or spelling errors. Time with Patient: Less than 30
== END 2024-08-22 14:38 | disposition home or self-care (01) | DRG 872 ==
LOC: EC 17:22 → 4SSUR 21:30 → 5NMEDONC 23:55
PROVIDERS: ADMIT Internal Medicine Geriatric Medicine; ATTEND Internal Medicine Geriatric Medicine
DX: A41.50 Gram-negative sepsis, unspecified (principal); E51.2 Wernicke's encephalopathy; N17.9 Acute kidney failure, unspecified; F03.93 Unspecified dementia, unspecified severity, with mood disturbance; N39.0 Urinary tract infection, site not specified; I48.91 Unspecified atrial fibrillation; F10.21 Alcohol dependence, in remission; I10 Essential (primary) hypertension; F32.A Depression, unspecified; E86.0 Dehydration; N32.3 Diverticulum of bladder; E78.5 Hyperlipidemia, unspecified; N40.0 Benign prostatic hyperplasia without lower urinary tract symptoms; K59.09 Other constipation; I25.10 Atherosclerotic heart disease of native coronary artery without angina pectoris; K44.9 Diaphragmatic hernia without obstruction or gangrene; R29.6 Repeated falls; Z96.641 Presence of right artificial hip joint; Z86.73 Personal history of transient ischemic attack (TIA), and cerebral infarction without residual deficits; Z87.440 Personal history of urinary (tract) infections; Z79.82 Long term (current) use of aspirin; Z79.899 Other long term (current) drug therapy; I25.2 Old myocardial infarction; Z95.1 Presence of aortocoronary bypass graft; Z86.19 Personal history of other infectious and parasitic diseases
CPT/HCPCS: 36415; 71046; 76770; 80053; 81001; 83605; 85025; 85027; 87040; 87086; 87636; 96361; 96365; 99285

== ENCOUNTER → 2024-09-04 | Outpatient (CLI) | payer MEDICARE ==
--- NOTE | 2024-09-04 16:50 | XR ---
EXAMINATION TYPE: XR abdomen 1V DATE OF EXAM: 09/04/2024 COMPARISON: 11/09/2019 INDICATION: Constipation TECHNIQUE: Single view abdomen supine view FINDINGS: Large fecal bolus at the rectum. Correlate for constipation and impaction. Significant fecal retentio n to the remaining visualized portion of the colon is not evident. There are some dilated small bowel loops. No zone of transition is identified. Psoas margins are normal. No organomegaly is present. Degenerative disc changes to the scoliotic lumbar spine. IMPRESSION: 1. Correlate for ileus. Fecal impaction of the rectum may be present. Significant fecal retention is not identified [facility], Workstation: [facility], 09/04/2024 4:48 PM
== END | disposition home or self-care (01) ==
LOC: RADXRMAIN 15:30
PROVIDERS: ATTEND Physician Assistant
DX: K59.00 Constipation, unspecified (principal)
CPT/HCPCS: 74018

== ENCOUNTER → 2024-09-25 | Outpatient (CLI) | payer MEDICARE ==
--- NOTE | 2024-09-25 12:13 | CT ---
EXAMINATION TYPE: CT brain wo con DATE OF EXAM: 09/25/2024 COMPARISON: 07/26/2022 CLINICAL INDICATION: Male, 83 years old with history of F10.96 ALCOHOL USE, UNSP W ALCOH-INDUCE PERSI ST AM; PHH, memory loss issues, pt confused. CT DLP: 1023.2 mGycm Automated exposure control for dose reduction was used. Findings: The ventricles, basal cisterns and sulci over convexities are moderately to markedly enlarged consist ent with moderate to marked generalized atrophy. There is no mass effect or shift of midline structures. There is no acute intra or extra-axial hemorrhage. The posterior fossa including the brainstem, fourth ventricle and cerebellopontine angles appear bill sly normal. There is a scleral buckle in the right orbit Visualized paranasal sinuses and mastoid air cells are well aerated. Calvarium is intact. IMPRESSION: 1. Moderate to marked atrophy. 2. No significant interval change. 3. No acute bleed or mass effect. [facility], , 09/25/2024 12:10 PM
== END | disposition home or self-care (01) ==
LOC: RADCTMAIN 11:31
PROVIDERS: ATTEND Psychiatry & Neurology Neurology
DX: F10.96 Alcohol use, unspecified with alcohol-induced persisting amnestic disorder (principal); R41.0 Disorientation, unspecified; G31.9 Degenerative disease of nervous system, unspecified
CPT/HCPCS: 70450

== ENCOUNTER → 2025-05-15 | Outpatient (CLI) | payer MEDICARE ==
--- NOTE | 2025-05-15 17:53 | CT ---
EXAMINATION TYPE: CT brain wo con DATE OF EXAM: 05/15/2025 5:10 PM COMPARISON: Prior CT study dated 09/25/2024 . CLINICAL INDICATION: Male, 84 years old with history of F03.94 UNSPECIFIED DEMENTIA, UNSPECIFIED BROOKS SANDIE,F03.94 UNS, DEMENTIA, PER PT'S DAUGHTER: HIS PHYSICIAN IS CONCERNED FOR FLUID ON BRAIN AND ENCEP HALITIS TECHNIQUE: Brain: Axial CT images of the brain were obtained with coronal and sagittal reformats created and rev iewed. Contrast used: None. Oral contrast used: None. CT DLP: 1180.90 mGycm, Automated exposure control for dose reduction was used. FINDINGS: Brain: Extra-axial spaces: No abnormal extra-axial fluid collections. Ventricular system: Dilatation in proportion to cerebral atrophy. Cerebral parenchyma: No acute intraparenchymal hemorrhage or mass effect. The hartley-white junction is well differentiated. Scattered hypoattenuating areas are seen within the white matter. Cerebellum: Unremarkable. Mass effect: No evidence of midline shift. Intracranial vasculature: Atherosclerotic calcifications of the intracranial vessels. Soft tissues: Normal. Calvarium/osseous structures: No depressed skull fracture. Paranasal sinuses and mastoid air cells: Mild scattered paranasal sinus disease. Visualized orbits: Previous right sided cataract lens extraction. IMPRESSION: 1. No acute intracranial process. 2. Moderate to severe generalized cerebral atrophy and chronic white matter ischemic changes. [facility], , 05/15/2025 5:51 PM
== END | disposition home or self-care (01) ==
LOC: RADCTMAIN 16:46
PROVIDERS: ATTEND Psychiatry & Neurology Neurology
DX: I67.82 Cerebral ischemia (principal); G31.9 Degenerative disease of nervous system, unspecified; F03.94 Unspecified dementia, unspecified severity, with anxiety
CPT/HCPCS: 70450